=== PATIENT | female | born 1955 | race Caucasian/White ===

== ENCOUNTER 2017-06-05 15:52 | Emergency (ER) | payer SELFPAY ==
[~2017-06-05] VITALS: Ht 165.1 cm; Wt 68.0 kg
[~2017-06-05 15:52] MED LIST: ACHD5005 PO; CEPH500T PO; CIPR500T78 PO; DOXY100C2 PO; GUAI120S36 PO; METR500T PO; NITR100C44 PO; PROM12.59 PO; TOLTA4 PO
--- OUTSIDE RECORDS SUMMARY | 2017-06-05 15:58 | XMS REPORT ---
Author Author ROB LOCKETT eClinicalWorks Address Unknown Phone Unavailable Care Team Providers Care Hospital Carrier Name Role Phone ROB LOCKETT Unavailable Allergies, Adverse Reactions, Alerts Substance Reaction Event Type N.K.D.A. Info Not Available Non Drug Allergy Problems Problem Type Condition Code Onset Dates Condition Status Assessment Urinary tract infection N39.0 Active Problem 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 Active Problem Diverticulitis of colon (without mention of hemorrhage) 562.11 Active Problem Unspecified urinary incontinence 788.30 Active Problem Family history of diabetes mellitus V18.0 Active Assessment Back pain M54.9 Active Problem Solitary pulmonary nodule 793.11 Active Problem Other and unspecified endocrine, nutritional, metabolic, and immunity disorders V77.99 Active Medications Medication Code System Code Instructions Start Date End Date Status Dosage Benefiber [facility] [address]-94 Orally not defined Cipro [facility] [address]-37 500 MG Orally Twice a day May 10, 2015 May 17, 2015 1 tablet Pyridium [facility] [address]-91 100 MG Orally Three times a day May 10, 2015 May 12, 2015 1 tablet after meals Procedures Procedure Coding System Code Date Office Visit, Est Pt., Level 3 CPT-4 21083 May 10, 2015 URINE CULTURE/COLONY COUNT CPT-4 99919 May 10, 2015 Vital Signs Date/Time: May 10, 2015 Temperature 97.2 F Weight 152.6 lbs Height 65 in BMI 25.39 Index Blood Pressure Diastolic 66 mmHg Blood Pressure Systolic 102 mmHg Cardiac Monitoring Heart Rate 72 bpm Results Name Result Date Reference Range Unit Abnormality Flag UA LONG DIP (IN HOUSE) ----BETH 1+ 20150510 ----NIT negative 20150510 ----Exp date 20150510 ----Lot # [id number] ----SG 1.025 20150510 ----KET negative 20150510 ----ROSE negative 20150510 ----GLU negative 20150510 ----Odor none 20150510 ----pH 6.0 20150510 ----BLO 2+ 20150510 ----URO 0.2 20150510 ----Protein negaive 20150510 ----Lot # [id number] ----Exp date 20150510 ----Clarity clear 20150510 ----Color yellow 20150510 Summary Purpose eClinicalWorks Submission
--- OUTSIDE RECORDS SUMMARY | 2017-06-05 15:58 | XMS REPORT ---
Author Author SUMEET ISBELL [facility] eClinicalWorks Address Unknown Phone Unavailable Care Team Providers Care Hospice Music Therapist Name Role Phone SUMEET ISBELL CP Unavailable Allergies, Adverse Reactions, Alerts Substance Reaction Event Type N.K.D.A. Info Not Available Non Drug Allergy Problems Problem Type Condition Code Onset Dates Condition Status Problem 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 Active Problem Diverticulitis of colon (without mention of hemorrhage) 562.11 Active Problem Unspecified urinary incontinence 788.30 Active Problem Family history of diabetes mellitus V18.0 Active Assessment Bony prominence M89.8X9 Active Problem Solitary pulmonary nodule 793.11 Active Problem Other and unspecified endocrine, nutritional, metabolic, and immunity disorders V77.99 Active Medications Medication Code System Code Instructions Start Date End Date Status Dosage Benefiber [facility] [address]-06 Orally not defined Detrol [facility] [address]-99 2 MG Orally Twice a day 1 tablet by Oral route 2 times per day Anti-Diarrheal [facility] [address]-73 not defined Procedures Procedure Coding System Code Date Office Visit, Est Pt., Level 3 CPT-4 42922 Feb 11, 2015 X-RAY EXAM OF FOOT CPT-4 47428 Feb 11, 2015 Vital Signs Date/Time: Feb 11, 2015 Temperature 97.8 F Weight 149.8 lbs Height 65 in BMI 24.93 Index Blood Pressure Diastolic 68 mmHg Blood Pressure Systolic 100 mmHg Cardiac Monitoring Heart Rate 70 bpm Results No Known Results Summary Purpose eClinicalWorks Submission
--- OUTSIDE RECORDS SUMMARY | 2017-06-05 15:58 | XMS REPORT | Clinical Summary ---
Author Author [facility] Organization [facility] Address Unknown Phone Unavailable Care Team Providers Care Beverage Sales Consultant Name Role Phone Beto Whitlock MD Unavailable Unavailable Ted Zaman PCP Rom Kim RN Unavailable Unavailable Source Comments Some departments are not documenting in the electronic medical record. If you do not see the information that you expected, contact Release of Information in the Health Information Management department at [phone] for further assistance in locating additional records.[facility] Allergies No Known Allergies Current Medications No known medications Active Problems Problem Noted Date Solitary pulmonary nodule 09/23/2014 Social History Tobacco Use Types Packs/Day Years Used Date Never Smoker Alcohol Use Drinks/Week oz/Week Comments No Sex Assigned at Date Recorded Not on file Last Filed Vital Signs Vital Sign Reading Time Taken Blood Pressure 109/67 10/24/2014 1:24 PM CDT Pulse 87 10/24/2014 1:27 PM CDT Temperature 36.5 C (97.7 F) 10/24/2014 11:42 AM CDT Respiratory Rate 16 09/23/2014 9:16 AM CDT Oxygen Saturation 100% 10/24/2014 1:27 PM CDT Inhaled Oxygen - - Concentration Weight 65.8 kg (145 lb) 10/24/2014 11:42 AM CDT Height 165.1 cm (5' 5") 10/24/2014 11:42 AM CDT Body Mass Index 24.13 10/24/2014 11:42 AM CDT Plan of Treatment Health Maintenance Due Date Last Done Comments HEPATITIS C SCREENING 1956 PHYSICAL (COMPREHENSIVE) 11/20/1963 EXAM PERTUSSIS VACCINE 11/20/1967 TETANUS VACCINE 1973 CERVICAL CANCER SCREENING 1986 BREAST CANCER SCREENING 1996 SHINGLES VACCINE 2016 INFLUENZA VACCINE 12/07/2016 COLORECTAL CANCER 10/24/2024 10/24/2014 SCREENING Results Not on filefrom Last 3 Months
--- OUTSIDE RECORDS SUMMARY | 2017-06-05 15:58 | XMS REPORT ---
Author Author SUMEET ISBELL [facility] eClinicalWorks Address Unknown Phone Unavailable Care Team Providers Care Hospital Admissions Officer Name Role Phone SUMEET ISBELL CP Unavailable Allergies No Known Allergies Problems Problem Type Condition Code Onset Dates Condition Status Assessment Acute cystitis with hematuria N30.01 Active Problem Other and unspecified endocrine, nutritional, metabolic, and immunity disorders V77.99 Active Problem Family history of diabetes mellitus V18.0 Active Problem Insect bite (nonvenomous) of left upper arm, initial encounter S40.862A Active Problem Family history of diabetes mellitus Z83.3 Active Problem Acute cystitis with hematuria N30.01 Active Problem Diverticulitis of colon (without mention of hemorrhage) 562.11 Active Problem Solitary pulmonary nodule 793.11 Active Problem Unspecified urinary incontinence 788.30 Active Problem 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 Active Medications No Known Medications Procedures Procedure Coding System Code Date URINE CULTURE/COLONY COUNT CPT-4 16440 Dec 30, 2015 Results No Known Results Summary Purpose eClinicalWorks Submission
--- OUTSIDE RECORDS SUMMARY | 2017-06-05 15:58 | XMS REPORT ---
Author Author SUMEET ISBELL [facility] eClinicalWorks Address Unknown Phone Unavailable Care Team Providers Care Software Development Project Manager Name Role Phone SUMEET ISBELL CP Unavailable Allergies No Known Allergies Problems Problem Type Condition Code Onset Dates Condition Status Assessment Abnormal fasting glucose R73.01 Active Problem History of solitary pulmonary nodule Z87.898 Active Problem Abnormal fasting glucose R73.01 Active Problem General medical exam Z00.00 Active Problem Screening breast examination Z12.39 Active Problem Routine gynecological examination Z01.419 Active Problem Recurrent UTI N39.0 Active Problem Hematuria R31.9 Active Problem Vaginal discharge N89.8 Active Problem Vaginal yeast infection B37.3 Active Medications Medication Code System Code Instructions Start Date End Date Status Dosage Cipro [facility] [address]-91 250 MG Orally 2 times a day Feb 25, 2016 Mar 06, 2016 1 tablet Results No Known Results Summary Purpose eClinicalWorks Submission
--- OUTSIDE RECORDS SUMMARY | 2017-06-05 15:58 | XMS REPORT ---
Author Author SUMEET ISBELL [facility] eClinicalWorks Address Unknown Phone Unavailable Care Team Providers Care Foreign Languages Professor Name Role Phone SUMEET ISBELL CP Unavailable Allergies No Known Allergies Problems Problem Type Condition Code Onset Dates Condition Status Problem 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 Active Problem Diverticulitis of colon (without mention of hemorrhage) 562.11 Active Problem Unspecified urinary incontinence 788.30 Active Problem Family history of diabetes mellitus V18.0 Active Problem Solitary pulmonary nodule 793.11 Active Problem Other and unspecified endocrine, nutritional, metabolic, and immunity disorders V77.99 Active Medications No Known Medications Results No Known Results Summary Purpose eClinicalWorks Submission
--- OUTSIDE RECORDS SUMMARY | 2017-06-05 15:58 | XMS REPORT ---
Author Author SUMEET ISBELL Organization [employer]ClinicalWorks Address Unknown Phone Unavailable Care Team Providers Care Net Applications Developer Name Role Phone SUMEET ISBELL CP Unavailable Allergies No Known Allergies Problems Problem Type Condition Code Onset Dates Condition Status Assessment Hematuria R31.9 Active Problem History of solitary pulmonary nodule Z87.898 Active Problem Abnormal fasting glucose R73.01 Active Assessment Pre-diabetes R73.03 Active Problem General medical exam Z00.00 Active Problem Screening breast examination Z12.39 Active Problem Routine gynecological examination Z01.419 Active Problem Recurrent UTI N39.0 Active Problem Hematuria R31.9 Active Problem Vaginal discharge N89.8 Active Problem Vaginal yeast infection B37.3 Active Medications Medication Code System Code Instructions Start Date End Date Status Dosage Glucocard Expression Test [facility] 8317-247382 - In Vitro 2 times a day weekly Mar 03, 2016 test blood sugar Glucocard Expression Monitor [facility] 8317-516571 w/Device Mar 03, 2016 as directed Procedures Procedure Coding System Code Date Office Visit, Est Pt., Level 4 CPT-4 65605 Mar 11, 2016 Vital Signs Date/Time: Mar 11, 2016 Cardiac Monitoring Heart Rate 70 bpm Weight 152.0 lbs Height 65 in BMI 25.29 Index Blood Pressure Diastolic 72 mmHg Blood Pressure Systolic 116 mmHg Results No Known Results Summary Purpose eClinicalWorks Submission
--- OUTSIDE RECORDS SUMMARY | 2017-06-05 15:58 | XMS REPORT ---
Author Author SUMEET ISBELL Organization eClinicalWorks Address Unknown Phone Unavailable Care Team Providers Care Painter Sign Maintenance Name Role Phone SUMEET ISBELL CP Unavailable Allergies No Known Allergies Problems Problem Type Condition Code Onset Dates Condition Status Problem History of solitary pulmonary nodule Z87.898 Active Problem Abnormal fasting glucose R73.01 Active Problem General medical exam Z00.00 Active Problem Screening breast examination Z12.39 Active Problem Routine gynecological examination Z01.419 Active Problem Recurrent UTI N39.0 Active Problem Hematuria R31.9 Active Problem Vaginal discharge N89.8 Active Problem Vaginal yeast infection B37.3 Active Medications No Known Medications Results No Known Results Summary Purpose eClinicalWorks Submission
--- OUTSIDE RECORDS SUMMARY | 2017-06-05 15:58 | XMS REPORT ---
Author Author SUMEET ISBELL [facility] eClinicalWorks Address Unknown Phone Unavailable Care Team Providers Care Finance Admin Name Role Phone SUMEET ISBELL CP Unavailable [...] infection B37.3 Active Medications No Known Medications Procedures Procedure Coding System Code Date GLYCATED HEMOGLOBIN TEST CPT-4 22019 Feb 26, 2016 Results No Known Results Summary Purpose eClinicalWorks Submission
--- OUTSIDE RECORDS SUMMARY | 2017-06-05 15:58 | XMS REPORT ---
Author Author SUMEET ISBELL Organization eClinicalWorks Address Unknown Phone Unavailable Care Team Providers Care Laborer Carpentry Dock Name Role Phone SUMEET ISBELL CP Unavailable [...] Instructions Start Date End Date Status Dosage Diflucan [facility] [address]-86 100 MG Orally Once a day Mar 31, 2016 Apr 05, 2016 1 tablet Results No Known Results Summary Purpose eClinicalWorks Submission
--- OUTSIDE RECORDS SUMMARY | 2017-06-05 15:59 | XMS REPORT ---
Author Author SUMEET ISBELL [facility] Address [address] [place] [address] Care Team Providers Care Quill Reamer Name Role Phone SUMEET ISBELL Unavailable PROBLEMS Type Condition ICD9-CM Code [id number] Code Onset Dates Condition Status SNOMED Code Problem Recurrent UTI N39.0 Active 765186554 Problem Hematuria R31.9 Active 64167425 Problem History of solitary pulmonary nodule Z87.898 Active 622382961 Problem Abnormal fasting glucose R73.01 Active 814993442 ALLERGIES Unknown Allergies SOCIAL HISTORY No smoking Hx information available PLAN OF CARE VITAL SIGNS MEDICATIONS Unknown Medications RESULTS No Results PROCEDURES No Known procedures IMMUNIZATIONS No Known Immunizations
--- OUTSIDE RECORDS SUMMARY | 2017-06-05 15:59 | XMS REPORT ---
Author Author SUMEET ISBELL [facility] eClinicalWorks Address Unknown Phone Unavailable Care Team Providers Care Electrolog Operator Name Role Phone SUMEET ISBELL CP Unavailable Allergies, Adverse Reactions, Alerts Substance Reaction Event Type N.K.D.A. Info Not Available Non Drug Allergy Problems Problem Type Condition Code Onset Dates Condition Status Assessment Acute cystitis with hematuria N30.01 Active Problem Other and unspecified endocrine, nutritional, metabolic, and immunity disorders V77.99 Active Problem Family history of diabetes mellitus V18.0 Active Assessment Insect bite (nonvenomous) of left upper arm, initial encounter S40.862A Active Problem Insect bite (nonvenomous) of left upper arm, initial encounter S40.862A Active Problem Family history of diabetes mellitus Z83.3 Active Problem Acute cystitis with hematuria N30.01 Active Problem Diverticulitis of colon (without mention of hemorrhage) 562.11 Active Problem Solitary pulmonary nodule 793.11 Active Problem Unspecified urinary incontinence 788.30 Active Problem 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 Active Medications Medication Code System Code Instructions Start Date End Date Status Dosage Cipro [facility] [address]-49 250 MG Orally every 12 hrs November 20, 2015 November 30, 2015 1 tablet Procedures Procedure Coding System Code Date URINE CULTURE/COLONY COUNT CPT-4 25373 November 20, 2015 Office Visit, Est Pt., Level 3 CPT-4 35286 November 20, 2015 URINALYSIS, AUTO, W/O SCOPE CPT-4 68006 November 20, 2015 Vital Signs Date/Time: November 20, 2015 Cardiac Monitoring Heart Rate 68 bpm Weight 150.0 lbs Height 65 in Blood Pressure Diastolic 72 mmHg Blood Pressure Systolic 102 mmHg Results No Known Results Summary Purpose eClinicalWorks Submission
--- OUTSIDE RECORDS SUMMARY | 2017-06-05 15:59 | XMS REPORT ---
Author Author SUMEET ISBELL [facility] Address [address] [place] [address] Care Team Providers Care Mobile Heavy Equipment Operator Name Role Phone SUMEET ISBELL Unavailable PROBLEMS Type Condition ICD9-CM Code [id number] Code Onset Dates Condition Status SNOMED Code Problem Hematuria R31.9 Active 45456400 Problem Neuropathy G62.9 Active 045120952 Problem Porokeratosis Q82.8 Active 769262126 Problem Screening breast examination Z12.39 Active 679200979 Problem History of solitary pulmonary nodule Z87.898 Active 431187957 Problem Plantar wart, right foot B07.0 Active 08453561 Problem General medical exam Z00.00 Active 476752709 ALLERGIES No Information SOCIAL HISTORY Never Assessed PLAN OF CARE VITAL SIGNS MEDICATIONS Unknown Medications RESULTS No Results PROCEDURES No Known procedures IMMUNIZATIONS No Known Immunizations MEDICAL (GENERAL) HISTORY Type Description Date Medical History hearing loss Medical History Encopresis seen [facility] with Colonosocopy 2014 and was told normal Medical History solitary pulmonary nodule LLL 4-15 stable rec yearly recheck Medical History diverticulitis Medical History Encopresis Medical History Diverticulitis of colon (without mention of hemorrhage) Colonoscopy [facility] 2013 Medical History Solitary pulmonary nodule Surgical History tubal ligation Surgical History Colonoscopy [facility] 2015-10
--- OUTSIDE RECORDS SUMMARY | 2017-06-05 15:59 | XMS REPORT ---
Author Author CARLOZ LAGOS [facility] Address [address] [place] [address] Care Team Providers Care Meat Cutter Apprentice Name Role Phone CARLOZ LAGOS Unavailable PROBLEMS Type Condition ICD9-CM Code [id number] Code Onset Dates Condition Status SNOMED Code Problem Porokeratosis Q82.8 Active 767928023 Problem Plantar wart, right foot B07.0 Active 67976636 Problem Hematuria R31.9 Active 54110420 Problem History of solitary pulmonary nodule Z87.898 Active 919448058 Problem General medical exam Z00.00 Active 273591831 Problem Screening breast examination Z12.39 Active 833008411 ALLERGIES Unknown Allergies SOCIAL HISTORY No smoking Hx information available PLAN OF CARE VITAL SIGNS MEDICATIONS Unknown Medications RESULTS No Results PROCEDURES No Known procedures IMMUNIZATIONS No Known Immunizations
--- OUTSIDE RECORDS SUMMARY | 2017-06-05 15:59 | XMS REPORT ---
Author Author SUMEET ISBELL [facility] Address [address] [place] [address] Care Team Providers Care College Scouting Coordinator Name Role Phone SUMEET ISBELL Unavailable PROBLEMS Type Condition ICD9-CM Code [id number] Code Onset Dates Condition Status SNOMED Code Problem Abnormal fasting glucose R73.01 Active 305912403 Problem Hematuria R31.9 Active 25066105 Problem History of solitary pulmonary nodule Z87.898 Active 201787801 Problem Routine gynecological examination Z01.419 Active 285444488 Problem General medical exam Z00.00 Active 141181111 Problem Vaginal yeast infection B37.3 Active 60822375 Problem Recurrent UTI N39.0 Active 110593213 Problem Screening breast examination Z12.39 Active 189596191 Problem Vaginal discharge N89.8 Active 331545466 ALLERGIES Unknown Allergies SOCIAL HISTORY No smoking Hx information available PLAN OF CARE VITAL SIGNS MEDICATIONS Unknown Medications RESULTS No Results PROCEDURES No Known procedures IMMUNIZATIONS No Known Immunizations
--- OUTSIDE RECORDS SUMMARY | 2017-06-05 15:59 | XMS REPORT ---
Author Author SUMEET ISBELL Organization eClinicalWorks Address Unknown Phone Unavailable Care Team Providers Care Air Filler Name Role Phone SUMEET ISBELL CP Unavailable Allergies No Known Allergies Problems Problem Type Condition Code Onset Dates Condition Status Problem Other and unspecified endocrine, nutritional, metabolic, [...] Instructions Start Date End Date Status Dosage Bactrim DS [facility] [address]-52 800-160 MG Orally Twice a day Jan 06, 2016 Jan 13, 2016 1 tablet Results No Known Results Summary Purpose eClinicalWorks Submission
--- OUTSIDE RECORDS SUMMARY | 2017-06-05 15:59 | XMS REPORT ---
Author Author CALISTA WOOD Organization [facility] Address [address] [place] [address] Care Team Providers Care Machine I Engraver Name Role Phone ISRAEL CALISTA Unavailable PROBLEMS Type Condition ICD9-CM Code ZPV60-NE Code Onset Dates Condition Status SNOMED Code Problem Hematuria R31.9 Active 34011850 Problem Neuropathy G62.9 Active 328823490 Problem Porokeratosis Q82.8 Active 565165997 Problem Screening breast examination Z12.39 Active 881384896 Problem History of solitary pulmonary nodule Z87.898 Active 039892968 Problem Plantar wart, right foot B07.0 Active 40680894 Problem General medical exam Z00.00 Active 292964189 ALLERGIES No Information SOCIAL HISTORY Never Assessed PLAN OF CARE Activity Details Follow Up 6 Weeks Reason: VITAL SIGNS Height 65 in 2016-06-18 Blood pressure systolic 116 mmHg 2016-06-18 Blood pressure diastolic 82 mmHg 2016-06-18 MEDICATIONS Unknown Medications RESULTS No Results PROCEDURES No Known procedures IMMUNIZATIONS No Known Immunizations MEDICAL (GENERAL) HISTORY Type Description Date Medical History hearing loss Medical History Encopresis seen [facility] with Colonosocopy 2014 and was told normal Medical History solitary pulmonary nodule LLL 4-15-15 stable rec yearly recheck Medical History diverticulitis Medical History Encopresis Medical History Diverticulitis of colon (without mention of hemorrhage) Colonoscopy [facility] 2013 Medical History Solitary pulmonary nodule Surgical History tubal ligation Surgical History Colonoscopy [facility] 2015-10
--- OUTSIDE RECORDS SUMMARY | 2017-06-05 15:59 | XMS REPORT ---
Author Author SUMEET ISBELL Organization eClinicalWorks Address Unknown Phone Unavailable Care Team Providers Care Date Pitter Name Role Phone SUMEET ISBELL CP Unavailable [...] End Date Status Dosage Glucocard Expression Test [facility] 8317-213925 - In Vitro 2 times a day weekly Mar 03, 2016 test blood sugar Glucocard Expression Monitor [facility] 8317-493801 w/Device Mar 03, 2016 as directed Results No Known Results Summary Purpose eClinicalWorks Submission
--- OUTSIDE RECORDS SUMMARY | 2017-06-05 15:59 | XMS REPORT ---
Author Author SUMEET ISBELL [facility] Address [address] [place] [address] Care Team Providers Care Carbon Paper Interleafer Name Role Phone SUMEET ISBELL Unavailable PROBLEMS Type Condition ICD9-CM Code ULM44-ZZ Code Onset Dates Condition Status SNOMED Code Problem Recurrent UTI N39.0 Active 308674988 Problem Hematuria R31.9 Active 05963704 Assessment Recurrent UTI N39.0 Jan, Active 369970984 Problem History of solitary pulmonary nodule Z87.898 Active 063202352 Problem Abnormal fasting glucose R73.01 Active 392146005 ALLERGIES Substance Reaction Event Type Date Status N.K.D.A. Unknown Non Drug Allergy Jan, Unknown SOCIAL HISTORY No smoking Hx information available PLAN OF CARE VITAL SIGNS Height 65 in 2016-01-20 Weight 154.9 lbs 2016-01-20 Heart Rate 72 bpm 2016-01-20 Respiratory Rate 20 2016-01-20 BMI 25.77 kg/m2 2016-01-20 Blood pressure systolic 110 mmHg 2016-01-20 Blood pressure diastolic 68 mmHg 2016-01-20 MEDICATIONS Medication Instructions Dosage Frequency Start Date End Date Duration Status Bactrim DS 800-160 MG Orally Twice a day 1 tablet 12h Jan,Jan 07 days Active RESULTS Name Result Date Reference Range UA LONG DIP (IN HOUSE) 2016-01-20 Lot # [id number] Exp date 09/2016 Clarity slightly cloudy Color YELLOW Odor NO GLU neg ROSE neg KET neg SG 1.020 BLO 2+ pH 7.0 Protein neg URO 0.2 NIT neg BETH 1+ Lot # Exp date CULTURE, URINE 2016-01-20 Urine Culture, Routine Final report Result [address] Scan : Chest w/o Contrast 2016-01-26 PROCEDURES Procedure Date Ordered Related Diagnosis Body Site URINALYSIS, AUTO, W/O SCOPE Jan 20, 2016 URINE CULTURE/COLONY COUNT Jan 20, 2016 Office Visit, Est Pt., Level 4 Jan 20, 2016 IMMUNIZATIONS No Known Immunizations
--- OUTSIDE RECORDS SUMMARY | 2017-06-05 15:59 | XMS REPORT ---
Author Author SUMEET ISBELL [facility] Address [address] [place] [address] Care Team Providers Care Environmental Property Assessor Name Role Phone SUMEET ISBELL Unavailable PROBLEMS Type Condition ICD9-CM Code [id number] Code Onset Dates Condition Status SNOMED Code Problem Porokeratosis Q82.8 Active 004924845 Problem Plantar wart, right foot B07.0 Active 34645717 Problem Hematuria R31.9 Active 94228222 Problem History of solitary pulmonary nodule Z87.898 Active 152834529 Problem General medical exam Z00.00 Active 691771878 Problem Screening breast examination Z12.39 Active 573910701 ALLERGIES Substance Reaction Event Type Date Status N.K.D.A. Unknown Non Drug Allergy Apr, Unknown SOCIAL HISTORY No smoking Hx information available PLAN OF CARE Activity Details Follow Up Afer May 28 Reason:Pre-diabetes VITAL SIGNS Height 65 in 2016-04-27 Weight 153.7 lbs 2016-04-27 Temperature 98.6 degrees Fahrenheit 2016-04-27 Heart Rate 72 bpm 2016-04-27 Respiratory Rate 16 2016-04-27 BMI 25.57 kg/m2 2016-04-27 Blood pressure systolic 112 mmHg 2016-04-27 Blood pressure diastolic 76 mmHg 2016-04-27 MEDICATIONS Medication Instructions Dosage Frequency Start Date End Date Duration Status Glucocard Expression Monitor w/Device as directed Feb, Active Glucocard Expression Test - In Vitro 2 times a day weekly test blood sugar Feb, Active RESULTS No Results PROCEDURES Procedure Date Ordered Related Diagnosis Body Site Office Visit, Est Pt., Level 3 Apr 27, 2016 IMMUNIZATIONS No Known Immunizations
--- OUTSIDE RECORDS SUMMARY | 2017-06-05 15:59 | XMS REPORT ---
Author Author SUMEET ISBELL [facility] Address [address] [place] [address] Care Team Providers Care Biostatistics Professor Name Role Phone SUMEET ISBELL Unavailable PROBLEMS Type Condition ICD9-CM Code [id number] Code Onset Dates Condition Status SNOMED Code Problem Recurrent UTI N39.0 Active 775820302 Problem History of solitary pulmonary nodule Z87.898 Active 910001708 Problem Abnormal fasting glucose R73.01 Active 085009443 Assessment Recurrent UTI N39.0 Jan, Active 265229900 ALLERGIES Substance Reaction Event Type Date Status N.K.D.A. Unknown Non Drug Allergy Jan, Unknown SOCIAL HISTORY No smoking Hx information available PLAN OF CARE VITAL SIGNS Height 65 in 2016-01-27 Weight 153.0 lbs 2016-01-27 Heart Rate 68 bpm 2016-01-27 Respiratory Rate 16 2016-01-27 BMI 25.46 kg/m2 2016-01-27 Blood pressure systolic 92 mmHg 2016-01-27 Blood pressure diastolic 60 mmHg 2016-01-27 MEDICATIONS Medication Instructions Dosage Frequency Start Date End Date Duration Status Bactrim DS 800-160 MG Orally Twice a day 1 tablet 12h 07 days Active RESULTS No Results PROCEDURES Procedure Date Ordered Related Diagnosis Body Site Office Visit, Est Pt., Level 3 Jan 27, 2016 IMMUNIZATIONS No Known Immunizations
--- OUTSIDE RECORDS SUMMARY | 2017-06-05 15:59 | XMS REPORT ---
Author Author SUMEET ISBELL [facility] eClinicalWorks Address Unknown Phone Unavailable Care Team Providers Care Mental Health Program Specialist Name Role Phone SUMEET ISBELL CP Unavailable [...] Medications Procedures Procedure Coding System Code Date URINALYSIS, AUTO, W/O SCOPE CPT-4 81540 Dec 18, 2015 Results No Known Results Summary Purpose eClinicalWorks Submission
--- OUTSIDE RECORDS SUMMARY | 2017-06-05 15:59 | XMS REPORT ---
Author Author SUMEET ISBELL [facility] eClinicalWorks Address Unknown Phone Unavailable Care Team Providers Care Ophthalmology Technician Name Role Phone SUMEET ISBELL Unavailable Allergies, Adverse Reactions, Alerts Substance Reaction Event Type N.K.D.A. Info Not Available Non Drug Allergy Problems Problem Type Condition Code Onset Dates Condition Status Assessment Routine gynecological examination Z01.419 Active Problem History of solitary pulmonary nodule Z87.898 Active Problem Abnormal fasting glucose R73.01 Active Problem General medical exam Z00.00 Active Problem Screening breast examination Z12.39 Active Problem Routine gynecological examination Z01.419 Active Problem Recurrent UTI N39.0 Active Problem Hematuria R31.9 Active Problem Vaginal discharge N89.8 Active Problem Vaginal yeast infection B37.3 Active Assessment Vaginal discharge N89.8 Active Assessment Hematuria R31.9 Active Assessment Recurrent UTI N39.0 Active Assessment Screening breast examination Z12.39 Active Assessment Vaginal yeast infection B37.3 Active Assessment General medical exam Z00.00 Active Medications Medication Code System Code Instructions Start Date End Date Status Dosage Diflucan [facility] [address]-99 100 MG Orally daily Feb 19, 2016 Feb 29, 2016 1 tablet Procedures Procedure Coding System Code Date VENIPUNCT, ROUTINE* CPT-4 84065 Feb 19, 2016 SPECIMEN HANDLING CPT-4 16560 Feb 19, 2016 CULTURE, BACTERIA, OTHER CPT-4 16788 Feb 19, 2016 URINALYSIS, AUTO, W/O SCOPE CPT-4 77552 Feb 19, 2016 LIPID PANEL CPT-4 08264 Feb 19, 2016 COMPREHEN METABOLIC PANEL CPT-4 54684 Feb 19, 2016 Preventive Care Est Pt. Age 40-64 CPT-4 48271 Feb 19, 2016 TRICHOMONAS ASSAY W/OPTIC CPT-4 29331 Feb 19, 2016 OLMOS VAG, DNA, DIR PROBE CPT-4 40166 Feb 19, 2016 Office Visit, Est Pt., Level 4 CPT-4 22604 Feb 19, 2016 URINE CULTURE/COLONY COUNT CPT-4 06768 Feb 19, 2016 Vital Signs Date/Time: Feb 19, 2016 Cardiac Monitoring Heart Rate 76 bpm Weight 153.5 lbs Height 65 in BMI 25.54 Index Blood Pressure Diastolic 74 mmHg Blood Pressure Systolic 100 mmHg Results Name Result Date Reference Range Unit Abnormality Flag BACTERIAL VAGINOSIS (IN HOUSE) ----Lot # [id number] ----Exp date 20160219 ----RESULTS Negative 20160219 ----Control + [id number] ROUTINE VENIPUNCTURE TRICHOMONAS (IN HOUSE) ----TRICHOMONAS Negative 20160219 ----Control + 20160219 ----Lot # [id number] ----Exp date 20160219 UA W/CULTURE IF INDICATED (IN HOUSE) ----ROSE negative 20160219 ----GLU negative 20160219 ----SG 1.025 20160219 ----KET trace 20160219 ----pH 5.0 20160219 ----Protein negative 20160219 ----BLO 2+ 20160219 ----BETH 1+ 20160219 ----Color dark yellow 20160219 ----Odor yes 20160219 ----Exp date 20160219 ----URO 0.2 74183935 ----NIT negative 20160219 ----Clarity slighlty cloudy 20160219 ----Lot # [id number] Mammogram, Bilateral Screening LIPID PANEL ----LDL Cholesterol Calc 100 05579686 0-99 mg/dL H ----VLDL Cholesterol Maynor 15 30785607 5-40 mg/dL ----HDL Cholesterol 72 97782654 >39 mg/dL ----Triglycerides 74 03252442 0-149 mg/dL ----Cholesterol, Total 187 69004110 100-199 mg/dL CMP ----Glucose, Serum 114 83975324 65-99 mg/dL H ----BUN 17 28221418 6-24 mg/dL ----Creatinine, Serum 0.82 28754396 0.57-1.00 mg/dL ----Potassium, Serum 4.2 42989492 3.5-5.2 mmol/L ----Chloride, Serum 104 77871447 97-108 mmol/L ----ALT (SGPT) 19 47397073 0-32 IU/L ----AST (SGOT) 21 47256779 0-40 IU/L ----eGFR If NonAfricn Am 79 92862682 >59 mL/min/1.73 ----Alkaline Phosphatase, S 105 27048245 39-117 IU/L ----eGFR If Africn Am 91 37723279 >59 mL/min/1.73 ----Bilirubin, Total 0.4 93172506 0.0-1.2 mg/dL ----BUN/Creatinine Ratio 21 20160219 9-23 ----A/G Ratio 1.5 12900255 1.1-2.5 ----Sodium, Serum 144 92659304 134-144 mmol/L ----Carbon Dioxide, Total 23 20160219 18-29 mmol/L ----Calcium, Serum 9.0 51057251 8.7-10.2 mg/dL ----Protein, Total, Serum 7.4 02414804 6.0-8.5 g/dL ----Albumin, Serum 4.4 89251777 3.5-5.5 g/dL ----Globulin, Total 3.0 68435834 1.5-4.5 g/dL CULTURE, GENITAL ----Genital Culture, Routine Final report [id number] CT Scan : Abd & Pelvis w/o contrast (STONE PROTOCOL) CULTURE, URINE ----Result 1 Klebsiella pneumoniae 20160219 A ----Urine Culture, Routine Final report [id number] A Summary Purpose eClinicalWorks Submission
--- OUTSIDE RECORDS SUMMARY | 2017-06-05 16:00 | XMS REPORT | Continuity of Care Document ---
Author Author [facility] Ctr of [facility] Ctr of [facility] [place] Address Unknown Phone Unavailable Allergies Active Description Code Type Severity Reaction Onset Reported/Identified Relationship to Patient Clinical Status Yes tramadol [id number] Drug Allergy Unknown N/A 02/28/2014 Medications There is no data. Problems Date Dx Coded Attending Type Code Diagnosis Diagnosed By 07/21/2010 079.99 VIRAL SYNDROME 07/21/2010 079.99 VIRAL SYNDROME 07/21/2010 079.99 VIRAL SYNDROME 07/21/2010 079.99 VIRAL SYNDROME 07/21/2010 CARLOZ LAGOS DO 079.99 VIRAL SYNDROME 07/21/2010 CARLOZ LAGOS DO 079.99 VIRAL SYNDROME 07/21/2010 DONNA BARBER APRN 079.99 VIRAL SYNDROME 07/21/2010 LAGOS CARLOZ ARTEAGA K 079.99 VIRAL SYNDROME 07/21/2010 LAGOS CARLOZ ARTEAGA K 079.99 VIRAL SYNDROME 07/21/2010 LAGOS HERNANDEZ ARTEAGAA K 079.99 VIRAL SYNDROME 07/21/2010 FANNY ZARAGOZA PA-C 079.99 VIRAL SYNDROME 07/21/2010 LAGOS HERNANDEZ ARTEAGAA K 079.99 VIRAL SYNDROME 12/31/2010 682.5 CELLULITIS AND ABSCESS OF BUTTOCK 12/31/2010 786.2 COUGH 12/31/2010 682.5 CELLULITIS AND ABSCESS OF BUTTOCK 12/31/2010 786.2 COUGH 12/31/2010 682.5 CELLULITIS AND ABSCESS OF BUTTOCK 12/31/2010 786.2 COUGH 12/31/2010 682.5 CELLULITIS AND ABSCESS OF BUTTOCK 12/31/2010 786.2 COUGH 12/31/2010 CARLOZ LAGOS DO 682.5 CELLULITIS AND ABSCESS OF BUTTOCK 12/31/2010 CARLOZ LAGOS DO 786.2 COUGH 12/31/2010 CARLOZ LAGOS DO 682.5 CELLULITIS AND ABSCESS OF BUTTOCK 12/31/2010 LAGOS DO, CARLOZ K 786.2 COUGH 12/31/2010 KAYLEE BARBER APRNIA R 682.5 CELLULITIS AND ABSCESS OF BUTTOCK 12/31/2010 KAYLEE BARBER APRNIA R 786.2 COUGH 12/31/2010 LAGOS DO, CARLOZ K 682.5 CELLULITIS AND ABSCESS OF BUTTOCK 12/31/2010 LAGOS DO, CARLOZ K 786.2 COUGH 12/31/2010 LAGOS DO, CARLOZ K 682.5 CELLULITIS AND ABSCESS OF BUTTOCK 12/31/2010 LAGOS DO, CARLOZ K 786.2 COUGH 12/31/2010 LAGOS DO, CARLOZ K 682.5 CELLULITIS AND ABSCESS OF BUTTOCK 12/31/2010 LAGOS DO, CARLOZ K 786.2 COUGH 12/31/2010 FANNY ZARAGOZA PA-C 682.5 CELLULITIS AND ABSCESS OF BUTTOCK 12/31/2010 FANNY ZARAGOZA PA-C 786.2 COUGH 12/31/2010 LAGOS DO, CARLOZ K 682.5 CELLULITIS AND ABSCESS OF BUTTOCK 12/31/2010 LAGOS DO, CARLOZ K 786.2 COUGH 01/02/2011 041.12 MRSA, METHICILLIN RESISTANT 01/02/2011 041.12 MRSA, METHICILLIN RESISTANT 01/02/2011 041.12 MRSA, METHICILLIN RESISTANT 01/02/2011 041.12 MRSA, METHICILLIN RESISTANT 01/02/2011 LAGOS DO, CARLOZ K 041.12 MRSA, METHICILLIN RESISTANT 01/02/2011 LAGOS DO, CARLOZ K 041.12 MRSA, METHICILLIN RESISTANT 01/02/2011 DONNA BARBER APRN R 041.12 MRSA, METHICILLIN RESISTANT 01/02/2011 LAGOS DO, CARLOZ K 041.12 MRSA, METHICILLIN RESISTANT 01/02/2011 LAGOS DO, CARLOZ K 041.12 MRSA, METHICILLIN RESISTANT 01/02/2011 LAGOS DO, CARLOZ K 041.12 MRSA, METHICILLIN RESISTANT 01/02/2011 FANNY ZARAGOZA PA-C 041.12 MRSA, METHICILLIN RESISTANT 01/02/2011 LAGOS DO, CARLOZ K 041.12 MRSA, METHICILLIN RESISTANT 02/23/2011 522.5 PERIAPICAL ABSCESS WITHOUT SINUS 02/23/2011 522.5 PERIAPICAL ABSCESS WITHOUT SINUS 02/23/2011 522.5 PERIAPICAL ABSCESS WITHOUT SINUS 02/23/2011 522.5 PERIAPICAL ABSCESS WITHOUT SINUS 02/23/2011 LAGOS DO, CARLOZ K 522.5 PERIAPICAL ABSCESS WITHOUT SINUS 02/23/2011 LAGOS DO, CARLOZ K 522.5 PERIAPICAL ABSCESS WITHOUT SINUS 02/23/2011 DONNA BARBER APRN 522.5 PERIAPICAL ABSCESS WITHOUT SINUS 02/23/2011 LAGOS DO, CARLOZ K 522.5 PERIAPICAL ABSCESS WITHOUT SINUS 02/23/2011 LAGOS DO, CARLOZ K 522.5 PERIAPICAL ABSCESS WITHOUT SINUS 02/23/2011 LAGOS DO, ACRLOZ K 522.5 PERIAPICAL ABSCESS WITHOUT SINUS 02/23/2011 FANNY ZARAGOZA PA-C 522.5 PERIAPICAL ABSCESS WITHOUT SINUS 02/23/2011 LAGOS DO, CARLOZ K 522.5 PERIAPICAL ABSCESS WITHOUT SINUS 04/05/2011 461.9 SINUSITIS ACUTE 04/05/2011 461.9 SINUSITIS ACUTE 04/05/2011 461.9 SINUSITIS ACUTE 04/05/2011 461.9 SINUSITIS ACUTE 04/05/2011 LAGOS DO, CARLOZ K 461.9 SINUSITIS ACUTE 04/05/2011 LAGOS DO, CARLOZ K 461.9 SINUSITIS ACUTE 04/05/2011 DONNA BARBER APRN 461.9 SINUSITIS ACUTE 04/05/2011 LAGOS DO, CARLOZ K 461.9 SINUSITIS ACUTE 04/05/2011 LAGOS DO, CARLOZ K 461.9 SINUSITIS ACUTE 04/05/2011 LAGOS DO, CARLOZ K 461.9 SINUSITIS ACUTE 04/05/2011 FANNY ZARAGOZA PA-C 461.9 SINUSITIS ACUTE 04/05/2011 LAGOS DO, CARLOZ K 461.9 SINUSITIS ACUTE 05/30/2011 Ot 466.0 ACUTE BRONCHITIS 05/30/2011 Ot 786.2 COUGH 12/02/2011 924.9 BRUISE/ CONTUSION UNSPECIFIED SITE 12/02/2011 924.9 BRUISE/ CONTUSION UNSPECIFIED SITE 12/02/2011 924.9 BRUISE/ CONTUSION UNSPECIFIED SITE 12/02/2011 924.9 BRUISE/ CONTUSION UNSPECIFIED SITE 12/02/2011 LAGOS DO CARLOZ K 924.9 BRUISE/CONTUSION UNSPECIFIED SITE 12/02/2011 LAGOS DO CARLOZ K 924.9 BRUISE/CONTUSION UNSPECIFIED SITE 12/02/2011 BARBER VOCATIONAL TRAINING INSTRUCTOR, DONNA R 924.9 BRUISE/CONTUSION UNSPECIFIED SITE 12/02/2011 LAGOS DO, CARLOZ K 924.9 BRUISE/CONTUSION UNSPECIFIED SITE 12/02/2011 LAGOS DO, CARLOZ K 924.9 BRUISE/CONTUSION UNSPECIFIED SITE 12/02/2011 LAGOS DO, CARLOZ K 924.9 BRUISE/CONTUSION UNSPECIFIED SITE 12/02/2011 FANNY ZARAGOZA PA-C 924.9 BRUISE/CONTUSION UNSPECIFIED SITE 12/02/2011 LAGOS DO, CARLOZ K 924.9 BRUISE/CONTUSION UNSPECIFIED SITE 10/10/2012 465.9 UPPER RESPIRATORY INFECTION 10/10/2012 465.9 UPPER RESPIRATORY INFECTION 10/10/2012 465.9 UPPER RESPIRATORY INFECTION 10/10/2012 465.9 UPPER RESPIRATORY INFECTION 10/10/2012 LAGOS DO, CARLOZ K 465.9 UPPER RESPIRATORY INFECTION 10/10/2012 LAGOS DO, CARLOZ K 465.9 UPPER RESPIRATORY INFECTION 10/10/2012 DONNA BARBER APRN R 465.9 UPPER RESPIRATORY INFECTION 10/10/2012 LAGOS DO, CARLOZ K 465.9 UPPER RESPIRATORY INFECTION 10/10/2012 LAGOS DO, CARLOZ K 465.9 UPPER RESPIRATORY INFECTION 10/10/2012 LAGOS DO, CARLOZ K 465.9 UPPER RESPIRATORY INFECTION 10/10/2012 FANNY ZARAGOZA PA-C 465.9 UPPER RESPIRATORY INFECTION 10/10/2012 LAGOS DO, CARLOZ K 465.9 UPPER RESPIRATORY INFECTION 12/11/2012 307.7 ENCOPRESIS 12/11/2012 788.30 URINARY INCONTINENCE UNSPECIFIED 12/11/2012 307.7 ENCOPRESIS 12/11/2012 788.30 URINARY INCONTINENCE UNSPECIFIED 12/11/2012 307.7 ENCOPRESIS 12/11/2012 788.30 URINARY INCONTINENCE UNSPECIFIED 12/11/2012 LAGOS DO, CARLOZ K 307.7 ENCOPRESIS 12/11/2012 LAGOS DO, CARLOZ K 788.30 URINARY INCONTINENCE UNSPECIFIED 12/11/2012 LAGOS DO, CARLOZ K 307.7 ENCOPRESIS 12/11/2012 LAGOS DO, CARLOZ K 788.30 URINARY INCONTINENCE UNSPECIFIED 12/11/2012 DONNA BARBER APRN R 307.7 ENCOPRESIS 12/11/2012 DONNA BARBER APRN R 788.30 URINARY INCONTINENCE UNSPECIFIED 12/11/2012 LAGOS DO, CARLOZ K 307.7 ENCOPRESIS 12/11/2012 LAGOS DO, CARLOZ K 788.30 URINARY INCONTINENCE UNSPECIFIED 12/11/2012 LAGOS DO, CARLOZ K 307.7 ENCOPRESIS 12/11/2012 LAGOS DO, CARLOZ K 788.30 URINARY INCONTINENCE UNSPECIFIED 12/11/2012 LAGOS DO, CARLOZ K 307.7 ENCOPRESIS 12/11/2012 LAGOS DO, CARLOZ K 788.30 URINARY INCONTINENCE UNSPECIFIED 12/11/2012 FANNY ZARAGOZA PA-C 307.7 ENCOPRESIS 12/11/2012 FANNY ZARAGOZA PA-C 788.30 URINARY INCONTINENCE UNSPECIFIED 12/11/2012 LAGOS DO, CARLOZ K 307.7 ENCOPRESIS 12/11/2012 LAGOS DO, CARLOZ K 788.30 URINARY INCONTINENCE UNSPECIFIED 01/11/2013 787.91 DIARRHEA 01/11/2013 787.91 DIARRHEA 01/11/2013 LAGOS DO, CARLOZ K 787.91 DIARRHEA 01/11/2013 LAGOS DO, CARLOZ K 787.91 DIARRHEA 01/11/2013 RADHA BARBER APRNRICIA R 787.91 DIARRHEA 01/11/2013 LAGOS DO, CARLOZ K 787.91 DIARRHEA 01/11/2013 LAGOS DO, CARLOZ K 787.91 DIARRHEA 01/11/2013 LAGOS DO, CARLOZ K 787.91 DIARRHEA 01/11/2013 FANNY ZARAGOZA PA-C 787.91 DIARRHEA 01/11/2013 LAGOS DO, CARLOZ K 787.91 DIARRHEA 05/14/2013 LAGOS DO, CARLOZ K 388.70 OTALGIA 05/14/2013 LAGOS DO, CARLOZ K 528.9 MOUTH PAIN 05/14/2013 ELISABETH VOCATIONAL TRAINING INSTRUCTOR, DONNA R 388.70 OTALGIA 05/14/2013 ELISABETH VOCATIONAL TRAINING INSTRUCTOR, DONNA R 528.9 MOUTH PAIN 05/14/2013 LAGOS DO, CARLOZ K 388.70 OTALGIA 05/14/2013 LAGOS DO, CARLOZ K 528.9 MOUTH PAIN 05/14/2013 LAGOS DO, CARLOZ K 388.70 OTALGIA 05/14/2013 LAGOS DO, CARLOZ K 528.9 MOUTH PAIN 05/14/2013 LAGOS DO, CARLOZ K 388.70 OTALGIA 05/14/2013 LAGOS DO, CARLOZ K 528.9 MOUTH PAIN 05/14/2013 MILA SIGALA, FANNY Botello 388.70 OTALGIA 05/14/2013 MILA SIGALA, FANNY Botello 528.9 MOUTH PAIN 05/14/2013 LAGOS DO, CARLOZ K 388.70 OTALGIA 05/14/2013 LAGOS DO, CARLOZ K 528.9 MOUTH PAIN 07/11/2013 BARBER VOCATIONAL TRAINING INSTRUCTOR, DONNA R 599.0 URINARY TRACT INFECTION 07/11/2013 LAGOS DO, CARLOZ K 599.0 URINARY TRACT INFECTION 07/11/2013 LAGOS DO, CARLOZ K 599.0 URINARY TRACT INFECTION 07/11/2013 LAGOS DO, CARLOZ K 599.0 URINARY TRACT INFECTION 07/11/2013 FANNY ZARAGOZA PA-C 599.0 URINARY TRACT INFECTION 07/11/2013 LAGOS DO, CARLOZ K 599.0 URINARY TRACT INFECTION 08/13/2013 COLEMAN PALACIO Ot 562.11 DIVERTICULITIS COLON (W/O MENT OF HEMORR 08/13/2013 COLEMAN PALACIO Ot 599.0 URIN TRACT INFECTION NOS 08/13/2013 COLEMAN PALACIO Ot 789.04 ABDOMINAL PAIN, LEFT LOWER QUADRANT 08/13/2013 COLEMAN PALACIO Ot 793.11 SOLITARY PULMONARY NODULE 08/14/2013 LAGOS DO, CARLOZ K 562.11 DIVERTICULITIS OF COLON (WITHOUT HEMORRHAGE) 08/14/2013 LAGOS DO, CARLOZ K 793.11 SOLITARY PULMONARY NODULE 08/14/2013 LAGOS DO, CARLOZ K 562.11 DIVERTICULITIS OF COLON (WITHOUT HEMORRHAGE) 08/14/2013 LAGOS DO, CARLOZ K 793.11 SOLITARY PULMONARY NODULE 08/14/2013 LAGOS DO, CARLOZ K 562.11 DIVERTICULITIS OF COLON (WITHOUT HEMORRHAGE) 08/14/2013 LAGOS DO, CARLOZ K 793.11 SOLITARY PULMONARY NODULE 08/14/2013 FANNY ZARAGOZA PA-C 562.11 DIVERTICULITIS OF COLON (WITHOUT HEMORRHAGE) 08/14/2013 FANNY ZARAGOZA PA-C 793.11 SOLITARY PULMONARY NODULE 08/14/2013 LAGOS DO, CARLOZ K 562.11 DIVERTICULITIS OF COLON (WITHOUT HEMORRHAGE) 08/14/2013 LAGOS DO, CARLOZ K 793.11 SOLITARY PULMONARY NODULE 09/17/2013 LISA ERWIN VOCATIONAL TRAINING INSTRUCTOR Ot 845.00 SPRAIN OF ANKLE NOS 09/17/2013 LISA ERWIN VOCATIONAL TRAINING INSTRUCTOR Ot 959.7 LOWER LEG INJURY NOS 09/17/2013 LISA ERWIN VOCATIONAL TRAINING INSTRUCTOR Ot E000.8 OTHER EXTERNAL CAUSE STATUS 09/17/2013 LISA ERWIN VOCATIONAL TRAINING INSTRUCTOR Ot E849.0 ACCIDENT IN HOME 09/17/2013 LISA ERWIN VOCATIONAL TRAINING INSTRUCTOR Ot E927.0 OVEREXERTION FROM SUDDEN STRENUOUS MOVEM 04/12/2014 HERNANDEZ LAGOS DOA K 466.0 BRONCHITIS, ACUTE 04/12/2014 HERNANDEZ LAGOS DOA K 466.0 BRONCHITIS, ACUTE 04/12/2014 FANNY ZARAGOZA PA-C 466.0 BRONCHITIS, ACUTE 04/12/2014 CARLOZ LAGOS DO K 466.0 BRONCHITIS, ACUTE 05/21/2014 HERNANDEZ LAGOS DOA K 729.82 CRAMP OF LIMB 05/21/2014 HERNANDEZ LAGOS DOA K V18.0 FAMILY HISTORY OF DIABETES MELLITUS 05/21/2014 HERNANDEZ LAGOS DOA K V77.99 SCREENING FOR OTHER AND UNSPECIFIED ENDOCRINE NUTRITIONAL METABOLIC AND IMMUNITY DISORDERS 05/21/2014 FANNY ZARAGOZA PA-C 729.82 CRAMP OF LIMB 05/21/2014 FANNY ZARAGOZA PA-C V18.0 FAMILY HISTORY OF DIABETES MELLITUS 05/21/2014 FANNY ZARAGOZA PA-C V77.99 SCREENING FOR OTHER AND UNSPECIFIED ENDOCRINE NUTRITIONAL METABOLIC AND IMMUNITY DISORDERS 05/21/2014 CARLOZ LAGOS DO K 729.82 CRAMP OF LIMB 05/21/2014 CARLOZ LAGOS DO K V18.0 FAMILY HISTORY OF DIABETES MELLITUS 05/21/2014 HERNANDEZ LAGOS DOA K V77.99 SCREENING FOR OTHER AND UNSPECIFIED ENDOCRINE NUTRITIONAL METABOLIC AND IMMUNITY DISORDERS 08/22/2014 CARLOZ LAGOS DO 389.9 UNSPECIFIED HEARING LOSS 08/23/2014 FANNY SEGURA Ot 492.8 08/23/2014 FANNY SEGURA Ot 562.11 08/23/2014 FANNY SEGURA Ot 599.0 08/23/2014 FANNY SEGURA Ot 793.11 08/23/2014 FANNY SEGURA Ot 793.11 10/16/2014 FANNY SEGURA Ot 496 10/16/2014 MILA ESPARZA, FANNY M Ot 793.11 09/02/2015 SALVADOR WHYTE MD Ot N39.0 URINARY TRACT INFECTION, SITE NOT SPECIF 09/02/2015 SALVADOR WHYTE MD Ot R11.2 NAUSEA WITH VOMITING, UNSPECIFIED 09/02/2015 SALVADOR WHYTE MD Ot R19.7 DIARRHEA, UNSPECIFIED 09/07/2015 SALVADOR WHYTE MD Ot N39.0 URINARY TRACT INFECTION, SITE NOT SPECIF 09/07/2015 SALVADOR WHYTE MD Ot R11.2 NAUSEA WITH VOMITING, UNSPECIFIED 09/07/2015 SALVADOR WHYTE MD Ot R19.7 DIARRHEA, UNSPECIFIED 01/22/2016 PRASHANTH SEGURAUA M Ot 492.8 EMPHYSEMA NEC 01/22/2016 SUDHA SEGURASHUA M Ot 562.11 DIVERTICULITIS COLON (W/O MENT OF HEMORR 01/22/2016 PRASHANTH SEGURAUA M Ot 599.0 URIN TRACT INFECTION NOS 01/22/2016 SUDHA SEGURASHUA M Ot 793.11 SOLITARY PULMONARY NODULE 01/22/2016 PRASHANTH SEGURAUA M Ot 793.11 SOLITARY PULMONARY NODULE 01/22/2016 PRASHANTH SEGURAUA M Ot 496 CHR AIRWAY OBSTRUCT NEC 01/22/2016 SUDHA SEGURASHUA M Ot 793.11 SOLITARY PULMONARY NODULE 01/26/2016 SUDHA SEGURASHUA M Ot 492.8 EMPHYSEMA NEC 01/26/2016 SUDHA SEGURASHUA M Ot 562.11 DIVERTICULITIS COLON (W/O MENT OF HEMORR 01/26/2016 SUDHA SEGURASHUA M Ot 599.0 URIN TRACT INFECTION NOS 01/26/2016 SUDHA SEGURASHUA M Ot 793.11 SOLITARY PULMONARY NODULE 01/26/2016 SUDHA SEGURASHUA M Ot 793.11 SOLITARY PULMONARY NODULE 01/26/2016 SUDHA SEGURASHUA M Ot 496 CHR AIRWAY OBSTRUCT NEC 01/26/2016 SUDHA SEGURASHUA M Ot 793.11 SOLITARY PULMONARY NODULE 01/26/2016 SUDHA SEGURASHUA M Ot 492.8 EMPHYSEMA NEC 01/26/2016 FANNY SEGURA Ot 562.11 DIVERTICULITIS COLON (W/O MENT OF HEMORR 01/26/2016 FANNY SEGURA Ot 599.0 URIN TRACT INFECTION NOS 01/26/2016 FANNY SEGURA Ot 793.11 SOLITARY PULMONARY NODULE 01/26/2016 FANNY SEGURA Ot 793.11 SOLITARY PULMONARY NODULE 01/27/2016 SUMEET ISBELLP Ot R91.1 SOLITARY PULMONARY NODULE 02/04/2016 FANNY SEGURA M Ot 492.8 EMPHYSEMA NEC 02/04/2016 FANNY SEGURA Ot 562.11 DIVERTICULITIS COLON (W/O MENT OF HEMORR 02/04/2016 FANNY SEGURA Ot 599.0 URIN TRACT INFECTION NOS 02/04/2016 FANNY SEGURA Ot 793.11 SOLITARY PULMONARY NODULE 02/04/2016 FANNY SEGURA Ot 793.11 SOLITARY PULMONARY NODULE 02/25/2016 FANNY SEGURA Ot 492.8 EMPHYSEMA NEC 02/25/2016 FANNY SEGURA Ot 562.11 DIVERTICULITIS COLON (W/O MENT OF HEMORR 02/25/2016 FANNY SEGUAR Ot 599.0 URIN TRACT INFECTION NOS 02/25/2016 FANNY SEGURA Ot 793.11 SOLITARY PULMONARY NODULE 02/25/2016 FANNY SEGURA Ot 793.11 SOLITARY PULMONARY NODULE 02/25/2016 FANNY SEGURA Ot 496 CHR AIRWAY OBSTRUCT NEC 02/25/2016 FANNY SEGURA Ot 793.11 SOLITARY PULMONARY NODULE 02/25/2016 SUMEET ISBELL DESKTOP SPECIALIST Ot R91.1 SOLITARY PULMONARY NODULE 02/26/2016 SUMEET ISBELL DESKTOP SPECIALIST Ot Z12.31 ENCNTR SCREEN MAMMOGRAM FOR MALIGNANT NE 02/27/2016 SUMEET ISBELL DESKTOP SPECIALIST Ot R91.1 SOLITARY PULMONARY NODULE Procedures Code [place] [address] HEMOCCULT 12/21/2012 76281 HEMOCCULT 12/21/2012 51496 STOOL FOR POLYS & LEUKOCYTES 01/18/2013 26188 STOOL FOR O & P 01/18/2013 48444 FATS/LIPIDS FECES, QUAL 01/18/2013 General S Cadena, Art 02/14/2013 34034 UA LONG DIP 07/11/2013 42210 CULTURE URINE 07/11/[address] CHEST W/DYE 08/14/2013 80067 ROUTINE VENIPUNCTURE 05/21/2014 02280 CMP 05/21/2014 00220 A1C (IN-HOUSE) 05/21/2014 13173 LIPID PANEL 08/06/2014 73882 ROUTINE VENIPUNCTURE 08/06/[address] CHEST W/O DYE 08/22/2014 02943 PURE TONE HEARING TEST AIR 08/22/2014 OTOLARYNG ARAM SILVA 08/22/2014 Results There is no data. Encounters ACCT No. Visit Date/Time Discharge Status Pt. Type Provider Facility Loc./Unit Complaint [id number] 08/22/2014 09:04:00 08/22/2014 23:59:59 CLS Outpatient CARLOZ LAGOS DO [id number] 08/06/2014 08:32:00 08/06/2014 23:59:59 CLS Outpatient FANNY ZARAGOZA PA-C [id number] 05/21/2014 10:52:00 05/21/2014 23:59:59 CLS Outpatient CARLOZ LAGOS DO [id number] 04/12/2014 13:14:00 04/12/2014 23:59:59 CLS Outpatient CARLOZ LAGOS DO [id number] 08/14/2013 11:20:00 08/14/2013 23:59:59 CLS Outpatient CARLOZ LAGOS DO [id number] 07/11/2013 13:02:00 07/11/2013 23:59:59 CLS Outpatient DONNA BARBER APRN [id number] 05/14/2013 12:52:00 05/14/2013 23:59:59 CLS Outpatient CARLOZ LAGOS DO [id number] 01/24/2013 10:28:00 01/24/2013 23:59:59 CLS Outpatient CARLOZ LAGOS DO [id number] 01/17/2013 08:00:00 Document Registration [id number] 01/11/2013 08:49:00 Document Registration [id number] 12/21/2012 12:48:00 Document Registration [id number] 10/10/2012 17:23:00 Document Registration [id number] 02/25/2016 11:28:00 02/25/2016 23:59:59 CLS Outpatient SUMEET ISBELL DESKTOP SPECIALIST [facility] RAD HEMATURIA [id number] 02/25/2016 11:23:00 02/25/2016 23:59:59 CLS Outpatient SUMEET ISBELL DESKTOP SPECIALIST [facility] RAD SCREENING BREAST [id number] 01/26/2016 13:01:00 01/26/2016 23:59:59 CLS Outpatient SUMEET ISBELL DESKTOP SPECIALIST [facility] RAD HX OF SOLITARY PULMONARY NODULE [id number] 09/02/2015 11:14:00 09/02/2015 14:41:00 DIS Emergency SALVADOR WHYTE MD [facility] ER COUGH/CONGESTION V/D [id number] 11/11/2014 12:41:00 11/11/2014 23:59:59 CLS Outpatient SARINA RODRIGUEZ DESKTOP SPECIALIST [facility] OCC SLIPPED AND FELL WITH ARM UNDER HER [id number] 08/26/2014 12:24:00 08/26/2014 23:59:59 CLS Outpatient FANNY SEGURA [facility] RAD 6 MO FOLLOW UP 8MM NODULE IN LEFT LOBE [id number] 02/28/2014 07:59:00 02/28/2014 23:59:59 CLS Outpatient FANNY SEGURA [facility] RAD SOLITARY PULMONARY NODULE [id number] 2013 11:02:00 2013 23:59:59 CLS Outpatient FANNY SEGURA [facility] RAD 8MM NODULE LL LUNG [id number] 09/17/2013 14:38:00 09/17/2013 15:41:00 DIS Emergency LISA ERWIN APRN [facility] ER LEFT FOOT/ANKLE PAIN [id number] 08/13/2013 12:46:00 08/13/2013 15:42:00 DIS Emergency COLEMAN PALACIO [facility] ER LOWER LEFT GROIN PAIN [id number] 05/30/2011 17:39:00 Document Registration
--- OUTSIDE RECORDS SUMMARY | 2017-06-05 16:00 | XMS REPORT ---
Author Author SUMEET ISBELL [facility] Address [address] [place] [address] Care Team Providers Care Boiling Tub Operator Name Role Phone SUMEET ISBELL Unavailable PROBLEMS Type Condition ICD9-CM Code [id number] Code Onset Dates Condition Status SNOMED Code Problem Abnormal fasting glucose R73.01 Active 050223433 Assessment Recurrent UTI N39.0 Jan, Active 988468015 ALLERGIES Unknown Allergies SOCIAL HISTORY No smoking Hx information available PLAN OF CARE VITAL SIGNS MEDICATIONS Unknown Medications RESULTS No Results PROCEDURES No Known procedures IMMUNIZATIONS No Known Immunizations
--- OUTSIDE RECORDS SUMMARY | 2017-06-05 16:00 | XMS REPORT ---
Author Author SUMEET ISBELL [facility] [employer] Address Unknown Phone Unavailable Care Team Providers Care Engineering Secretary Name Role Phone SUMEET ISBELL CP Unavailable [...] 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 Active Medications No Known Medications Results No Known Results Summary Purpose [employer] Submission
--- OUTSIDE RECORDS SUMMARY | 2017-06-05 16:00 | XMS REPORT ---
Author Author SUMEET ISBELL [facility] Address [address] [place] [address] Care Team Providers Care Financial Coach Name Role Phone SUMEET ISBELL Unavailable PROBLEMS Type Condition ICD9-CM Code [id number] Code Onset Dates Condition Status SNOMED Code Problem Abnormal fasting glucose R73.01 Active 327525926 Problem Hematuria R31.9 Active 78970207 Problem History of solitary pulmonary nodule Z87.898 Active 225394566 Problem Routine gynecological examination Z01.419 Active 516943949 Problem General medical exam Z00.00 Active 444781253 Problem Vaginal yeast infection B37.3 Active 78552100 Problem Recurrent UTI N39.0 Active 748058071 Problem Screening breast examination Z12.39 Active 762645273 Problem Vaginal discharge N89.8 Active 340025561 ALLERGIES Unknown Allergies SOCIAL HISTORY No smoking Hx information available PLAN OF CARE VITAL SIGNS MEDICATIONS Unknown Medications RESULTS No Results PROCEDURES No Known procedures IMMUNIZATIONS No Known Immunizations
--- OUTSIDE RECORDS SUMMARY | 2017-06-05 16:00 | XMS REPORT ---
Author Author SUMEET ISBELL [facility] Address [address] [place] [address] Care Team Providers Care Hand Rug Braider Name Role Phone SUMEET ISBELL Unavailable PROBLEMS Type Condition ICD9-CM Code [id number] Code Onset Dates Condition Status SNOMED Code Problem Hematuria R31.9 Active 41135820 Problem Neuropathy G62.9 Active 002853020 Problem Porokeratosis Q82.8 Active 609734780 Problem Screening breast examination Z12.39 Active 987244270 Problem History of solitary pulmonary nodule Z87.898 Active 084933887 Problem Plantar wart, right foot B07.0 Active 77519438 Problem General medical exam Z00.00 Active 068251401 ALLERGIES No Information SOCIAL HISTORY Never Assessed PLAN OF CARE VITAL SIGNS MEDICATIONS Unknown Medications RESULTS No Results PROCEDURES No Known procedures IMMUNIZATIONS No Known Immunizations MEDICAL (GENERAL) HISTORY Type Description Date Medical History hearing loss Medical History Encopresis seen [facility] with Colonosocopy 2014 and was told normal Medical History solitary pulmonary nodule LLL 4-15 stable rec yearly recheck Medical History diverticulitis Medical History Encopresis Medical History Diverticulitis of colon (without mention of hemorrhage) Colonoscopy [facility] 2013 Medical History Solitary pulmonary nodule Surgical History tubal ligation Surgical History Colonoscopy [facility] 2015-10
--- OUTSIDE RECORDS SUMMARY | 2017-06-05 16:00 | XMS REPORT ---
Author Author SUMEET ISBELL Organization [employer] Address Unknown Phone Unavailable Care Team Providers Care Durable Medical Equipment Repairer Name Role Phone SUMEET ISBELL CP Unavailable [...] Instructions Start Date End Date Status Dosage Macrobid [facility] [address]-94 100 MG Orally every 12 hrs Jan 02, 2016Jan 1 capsule with food Results No Known Results Summary Purpose [employer] Submission
--- OUTSIDE RECORDS SUMMARY | 2017-06-05 16:00 | XMS REPORT ---
Author Author SUMEET ISBELL [facility] Address [address] [place] [address] Care Team Providers Care Pneumatic System Conveyor Operator Name Role Phone SUMEET ISBELL Unavailable PROBLEMS Type Condition ICD9-CM Code [id number] Code Onset Dates Condition Status SNOMED Code Problem Abnormal fasting glucose R73.01 Active 978765531 Problem Hematuria R31.9 Active 99345377 Problem History of solitary pulmonary nodule Z87.898 Active 596390245 Problem Routine gynecological examination Z01.419 Active 399787248 Problem General medical exam Z00.00 Active 760328359 Problem Vaginal yeast infection B37.3 Active 09609849 Problem Recurrent UTI N39.0 Active 900972269 Problem Screening breast examination Z12.39 Active 075289717 Problem Vaginal discharge N89.8 Active 945508503 ALLERGIES Unknown Allergies SOCIAL HISTORY No smoking Hx information available PLAN OF CARE VITAL SIGNS MEDICATIONS Unknown Medications RESULTS No Results PROCEDURES No Known procedures IMMUNIZATIONS No Known Immunizations
--- OUTSIDE RECORDS SUMMARY | 2017-06-05 16:00 | XMS REPORT ---
Author Author SUMEET ISBELL Organization [employer] Address Unknown Phone Unavailable Care Team Providers Care Assistant Hall Director Name Role Phone SUMEET ISBELL CP Unavailable [...]
[2017-06-05] MEDS ORDERED: LACTATED RINGERS 1,000 ML IV ONE (18:02)
--- NOTE | 2017-06-05 18:08 | ED Cough/URI ---
General Chief Complaint: Cough/Cold/Flu Symptoms Stated Complaint: FLU SYMPTOMS Nursing Triage Note: PT C/O COUGH, CONGESTION, WEAKNESS, SOA WORSENING OVER THE PAST 3-4 DAYS. DECREASED APPETITE, NAUSEA. GRANDDAUGHTER WAS RECENTLY DIAGNOSED WITH INFLUENZA. Source: patient (YAMILEX ORTIZ DO) History of Present Illness Date Seen by Provider: Jun 05, 2017 Time Seen by Provider: 18:00 Initial Comments C/O NON-PRODUCTIVE COUGH, CONGESTION X 3-4 DAYS HAS HAD SUBJECTIVE FEVER AT HOME--IS 89 ON ARRIVAL TO ER C/O RIBS, ABDOMEN AND CHEST HURT TO COUGH C/O SHORTNESS OF BREATH C/O SORE THROAT C/O GENERALIZED WEAKNESS AND BODY ACHES C/O DECREASED APPETITE/INTAKE GRAND DAUGHTER DX WITH INFLUENZA PCP: JONG-DEMETRI (YAMILEX ORTIZ DO) Allergies and Home Medications Allergies Coded Allergies: tramadol (Verified Allergy, Unknown, 02/28/14) Home Medications Benzonatate 100 Mg Capsule, 1-2 TAB PO TID, #30 Prescribed by: YAMILEX ORTIZ on 06/05/171943 Cefdinir 300 Mg Capsule, 300 MG PO BID, #20 Prescribed by: YAMILEX ORTIZ on 06/05/171943 Cephalexin 500 Mg Tablet, 500 MG PO TID, #20 Ref 0 Prescribed by: SALVADOR WHYTE on 09/02/15 1403 Fluticasone Propionate 9.9 Ml [place].susp, 2 SPRAYS NS BID, #1 Prescribed by: YAMILEX ORTIZ on 06/05/171943 Guaifenesin/Dextromethorphan 1 Each Tbmp.12hr, 1 EACH PO BID for 10 Days, #20 Prescribed by: YAMILEX ORTIZ on 06/05/171943 Methylprednisolone 4 Mg Tab.ds.pk, 4 MG PO UD, #1 Prescribed by: YAMILEX ORTIZ on 06/05/171943 Tolterodine Tartrate 4 Mg Cap, 4 MG PO DAILY, (Reported) Constitutional: see HPI, fever, malaise, weakness EENTM: nose congestion, throat pain Respiratory: see HPI, cough, No phlegm, short of breath, No wheezing Cardiovascular: see HPI, chest pain Gastrointestinal: loss of appetite, No nausea, No vomiting Genitourinary: no symptoms reported Musculoskeletal: see HPI (BODY ACHES) Skin: no symptoms reported Psychiatric/Neurological: No Symptoms Reported Hematologic/Lymphatic: No Symptoms Reported Immunological/Allergic: no symptoms reported (ANGEL,YAMILEX K DO) Past Xvrygcl-Idndug-Vneecc Hx Patient Social History Alcohol Use: Denies Use Recreational Drug Use: No Smoking Status: Never a Smoker 2nd Hand Smoke Exposure: Yes Recent Foreign Travel: No Contact w/Someone Who Travel: No Recent Infectious Disease Expo: No Recent Hopitalizations: No Physical Abuse: No Sexual Abuse: No Mistreated: No Fear: No (ANGEL,YAMILEX K DO) Seasonal Allergies Seasonal Allergies: No (ANGEL,YAMILEX K DO) Surgeries History of Surgeries: Yes Surgeries: Tubal Ligation (ANGEL,YAMILEX K DO) Respiratory History of Respiratory Disorde: No (ANGEL,YAMILEX K DO) Cardiovascular History of Cardiac Disorders: No (ANGEL,YAMILEX K DO) Neurological History of Neurological Disord: No (ANGEL,YAMILEX K DO) Reproductive System MIXING PICKER TENDER History: Tubal Ligation, Menopausal (ANGEL,YAMILEX K DO) Genitourinary History of Genitourinary Disor: No (ANGEL,YAMILEX K DO) Gastrointestinal History of Gastrointestinal Di: No (ANGEL,YAMILEX K DO) Musculoskeletal History of Musculoskeletal Dis: No (ANGEL,YAMILEX K DO) Endocrine History of Endocrine Disorders: No (ANGEL,YAMILEX K DO) HEENT History of HEENT Disorders: No (ANGEL,YAMILEX K DO) Cancer History of Cancer: No (ANGEL,YAMILEX K DO) Psychosocial History of Psychiatric Problem: No Suicide Risk Score: 0 (ANGEL,YAMILEX K DO) Integumentary History of Skin or Integumenta: No (ANGEL,YAMILEX K DO) Blood Transfusions History of Blood Disorders: No (ANGEL,YAMILEX K DO) Physical Exam Vital Signs Vital Sign - Last 12Hours 06/05/17 06/05/17 06/05/17 16:42 17:08 20:41 Temp 101.4 Pulse 97 Resp 20 B/P (MAP) 103/64 (77) Pulse Ox 97 O2 Delivery Room Air (FANNY COLMENARES MD) Vital Signs Capillary Refill : Less Than 3 Seconds (ANGEL,YAMILEX K DO) General Appearance: WD/WN, no apparent distress, other (FREQUENT LOOSE COUGH) HEENT: PERRL/EOMI, TMs normal, pharynx normal, other (NASAL MUCOSAL EDEMA AND CLEAR POST NASAL DRAINAGE) Neck: non-tender, full range of motion, supple, normal inspection Respiratory: no respiratory distress, no accessory muscle use, rales Cardiovascular: regular rate, rhythm, no edema, no murmur Gastrointestinal: normal bowel sounds, non tender, soft Extremities: normal inspection, no pedal edema, no calf tenderness, normal capillary refill Neurologic/Psychiatric: fundraising coordinator II-XII nml as tested, no motor/sensory deficits, alert, normal mood/affect, oriented x 3 Skin: normal color, warm/dry (YAMILEX ORTIZ DO) Focused Exam Evaluation Lactate Level Laboratory Tests 06/05/17 18:50: Lactic Acid Level 1.12 (FANNY COLMENARES MD) Lactic Acid Level Laboratory Tests Test 06/05/17 18:50 Lactic Acid Level 1.12 MMOL/L (0.50-2.00) (FANNY COLMENARES MD) Progress/Results/Core Measures Suspected Sepsis Recent Fever Within 48 Hours: Yes Infection Criteria Present: Suspected New Infection New/Unexplained Altered Menta: No Sepsis Screen: Possible Sepsis Risk Sepsis Diagnosis: SIRS Temperature:101.4 Pulse: 97 Respiratory Rate: 20 Laboratory Tests 06/05/17 17:15: White Blood Count 7.2 Blood Pressure 103 /64 Mean: 77 Laboratory Tests 06/05/17 18:50: Lactic Acid Level 1.12 Laboratory Tests 06/05/17 17:15: Platelet Count 195 06/05/17 18:50: Creatinine 0.85, Total Bilirubin 0.6 (YAMILEX ORTIZ DO) Results/Orders Lab Results Laboratory Tests Test 06/05/17 17:15 06/05/17 18:50 Range/Units White Blood Count 7.2 4.3-11.0 10^3/uL Red Blood Count 5.19 4.35-5.85 10^6/uL Hemoglobin 15.9 11.5-16.0 G/DL Hematocrit 47 35-52 % Mean Corpuscular Volume 90 80-99 FL Mean Corpuscular Hemoglobin 31 25-34 PG Mean Corpuscular Hemoglobin Concent 34 32-36 G/DL Red Cell Distribution Width 14.1 10.0-14.5 % Platelet Count 195 130-400 10^3/uL Mean Platelet Volume 11.2 H 7.4-10.4 FL Neutrophils (%) (Auto) 75 42-75 % Lymphocytes (%) (Auto) 16 12-44 % Monocytes (%) (Auto) 8 0-12 % Eosinophils (%) (Auto) 1 0-10 % Basophils (%) (Auto) 1 0-10 % Neutrophils # (Auto) 5.4 1.8-7.8 X 10^3 Lymphocytes # (Auto) 1.1 1.0-4.0 X 10^3 Monocytes # (Auto) 0.6 0.0-1.0 X 10^3 Eosinophils # (Auto) 0.1 0.0-0.3 10^3/uL Basophils # (Auto) 0.0 0.0-0.1 10^3/uL Sodium Level 138 135-145 MMOL/L Potassium Level 3.5 L 3.6-5.0 MMOL/L Chloride Level 105 98-107 MMOL/L Carbon Dioxide Level 20 L 21-32 MMOL/L Anion Gap 13 5-14 MMOL/L Blood Urea Nitrogen 14 7-18 MG/DL Creatinine 0.85 0.60-1.30 MG/DL Estimat Glomerular Filtration Rate > 60 BUN/Creatinine Ratio 16 Glucose Level 97 70-105 MG/DL Lactic Acid Level 1.12 0.50-2.00 MMOL/L Calcium Level 8.9 8.5-10.1 MG/DL Total Bilirubin 0.6 0.1-1.0 MG/DL Aspartate Amino Transf (AST/SGOT) 22 5-34 U/L Alanine Aminotransferase (ALT/SGPT) 19 0-55 U/L Alkaline Phosphatase 87 40-136 U/L Total Protein 7.4 6.4-8.2 GM/DL Albumin 3.8 3.2-4.5 GM/DL (FANNY COLMENARES MD) Micro Results Microbiology 06/05/17 Influenza Types A,B Antigen (ANAHI) - Final, Complete (FANNY COLMENARES MD) Vital Signs/I&O Vital Sign - Last 12Hours 06/05/17 06/05/17 06/05/17 16:42 17:08 20:41 Temp 101.4 100.0 Pulse 97 90 Resp 20 16 B/P (MAP) 103/64 (77) Pulse Ox 97 O2 Delivery Room Air Room Air Intake and Output 06/06/17 00:00 Intake Total 1050 ml Balance 1050 ml (FANNY COLMENARES MD) Vital Signs/I&O Capillary Refill : Less Than 3 Seconds (YAMILEX ORTIZ DO) Blood Pressure Mean: 77 Progress Note : Progress Note I received a phone call from the pharmacy regarding cost of medications. They requested a cheaper alternative. Chart was reviewed. Azithromycin (Z-Maurilio) was substituted for the Cefdinir and prednisone 20 mg daily 3 days was substituted for the Medrol Dosepak. (FANNY COLMENARES MD) Diagnostic Imaging Comments CXR--NO ACUTE PROCESS, PER RADIOLOGIST REPORT @ 1900 Reviewed: Reviewed by Me (YAMILEX ORTIZ DO) Departure Impression Impression: Primary Impression: Bronchitis Additional Impression: Upper respiratory infection Disposition: 01 HOME, SELF-CARE Condition: Stable Departure-Patient Inst. Referrals: [facility] (PCP/Family) Primary Care Physician Patient Instructions: Acute Bronchitis, Adult (DC), Bacterial Upper Respiratory Infection, Adult (DC) Add. Discharge Instructions: TYLENOL 1 GRAM /MOTRIN 800 MG 4 TIMES A DAY FOR PAIN OR FEVER LOTS OF CLEAR LIQUIDS FOLLOW UP WITH YOUR DR IN 3-4 DAYS IF NO BETTER All discharge instructions reviewed with patient and/or family. Voiced understanding. Scripts Benzonatate (Tessalon Perle) 100 Mg Capsule 1-2 TAB PO TID for Cough, #30 CAP Prov: YAMILEX ORTIZ DO 06/05/17 Guaifenesin/Dextromethorphan (Mucinex Dm ER 1,200-60 mg Tab) 1 Each Tbmp.12hr 1 EACH PO BID for 10 Days, #20 EA Prov: YAMILEX ORTIZ DO 06/05/17 Methylprednisolone (Medrol) 4 Mg Tab.ds.pk 4 MG PO UD, #1 PKG Prov: YAMILEX ORTIZ DO 06/05/17 Fluticasone Propionate (Flonase Allergy Relief) 9.9 Ml [place].susp 2 SPRAYS NS BID, #1 SPRAY Prov: YAMILEX ORTIZ DO 06/05/17 Cefdinir (Cefdinir) 300 Mg Capsule 300 MG PO BID for FOR INFECTION, #20 CAP Prov: YAMILEX ORTIZ DO 06/05/17 YAMILEX ORTIZ DO Jun 05, 2017 18:08 FANNY COLMENARES MD Jun 06, 2017 12:46
[2017-06-05 18:09] LABS: BASOPHILS % (AUTO) 1 % (0-10); EOSINOPHILS # (AUTO) 0.1 10^3/uL (0.0-0.3); EOSINOPHILS % (AUTO) 1 % (0-10); HEMATOCRIT 47 % (35-52); HEMOGLOBIN 15.9 G/DL (11.5-16.0); LYMPHOCYTES # (AUTO) 1.1 X 10^3 (1.0-4.0); LYMPHOCYTES % (AUTO) 16 % (12-44); MEAN CORPUSCULAR HEMOGLOBIN 31 PG (25-34); MEAN CORPUSCULAR HGB CONC 34 G/DL (32-36); MEAN CORPUSCULAR VOLUME 90 FL (80-99); MEAN PLATELET VOLUME 11.2 FL (7.4-10.4); MONOCYTES # (AUTO) 0.6 X 10^3 (0.0-1.0); MONOCYTES % (AUTO) 8 % (0-12); NEUTROPHILS # (AUTO) 5.4 X 10^3 (1.8-7.8); NEUTROPHILS % (AUTO) 75 % (42-75); PLATELET COUNT 195 10^3/uL (130-400); RED BLOOD COUNT 5.19 10^6/uL (4.35-5.85); RED CELL DISTRIBUTION WIDTH 14.1 % (10.0-14.5); WHITE BLOOD COUNT 7.2 10^3/uL (4.3-11.0)
[2017-06-05] MEDS ORDERED: ACETAMINOPHEN 500 MG TAB (TYLENOL) PO ONE (18:15)
[2017-06-05] MEDS ORDERED: IBUPROFEN 800 MG (MOTRIN) TAB PO ONE (18:15)
--- NOTE | 2017-06-05 18:41 | Diagnostic Imaging Report ---
INDICATION: Lower respiratory infection PA and lateral chest Heart size and pulmonary vascularity are normal. Lungs are clear. There are no effusions or pneumothoraces. IMPRESSION: Negative chest Dictated by: Dictated on workstation # [id number]
[2017-06-05 19:29] LABS: ALANINE AMINOTRANSFERASE 19 U/L (0-55); ALBUMIN 3.8 GM/DL (3.2-4.5); ALKALINE PHOSPHATASE 87 U/L (40-136); BILIRUBIN,TOTAL 0.6 MG/DL (0.1-1.0); BUN/CREATININE RATIO 16; CALCIUM 8.9 MG/DL (8.5-10.1); CARBON DIOXIDE 20 MMOL/L (21-32); CHLORIDE 105 MMOL/L (98-107); CREATININE SERUM 0.85 MG/DL (0.60-1.30); GFR ESTIMATED > 60; GLUCOSE 97 MG/DL (70-105); POTASSIUM 3.5 MMOL/L (3.6-5.0); SODIUM 138 MMOL/L (135-145); TOTAL PROTEIN 7.4 GM/DL (6.4-8.2)
[2017-06-05] MEDS ORDERED: methylPREDNISolone 125 MG (Solu-MEDROL) VIAL IV STA (19:39)
[2017-06-05] MEDS ORDERED: METH4TAB PO (19:44)
[2017-06-05] MEDS ORDERED: FLUT9.9S NS (19:44)
[2017-06-05] MEDS ORDERED: BENZ-13 PO (19:44)
[2017-06-05] MEDS ORDERED: CEFD300C3 PO (19:44)
[2017-06-05] MEDS ORDERED: GUAI1TBM19 PO (19:44)
[2017-06-05] MEDS ORDERED: cefTRIAXone INJECTION 1,000 MG in D5W 50 ML IVPB SOLUTION 50 ML IV ONE (19:45)
[2017-06-05 20:41] VITALS: BP 118/70
== END 2017-06-05 20:41 | disposition home or self-care (01) ==
LOC: EDUNIT# 15:52 → ER 15:54
DX: J40 Bronchitis, not specified as acute or chronic (principal); J06.9 Acute upper respiratory infection, unspecified; Z77.22 Contact with and (suspected) exposure to environmental tobacco smoke (acute) (chronic); Z98.51 Tubal ligation status
CPT/HCPCS: 36415; 71046; 80053; 83605; 85025; 87040; 87804; 99282

== ENCOUNTER → 2017-12-14 | Outpatient (CLI) | payer OTHER ==
[~2017-12-14] MED LIST changes: +BENZ-13 PO; +CEFD300C3 PO; +FLUT9.9S NS; +GUAI1TBM19 PO; +METH4TAB PO
--- NOTE | 2017-12-14 09:57 | Diagnostic Imaging Report ---
INDICATION: Chronic back pain. COMPARISON: None. FINDINGS: Two views of the lumbar column demonstrate normal alignment. There is no subluxation or fracture. Mild degenerative changes seen throughout the disc spaces and facet joints. SI joints are symmetric. IMPRESSION: Mild diffuse degenerative disc disease and facet joint arthropathy. Dictated by: Dictated on workstation # [id number]
--- NOTE | 2017-12-14 10:06 | Diagnostic Imaging Report ---
Indication: Left knee pain. Comparison: None FIndings: Two views of the left knee demonstrate no fracture or dislocation. Minimal degenerative changes seen in all 3 compartments. This is most pronounced involving the patellofemoral joint. There was no joint effusion. Impression: Minimal degenerative joint disease. Dictated by: Dictated on workstation # [id number]
== END ==
LOC: RAD 09:03
PROVIDERS: ATTEND Neuromusculoskeletal Medicine, Sports Medicine
DX: Z02.71 Encounter for disability determination (principal); M51.36 Other intervertebral disc degeneration, lumbar region; M46.86 Other specified inflammatory spondylopathies, lumbar region; M25.562 Pain in left knee
CPT/HCPCS: 72100; 73560

== ENCOUNTER 2018-10-31 05:48 | Outpatient (CLI) | payer MEDICAID ==
[~2018-10-31] VITALS: Ht 165.1 cm; Wt 72.6 kg
[~2018-10-31 05:48] MED LIST changes: -BENZ-13 PO; +BENZ100C18 PO
== END 2018-10-31 15:13 | disposition home or self-care (01) ==
LOC: PREOP 05:48
PROVIDERS: ATTEND Surgery
DX: Z01.818 Encounter for other preprocedural examination (principal)

== ENCOUNTER 2018-11-07 12:05 | Day surgery (SDC) | payer MEDICAID ==
[~2018-11-07] VITALS: Ht 165.1 cm; Wt 72.6 kg
[~2018-11-07 12:05] MED LIST changes: +LACTATED RINGERS 1,000 ML IV ONE
[2018-11-07] MEDS ORDERED: LACTATED RINGERS 1,000 ML IV STA (12:12)
[2018-11-07] MEDS ORDERED: HURRICAINE EXT TUBE (BENZOCAINE) XX PRN (12:15)
[2018-11-07 12:30] VITALS: BP 116/79
--- NOTE | 2018-11-07 12:35 | NUR ---
PATIENT STATES SHE TAKE NO MEDICATIONS
[2018-11-07] MEDS ORDERED: proPOfol 200 MG/20 ML (DIPRIVAN) VIAL IV ONE (12:43)
[2018-11-07] MEDS ORDERED: MIDAZOLAM 2 MG/2 ML (VERSED) VIAL ONE (12:44)
--- NOTE | 2018-11-07 13:07 | Progress Note-Pre Operative ---
Pre-Operative Progress Note H&P Reviewed The H&P was reviewed, patient examined and no changes noted. Date Seen by Provider: Nov 07, 2018 Time Seen by Provider: 13:07 Date H&P Reviewed: Nov 07, 2018 Time H&P Reviewed: 13:07 Pre-Operative Diagnosis: dysphagia, gerd BINH AYALA DO Nov 07, 2018 13:07
--- NOTE | 2018-11-07 13:33 | Progress Note-Post Operative ---
Post-Operative Progess Note Surgeon (s)/Inspection Supervisor (s) Surgeon BINH AYALA DO Inspection Supervisor: na Pre-Operative Diagnosis dysphagia, gerd Post-Operative Diagnosis hiatal hernia, erosive esophagitis Procedure & Operative Findings Date of Procedure 11/07/18 Procedure Performed/Findings egd c biopsies Anesthesia Type per cartography teacher Estimated Blood Loss Estimated blood loss (mL): scant Specimens/Packing Specimens Removed antrum, esophagitis BINH AYALA DO Nov 07, 2018 13:33
[2018-11-07] MEDS ORDERED: SUCR1TAB36 PO (13:34)
[2018-11-07] MEDS ORDERED: PANT40TA2 PO (13:34)
--- NOTE | 2018-11-07 13:35 | Discharge Inst-Simple/Standard ---
Discharge Inst-Standard Discharge Medications New, Converted or Re-Newed RX: RX on Chart Patient Instructions/Follow Up Plan of Care/Instructions/FU: 2 weeks Tammi Activity as Tolerated: Yes Discharge Diet: Regular Diet BINH AYALA DO Nov 07, 2018 13:35
[2018-11-07 13:45] VITALS: BP 111/71
[2018-11-07 14:15] VITALS: BP 105/65
[2018-11-07 14:20] VITALS: BP 105/65
--- NOTE | 2018-11-07 20:05 | OPERATIVE REPORT ---
DATE OF SERVICE: 11/07/2018 PREOPERATIVE DIAGNOSES: Dysphagia, gastroesophageal reflux disease. POSTOPERATIVE DIAGNOSES: Hiatal hernia, erosive esophagitis. PROCEDURE: EGD with biopsy. SURGEON: Binh Cadena DO ANESTHESIA: Per LIABILITY CLAIMS MANAGER. ESTIMATED BLOOD LOSS: Scant. COMPLICATIONS: None. INDICATIONS: The patient is a 62-year-old female with difficulty swallowing and some reflux symptoms. She understands risks and benefits of procedure and wished to proceed with procedure. Consent was signed in the chart. DESCRIPTION OF PROCEDURE: The patient was taken to the endoscopy suite, placed in left lateral recumbent position. Timeout was performed. Scope was inserted in the mouth, down the esophagus, stomach and into the duodenum. There were no polyps, masses or ulcerations of the duodenum. Scope was slowly retracted back into the stomach, which was further insufflated. Has fairly normal appearance. No polyps, masses or ulcerations. Biopsy of the antrum was obtained. Scope was retroflexed. No hiatal hernia, no other pathology. Scope was returned to its normal position, slowly withdrawn to the distal esophagus. The patient had changes consistent with erosive esophagitis. Multiple biopsies were obtained of the GE and distal esophagus. Scope was then slowly retracted back until completely removed. The patient tolerated procedure well without any complications. She was taken to recovery room in stable condition. RECOMMENDATIONS: The patient will be started on Protonix 40 mg daily and Carafate 1 gram four times a day. She will follow up in the office in 2 weeks. They will follow up on biopsies and symptoms. Job ID: [id number] DocumentID: [id number] Dictated Date: 11/07/2018 13:37:24 General Ophthalmologist Date: 11/07/2018 20:04:29 Dictated By: BINH CADENA DO
== END 2018-11-07 14:20 | disposition home or self-care (01) ==
LOC: ENDO 12:05
PROVIDERS: ATTEND Surgery
DX: K20.8 Other esophagitis (principal); K21.9 Gastro-esophageal reflux disease without esophagitis; K44.9 Diaphragmatic hernia without obstruction or gangrene
CPT/HCPCS: 88305

== ENCOUNTER → 2019-02-26 | Outpatient (CLI) | payer MEDICAID ==
[~2019-02-26] MED LIST changes: -LACTATED RINGERS 1,000 ML IV ONE; +PANT40TA2 PO; +SUCR1TAB36 PO
--- NOTE | 2019-02-26 10:42 | Diagnostic Imaging Report ---
INDICATION: Routine screening. COMPARISON: 02/25/2016. TECHNIQUE: 2D and 3D bilateral screening mammography was performed with CAD. FINDINGS: Scattered fibroglandular densities are identified bilaterally. Tiny circumscribed nodules in the outer left breast are stable. No spiculated masses or malignant appearing microcalcifications are seen. The axillae are unremarkable. IMPRESSION: No mammographic features suspicious for malignancy are identified. ACR BI-RADS Category 2: Benign findings. Result letter will be mailed to the patient. Note: At least 10% of breast cancer is not imaged by mammography. Dictated by: Dictated on workstation # [id number]
== END ==
LOC: RAD 07:53
PROVIDERS: ATTEND Nurse Practitioner Family
DX: Z12.31 Encounter for screening mammogram for malignant neoplasm of breast (principal)
CPT/HCPCS: 77067

== ENCOUNTER → 2019-04-16 | Outpatient (CLI) | payer MEDICAID ==
--- NOTE | 2019-04-16 13:31 | Diagnostic Imaging Report ---
PROCEDURE: CT head without contrast. TECHNIQUE: Multiple contiguous axial images were obtained through the brain without the use of intravenous contrast. Auto Exposure Controls were utilized during the CT exam to meet ALARA standards for radiation dose reduction. INDICATION: Tremors in hands. FINDINGS: The ventricles and sulci are within normal limits. There is no hydrocephalus or cerebral edema. There is no midline shift or mass effect. There is no intracranial mass, hemorrhage, or extra-axial fluid collection. The visualized paranasal sinuses and mastoid air cells are clear. There are no regional areas of decreased attenuation appreciated to suggest an acute CVA. IMPRESSION: No acute intracranial abnormality. Dictated by: Dictated on workstation # [id number]
== END ==
LOC: RAD 13:11
PROVIDERS: ATTEND Nurse Practitioner Family
DX: R25.1 Tremor, unspecified (principal)
CPT/HCPCS: 70450

== ENCOUNTER 2019-06-26 09:44 | Emergency (ER) | payer MEDICAID ==
[~2019-06-26] VITALS: Ht 165 cm; Wt 69.0 kg
[2019-06-26] MEDS ORDERED: FAMOTIDINE 20 MG (PEPCID) TABLET PO STA (10:38)
--- NOTE | 2019-06-26 10:43 | ED Cough/URI ---
General Chief Complaint: Cough/Cold/Flu Symptoms Stated Complaint: COUGH, BURNING IN CHEST Nursing Triage Note: PT CO OF COLD COUGH FLU AND FEVER SINCE TUESDAY, HAS GRANDKIDS THAT HAVE RSV AND FLU B Sepsis Screen: No Definite Risk Source: patient Exam Limitations: no limitations History of Present Illness Date Seen by Provider: Jun 26, 2019 Time Seen by Provider: 10:22 Initial Comments Patient resides to the ER by private conveyance with chief complaint of cough, malaise, body aches, subjective fevers and chills since Tuesday, 5 days ago. She 's been using Tylenol and [place]abelle-[place]. She has a history of bad acid reflux. She is not on acid reducers. She says when she coughs a lot her chest abraham more and she feels like she has bronchitis. She has a grandchild who lives with her who has been diagnosed with influenza B last week. She does not have a history of COPD, asthma, smoking. She denies any wheezing or shortness of breath. She's not having any nausea diarrhea or constipation. Allergies and Home Medications Allergies Coded Allergies: tramadol (Verified Allergy, Unknown, 11/07/18) Home Medications Pantoprazole Sodium 40 Mg Tablet.dr, 40 MG PO DAILY Prescribed by: BINH AYALA on 11/07/18 1334 Sucralfate 1 Gm Tablet, 1 GM PO QID Prescribed by: BINH AYALA on 11/07/18 1334 Patient Home Medication List Home Medication List Reviewed: Yes Review of Systems Review of Systems Constitutional: No chills, No diaphoresis EENTM: No ear discharge, No ear pain Respiratory: cough; No phlegm, No short of breath, No wheezing Cardiovascular: No chest pain, No edema Gastrointestinal: No abdominal pain, No nausea, No vomiting Genitourinary: No discharge, No dysuria Musculoskeletal: No back pain, No joint pain Skin: No pruritus, No rash Psychiatric/Neurological: Denies Headache, Denies Numbness, Denies Paresthesia Past Godtjfj-Ramwdu-Jsbvoa Hx Patient Social History Alcohol Use: Denies Use Recreational Drug Use: No Smoking Status: Never a Smoker Type Used: Cigarettes 2nd Hand Smoke Exposure: Yes Recent Foreign Travel: No Contact w/Someone Who Travel: No Recent Infectious Disease Expo: No Recent Hopitalizations: No Seasonal Allergies Seasonal Allergies: No Past Medical History Surgeries: Yes (cataracts) Tubal Ligation Respiratory: Yes (bronchitis) Cardiac: No Neurological: No 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 0.0oz. 72.238207mx; 25.00 BMI Method:Stated General Appearance: WD/WN, mild distress Eyes: Bilateral Eye Normal Inspection, Bilateral Eye PERRL, Bilateral Eye EOMI HEENT: PERRL/EOMI, pharynx normal (oropharynx is mildly dry) Neck: non-tender, full range of motion, normal inspection Respiratory: lungs clear, normal breath sounds, no respiratory distress, no accessory muscle use Cardiovascular: normal peripheral pulses, regular rate, rhythm Neurologic/Psychiatric: alert, normal mood/affect, oriented x 3 Skin: normal color, warm/dry Progress/Results/Core Measures Suspected Sepsis Recent Fever Within 48 Hours: Yes Infection Criteria Present: None New/Unexplained Altered Menta: No Sepsis Screen: No Definite Risk SIRS Temperature: Pulse: 73 Respiratory Rate: 18 Blood Pressure 123 /75 Mean: 91 Results/Orders Micro Results Microbiology 06/26/19 Influenza Types A,B Antigen (ANAHI) - Final, Complete My Orders Orders - FRANTZ OSORIO Influenza A And B Antigens (06/26/19 10:18) Ketorolac Injection (Toradol Injection) (06/26/19 10:45) Lidocaine 2% Viscous 15 Ml (Xylocaine Vi (06/26/19 10:45) Famotidine Tablet (Pepcid Tablet) (06/26/19 10:38) Antacid Suspension (Mylanta Suspension (06/26/19 10:45) Medications Given in ED Current Medications Medications Dose Ordered Sig/Levon Route Start Time Stop Time Status Last Admin Dose Admin Al Hydrox/Mg Hydrox/Simethicone 30 ml ONCE ONCE PO 06/26/19 10:45 06/26/19 10:46 DC 06/26/19 10:57 30 ML Ketorolac Tromethamine 60 mg ONCE ONCE IM 06/26/19 10:45 06/26/19 10:46 DC 06/26/19 10:57 60 MG Lidocaine HCl 15 ml ONCE ONCE PO 06/26/19 10:45 06/26/19 10:46 DC 06/26/19 10:58 15 ML Vital Signs/I&O 06/26/19 10:05 Temp 37.1 Pulse 73 Resp 18 B/P (MAP) 123/75 (91) Pulse Ox 96 Capillary Refill : Less Than 3 Seconds Blood Pressure Mean: 91 Progress Note : Time: 10:42 Progress Note Patient presents with aseptic vital signs and flulike symptoms. We'll get an influenza swab. For burning substernally we'll do a GI cocktail but she does have a strong history of GERD. She denies a history of coronary disease. We'll give her some Toradol for her body aches and malaise. Departure Impression Primary Impression: Influenza A Disposition: 01 HOME, SELF-CARE Condition: Stable Departure-Patient Inst. Decision time for Depature: 11:31 Referrals: [facility] [place] (PCP/Family) Primary Care Physician Patient Instructions: Flu, Adult (DC), Fever, Adult (DC) Add. Discharge Instructions: Drink lots of fluids, sports drinks are encouraged. Soup, comfort foods. Humidifiers, vapor rubs. Tylenol thousand milligrams every 8 hours as needed for fever or bodyaches. Ibuprofen 800 mg every 8 hours as needed for body aches or fever. Ondansetron one tablet every 6 hours as needed for nausea or vomiting. All discharge instructions reviewed with patient and/or family. Voiced understanding. Scripts Ondansetron (Ondansetron Odt) 4 Mg Tab.rapdis 4 MG PO Q6H PRN for NAUSEA/VOMITING, #8 TAB 0 Refills Prov: FRANTZ OSORIO 06/26/19 Work/School Note: Work Release Form Date Seen in the Emergency Department: Jun 26, 2019 Return to Work: Jul 03, 2019 Restrictions: No Restrictions FRANTZ OSORIO Jun 26, 2019 10:43
[2019-06-26] MEDS ORDERED: KETOROLAC 60 MG/2 ML VIAL IM ONE (10:45)
[2019-06-26] MEDS ORDERED: LIDOCAINE 2% VISCOUS 15 ML UDC PO ONE (10:45)
[2019-06-26] MEDS ORDERED: ANTACID SUSP 30 ML UDC (MYLANTA) PO ONE (10:45)
--- NOTE | 2019-06-26 11:10 | NUR ---
LAB CALLED FOR POS FLU B
[2019-06-26] MEDS ORDERED: ONDA4TAB11 PO (11:36)
[2019-06-26 11:45] VITALS: BP 123/75
== END 2019-06-26 11:55 | disposition home or self-care (01) ==
LOC: EDUNIT# 09:44 → ER 09:46
DX: J10.1 Influenza due to other identified influenza virus with other respiratory manifestations (principal); K21.9 Gastro-esophageal reflux disease without esophagitis; Z77.22 Contact with and (suspected) exposure to environmental tobacco smoke (acute) (chronic); Z98.51 Tubal ligation status
CPT/HCPCS: 87804

== ENCOUNTER → 2019-10-23 | Outpatient (CLI) | payer MEDICAID ==
[~2019-10-23] MED LIST changes: +ONDA4TAB11 PO
--- NOTE | 2019-10-23 17:53 | Diagnostic Imaging Report ---
INDICATION: COUGH FATIGUE SOA COMPARISON: 06/05/2017. FINDINGS: Frontal and lateral views of the chest demonstrate normal heart size and pulmonary vascularity. The lungs are clear. There are no signs of infiltrate, pleural effusions or pneumothoraces. The visualized osseous structures show no acute abnormalities. IMPRESSION: 1. No acute process. No signs of infiltrates, effusions or pneumothoraces. Dictated by: Dictated on workstation # [id number]
== END ==
LOC: RAD 16:11
PROVIDERS: ATTEND Family Medicine
DX: R05 Cough (principal); R53.83 Other fatigue; R06.02 Shortness of breath
CPT/HCPCS: 36415; 71046; 86308; 86738

== ENCOUNTER → 2019-11-27 | Outpatient (CLI) | payer MEDICAID | LOC: RT 10:00 | PROVIDERS: ATTEND Family Medicine | DX: R05 Cough (principal) | CPT/HCPCS: 94060; 94726; 94729 ==

== ENCOUNTER 2019-12-13 05:36 | Outpatient (RCR) | payer MEDICAID ==
[~2019-12-13] VITALS: Ht 165.1 cm; Wt 73.2 kg
[~2019-12-13 05:36] MED LIST changes: +PANT40TA3 PO
== END 2019-12-13 11:22 | disposition home or self-care (01) ==
LOC: PREOP 05:36
PROVIDERS: ATTEND Surgery
DX: Z01.812 Encounter for preprocedural laboratory examination (principal); K22.70 Barrett's esophagus without dysplasia; Z20.828 Contact with and (suspected) exposure to other viral communicable diseases
CPT/HCPCS: 87635

== ENCOUNTER 2019-12-18 09:21 | Day surgery (SDC) | payer MEDICAID ==
[2019-12-18] VITALS (7 sets, daily range): BP systolic 117–125; BP diastolic 64–89
[~2019-12-18] VITALS: Ht 165.1 cm; Wt 73.2 kg
[2019-12-18] MEDS ORDERED: LACTATED RINGERS 1,000 ML IV ONE (09:24)
--- OUTSIDE RECORDS SUMMARY | 2019-12-18 09:43 | XMS REPORT ---
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[facility] [employer] [facility] Address [address] [address] Care Team Providers Care Sap Crm Developer Name Role Phone MADL, SUMEET Unavailable Unavailable MADL, SUMEET Unavailable MADL, SUMEET Unavailable Unavailable MADL, SUMEET Unavailable MADL, SUMEET Unavailable MADL, SUMEET Unavailable MADL, SUMEET Unavailable MADL, SUMEET Unavailable ROB LOCKETT Unavailable Unavailable [facility] Unavailable MADL, SUMEET Unavailable [place], [place] Unavailable MADL, SUMEET Unavailable MADL, SUMEET Unavailable [place], [place] Unavailable MADL, SUMEET Unavailable LISA ERWIN APRN Unavailable Unavailable FANNY SEGURA Unavailable Unavailable LYDIA ESPARZA, COLEMAN Mack Unavailable Unavailable PATO WHITE, SALVADOR Woodall Unavailable Unavailable TANA WHITE, SEA Plasencia (DDU) Unavailable Unavailable MADL, SUMEET L CHEMICAL PROCESSING TECHNICIAN Unavailable Unavailable MADL, SUMEET Unavailable MADL, SUMEET Unavailable ARAM FLYNN Unavailable SIMI GOMEZ Unavailable ARAM FLYNN Unavailable ARAM FLYNN Unavailable ARAM FLYNN Unavailable Migration, Doctor Unavailable Unavailable Migration, Doctor Unavailable Unavailable Migration, Doctor Unavailable Unavailable Migration, Doctor Unavailable Unavailable Migration, Doctor Unavailable Unavailable Migration, Doctor Unavailable Unavailable [facility] PCP [phone] BINH AYALA DO Unavailable Unavailable Migration, Doctor Unavailable Unavailable Migration, Doctor Unavailable Unavailable Migration, Doctor Unavailable Unavailable HAYLEY LUU DO Unavailable Unavailable HAYLEY LUU DO Unavailable Unavailable JASON LIZBETH DO Unavailable Unavailable ARAM FLYNN Unavailable Unavailable SANIYA, ARELY D Unavailable Unavailable Migration, Doctor Unavailable Unavailable Migration, Doctor Unavailable Unavailable Migration, Doctor Unavailable Unavailable SANIYA, ARELY D PREFLIGHT MECHANIC Unavailable Unavailable ANGEL DO, YAMILEX K Unavailable Unavailable Migration, Doctor Unavailable Unavailable Migration, Doctor Unavailable Unavailable FRANTZ OSORIO MD Unavailable Unavailable [facility] PCP [phone] Migration, Doctor Unavailable Unavailable DONNA BARBER Unavailable SARINA Gu Unavailable Migration, Doctor Unavailable Unavailable Unavailable Unavailable Migration, Doctor Unavailable Unavailable Migration, Doctor Unavailable Unavailable SHAHBAZ LEI MD Unavailable Unavailable WILSON, ALISE Unavailable Unavailable WILSON, ALISE Unavailable Unavailable WILSON, ALISE Unavailable Unavailable Migration, Doctor Unavailable Unavailable FOREMAN, GUZMAN Unavailable Unavailable FOREMAN, GUZMAN Unavailable Unavailable KELLEN, GUZMAN Unavailable Unavailable STEVE WHITE, ALISE L Unavailable Unavailable Migration, Doctor Unavailable Unavailable Migration, Doctor Unavailable Unavailable Migration, Doctor Unavailable Unavailable Migration, Doctor Unavailable Unavailable Migration, Doctor Unavailable Unavailable Migration, Doctor Unavailable Unavailable BINH AYALA DO Unavailable Unavailable [facility] PCP Unavailable Unavailable Unavailable Unavailable Unavailable Unavailable Unavailable Unavailable Unavailable Unavailable Unavailable Unavailable Allergies Allergy Reported Allergen(s) Allergy Type Date of Reaction(s) Care Facility Classificati Onset Provider on Unclassified No Known Drug Allergies HAYLEY coe (4 sources) [facility] ([id number]) Encounters Encounter Date Encounter Type Encounter Diagnosis Care Provider Facility Start: Discharged Recurring [facility] As cension Via 12-13-2019 Work Phone: [place] [phone] End: 12-13-2019 Start: Patient encounter BINH AYALA DO [facility] Via 12-13-2019 [facility] Start: Patient encounter BINH AYALA [facility] Via [place] 12-12-2019 [facility] Start: Patient encounter BINH AYALA [facility] Via 12-11-2019 [facility] Start: Patient encounter ALISE WILSON MD [facility] Vi a 11-27-2019 [facility] Start: Patient encounter ALISE WILSON MD [facility] Vi a 10-23-2019 [facility] Start: Patient encounter GUZMAN FOREMAN [facility] Di strict #1 10-22-2019 procedure of [facility] End: 10-22-2019 Start: Patient encounter ALISE WILSON [facility] Di strict #1 09-17-2019 procedure of [facility] End: 09-18-2019 Start: Patient encounter SHAHBAZ LEI [facility] #1 08-23-2019 procedure of [facility] End: 08-23-2019 Start: [facility] 07-12-2019 Start: Patient encounter [facility] 07-12-2019 procedure Center [facility] Start: Emergency department [facility] Via 06-26-2019 patient visit Hospital Start: Emergency department FRANTZ OSORIO MD [facility] V ct 06-26-2019 patient visit [facility] End: 06-26-2019 Start: Patient encounter FRANTZ OSORIO MD [facility] Via 06-26-2019 [facility] Start: Patient encounter [facility] is 04-16-2019 [facility] ([id number]) Start: Patient encounter [facility]2019 procedure Center [facility] ([id number]) Start: Patient encounter 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 [facility] Via [facility] is 02-26-2019 [facility] ([id number]) Start: Patient encounter ARELY [facility] 12-06-2018 procedure [facility] ([id number]) Start: Patient encounter ARELY [facility] 12-06-2018 procedure [facility] (05142) Start: Patient encounter ARELY [facility] 12-04-2018 procedure Center [facility] ([id number]) Start: Patient encounter NA [facility] 12-04-2018 procedure [facility] ([id number]) Start: Patient encounter NA [facility] 11-23-2018 procedure Center [facility] ([id number]) Start: Patient encounter ARAM FLYNN [facility] 11-21-2018 procedure Center [facility] ([id number]) Start: Emergency department HAYLEY Mix [facility] 11-16-2018 patient visit Medical Center ([id number]) End: 11-16-2018 Start: Patient encounter HAYLEY Mix [facility] 11-16-2018 procedure [facility] [place] ([id number]) End: 11-16-2018 Start: Admission to [facility] BINHMATHEW [facility]A [facility] [place] 11-07-2018 surgery Work Phone: [facility] ([phone] ) End: 11-07-2018 Start: Patient encounter BINH AYALA DO [facility] Via [facility] 11-07-2018 procedure [facility] ([id number]) End: 11-07-2018 Start: Patient encounter BINH AYALA [facility] Via [facility] is 10-31-2018 procedure Work Phone: [facility] ([phone]) End: 10-31-2018 Start: Patient encounter BINH AYALA DO [facility] Via [facility] 10-31-2018 [facility] ([id number]) End: 10-31-2018 Start: Patient encounter NA NA [facility] 10-12-2018 procedure [facility] ([id number]) Start: Patient encounter JEWEL HOLLOWAY [facility] 09-21-2018 procedure [facility] ([id number]) Start: Patient encounter ARAM FLYNN [facility] 06-27-2018 procedure [facility] ([id number]) Start: Patient encounter ARAM FLYNN [facility]alt 05-25-2018 procedure [facility] ([id number]) Start: Patient encounter ARAM FLYNN [facility] 04-18-2018 procedure [facility] ([id number]) Start: Patient encounter SEA FAJARDO MD [facility] Via [facility] is 12-14-2017 [facility] ([id number]) Start: Patient encounter NA [facility] 12-08-2017 [facility] ([id number]) Start: Patient encounter NA [facility] 12-06-2017 [facility] ([id number]) Start: Patient encounter SUMEET MADL [facility] 10-11-2017 [facility] ([id number]) NEGATED Emergency department NA NA [facility] Start: patient visit [facility] 06-05-2017 ([id number]) End: 06-05-2017 Start: Patient encounter NA NA Not Availab le ([id number]) 06-05-2017 Start: Emergency department YAMILEXErinn ORTIZ DO [facility] 06-05-2017 patient visit [facility] ([id number]) End: 06-05-2017 Start: Patient encounter NA [facility] 05-20-2017 [facility] ([id number]) Start: Patient encounter NA NA [facility] 02-25-2016 [facility] ([id number]) Start: Patient encounter SUMEET MADL [facility] 02-25-2016 [facility] ([id number]) Start: Patient encounter SUMEET MADL [facility] 01-26-2016 [facility] ([id number]) Start: Emergency department SALVADOR WHYTE MD [facility] [place] 09-02-2015 patient visit [facility] ([id number]) End: 09-02-2015 Start: Patient encounter NA NA [facility] 08-26-2014 [facility] ([id number]) Start: Patient encounter FANNY ZARAGOZA PA [facility] 08-26-2014 [facility] ([id number]) Start: Patient encounter NA NA [facility] 02-28-2014 [facility] ([id number]) Start: Patient encounter FANNY ESPARZA [facility] 02-28-2014 [facility] ([id number]) Start: Patient encounter NA NA [facility] 2013 [facility] ([id number]) Start: Patient encounter FANNY ESPARZA [facility] Via C [facility]risti 2013 [facility] ([id number]) Start: Emergency department NA NA [facility] [place] 09-17-2013 patient visit [facility] ([id number]) End: 09-17-2013 Start: Emergency department LISA ERWIN [facility] Via [facility] 09-17-2013 patient visit [facility] ([id number]) End: 09-17-2013 Start: Emergency department JEWEL HOLLOWAY [facility] Via [facility] 08-13-2013 patient visit [facility] ([id number]) End: 08-13-2013 Start: Emergency department COLEMAN ESPARZA [facility] Via [facility] 08-13-2013 patient visit [facility] ([id number]) End: 08-13-2013 Encounter for other [facility] Via [facility] examination ([id number]) [facility] laboratory ([id number]) examination Medical Equipment The data below is from unstructured sourcesNo Medical Equipment Information availableNo Medical Equipment Information availableNo Medical Equipment Information available Goals Date Patient Goal Desired Activity/St ate Immunizations Immunizatio Immunization Notes Care Provider Facility n Date vaccine ; [facility] Translations: Hospital ([id number]) [vaccine] Interventions No Information Medications Current Medications Medication Drug Dates Sig Sig (Original) Class(es) (Normalized) amoxicillin 500 mg oral Penicillin Start: take 1 capsule Amoxicillin 500 mg 1 capsule by Oral capsule -class 05-14-2013 by mouth three route 3 kailee es per day for 10 days 06 (1 source) Antibacter times daily May, 2013 Activ e ial Colestipol Bile Acid Start: take 1 tablet Colestid 1 g parul 1 tablet by Oral route 2 (1 source) Sequestran 01-11-2013 by mouth twice times per d ay Jan, Active t daily nitrofurantoin, Nitrofuran Start: Macrobid 100 M G Orally 2 times a day 1 macrocrystals 25 mg / Antibacter 04-25-2018 capsule with food Apr, 5 nitrofurantoin, ial days Active monohydrate 75 mg oral capsule (1 source) Completed/Discontinued Medications Medication Drug Dates Sig Sig (Original) Class(es) (Normalized) Acetaminophen/Hydrocodon Start: Acetaminophe n/Hydrocodone Bitart (Lortab e Bitart (Lortab 5 Mg 08-13-2013 5 Mg Tablet) 1 Each Tablet, 1 Each Oral Tablet) 1 Each Tablet, 1 Every 4HRS as needed for Pain 08/13/13 Each Oral End: Discontinued (2 sources) 09-17-2013 benzonatate 100 mg oral Non-narcot Start: Benzon atate Discontinued 1-2 ORAL Three capsule ic 06-05-2017 Times A Day for Cough June 05, (4 sources) Antitussiv 2017 7:44pm October 31, 2018 e End: 10-31-2018 cefdinir 300 mg oral Cephalospo Start: Cefdinir Discontinued 300 ORAL Twice A capsule rin 06-05-2017 Day for For Inf ection June 05, (4 sources) Antibacter 2017 7:44pm October 31, 2018 ial End: 10-31-2018 12 hr dextromethorphan Uncompetit Start: Guaifen esin/Dextromethorphan hydrobromide 60 mg / alexis 06-05-2017 Discontin ued 1 ORAL Twice A Day 20 10 guaiFENesin 1200 mg N-methyl-D June 05, 2017 7:44pm October 31, extended release oral -aspartate End: 2019 tablet Receptor 10-31-2018 (4 sources) Antagonist , Sigma-1 Agonist Doxycycline Tetracycli Start: Doxycycline Hyc late Discontinued 1 ORAL (2 sources) ne-class 05-30-2011 Twice A Day 7 J anuary 2011 6:28pm Drug August 13, 2013 End: 08-13-2013 Doxycycline Hyclate 100 Start: Doxycycline H yclate 100 Mg Capsule, 1 Mg Capsule, 1 Each Oral 05-30-2011 Each Oral Twi ce A Day 05/30/11 (2 sources) Discontinued End: 08-13-2013 fluticasone propionate Corticoste Start: Flutica sone Propionate Discontinued 2 0.05 mg/actuat metered roid 06-05-2017 NOT BLAZE LICABLE Twice A Day 09 May dose nasal spray 2017 7:44pm October 31, 2018 (4 sources) End: 10-31-2018 Start: 06-05-2017 Fluticasone End: 10-31-2018 Propionate (Flonase Allergy Relief) 9.9 Ml [place].susp, 2 Sprays Not Applicable Twice A Day 06/05/17 Discontinued Guaifenesin/D-Methorphan Start: Guaifenesin/ D-Methorphan Hb Discontinued Hb 05-30-2011 2 ORAL Every 4HRS a s needed 12 May (2 sources) 2011 6:28pm August 13, 2013 End: 08-13-2013 Guaifenesin/D-Methorphan Start: Guaifenesin/ D-Methorphan Hb (Guaifenesin Hb (Guaifenesin With Dm 05-30-2011 With Dm Syrup ) 120 Ml Syrup, 2 Tsp Oral Syrup) 120 Ml Syrup, 2 Every 4HRS as needed 05/30/11 Tsp Oral End: Discontinued (2 sources) 08-13-2013 Methylprednisolone Corticoste Start: Methylpredn isolone Discontinued 4 ORAL (5 sources) roid 06-05-2017 As Directed 1 J anuary 2017 7:44pm October 31, 2018 End: 10-31-2018 Start: 04-12-2014 Methylpredniso End: 10-31-2018 lone (Medrol) 4 Mg Tab.ds.pk, 4 Mg Oral As Directed 06/05/17 Discontinued Nitrofurantoin/Nitrofura End: Nitrofuranto in/Nitrofuran Mac n Mac 09-17-2013 Discontinued 100 ORAL Twice A Day September (2 sources) 2013 Nitrofurantoin/Nitrofura End: Nitrofuranto in/Nitrofuran Mac (Macrobid n Mac (Macrobid 100 Mg 09-17-2013 100 Mg Capsule ) 100 Mg Capsule, 100 Mg Capsule) 100 Mg Capsule, Oral Twice A Day Discont inued 100 Mg Oral (2 sources) pantoprazole 40 mg Proton Start: Pantoprazol e Sodium Discontinued 40 ORAL delayed release oral Pump 11-07-2018 Daily 30 November 07, 2018 1:34pm December tablet Inhibitor 2019 (4 sources) End: 12-12-2019 sucralfate 1000 mg oral Aluminum Start: Sucral fate Discontinued 1 ORAL Four tablet Complex 11-07-2018 Times Daily November 07, 2018 1:34pm (3 sources) December 12, 2019 End: 12-12-2019 Payers Date Payer Normalized Payer [id number] [employer] Plan of Treatment Date Care Activity Detail Author Patient Education [facility] ([id number]) Patient referral [facility] ([id number]) [facility] ([id number]) Coronavirus Ab [facility] [place] [Units/volume] in [facility] ([id number]) Problems Active Problems Problem Problem Date Last Documented Episodic/Chr Provider Classificati Recorded Date onic on Chronic Chronic airway obstruction, not Chronic FANNY obstructive elsewhere classified ; MILA ESPARZA pulmonary Translations: [Other emphys arvin] disease and bronchiectas is (4 sources) Chronic Bronchitis, not specified as acute Episodic YAMILEX ANGEL DO obstructive or chronic ; Translations: pulmonary [Bronchitis] disease and bronchiectas is (7 sources) Contraceptiv Tubal ligation status Episodic YAMILEX R STEW DO e and procreative management (5 sources) Esophageal Gastro-esophageal reflux disease 12-15-2019 Chroni c FRANTZ DEVON disorders without esophagitis ; Translations: (3 sources) [Mcduffie's esophagus withou t dysplasia] Esophageal Other esophagitis ; Translations: B RETT AYALA disorders [Gastro-esophageal reflux disease D O (4 sources) without esophagitis] Gastrointest Melena ; Translations: [ - Black Episodic DONNA inal stools K92.1] BARBER hemorrhage (12 sources) Immunization Contact with and (suspected) 12-15-2019 Episodic BINH AYALA s and exposure to other viral DO screening communicable diseases for infectious disease (1 source) Influenza Influenza due to other identified Episodic FRANTZ DEVON (4 sources) influenza virus with other MD respiratory manifestations ; Translations: [Influenza due to Influenza A virus] Malaise and Other fatigue 11-14-2019 Episodic ALISE fatigue STEVE WHITE (2 sources) Other Dysphagia ; Translations: Episodic [facility] gastrointest [Dysphagia] [facility] inal disorders (3 sources) Other lower Cough ; Translations: [ - Cough 11-14-2019 Episodi c YAMILEX ANGEL DO respiratory R05] disease (20 sources) Other lower Shortness of breath 11-14-2019 Episodic ALISE respiratory STEVE WHITE disease (2 sources) Residual Contact with and (suspected) Episodic YAMILEX ANGEL DO codes; exposure to environmental t obacco unclassified smoke (acute) (chronic) (3 sources) Spondylosis; Other intervertebral disc Chronic DI ELIZABETH FAJARDO MD intervertebr degeneration, lumbar region ; al disc Translations: [Other specif ied disorders; inflammatory spondylopathie s, other back lumbar region] problems (3 sources) Past or Other Problems Problem Problem Date Last Documented Episodic/Chr Provider Classificati Recorded Date on on Administrati Encounter for disability Episodic DIC Tirso FAJARDO MD ve/social determination admission (2 sources) External Overexertion from sudden strenuous LISA ERIWN cause codes: movement Overexertion (2 sources) External Home accidents Episodic LISA ERWIN cause codes: Place of occurrence (1 source) External Other external cause status Episodic LISA ERWIN cause codes: Unspecified (1 source) External Home accidents NA NA Injury - Place of occurrence (1 source) External Other external cause status NA NA Injury - Unspecified (1 source) Other Knee, leg, ankle, and foot injury Episodic LISA ERWIN injuries and conditions due to external causes (2 sources) Other lower Solitary pulmonary nodule Episodic TA WNYA MADL respiratory disease (2 sources) Other Pain in left knee Episodic SEA FAJARDO MD non-traumati c joint disorders (2 sources) Sprains and Sprain of ankle, unspecified site Episodic LISA ERWIN strains (2 sources) Procedures Date Procedure Procedure Detail Performing Cl inician Start: Administration of BINH AYALA 11-07-2018 anesthesia Work Phone: Start: Esophagogastroduod BINH AYALA 11-07-2018 enoscopy Work Phone: Start: LAB NOT BILLED BY ARAM FLYNN 04-18-2018 [facility] Start: Urnls dip ARAM FLYNN 04-18-2018 stick/tablet rgnt auto w/o microscopy Start: Assay of free ARAM FLYNN 02-07-2018 thyroxine Start: Assay of thyroid ARAM FLYNN 02-07-2018 stimulating hormone tsh Start: Blood count ARAM FLYNN 02-07-2018 complete auto&auto difrntl wbc Start: Comprehensive ARAM FLYNN 02-07-2018 metabolic panel Start: Lipid panel ARAM FLYNN 02-07-2018 Start: Collection venous Doctor Migration 05-21-2014 blood venipuncture Start: Comprehensive Doctor Migration 05-21-2014 metabolic panel Start: Hemoglobin Doctor Migration 05-21-2014 glycosylated a1c Start: Ct thorax Doctor Migration 02-26-2014 w/contrast material Start: Culture bacterial DONNA ELISABETH 07-11-2013 quanttative colony count urine Start: Urnls dip DONNA BARBER 07-11-2013 stick/tablet rgnt auto w/o microscopy Start: Fat/lipids feces Doctor Migration 01-17-2013 qualitative Start: Leukocyte assmt Doctor Migration 01-17-2013 fecal qual/semiquantitat alexis Start: Ova&parasites Doctor Migration 01-17-2013 direct smears concentration & id Start: Blood occult Doctor Migration 12-21-2012 peroxidase actv qual feces 1 deter Start: Comprehensive Doctor Migration 12-11-2012 metabolic panel Start: Radex spine Doctor Migration 12-11-2012 lumbosacral 2/3 views Start: X-ray exam of Doctor Migration 12-11-2012 abdomen Results Test Name Value Interpreta Reference Facilit Date tion Range y Time xray : chest 2 view (in house) on null NEGATED: Highlighted Invalid Communi row Interpreta ty Laboratory studies tion [facility] (set) [facility] ([id number]) ua long dip (in house) on null Glucose Test strip Negative Invalid Communi mass conc (U) Interpreta ty tion [facility] ([id number]) laboratory on 2019-10-23 Heterophile Ab (S) Negative Invalid NEGATIVE PENDING 10-07 6-2 [Titer] Interpreta LOCATIO 020 tion Code [facility] 12:44-0 ([id number]) 400 not yet categorized on 2018-12-04 BLO 2+ Invalid Communi Interpreta ty tion Code [facility] (30508) KET 01/25~slightly Invalid Communi cloudy~yellow~none~negative~negative~negative Interpreta ty tion [facility] (88563) BETH Negative Invalid Communi Interpreta ty tion Code [facility] ([id number]) Lot # [id number] Invalid Communi Interpreta ty tion Code [facility] (78800) SG 1.025 Invalid Communi Interpreta ty tion Code [facility] (27509) URO 0.2 Invalid Communi Interpreta ty tion Code [facility] (70014) laboratory on 2018-12-04 Bacteria identified SEE NOTE Abnormal Communi Cx Nom (U) ty [facility] (49939) pH (Bld) 5.5 [pH] Invalid Communi Interpreta ty tion Code [facility] (30814) Protein (U) Negative Invalid Communi [Mass/Vol] Interpreta ty tion Code [facility] (60278) laboratory on 2018-11-23 Albumin [Mass/Vol] 4.2 g/dL Normal 3.6-5.1 Communi g/dL [facility] (91069) Albumin/Globulin 1.6 {ratio} Normal 1.0-2.5 Communi [Mass ratio] (calc) [facility] (16741) ALP [Catalytic 87 U/L Normal 33-130 U/L Communi activity/Vol] [facility] (12688) ALT [Catalytic 15 U/L Normal 6-29 U/L Communi activity/Vol] [facility] (33176) AST [Catalytic 18 U/L Normal 10-35 U/L Communi activity/Vol] [facility] (11762) Basophils (Bld) 0.028 10*3/uL Normal 0-200 Communi [#/Vol] cells/uL [facility] (93536) Basophils/100 WBC 0.5 % Normal % Communi (Bld) [facility] (73841) Bilirubin [Mass/Vol] 0.5 mg/dL Normal 0.2-1.2 Commu ni mg/dL [facility] (04690) Calcium [Mass/Vol] 9.4 mg/dL Normal 8.6-10.4 Communi mg/dL [facility] (45742) Chloride [Moles/Vol] 107 mmol/L Normal 98-110 Commu ni mmol/L [facility] (54243) CO2 [Moles/Vol] 27 mmol/L Normal 20-32 Communi mmol/L [facility] (13772) Creatinine 0.94 mg/dL Normal 0.50-0.99 Communi [Mass/Vol] mg/dL [facility] (39683) Eosinophils (Bld) 0.073 10*3/uL Normal 15-500 Commun i [#/Vol] cells/uL [facility] (45439) Eosinophils/100 WBC 1.3 % Normal % Commun i (Bld) ty [facility] (90449) Erythrocyte 13.3 % Normal 11.0-15.0 Communi distribution width % ty (RBC) [Ratio] [facility] (72079) Ferritin [Mass/Vol] 136 ng/mL Normal 16-288 Commun i ng/mL ty [facility] (01898) GFR/1.73 sq M 75 mL/min/{1.73_m2} Normal > OR = 60 Comm uni predicted among mL/min/1.7 ty blacks MDRD 3m2 Health (S/P/Bld) [Vol Center rate/Area] [facility] (16372) GFR/1.73 sq 65 mL/min/{1.73_m2} Normal > OR = 60 Commun i M.predicted MDRD mL/min/1.7 ty (S/P/Bld) [Vol 3m2 Health rate/Area] [facility] (17970) Globulin (S) 2.7 g/dL Normal 1.9-3.7 Communi [Mass/Vol] g/dL ty (calc) [facility] (56367) Glucose [Mass/Vol] 98 mg/dL Normal 65-99 Communi mg/dL ty [facility] (12192) Hematocrit (Bld) 42.9 % Normal 35.0-45.0 Communi [Volume fraction] % ty [facility] (94645) Hemoglobin (Bld) 14.3 g/dL Normal 11.7-15.5 Communi [Mass/Vol] g/dL ty [facility] (89524) Iron [Mass/Vol] 74 ug/dL Normal 45-160 Communi mcg/dL ty [facility] (48840) Iron binding 284 Normal 250-450 Communi capacity [Mass/Vol] mcg/dL ty (calc) [facility] (82583) Iron saturation 26 Normal 16-45 % Communi [Mass fraction] (calc) ty [facility] (30032) Lymphocytes (Bld) 2.206 10*3/uL Normal 850-3900 Commun i [#/Vol] cells/uL ty [facility] (93632) Lymphocytes/100 WBC 39.4 % Normal % Commun i (Bld) [facility] (21579) MCH (RBC) [Entitic 30.2 pg Normal 27.0-33.0 Communi mass] pg [facility] (90880) MCHC (RBC) 33.3 g/dL Normal 32.0-36.0 Communi [Mass/Vol] g/dL [facility] (98780) MCV (RBC) [Entitic 90.5 fL Normal 80.0-100.0 Communi vol] fL [facility] (77542) Monocytes (Bld) 0.47 10*3/uL Normal 200-950 Communi [#/Vol] cells/uL [facility] (97994) Monocytes/100 WBC 8.4 % Normal % Communi (Bld) [facility] (37435) Neutrophils (Bld) 2.822 10*3/uL Normal 9384-5436 Commun i [#/Vol] cells/uL [facility] (23621) Neutrophils/100 WBC 50.4 % Normal % Commun i (Bld) [facility] (06274) Platelet mean volume 10.5 fL Normal 7.5-12.5 Commu ni (Bld) [Entitic vol] fL [facility] (69393) Platelets (Bld) 259 10*3/uL Normal 140-400 Communi [#/Vol] Thousand/u ty L [facility] (84519) Potassium 4.2 mmol/L Normal 3.5-5.3 Communi [Moles/Vol] mmol/L [facility] (63568) Protein [Mass/Vol] 6.9 g/dL Normal 6.1-8.1 Communi g/dL [facility] (52939) RBC (Bld) [#/Vol] 4.74 10*6/uL Normal 3.80-5.10 Communi Million/uL [facility] (68811) Sodium [Moles/Vol] 142 mmol/L Normal 135-146 Communi mmol/L ty [facility] (14418) Urea nitrogen 15 mg/dL Normal 7-25 mg/dL Communi [Mass/Vol] ty [facility] (78596) Urea NOT APPLICABLE Invalid 6-22 Communi nitrogen/Creatinine Interpreta (calc) ty [Mass ratio] tion Code [facility] (75943) WBC (Bld) [#/Vol] 5.6 10*3/uL Normal 3.8-10.8 Communi Thousand/u ty L [facility] (41359) not yet categorized on 2018-10-12 BLO 05/08/19~clear~yellow~none~negative~negative~ Invalid Communi negative~>=1.030~3+ Interpreta ty tion Code [facility] (31253) BETH Negative Invalid Communi Interpreta ty tion Code [facility] (66403) Lot # [id number] Invalid Communi Interpreta ty tion Code [facility] (17040) URO 0.2 Invalid Communi Interpreta ty tion [facility] (55767) laboratory on 2018-10-12 pH (Bld) 5.5 [pH] Invalid Communi Interpreta ty tion [facility] (86225) Protein (U) trace Invalid Communi [Mass/Vol] Interpreta ty tion [facility] (04459) urinalysis on 2018-09-21 Bacteria identified SEE NOTE Invalid Communi Cx Nom (U) Interpreta ty tion [facility] (30772) Protein (U) Negative Invalid Communi [Mass/Vol] Interpreta ty tion Code [facility] (00172) other on 2018-09-21 BLO 2+ Invalid Communi Interpreta ty tion [facility] (86303) KET 01/2019~clear~yellow~none~negative~negative~n Invalid Communi egative Interpreta ty tion [facility] (48225) BETH Negative Invalid Communi Interpreta ty tion Code [facility] (81870) Lot # [id number] Invalid Communi Interpreta ty tion Code [facility] (51388) SG 1.015 Invalid Communi Interpreta ty tion Code [facility] (52186) URO 0.2 Invalid Communi Interpreta ty tion Code [facility] (56053) hematology on 2018-09-21 pH (Bld) 5.5 [pH] Invalid Communi Interpreta ty tion Code [facility] (99060) urinalysis on 2018-04-18 Bacteria identified SEE NOTE Abnormal Communi Cx Nom (U) ty [facility] (44347) Protein (U) Negative Invalid Communi [Mass/Vol] Interpreta ty tion [facility] (90219) other on 2018-04-18 BLO 2+ Invalid Communi Interpreta ty tion [facility] (19916) KET Negative Invalid Communi Interpreta ty tion Code [facility] (90239) Lot # [id number] Invalid Communi Interpreta ty tion Code [facility] (40947) SG 1.020 Invalid Communi Interpreta ty tion Code [facility] (47073) URO 0.2 Invalid Communi Interpreta ty tion Code [facility] (14884) hematology on 2018-04-18 pH (Bld) 5.5 [pH] Invalid Communi Interpreta ty tion Code [facility] (74768) urinalysis on 2017-12-06 Urine culture, SEE NOTE Abnormal Communi bacteria ty [facility] (86930) Urine, protein Negative Invalid Communi Interpreta ty tion Code [facility] (81334) other on 2017-12-06 BLO 2+ Invalid Communi Interpreta ty tion Code [facility] (82887) Exp date Negative Invalid Communi Interpreta ty tion Code [facility] (88386) KET 03/2018~cloudy~yellow~yes~negative~negative~N Invalid Communi egative [facility]preta ty [facility] (28867) Lot # [id number] Invalid Communi Interpreta ty tion Code [facility] (84684) SG 1.025 Invalid Communi Interpreta ty tion Code [facility] (54990) URO 0.2 Invalid Communi Interpreta ty tion Code [facility] (43936) hematology on 2017-12-06 pH of blood 5.5 [pH] Invalid Communi Interpreta ty tion Code [facility] (00337) Social History Date Type Detail Facility Start: Tobacco smoking status NHIS Never smoked tobac co [facility] 06-26-2019 ([facility] (95280) End: 12-12-2019 Start: Never a Smoker [facility] 06-26-2019 [facility] (14174) Start: Denies [facility] 06-26-2019 [facility] (43143) Start: Cigarettes [facility] 11-07-2018 [facility] (69377) Start: Denies Use [facility] 09-02-2015 [facility] (73639) Start: No [facility] 09-02-2015 [facility] (74516) Start: Sex Assigned At Female [facility] 1955 [facility] (62335) Vital Signs Date Time Vital Sign Value Performing Clinician [facility] 04-18-2018 BMI (Body Mass 25.49 kg/m2 [facility] 11:40-0500 Index) [facility] (57006) 04-18-2018 Body Temperature 97.5 [degF] [facility] 11:40-0500 [facility] (93830) 04-18-2018 Height 165.1 cm [facility] 11:40-0500 [facility] (81496) 04-18-2018 Pulse Oximetry 0 % [facility] 11:40-0500 [facility] (59769) 04-18-2018 Weight 69.49 kg [facility] 11:40-0500 [facility] (15596) 02-07-2018 BMI (Body Mass 25.74 kg/m2 [facility] 09:00-0400 Index) [facility] (32364) 02-07-2018 Body Temperature 97.6 [degF] ARAM FLYNN [facility] 09:000400 [facility] (15768) 02-07-2018 Height 165[address] [facility] 09:00-0400 [facility] (09566) 02-07-2018 Pulse Oximetry 0 % ARAM [facility] 09:000400 [facility] (58801) 02-07-2018 Weight 70.17 kg [facility] 09:000400 [facility] (57298) 05-21-2014 Body Temperature 96.8 [degF] Doctor [facility] 10:52-0500 [facility] (93570) 05-21-2014 Body weight 67.45 kg [facility] 10:52-0500 [facility] (79093) 05-21-2014 Height 165.1 cm [facility] 10:52-0500 [facility] (31964) 04-12-2014 Body Temperature 97.7 [degF] Doctor [facility] 13:14050 [facility] (75743) 04-12-2014 Body weight 68.21 kg [facility] 13:140500 [facility] (35359) 04-12-2014 Height 165.1 cm [facility] 13:14050 [facility] (20813) 07-11-2013 Body height 165.1 cm DONNA BARBER [facility] 13:050 [facility] (01621) 07-11-2013 Body temperature 97.4 [degF] DONNA BARBER [facility] 13:050 [facility] (89051) 07-11-2013 Body weight 72.39 kg DONNA BARBER [facility] 13:02050 [facility] (48561) 05-14-2013 Body height 165.1 cm [facility] 12:52-0500 [facility] (30123) 05-14-2013 Body temperature 98.9 [degF] SARINA Gu [facility] 12:52-0500 [facility] (44219) 05-14-2013 Body weight 72.83 kg SARINA Gu [facility] 12:52-0500 [facility] (65939) 01-24-2013 Body height 165.1 cm [facility] 11:28-0400 [facility] (97976) 01-24-2013 Body temperature 97.6 [degF] Doctor Migration [facility] 11:28-0400 [facility] (03753) 01-24-2013 Body weight 73.88 kg Doctor Migration [facility] 11:28-0400 [facility] (42999) 01-11-2013 Body height 165.1 cm Doctor Migration [facility] 09:49-0400 [facility] (64281) 01-11-2013 Body temperature 97.6 [degF] Doctor Migration [facility] 09:49-0400 [facility] (02745) 01-11-2013 Body weight 73.28 kg Doctor Migration [facility] 09:49-0400 [facility] (01958) 12-11-2012 Body height 165.1 cm [facility] 11:17-0400 [facility] (03837) 12-11-2012 Body temperature 98 [degF] Doctor Migration [facility] 11:17-0400 [facility] (38865) 12-11-2012 Body weight 73.03 kg Doctor Migration [facility] 11:17-0400 [facility] (76932) 10-10-2012 Body height 165.1 cm Doctor Migration [facility] 18:23-0400 [facility] (34857) 10-10-2012 Body temperature 97.8 [degF] Doctor Migration [facility] 18:23-0400 [facility] (43983) 10-10-2012 Body weight 71.9 kg Doctor Migration [facility] 18:230400 [facility] (86699) Functional Status The data below is from unstructured sources Query Response Date Terry rded Pasero Opioid-induced Sedation Scale (POSS) Awake and alert November 07, 2018 12:30pm No Functional Status information available Mental Status The data below is from unstructured sourcesNo Mental Status Information AvailableNo Mental Status Information AvailableNo Mental Status Information Available Coronavirus Ab Qn (S) 2019-12-13 Note Date & Note Facility Type 12-13-2019 NOT DETECTED (L) TITUS S-CoV-2 RT PCR~~The PENDING LOCATION [facility] Coronavirus Ab SARS-CoV-2 (COVID-19) RT-PCR procedure performed at~[facility] () Qn (S) Laboratory is a real-time R T-PCR test intended for~the qualitative detection of SARS-CoV-2 specific nuclei c~acid from upper respiratory tract specimens (nasopharyn geal~or oropharyngeal swabs). The performance of this test bettencourt s~not been established for monitoring treatment of SARS-CoV-2~infe ction. This test was developed and its performance~character istics determined by [employer]. This test~was developed fo r use as a part of a response to the public~health emergency declared to address the outbreak of~COVID-19. This test has not been reviewed by the Food and~Drug Administration. The FDA has de termined that such~clearance or approval is not neces ashok. This test is used~for clinical purposes. It should not be reg arded as~investigational or for research. This laboratory is~certif ied under the Clinical Laboratory Improvement Act of~1987 (CLI A-88) as qualified to perform high complexity~clinical labora tory testing. A positive (DETECTED) result is~indicative of the presence of SARS-CoV-2 RNA but does not~rule out bacterial infecti on or co-infection with other~viruses. Laboratories within the [place] and its~territories are required to report all positive results to~the appropriate public health authorities. A negative (NOT~DETECTED) result does not definitively rule out S ARS-CoV-2~infection and should be combined with clinical observ ations,~patient history, and epidemiological information when ma saniya~clinical decisions.~~Test Performed at:~[facility]~[address]~[place] [address]~ ~ Evaluation note Note Date & Note Facility Type Evaluation No Assessments Information Available A scension Via note [facility] (07915) Summary Purpose eClinicalWorks SubmissioneClinicalWorks SubmissioneClinicalWorks SubmissioneClinicalWorks SubmissioneClinicalWorks SubmissioneClinicalWorks SubmissioneClinicalWorks SubmissioneClinicalWorks SubmissioneClinicalWorks SubmissioneClinicalWorks SubmissioneClinicalWorks SubmissioneClinicalWorks Submission Advance Directives Directive Response Recor ded Date/Time Advance Directives No 11:29am Resuscitation Status Full Code 09/02/15 11:29am Directive Response Recor ded Date/Time Advance Directives No 3:09pm 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 [employer] No 10/31/18 3:09pm Resuscitation Status Full Code 10/31/18 3:09pm Directive Response Recor ded Date/Time Advance Directives No 12:31pm 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 [employer] No 11/07/18 12:31pm Resuscitation Status Full Code 11/07/18 12:31pm Advance Directive Response Recorded Date/Time Advance Directives No [facility] 2019 10:05am 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 [employer] No June 26, 2019 10:05am Resuscitation Status Full Code June 26, 2019 10:05am Advance Directive Response Recorded Date/Time Advance Directives No 2019 9:38am 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 No December 12, 2019 9:38am Resuscitation Status Full Code December 12, 2019 9:38am Discharge Instructions No hospital discharge instructions.No hospital discharge instruction information available.No hospital discharge instruction information available. Chief Complaint and Reason for Visit Chief Complaint Cough/Cold/Flu Sympt oms Reason for Visit [id number] Additional Source Comments This clinical document has been generated using [employer] software that has been certified by the Office of the National Coordinator for Health Information Technology (ONC 15.99.04.3023.Diam.[id number]) and the National Committee for Economic Research Analyst (NCQA, as an eMeasure certified technology). FOR RECORDS PERTAINING TO PATIENTS WHO ARE OR HAVE BEEN ENROLLED IN A CHEMICAL D EPENDENCY/SUBSTANCE ABUSE PROGRAM, SOME INFORMATION MAY BE OMITTED. This clinica l summary was aggregated from multiple sources. Caution should be exercised in using it in the provision of clinical care. This summary normalizes information from multiple sources, and as a consequence, information in this document may ma terially change the coding, format and clinical context of patient data. In blaire tion, data may be omitted in some cases. CLINICAL DECISIONS SHOULD BE BASED ON T HE PRIMARY CLINICAL RECORDS. [employer] provides no warranty or guara ntee of the accuracy or completeness of information in this document.The [facility] information is based on time limited clinical information UNRECOGNIZED CONTENT PROVIDED BELOW FOR UNRECOGNIZED SECTION MEDICAL (GENERAL) HISTORY Type Description Date Medical History hearing loss Medical History Encopresis seen [facility] with Colonosocopy 2014 and was told normal Medical History solitary pulmonary n odule LLL 15 stable rec yearly recheck Medical History diverticulitis Medical History Encopresis Medical History Diverticulitis of co jem (without mention of hemorrhage) Colonoscopy [facility] 2013 Medical History Solitary pulmonary nodule Surgical History tubal ligation Surgical History Colonoscopy [facility] 2015-10 Type Description Date Medical History hearing loss Medical History Encopresis seen [facility] with Colonosocopy 2014 and was told normal Medical History solitary pulmonary n odule LLL 15 stable rec yearly recheck Medical History diverticulitis Medical History Encopresis Medical History Diverticulitis of co jem (without mention of hemorrhage) Colonoscopy [facility] 2013 Medical History Solitary pulmonary nodule Surgical History tubal ligation Surgical History Colonoscopy [facility] 2015-10 Surgical History cataract surgery 2019 Type Description Date Medical History hearing loss Medical History Encopresis seen [facility] with Colonosocopy 2014 and was told normal Medical History solitary pulmonary n odule LLL 15-15 stable rec yearly recheck Medical History diverticulitis Medical History Encopresis Medical History Diverticulitis of co jem (without mention of hemorrhage) Colonoscopy [facility] 2013 Medical History Solitary pulmonary nodule Medical History Barrets Esophagus Dx EGD at gastoesophagel junction [place] Surgical History tubal ligation Surgical History Colonoscopy [facility] 2015-10 Surgical History cataract surgery 2019 Surgical History EGD gastrointestina l Junction Consistent w Barrets Esophagus [place] UNRECOGNIZED CONTENT PROVIDED BELOW FOR UNRECOGNIZED SECTION REASON FOR VISIT Requests return callTransition, PT wanted to talk to you about getting a medical note to get out of Jury duty-Nadir Benito symptoms-urinary urgency and frequen cy x 1 week.--TSowell, MAannual checkup-BALBIR valles, patient want to know if she is pre diabetic, and she also having some bowel issuesRunny nose/Cough-twooden, RMA, pt states that she was having pain on the left side of her ribs an d in her left arm with a low grade fever and no appetite. also with a burning on her left side of her chest med [id number]
--- OUTSIDE RECORDS SUMMARY | 2019-12-18 09:44 | XMS REPORT ---
Author Author Josie Álvarez Doctor Organization [facility] Address Unknown Phone Unavailable Care Team Providers Care Layout Mechanic Name Role Phone Migration, Doctor Unavailable Unavailable PROBLEMS Type Condition ICD9-CM Code SDC95-CZ Code Onset Dates Condition S tatus SNOMED Code Problem Porokeratosis Q82.8 Active 488595 004 Problem Neuropathy G62.9 Active 856218324 Problem Hammer toe, unspecified laterality M20.40 Active 483549730 Problem Hiatal hernia K44.9 Active 131728 09 Problem History of solitary pulmonary nodule Z87.898 Active 849496293 Problem Rhinosinusitis J32.9 Active 25848 4004 Problem Hematuria R31.9 Active 81379122 Problem Incontinence of feces, unspecified fecal incontinence type R15.9 Active 58963860 Problem Diarrhea, unspecified type R19.7 Act alexis 25285504 Problem Encopresis R15.9 Active 479958289 Problem Bilateral hearing loss, unspecified hearing loss type H91.93 Active 43856916 ALLERGIES No Information ENCOUNTERS Encounter Location Date Diagnosis [place] [address] [place] [address] Jul, Black stools K92.1 and Cough R05 [place] [address] [place] [address] May, [place] [address] [place] [id number] [address] [place] [address] Apr, Acute rhinosinusitis J01.90 [place] [address] [place] [id number] [address] [place] [address] Apr, [place] [address] [place] [address] Apr, Rhinosinusitis J32.9 and Dewayne mor R25.1 [place] [address] [address] Mar, Bilateral hearing loss, unsp ecified hearing loss type H91.93 [place] [address] [address] Feb, Cat scratch W55.03XA ; Punct ure wound T14.8XXA and Hematoma and contusion T14.8XXA [place] [address] [address] Feb, Well woman exam without gyne cological exam Z00.00 and Screening for breast cancer Z12.39 [place] [address] [address] Jan, Dentalgia K08.89 [place] [address] [address] Jan, Costochondritis M94.0 [place] [address] [address] Dec, Urinary tract infection N39. 0 [place] [address] [address] Nov, Rash R21 [place] [address] [address] Nov, Hiatal hernia K44.9 and Urin chase frequency R35.0 [place] [address] [address] Nov, Near syncope R55 [place] [address] [address] Nov, Near syncope R55 [place] [address] [address] Nov, [facility] [address] [address] Oct, Dysuria R30.0 and Urinary tr act infection without hematuria, site unspecified N39.0 [facility] [address] [place] [id number] [address] [place] [address] September, Acute cystitis with hematuri a N30.01 [place] [address] [address] Jun, Gastroenteritis K52.9 [place] [address] [address] May, Bilateral hearing loss, unsp ecified hearing loss type H91.93 and Rib pain R07.81 [place] [address] [address] Apr, [place] [address] [address] Apr, Chest wall pain R07.89 and A bdominal pain, unspecified abdominal location R10.9 [place] [address] [address] Feb, Annual physical exam Z00.00 and Diarrhea, unspecified type R19.7 [place] [address] [address] Dec, Encopresis R15.9 and Inconti nence of feces, unspecified fecal incontinence type R15.9 [facility] [address] [address] Nov, Urinary tract infection, sit e not specified N39.0 and Hematuria, unspecified R31.9 [place] [address] [place] [id number] [address] [place] [address] Oct, [place] [address] [address] Oct, Tick bite, initial encounter W57.XXXA and Incontinence of feces, unspecified fecal incontinence type R15.9 [place] [address] [address] May, Neuropathy G62.9 ; Hammer to e, unspecified laterality M20.40 and Onychomycosis B35.1 [place] [address] [address] Mar, Dysuria R30.0 [place] [address] [address] Mar, [place] [address] [address] Feb, [place] [address] [address] Dec, Family history of diabetes gonzalez sierra Z83.3 ; Porokeratosis Q82.8 and Neuropathy G62.9 [place] [address] [address] Oct, Porokeratosis Q82.8 [place] [address] [address] September, [place] [address] [address] September, Porokeratosis Q82.8 [place] [address] [address] September, [place] [address] [address] Aug, Aphthous ulcer K12.0 ; Denta l caries K02.9 ; Viral gastroenteritis A08.4 and Abscessed tooth K04.[address] [address] Jul, Porokeratosis Q82.8 ; Callus of foot L84 and Metatarsalgia of right foot M77.41 [place] [address] [address] 10 Feb, 2017 Porokeratosis Q82.8 and Foot pain, right M79.671 [facility] [address] [id number] [address] [place] [address] Apr, [facility] [address] [id number] [address] [place] [address] Apr, Pre-diabetes R73.03 and Plan tar wart, right foot B07.0 [facility] [address] [id number] [address] [place] [address] Apr, [facility] [address] [id number] [address] [place] [address] Apr, [facility] [address] [id number] [address] [place] [address] Mar, [facility] [address] [facility] [id number] [address] [place] [address] Mar, [facility] [address] [id number] [address] [place] [address] Mar, Hematuria R31.9 and Pre-diab etes R73.03 [facility] [address] [id number] [address] [place] [address] Feb, [facility] [address] [id number] [address] [place] [address] Feb, [facility] [address] [id number] [address] [place] [address] Feb, Abnormal fasting glucose R73 .01 [facility] [address] [id number] [address] [place] [address] Feb, Abnormal fasting glucose R73 .01 [facility] [address] [facility] [id number] [address] [place] [address] Feb, Routine gynecological examin ation Z01.419 ; General medical exam Z00.00 ; Screening breast examination Z12.39 ; Hematuria R31.9 ; Vaginal discharge N89.8 ; Vaginal yeast infection B37.3 and Recurrent UTI N39.0 [facility] [address] [id number] [address] [place] [address] 20 Jan, 2016 Recurrent UTI N39.0 and Hist ory of solitary pulmonary nodule Z87.898 [facility] [address] [id number] [address] [place] [address] 19 Jan, 2016 [facility] [address] [id number] [address] [place] [address] 13 Jan, 2016 Recurrent UTI N39.0 ; Hematu vasu R31.9 and History of solitary pulmonary nodule Z87.898 [facility] [address] [id number] [address] [place] [address] 07 Jan, 2016 [facility] [address] [id number] [address] [place] [address] 06 Jan, 2016 Recurrent UTI N39.0 [facility] [address] [id number] [address] [place] [address] Dec, [facility] [address] [id number] [address] [place] [address] Dec, [facility] [address] [id number] [address] [place] [address] Dec, Acute cystitis with hematuri a N30.01 [place] [address] [id number] [address] [place] [address] Dec, Acute cystitis with hematuri a N30.01 [facility] [address] [id number] [address] [place] [address] Dec, Acute cystitis with hematuri a N30.01 and Insect bite (nonvenomous) of left upper arm, initial encounter S40.862A [facility] [address] [id number] [address] [place] [address] Nov, Acute cystitis with hematuri a N30.01 and Insect bite (nonvenomous) of left upper arm, initial encounter S40.862A [place] [address] [facility] [id number] [address] [place] [address] September, [facility] [address] [facility] [id number] [address] [place] [address] September, [facility] [address] [facility] [id number] [address] [place] [address] September, Acute cystitis with hematuri a N30.01 and Family history of diabetes mellitus Z83.3 [facility] [address] [facility] [id number] [address] [place] [address] September, Family history of diabetes gonzalez sierra Z83.3 [place] [address] [facility] [id number] [address] [place] [address] September, Acute cystitis with hematuri a N30.01 [place] [address] [place] [id number] [place] [address] September, [place] [address] [place] [id number] [address] [place] [address] September, Acute cystitis with hematuri a N30.01 [facility] [address] [facility] [id number] [address] [place] [address] May, Back pain M54.9 and Urinary tract infection N39.0 [place] [address] [place] [address] Feb, [place] [address] [place] [id number] [place] [address] Feb, Bony prominence M89.8X9 [place] [address] [place] [id number] [place] [address] Nov, Unspecified urinary incontin ence 788.30 ; 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 and Solitary pulmonary nodule 793.11 [place] [address] [place] [id number] [place] [address] Nov, [facility] [address] [place] [id number] [place] [address] Oct, Unspecified urinary incontin ence 788.30 ; 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 and Solitary pulmonary nodule 793.11 [facility] [address] [id number] [address] [place] [address] Oct, [facility] [address] [id number] [address] [place] [address] Oct, [facility] [address] [id number] [address] [place] [address] September, [facility] [address] [id number] [address] [place] [address] Aug, [facility] [address] [id number] [address] [place] [address] Aug, [facility] [address] [id number] [address] [place] [address] May, [facility] [address] [id number] [address] [place] [address] May, [facility] [address] [id number] [address] [place] [address] May, [facility] [address] [id number] [address] [place] [address] May, [facility] [address] [id number] [address] [place] [address] May, [facility] [address] [id number] [address] [place] [address] May, [facility] [address] [id number] [address] [place] [address] Apr, [facility] [address] [id number] [address] [place] [address] Apr, [facility] [address] [id number] [address] [place] [address] Feb, [facility] [address] [id number] [address] [place] [address] Feb, [facility] [address] [id number] [address] [place] [address], [place] [address] Dec, [facility] [address] [id number] [address] [place] [address], [place] [address] Nov, [facility] [address] [id number] [address] [place] [address], [place] [address] Nov, [facility] [address] [id number] [address] [place] [address], [place] [address] Nov, [facility] [address] [id number] [address] [place] [address], [place] [address] Nov, [facility] [address] [id number] [address] [place] [address], [place] [address] Nov, [facility] [address] [id number] [address] [place] [address], [place] [address] Nov, [facility] [address] [id number] [address] [place] [address], [place] [address] September, [facility] [address] [id number] [address] [place] [address], [place] [address] September, [facility] [address] [id number] [address] [place] [address], [place] [address] September, [facility] [address] [id number] [address] [place] [address], [place] [address] Aug, [facility] [address] [id number] [address] [place] [address], [place] [address] Aug, [facility] [address] [id number] [address] [place] [address], [place] [address] Aug, [facility] [address] [id number] [address] [place] [address], [place] [address] Aug, [facility] [address] [id number] [address] [place] [address], [place] [address] Jul, [facility] [address] [id number] [address] [place] [address], [place] [address] Jul, [facility] [address] [id number] [address] [place] [address], [place] [address] Jul, [facility] [address] [id number] [address] [place] [address], [place] [address] May, [facility] [address] [id number] [address] [place] [address], [place] [address] May, [facility] [address] [id number] [address] [place] [address], [place] [address] May, [facility] [address] [id number] [address] [place] [address], [place] [address] May, [facility] [address] [id number] [address] [place] [address], [place] [address] Apr, [facility] [address] [id number] [address] [place] [address], [place] [address] Apr, [facility] [address] [id number] [address] [place] [address], [place] [address] Apr, [facility] [address] [id number] [address] [place] [address], [place] [address] Feb, [facility] [address] [id number] [address] [place] [address], [place] [address] Feb, [facility] [address] [id number] [address] [place] [address], [place] [address] 25 Jan, 2013 [facility] [address] [id number] [address] [place] [address], [place] [address] 24 Sep2012 [facility] [address] [id number] [address] [place] [address], [place] [address] 18 Sep2012 [facility] [address] [id number] [address] [place] [address] [address] 16 Sep2012 [facility] [address] [id number] [address] [place] [address] [address] Jan, [facility] [address] [id number] [address] [place] [address] Jan, [facility] [address] [id number] [address] [place] [address] Jan, [facility] [address] [id number] [address] [place] [address] Dec, [facility] [address] [id number] [address] [place] [address] Dec, [facility] [address] [id number] [address] [place] [address] Dec, [facility] [address] [id number] [address] [place] [address] Dec, [facility] [address] [id number] [address] [place] [address] Oct, [facility] [address] [id number] [address] [place] [address] Nov, [facility] [address] [id number] [address] [place] [address] Mar, [facility] [address] [id number] [address] [place] [address] Feb, [facility] [address] [id number] [address] [place] [address] Feb, [facility] [address] [id number] [address] [place] [address] Jul, IMMUNIZATIONS No Known Immunizations SOCIAL HISTORY Never Assessed REASON FOR VISIT PLAN OF CARE VITAL SIGNS Height 65 in 2013-01-11 Weight 161.55 lbs 2013-01-11 Temperature 97.6 degrees Fahrenheit 2013-01-11 Heart Rate 76 bpm 2013-01-11 Respiratory Rate 16 2013-01-11 Blood pressure systolic 116 mmHg 2013-01-11 Blood pressure diastolic 70 mmHg 2013-01-11 MEDICATIONS No Known Medications RESULTS No Results PROCEDURES No Known procedures INSTRUCTIONS MEDICATIONS ADMINISTERED No Known Medications MEDICAL (GENERAL) HISTORY Type Description Date Medical History hearing loss Medical History Encopresis seen [facility] with Co lonosocopy 2014 and was told normal Medical History solitary pulmonary nodule LLL 08-21-15 [facility] yearly recheck Medical History diverticulitis Medical History Encopresis Medical History Diverticulitis of colon (wit hout mention of hemorrhage) Colonoscopy [facility] 2013 Medical History Solitary pulmonary nodule Medical History Barrets Esophagus Dx EGD at [facility] [place] Surgical History tubal ligation Surgical History Colonoscopy [facility] 2015- Surgical History cataract surgery 2019 Surgical History EGD gastrointestinal Junctio n Consistent w Barrets Esophagus [place]
--- OUTSIDE RECORDS SUMMARY | 2019-12-18 09:44 | XMS REPORT ---
Author Author Josie Álvarez Doctor Organization [facility] Address Unknown Phone Unavailable Care Team Providers Care Ticket Worker Name Role Phone Migration, Doctor Unavailable Unavailable PROBLEMS Type Condition ICD9-CM Code [id number] Code Onset Dates Condition S tatus SNOMED Code Problem Porokeratosis Q82.8 Active 802398 004 Problem Neuropathy G62.9 Active 807635488 Problem Hammer toe, unspecified laterality M20.40 Active 541045691 Problem Hiatal hernia K44.9 Active 065560 09 Problem History of solitary pulmonary nodule Z87.898 Active 715307160 Problem Rhinosinusitis J32.9 Active 10838 4004 Problem Hematuria R31.9 Active 03900875 Problem Incontinence of feces, unspecified fecal incontinence type R15.9 Active 02951907 Problem Diarrhea, unspecified type R19.7 Act alexis 21340248 Problem Encopresis R15.9 Active 555257329 Problem Bilateral hearing loss, unspecified hearing loss type H91.93 Active 01611935 ALLERGIES No Information ENCOUNTERS Encounter Location Date Diagnosis [place] [address] [place] [phone] Jul, Black stools K92.1 and Cough R05 [place] [address] [place] [id number] May, [place] [address] [place] [id number] [place] [address] Apr, Acute rhinosinusitis J01.90 [place] [address] [place] [id number] [place] [address] Apr, [place] [address] [place] [address] Apr, Rhinosinusitis J32.9 and Dewayne mor R25.1 [place] [address] [address] Mar, Bilateral hearing loss, unsp ecified hearing loss type H91.93 [place] [address] [address] Feb, Cat scratch W55.03XA ; Punct ure wound T14.8XXA and Hematoma and contusion T14.8XXA [place] [address] [address] Feb, Well woman exam without gyne cological exam Z00.00 and Screening for breast cancer Z12.39 [place] [address] [address] Jan, Dentalgia K08.89 [place] [address] [address] Jan, Costochondritis M94.0 [place] [address] [address] Dec, Urinary tract infection N39. 0 [place] [address] [address] Nov, Rash R21 [place] [address] [address] Nov, Hiatal hernia K44.9 and Urin chase frequency R35.0 [place] [address] [address] Nov, Near syncope R55 [place] [address] [address] Nov, Near syncope R55 [place] [address] [address] Nov, [facility] [address] [address] Oct, Dysuria R30.0 and Urinary tr act infection without hematuria, site unspecified N39.0 [facility] [address] [place] [id number] [place] [address] September, Acute cystitis with hematuri a N30.01 [place] [address] [address] Jun, Gastroenteritis K52.9 [place] [address] [address] May, Bilateral hearing loss, unsp ecified hearing loss type H91.93 and Rib pain R07.81 [place] [address] [address] Apr, [place] [address] [address] Apr, Chest wall pain R07.89 and A bdominal pain, unspecified abdominal location R10.9 [place] [address] [address] Feb, Annual physical exam Z00.00 and Diarrhea, unspecified type R19.7 [place] [address] [address] Dec, Encopresis R15.9 and Inconti nence of feces, unspecified fecal incontinence type R15.9 [facility] [address] [address] Nov, Urinary tract infection, sit e not specified N39.0 and Hematuria, unspecified R31.9 [place] [address] [place] [id number] [place] [address] Oct, [place] [address] [address] Oct, Tick bite, initial encounter W57.XXXA and Incontinence of feces, unspecified fecal incontinence type R15.9 [place] [address] [address] May, Neuropathy G62.9 ; Hammer to e, unspecified laterality M20.40 and Onychomycosis B35.1 [place] [address] [address] Mar, Dysuria R30.0 [place] [address] [address] Mar, [place] [address] [address] Feb, [place] [address] [address] Dec, Family history of diabetes gonzalez sierra Z83.3 ; Porokeratosis Q82.8 and Neuropathy G62.9 [place] [address] [address] Oct, Porokeratosis Q82.8 [place] [address] [address] September, [place] [address] [address] September, Porokeratosis Q82.8 [place] [address] [address] September, [place] [address] [address] Aug, Aphthous ulcer K12.0 ; Denta l caries K02.9 ; Viral gastroenteritis A08.4 and Abscessed tooth K04.[address] [address] Jul, Porokeratosis Q82.8 ; Callus of foot L84 and Metatarsalgia of right foot M77.41 [place] [address] [address] 10 Feb, 2017 Porokeratosis Q82.8 and Foot pain, right M79.671 [facility] [address] [id number] [address] [place] [address] Apr, [facility] [address] [id number] [address] [place] [address] Apr, Pre-diabetes R73.03 and Plan tar wart, right foot B07.0 [facility] [address] [id number] [address] [place] [address] Apr, [facility] [address] [id number] [address] [place] [address] Apr, [facility] [address] [id number] [address] [place] [address] Mar, [facility] [address] [facility] [id number] [address] [place] [address] Mar, [facility] [address] [id number] [address] [place] [address] Mar, Hematuria R31.9 and Pre-diab etes R73.03 [facility] [address] [id number] [address] [place] [address] Feb, [facility] [address] [id number] [address] [place] [address] Feb, [facility] [address] [id number] [address] [place] [address] Feb, Abnormal fasting glucose R73 .01 [facility] [address] [id number] [address] [place] [address] Feb, Abnormal fasting glucose R73 .01 [facility] [address] [facility] [id number] [address] [place] [address] Feb, Routine gynecological examin ation Z01.419 ; General medical exam Z00.00 ; Screening breast examination Z12.39 ; Hematuria R31.9 ; Vaginal discharge N89.8 ; Vaginal yeast infection B37.3 and Recurrent UTI N39.0 [facility] [address] [id number] [address] [place] [address] 20 Jan, 2016 Recurrent UTI N39.0 and Hist ory of solitary pulmonary nodule Z87.898 [facility] [address] [id number] [address] [place] [address] 19 Jan, 2016 [facility] [address] [id number] [address] [place] [address] 13 Jan, 2016 Recurrent UTI N39.0 ; Hematu vasu R31.9 and History of solitary pulmonary nodule Z87.898 [facility] [address] [id number] [address] [place] [address] 07 Jan, 2016 [facility] [address] [id number] [address] [place] [address] 06 Jan, 2016 Recurrent UTI N39.0 [facility] [address] [id number] [address] [place] [address] Dec, [facility] [address] [id number] [address] [place] [address] Dec, [facility] [address] [id number] [address] [place] [address] Dec, Acute cystitis with hematuri a N30.01 [place] [address] [id number] [address] [place] [address] Dec, Acute cystitis with hematuri a N30.01 [facility] [address] [id number] [address] [place] [address] Dec, Acute cystitis with hematuri a N30.01 and Insect bite (nonvenomous) of left upper arm, initial encounter S40.862A [facility] [address] [id number] [address] [place] [address] Nov, Acute cystitis with hematuri a N30.01 and Insect bite (nonvenomous) of left upper arm, initial encounter S40.862A [place] [address] [facility] [id number] [address] [place] [address] September, [facility] [address] [facility] [id number] [address] [place] [address] September, [facility] [address] [facility] [id number] [address] [place] [address] September, Acute cystitis with hematuri a N30.01 and Family history of diabetes mellitus Z83.3 [facility] [address] [facility] [id number] [address] [place] [address] September, Family history of diabetes gonzalez sierra Z83.3 [place] [address] [facility] [id number] [address] [place] [address] September, Acute cystitis with hematuri a N30.01 [place] [address] [place] [id number] [place] [address] September, [place] [address] [place] [id number] [place] [address] September, Acute cystitis with hematuri a N30.01 [facility] [address] [facility] [id number] [address] [place] [address] May, Back pain M54.9 and Urinary tract infection N39.0 [place] [address] [place] [address] Feb, [place] [address] [place] [id number] [place] [address] Feb, Bony prominence M89.8X9 [place] [address] [place] [id number] [place] [address] Nov, Unspecified urinary incontin ence 788.30 ; 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 and Solitary pulmonary nodule 793.11 [place] [address] [place] [id number] [place] [address] Nov, [facility] [address] [place] [id number] [place] [address] Oct, Unspecified urinary incontin ence 788.30 ; 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 and Solitary pulmonary nodule 793.11 [facility] [address] [id number] [address] [place] [phone] Oct, [facility] [address] [id number] [address] [place] [phone] Oct, [facility] [address] [id number] [address] [place] [id number] September, [facility] [address] [id number] [address] [place] [phone] Aug, [facility] [address] [id number] [address] [place] [id number] Aug, [facility] [address] [id number] [address] [place] [phone] May, [facility] [address] [id number] [address] [place] [address] May, [facility] [address] [id number] [address] [place] [id number] May, [facility] [address] [id number] [address] [place] [phone] May, [facility] [address] [id number] [address] [place] [id number] May, [facility] [address] [id number] [address] [place] [phone] May, [facility] [address] [id number] [address] [place] [phone] Apr, [facility] [address] [id number] [address] [place] [phone] Apr, [facility] [address] [id number] [address] [place] [address] Feb, [facility] [address] [id number] [address] [place] [id number] Feb, [facility] [address] [id number] [address] [place] [address], [place] [address] Dec, [facility] [address] [id number] [address] [place] [address], [place] [address] Nov, [facility] [address] [id number] [address] [place] [address], [place] [address] Nov, [facility] [address] [id number] [address] [place] [address], [place] [address] Nov, [facility] [address] [id number] [address] [place] [address], [place] [address] Nov, [facility] [address] [id number] [address] [place] [address], [place] [address] Nov, [facility] [address] [id number] [address] [place] [address], [place] [address] Nov, [facility] [address] [id number] [address] [place] [address], [place] [address] September, [facility] [address] [id number] [address] [place] [address], [place] [address] September, [facility] [address] [id number] [address] [place] [address], [place] [address] September, [facility] [address] [id number] [address] [place] [address], [place] [address] Aug, [facility] [address] [id number] [address] [place] [address], [place] [address] Aug, [facility] [address] [id number] [address] [place] [address], [place] [address] Aug, [facility] [address] [id number] [address] [place] [address], [place] [address] Aug, [facility] [address] [id number] [address] [place] [address], [place] [address] Jul, [facility] [address] [id number] [address] [place] [address], [place] [address] Jul, [facility] [address] [id number] [address] [place] [address], [place] [address] Jul, [facility] [address] [id number] [address] [place] [address], [place] [address] May, [facility] [address] [id number] [address] [place] [address], [place] [address] May, [facility] [address] [id number] [address] [place] [address], [place] [address] May, [facility] [address] [id number] [address] [place] [address], [place] [address] May, [facility] [address] [id number] [address] [place] [address], [place] [address] Apr, [facility] [address] [id number] [address] [place] [address], [place] [address] Apr, [facility] [address] [id number] [address] [place] [address], [place] [address] Apr, [facility] [address] [id number] [address] [place] [address], [place] [address] Feb, [facility] [address] [id number] [address] [place] [address], [place] [address] Feb, [facility] [address] [id number] [address] [place] [address], [place] [address] 25 Jan, 2013 [facility] [address] [id number] [address] [place] [address], [place] [address] 24 Sep2012 [facility] [address] [id number] [address] [place] [address], [place] [address] 18 Sep2012 [facility] [address] [id number] [address] [place] [address], [place] [address] 16 Sep2012 [facility] [address] [id number] [address] [place] [address] [address] Jan, [facility] [address] [id number] [address] [place] [address] Jan, [facility] [address] [id number] [address] [place] [address] Jan, [facility] [address] [id number] [address] [place] [address] Dec, [facility] [address] [id number] [address] [place] [address] Dec, [facility] [address] [id number] [address] [place] [address] Dec, [facility] [address] [id number] [address] [place] [address] Dec, [facility] [address] [id number] [address] [place] [address] Oct, [facility] [address] [id number] [address] [place] [phone] Nov, [facility] [address] [id number] [address] [place] [phone] Mar, [facility] [address] [id number] [address] [place] [address] Feb, [facility] [address] [id number] [address] [place] [phone] Feb, [facility] [address] [id number] [address] [place] [id number] Jul, IMMUNIZATIONS No Known Immunizations SOCIAL HISTORY Never Assessed REASON FOR VISIT PLAN OF CARE VITAL SIGNS MEDICATIONS No Known Medications RESULTS No Results PROCEDURES No Known procedures INSTRUCTIONS MEDICATIONS ADMINISTERED No Known Medications MEDICAL (GENERAL) HISTORY Type Description Date Medical History hearing loss Medical History Encopresis seen [facility] with Co lonosocopy 2014 and was told normal Medical History solitary pulmonary nodule LLL [address] able rec yearly recheck Medical History diverticulitis Medical History Encopresis Medical History Diverticulitis of colon (wit hout mention of hemorrhage) Colonoscopy [facility] 2013 Medical History Solitary pulmonary nodule Medical History Barrets Esophagus Dx EGD at gastoesophagel junction [place] Surgical History tubal ligation Surgical History Colonoscopy [facility] 2015- Surgical History cataract surgery 2019 Surgical History EGD gastrointestinal Junctio n Consistent w Barrets Esophagus [place]
--- OUTSIDE RECORDS SUMMARY | 2019-12-18 09:44 | XMS REPORT ---
Author Author Josie Álvarez Doctor Organization [facility] Address Unknown Phone Unavailable Care Team Providers Care Hydrogen Cell Tender Name Role Phone Migration, Doctor Unavailable Unavailable PROBLEMS Type Condition ICD9-CM Code SFC50-IS Code Onset Dates Condition S tatus SNOMED Code Problem Porokeratosis Q82.8 Active 979537 004 Problem Neuropathy G62.9 Active 031881222 Problem Hammer toe, unspecified laterality M20.40 Active 173525796 Problem Hiatal hernia K44.9 Active 439572 09 Problem History of solitary pulmonary nodule Z87.898 Active 518241082 Problem Rhinosinusitis J32.9 Active 98008 4004 Problem Hematuria R31.9 Active 47755335 Problem Incontinence of feces, unspecified fecal incontinence type R15.9 Active 90236066 Problem Diarrhea, unspecified type R19.7 Act alexis 11094133 Problem Encopresis R15.9 Active 998898342 Problem Bilateral hearing loss, unspecified hearing loss type H91.93 Active 56179837 ALLERGIES No Information ENCOUNTERS Encounter Location Date Diagnosis [place] [address] [place] [address] Jul, Black stools K92.1 and Cough R05 [place] [address] [place] [address] May, [facility] [address] [place] [id number] [place] [address] Apr, Acute rhinosinusitis J01.90 [place] [address] [place] [id number] [address] [place] [address] Apr, [place] [address] [place] [address] Apr, Rhinosinusitis J32.9 and Dewayne mor R25.1 [place] [address] [address] Mar, Bilateral hearing loss, unsp ecified hearing loss type H91.93 [place] [address] [address] Feb, Cat scratch W55.03XA ; Punct ure wound T14.8XXA and Hematoma and contusion T14.8XXA [place] [address] [address] Feb, Well woman exam without gyne cological exam Z00.00 and Screening for breast cancer Z12.39 [place] [address] [address] Jan, Dentalgia K08.89 [place] [address] [address] Jan, Costochondritis M94.0 [place] [address] [address] Dec, Urinary tract infection N39. 0 [place] [address] [address] Nov, Rash R21 [place] [address] [address] Nov, Hiatal hernia K44.9 and Urin chase frequency R35.0 [place] [address] [address] Nov, Near syncope R55 [place] [address] [address] Nov, Near syncope R55 [place] [address] [address] Nov, [facility] [address] [address] Oct, Dysuria R30.0 and Urinary tr act infection without hematuria, site unspecified N39.0 [facility] [address] [place] [id number] [place] [address] September, Acute cystitis with hematuri a N30.01 [place] [address] [address] Jun, Gastroenteritis K52.9 [place] [address] [address] May, Bilateral hearing loss, unsp ecified hearing loss type H91.93 and Rib pain R07.81 [place] [address] [address] Apr, [place] [address] [address] Apr, Chest wall pain R07.89 and A bdominal pain, unspecified abdominal location R10.9 [place] [address] [address] Feb, Annual physical exam Z00.00 and Diarrhea, unspecified type R19.7 [place] [address] [address] Dec, Encopresis R15.9 and Inconti nence of feces, unspecified fecal incontinence type R15.9 [facility] [address] [address] Nov, Urinary tract infection, sit e not specified N39.0 and Hematuria, unspecified R31.9 [place] [address] [place] [id number] [place] [address] Oct, [place] [address] [address] Oct, Tick bite, initial encounter W57.XXXA and Incontinence of feces, unspecified fecal incontinence type R15.9 [place] [address] [address] May, Neuropathy G62.9 ; Hammer to e, unspecified laterality M20.40 and Onychomycosis B35.1 [place] [address] [address] Mar, Dysuria R30.0 [place] [address] [address] Mar, [place] [address] [address] Feb, [place] [address] [address] Dec, Family history of diabetes gonzalez sierra Z83.3 ; Porokeratosis Q82.8 and Neuropathy G62.9 [place] [address] [address] Oct, Porokeratosis Q82.8 [place] [address] [address] September, [place] [address] [address] September, Porokeratosis Q82.8 [place] [address] [address] September, [place] [address] [address] Aug, Aphthous ulcer K12.0 ; Denta l caries K02.9 ; Viral gastroenteritis A08.4 and Abscessed tooth K04.[address] [address] Jul, Porokeratosis Q82.8 ; Callus of foot L84 and Metatarsalgia of right foot M77.41 [place] [address] [address] 10 Feb, 2017 Porokeratosis Q82.8 and Foot pain, right M79.671 [facility] [address] [id number] [address] [place] [address] Apr, [facility] [address] [id number] [address] [place] [address] Apr, Pre-diabetes R73.03 and Plan tar wart, right foot B07.0 [facility] [address] [id number] [address] [place] [address] Apr, [facility] [address] [id number] [address] [place] [address] Apr, [facility] [address] [id number] [address] [place] [address] Mar, [facility] [address] [facility] [id number] [address] [place] [address] Mar, [facility] [address] [id number] [address] [place] [address] Mar, Hematuria R31.9 and Pre-diab etes R73.03 [facility] [address] [id number] [address] [place] [address] Feb, [facility] [address] [id number] [address] [place] [address] Feb, [facility] [address] [id number] [address] [place] [address] Feb, Abnormal fasting glucose R73 .01 [facility] [address] [id number] [address] [place] [address] Feb, Abnormal fasting glucose R73 .01 [facility] [address] [facility] [id number] [address] [place] [address] Feb, Routine gynecological examin ation Z01.419 ; General medical exam Z00.00 ; Screening breast examination Z12.39 ; Hematuria R31.9 ; Vaginal discharge N89.8 ; Vaginal yeast infection B37.3 and Recurrent UTI N39.0 [facility] [address] [id number] [address] [place] [address] 20 Jan, 2016 Recurrent UTI N39.0 and Hist ory of solitary pulmonary nodule Z87.898 [facility] [address] [id number] [address] [place] [address] 19 Jan, 2016 [facility] [address] [id number] [address] [place] [address] 13 Jan, 2016 Recurrent UTI N39.0 ; Hematu vasu R31.9 and History of solitary pulmonary nodule Z87.898 [facility] [address] [id number] [address] [place] [address] 07 Jan, 2016 [facility] [address] [id number] [address] [place] [address] 06 Jan, 2016 Recurrent UTI N39.0 [facility] [address] [id number] [address] [place] [address] Dec, [facility] [address] [id number] [address] [place] [address] Dec, [facility] [address] [id number] [address] [place] [address] Dec, Acute cystitis with hematuri a N30.01 [place] [address] [id number] [address] [place] [address] Dec, Acute cystitis with hematuri a N30.01 [facility] [address] [id number] [address] [place] [address] Dec, Acute cystitis with hematuri a N30.01 and Insect bite (nonvenomous) of left upper arm, initial encounter S40.862A [facility] [address] [id number] [address] [place] [address] Nov, Acute cystitis with hematuri a N30.01 and Insect bite (nonvenomous) of left upper arm, initial encounter S40.862A [place] [address] [facility] [id number] [address] [place] [address] September, [facility] [address] [facility] [id number] [address] [place] [address] September, [facility] [address] [facility] [id number] [address] [place] [address] September, Acute cystitis with hematuri a N30.01 and Family history of diabetes mellitus Z83.3 [facility] [address] [facility] [id number] [address] [place] [address] September, Family history of diabetes gonzalez sierra Z83.3 [place] [address] [facility] [id number] [address] [place] [address] September, Acute cystitis with hematuri a N30.01 [place] [address] [place] [id number] [place] [address] September, [place] [address] [place] [id number] [place] [address] September, Acute cystitis with hematuri a N30.01 [facility] [address] [facility] [id number] [address] [place] [address] May, Back pain M54.9 and Urinary tract infection N39.0 [place] [address] [place] [address] Feb, [place] [address] [place] [id number] [place] [address] Feb, Bony prominence M89.8X9 [place] [address] [place] [id number] [place] [address] Nov, Unspecified urinary incontin ence 788.30 ; 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 and Solitary pulmonary nodule 793.11 [place] [address] [place] [id number] [place] [address] Nov, [facility] [address] [place] [id number] [place] [address] Oct, Unspecified urinary incontin ence 788.30 ; 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 and Solitary pulmonary nodule 793.11 [facility] [address] [id number] [address] [place] [address] Oct, [facility] [address] [id number] [address] [place] [address] Oct, [facility] [address] [id number] [address] [place] [address] September, [facility] [address] [id number] [address] [place] [address] Aug, [facility] [address] [id number] [address] [place] [address] Aug, [facility] [address] [id number] [address] [place] [address] May, [facility] [address] [id number] [address] [place] [address] May, [facility] [address] [id number] [address] [place] [address] May, [facility] [address] [id number] [address] [place] [address] May, [facility] [address] [id number] [address] [place] [address] May, [facility] [address] [id number] [address] [place] [address] May, [facility] [address] [id number] [address] [place] [address] Apr, [facility] [address] [id number] [address] [place] [address] Apr, [facility] [address] [id number] [address] [place] [address] Feb, [facility] [address] [id number] [address] [place] [address] Feb, [facility] [address] [id number] [address] [place] [address], [place] [address] Dec, [facility] [address] [id number] [address] [place] [address], [place] [address] Nov, [facility] [address] [id number] [address] [place] [address], [place] [address] Nov, [facility] [address] [id number] [address] [place] [address], [place] [address] Nov, [facility] [address] [id number] [address] [place] [address], [place] [address] Nov, [facility] [address] [id number] [address] [place] [address], [place] [address] Nov, [facility] [address] [id number] [address] [place] [address], [place] [address] Nov, [facility] [address] [id number] [address] [place] [address], [place] [address] September, [facility] [address] [id number] [address] [place] [address], [place] [address] September, [facility] [address] [id number] [address] [place] [address], [place] [address] September, [facility] [address] [id number] [address] [place] [address], [place] [address] Aug, [facility] [address] [id number] [address] [place] [address], [place] [address] Aug, [facility] [address] [id number] [address] [place] [address], [place] [address] Aug, [facility] [address] [id number] [address] [place] [address], [place] [address] Aug, [facility] [address] [id number] [address] [place] [address], [place] [address] Jul, [facility] [address] [id number] [address] [place] [address], [place] [address] Jul, [facility] [address] [id number] [address] [place] [address], [place] [address] Jul, [facility] [address] [id number] [address] [place] [address], [place] [address] May, [facility] [address] [id number] [address] [place] [address], [place] [address] May, [facility] [address] [id number] [address] [place] [address], [place] [address] May, [facility] [address] [id number] [address] [place] [address], [place] [address] May, [facility] [address] [id number] [address] [place] [address], [place] [address] Apr, [facility] [address] [id number] [address] [place] [address], [place] [address] Apr, [facility] [address] [id number] [address] [place] [address], [place] [address] Apr, [facility] [address] [id number] [address] [place] [address], [place] [address] Feb, [facility] [address] [id number] [address] [place] [address], [place] [address] Feb, [facility] [address] [id number] [address] [place] [address], [place] [address] 25 Jan, 2013 [facility] [address] [id number] [address] [place] [address], [place] [address] 24 Sep2012 [facility] [address] [id number] [address] [place] [address] [address] 18 Sep2012 [facility] [address] [id number] [address] [place] [address] [address] 16 Sep2012 [facility] [address] [id number] [address] [place] [address] [address] Jan, [facility] [address] [id number] [address] [place] [address] Jan, [facility] [address] [id number] [address] [place] [address] Jan, [facility] [address] [id number] [address] [place] [address] Dec, [facility] [address] [id number] [address] [place] [address] Dec, [facility] [address] [id number] [address] [place] [address] Dec, [facility] [address] [id number] [address] [place] [address] Dec, [facility] [address] [id number] [address] [place] [address] Oct, [facility] [address] [id number] [address] [place] [address] Nov, [facility] [address] [id number] [address] [place] [address] Mar, [facility] [address] [id number] [address] [place] [address] Feb, [facility] [address] [id number] [address] [place] [address] Feb, [facility] [address] [id number] [address] [place] [address] Jul, IMMUNIZATIONS No Known Immunizations SOCIAL HISTORY Never Assessed REASON FOR VISIT PLAN OF CARE VITAL SIGNS MEDICATIONS No Known Medications RESULTS No Results PROCEDURES Procedure Date Ordered Result Body Site OVA AND PARASITES SMEARS Jan 17, 2013 FATS/LIPIDS, FECES, QUAL Jan 17, 2013 LEUKOCYTE COUNT, FECAL Jan 17, 2013 INSTRUCTIONS MEDICATIONS ADMINISTERED No Known Medications MEDICAL (GENERAL) HISTORY Type Description Date Medical History hearing loss Medical History Encopresis seen [facility] with Co lonosocopy 2014 and was told normal Medical History solitary pulmonary nodule LLL 08-21-14 [facility] able rec yearly recheck Medical History diverticulitis Medical History Encopresis Medical History Diverticulitis of colon (wit hout mention of hemorrhage) Colonoscopy [facility] 2013 Medical History Solitary pulmonary nodule Medical History Barrets Esophagus Dx EGD at [facility]ophag[facility] [place] Surgical History tubal ligation Surgical History Colonoscopy [facility] 2016- Surgical History cataract surgery 2019 Surgical History EGD gastrointestinal Junctio n Consistent w Barrets Esophagus [place]
--- OUTSIDE RECORDS SUMMARY | 2019-12-18 09:44 | XMS REPORT ---
Author Author Josie Álvarez Doctor Organization [facility] Address Unknown Phone Unavailable Care Team Providers Care Manufacturing Controller Name Role Phone Migration, Doctor Unavailable Unavailable PROBLEMS Type Condition ICD9-CM Code [id number] Code Onset Dates Condition S tatus SNOMED Code Problem Porokeratosis Q82.8 Active 097950 004 Problem Neuropathy G62.9 Active 369791483 Problem Hammer toe, unspecified laterality M20.40 Active 075159428 Problem Hiatal hernia K44.9 Active 001169 09 Problem History of solitary pulmonary nodule Z87.898 Active 636573291 Problem Rhinosinusitis J32.9 Active 46966 4004 Problem Hematuria R31.9 Active 57959183 Problem Incontinence of feces, unspecified fecal incontinence type R15.9 Active 13468743 Problem Diarrhea, unspecified type R19.7 Act alexis 66239910 Problem Encopresis R15.9 Active 016278496 Problem Bilateral hearing loss, unspecified hearing loss type H91.93 Active 82234682 ALLERGIES No Information ENCOUNTERS Encounter Location Date Diagnosis [place] [address] [place] [address] Jul, Black stools K92.1 and Cough R05 [place] [address] [place] [address] May, [facility] [address] [place] [id number] [place] [address] Apr, Acute rhinosinusitis J01.90 [place] [address] [place] [id number] [address] [place] [address] Apr, [place] [address] [place] [address] Apr, Rhinosinusitis J32.9 and Dewayne mor R25.1 [place] [address] [address] Mar, Bilateral hearing loss, unsp ecified hearing loss type H91.93 [place] [address] [address] Feb, Cat scratch W55.03XA ; Punct ure wound T14.8XXA and Hematoma and contusion T14.8XXA [place] [address] [address] Feb, Well woman exam without gyne cological exam Z00.00 and Screening for breast cancer Z12.39 [place] [address] [address] Jan, Dentalgia K08.89 [place] [address] [address] Jan, Costochondritis M94.0 [place] [address] [address] Dec, Urinary tract infection N39. 0 [place] [address] [address] Nov, Rash R21 [place] [address] [address] Nov, Hiatal hernia K44.9 and Urin chase frequency R35.0 [place] [address] [address] Nov, Near syncope R55 [place] [address] [address] Nov, Near syncope R55 [place] [address] [address] Nov, [facility] [address] [address] Oct, Dysuria R30.0 and Urinary tr act infection without hematuria, site unspecified N39.0 [facility] [address] [place] [id number] [address] [place] [address] September, Acute cystitis with hematuri a N30.01 [place] [address] [address] Jun, Gastroenteritis K52.9 [place] [address] [address] May, Bilateral hearing loss, unsp ecified hearing loss type H91.93 and Rib pain R07.81 [place] [address] [address] Apr, [place] [address] [address] Apr, Chest wall pain R07.89 and A bdominal pain, unspecified abdominal location R10.9 [place] [address] [address] Feb, Annual physical exam Z00.00 and Diarrhea, unspecified type R19.7 [place] [address] [address] Dec, Encopresis R15.9 and Inconti nence of feces, unspecified fecal incontinence type R15.9 [facility] [address] [address] Nov, Urinary tract infection, sit e not specified N39.0 and Hematuria, unspecified R31.9 [place] [address] [place] [id number] [address] [place] [address] Oct, [place] [address] [address] Oct, Tick bite, initial encounter W57.XXXA and Incontinence of feces, unspecified fecal incontinence type R15.9 [place] [address] [address] May, Neuropathy G62.9 ; Hammer to e, unspecified laterality M20.40 and Onychomycosis B35.1 [place] [address] [address] Mar, Dysuria R30.0 [place] [address] [address] Mar, [place] [address] [address] Feb, [place] [address] [address] Dec, Family history of diabetes gonzalez sierra Z83.3 ; Porokeratosis Q82.8 and Neuropathy G62.9 [place] [address] [address] Oct, Porokeratosis Q82.8 [place] [address] [address] September, [place] [address] [address] September, Porokeratosis Q82.8 [place] [address] [address] September, [place] [address] [address] Aug, Aphthous ulcer K12.0 ; Denta l caries K02.9 ; Viral gastroenteritis A08.4 and Abscessed tooth K04.[address] [address] Jul, Porokeratosis Q82.8 ; Callus of foot L84 and Metatarsalgia of right foot M77.41 [place] [address] [address] 10 Feb, 2017 Porokeratosis Q82.8 and Foot pain, right M79.671 [facility] [address] [id number] [address] [place] [address] Apr, [facility] [address] [id number] [address] [place] [address] Apr, Pre-diabetes R73.03 and Plan tar wart, right foot B07.0 [facility] [address] [id number] [address] [place] [address] Apr, [facility] [address] [id number] [address] [place] [address] Apr, [facility] [address] [id number] [address] [place] [address] Mar, [facility] [address] [facility] [id number] [address] [place] [address] Mar, [facility] [address] [id number] [address] [place] [address] Mar, Hematuria R31.9 and Pre-diab etes R73.03 [facility] [address] [id number] [address] [place] [address] Feb, [facility] [address] [id number] [address] [place] [address] Feb, [facility] [address] [id number] [address] [place] [address] Feb, Abnormal fasting glucose R73 .01 [facility] [address] [id number] [address] [place] [address] Feb, Abnormal fasting glucose R73 .01 [facility] [address] [facility] [id number] [address] [place] [address] Feb, Routine gynecological examin ation Z01.419 ; General medical exam Z00.00 ; Screening breast examination Z12.39 ; Hematuria R31.9 ; Vaginal discharge N89.8 ; Vaginal yeast infection B37.3 and Recurrent UTI N39.0 [facility] [address] [id number] [address] [place] [address] 20 Jan, 2016 Recurrent UTI N39.0 and Hist ory of solitary pulmonary nodule Z87.898 [facility] [address] [id number] [address] [place] [address] 19 Jan, 2016 [facility] [address] [id number] [address] [place] [address] 13 Jan, 2016 Recurrent UTI N39.0 ; Hematu vasu R31.9 and History of solitary pulmonary nodule Z87.898 [facility] [address] [id number] [address] [place] [address] 07 Jan, 2016 [facility] [address] [id number] [address] [place] [address] 06 Jan, 2016 Recurrent UTI N39.0 [facility] [address] [id number] [address] [place] [address] Dec, [facility] [address] [id number] [address] [place] [address] Dec, [facility] [address] [id number] [address] [place] [address] Dec, Acute cystitis with hematuri a N30.01 [place] [address] [id number] [address] [place] [address] Dec, Acute cystitis with hematuri a N30.01 [facility] [address] [id number] [address] [place] [address] Dec, Acute cystitis with hematuri a N30.01 and Insect bite (nonvenomous) of left upper arm, initial encounter S40.862A [facility] [address] [id number] [address] [place] [address] Nov, Acute cystitis with hematuri a N30.01 and Insect bite (nonvenomous) of left upper arm, initial encounter S40.862A [place] [address] [facility] [id number] [address] [place] [address] September, [facility] [address] [facility] [id number] [address] [place] [address] September, [facility] [address] [facility] [id number] [address] [place] [address] September, Acute cystitis with hematuri a N30.01 and Family history of diabetes mellitus Z83.3 [facility] [address] [facility] [id number] [address] [place] [address] September, Family history of diabetes gonzalez sierra Z83.3 [place] [address] [facility] [id number] [address] [place] [address] September, Acute cystitis with hematuri a N30.01 [place] [address] [place] [id number] [place] [address] September, [place] [address] [place] [id number] [place] [address] September, Acute cystitis with hematuri a N30.01 [facility] [address] [facility] [id number] [address] [place] [address] May, Back pain M54.9 and Urinary tract infection N39.0 [place] [address] [place] [address] Feb, [place] [address] [place] [id number] [place] [address] Feb, Bony prominence M89.8X9 [place] [address] [place] [id number] [place] [address] Nov, Unspecified urinary incontin ence 788.30 ; 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 and Solitary pulmonary nodule 793.11 [place] [address] [place] [id number] [place] [address] Nov, [facility] [address] [place] [id number] [place] [address] Oct, Unspecified urinary incontin ence 788.30 ; 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 and Solitary pulmonary nodule 793.11 [facility] [address] [id number] [address] [place] [address] Oct, [facility] [address] [id number] [address] [place] [address] Oct, [facility] [address] [id number] [address] [place] [address] September, [facility] [address] [id number] [address] [place] [address] Aug, [facility] [address] [id number] [address] [place] [address] Aug, [facility] [address] [id number] [address] [place] [address] May, [facility] [address] [id number] [address] [place] [address] May, [facility] [address] [id number] [address] [place] [address] May, [facility] [address] [id number] [address] [place] [address] May, [facility] [address] [id number] [address] [place] [address] May, [facility] [address] [id number] [address] [place] [address] May, [facility] [address] [id number] [address] [place] [address] Apr, [facility] [address] [id number] [address] [place] [address] Apr, [facility] [address] [id number] [address] [place] [address] Feb, [facility] [address] [id number] [address] [place] [address] Feb, [facility] [address] [id number] [address] [place] [address], [place] [address] Dec, [facility] [address] [id number] [address] [place] [address], [place] [address] Nov, [facility] [address] [id number] [address] [place] [address], [place] [address] Nov, [facility] [address] [id number] [address] [place] [address], [place] [address] Nov, [facility] [address] [id number] [address] [place] [address], [place] [address] Nov, [facility] [address] [id number] [address] [place] [address], [place] [address] Nov, [facility] [address] [id number] [address] [place] [address], [place] [address] Nov, [facility] [address] [id number] [address] [place] [address], [place] [address] September, [facility] [address] [id number] [address] [place] [address], [place] [address] September, [facility] [address] [id number] [address] [place] [address], [place] [address] September, [facility] [address] [id number] [address] [place] [address], [place] [address] Aug, [facility] [address] [id number] [address] [place] [address], [place] [address] Aug, [facility] [address] [id number] [address] [place] [address], [place] [address] Aug, [facility] [address] [id number] [address] [place] [address], [place] [address] Aug, [facility] [address] [id number] [address] [place] [address], [place] [address] Jul, [facility] [address] [id number] [address] [place] [address], [place] [address] Jul, [facility] [address] [id number] [address] [place] [address], [place] [address] Jul, [facility] [address] [id number] [address] [place] [address], [place] [address] May, [facility] [address] [id number] [address] [place] [address], [place] [address] May, [facility] [address] [id number] [address] [place] [address], [place] [address] May, [facility] [address] [id number] [address] [place] [address], [place] [address] May, [facility] [address] [id number] [address] [place] [address], [place] [address] Apr, [facility] [address] [id number] [address] [place] [address], [place] [address] Apr, [facility] [address] [id number] [address] [place] [address], [place] [address] Apr, [facility] [address] [id number] [address] [place] [address], [place] [address] Feb, [facility] [address] [id number] [address] [place] [address], [place] [address] Feb, [facility] [address] [id number] [address] [place] [address], [place] [address] 25 Jan, 2013 [facility] [address] [id number] [address] [place] [address], [place] [address] 24 Sep2012 [facility] [address] [id number] [address] [place] [address] [address] 18 Sep2012 [facility] [address] [id number] [address] [place] [address], [place] [address] 16 Sep2012 [facility] [address] [id number] [address] [place] [address] [address] Jan, [facility] [address] [id number] [address] [place] [address] Jan, [facility] [address] [id number] [address] [place] [address] Jan, [facility] [address] [id number] [address] [place] [address] Dec, [facility] [address] [id number] [address] [place] [address] Dec, [facility] [address] [id number] [address] [place] [address] Dec, [facility] [address] [id number] [address] [place] [address] Dec, [facility] [address] [id number] [address] [place] [address] Oct, [facility] [address] [id number] [address] [place] [address] Nov, [facility] [address] [id number] [address] [place] [address] Mar, [facility] [address] [id number] [address] [place] [address] Feb, [facility] [address] [id number] [address] [place] [address] Feb, [facility] [address] [id number] [address] [place] [address] Jul, IMMUNIZATIONS No Known Immunizations SOCIAL HISTORY Never Assessed REASON FOR VISIT PLAN OF CARE VITAL SIGNS MEDICATIONS No Known Medications RESULTS No Results PROCEDURES No Known procedures INSTRUCTIONS MEDICATIONS ADMINISTERED No Known Medications MEDICAL (GENERAL) HISTORY Type Description Date Medical History hearing loss Medical History Encopresis seen [facility] with Co lonosocopy 2014 and was told normal Medical History solitary pulmonary nodule LLL [address] able rec yearly recheck Medical History diverticulitis Medical History Encopresis Medical History Diverticulitis of colon (wit hout mention of hemorrhage) Colonoscopy [facility] 2013 Medical History Solitary pulmonary nodule Medical History Barrets Esophagus Dx EGD at [facility] [place] Surgical History tubal ligation Surgical History Colonoscopy [facility] 2015- Surgical History cataract surgery 2019 Surgical History EGD gastrointestinal Junctio n Consistent w Barrets Esophagus [place]
--- OUTSIDE RECORDS SUMMARY | 2019-12-18 09:44 | XMS REPORT | Clinical Summary ---
Author Author [facility] Organization [facility] Address Unknown Phone Unavailable Care Team Providers Care Penology Professor Name Role Phone Beto Whitlock MD Unavailable Ted Zaman PCP Rom Kim RN Unavailable Unavailable Source Comments Some departments are not documenting in the electronic medical record. If you d o not see the information that you expected, contact Release of Information in [facility] Information Management department at [phone] for further assistan ce in locating additional records.[facility] Allergies No Known Allergies Medications No known medications Active Problems Problem Noted Date Solitary pulmonary nodule 09/23/2014 Social History Date Tobacco Use Types Packs/Day Years Used Never Smoker Drinks/Week oz/Week Comments Alcohol Use No Sex Assigned at Date Recorded Not on file Industry Job Start Date Occupation Not on file Not on file Not on file Travel End Travel History Travel Start No recent travel history available. Last Filed Vital Signs Reading Time Taken Comments Vital Sign 109/67 10/24/2014 1:24 PM CDT Blood Pressure 87 10/24/2014 1:27 PM CDT Pulse 36.5 C (97.7 F) 10/24/2014 11:42 AM CDT Temperature 16 09/23/2014 9:16 AM CDT Respiratory Rate 100% 10/24/2014 1:27 PM CDT Oxygen Saturation - - Inhaled Oxygen Concentration 65.8 kg (145 lb) 10/24/2014 11:42 AM CDT Weight 165.1 cm (5' 5") 10/24/2014 11:42 AM CDT Height 24.13 10/24/2014 11:42 AM CDT Body Mass Index Plan of Treatment Health Maintenance Due Date Last Done Comments HIV SCREENING 11/20/1971 DTAP/TDAP VACCINES (1974 Tdap) HEPATITIS C SCREENING 1974 PHYSICAL (COMPREHENSIVE) 1974 EXAM CERVICAL CANCER SCREENING 1977 BREAST CANCER SCREENING 1996 SHINGLES RECOMBINANT 2006 VACCINE (1 of 2) INFLUENZA VACCINE 02/07/2020 COLORECTAL CANCER 10/24/2024 10/24/2014 SCREENING Results Not on filefrom Last 3 Months Insurance Type Payer Benefit Subscriber ID Effective Phone Address Plan / Dates Group Medicaid [place] [employer] xxxxxxxxxxx 2010- STATE Present HEALTH [id number] 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
--- OUTSIDE RECORDS SUMMARY | 2019-12-18 09:45 | XMS REPORT ---
Author Author Josie Álvarez Doctor Organization [facility] Address Unknown Phone Unavailable Care Team Providers Care Perioperative Assistant Name Role Phone Migration, Doctor Unavailable Unavailable PROBLEMS Type Condition ICD9-CM Code MHA88-NL Code Onset Dates Condition S tatus SNOMED Code Problem Porokeratosis Q82.8 Active 288882 004 Problem Neuropathy G62.9 Active 490737332 Problem Hammer toe, unspecified laterality M20.40 Active 114639445 Problem Hiatal hernia K44.9 Active 099864 09 Problem History of solitary pulmonary nodule Z87.898 Active 733137385 Problem Rhinosinusitis J32.9 Active 34011 4004 Problem Hematuria R31.9 Active 54395614 Problem Incontinence of feces, unspecified fecal incontinence type R15.9 Active 84134087 Problem Diarrhea, unspecified type R19.7 Act alexis 83399575 Problem Encopresis R15.9 Active 057717255 Problem Bilateral hearing loss, unspecified hearing loss type H91.93 Active 95851839 ALLERGIES No Information ENCOUNTERS Encounter Location Date Diagnosis [place] [id number] [place] [address] Jul, Black stools K92.1 and Cough R05 [place] [address] [place] [address] May, [place] [address] [place] [id number] [address] [place] [address] Apr, Acute rhinosinusitis J01.90 [place] [address] [place] [id number] [place] [address] Apr, [place] [address] [place] [address] Apr, Rhinosinusitis J32.9 and Dewayne mor R25.1 [place] [address] [address] Mar, Bilateral hearing loss, unsp ecified hearing loss type H91.93 [place] [address] [address] Feb, Cat scratch W55.03XA ; Punct ure wound T14.8XXA and Hematoma and contusion T14.8XXA [place] [address] [address] Feb, Well woman exam without gyne cological exam Z00.00 and Screening for breast cancer Z12.39 [place] [address] [address] Jan, Dentalgia K08.89 [place] [address] [address] Jan, Costochondritis M94.0 [place] [address] [address] Dec, Urinary tract infection N39. 0 [place] [address] [address] Nov, Rash R21 [place] [address] [address] Nov, Hiatal hernia K44.9 and Urin chase frequency R35.0 [place] [address] [address] Nov, Near syncope R55 [place] [address] [address] Nov, Near syncope R55 [place] [address] [address] Nov, [facility] [address] [address] Oct, Dysuria R30.0 and Urinary tr act infection without hematuria, site unspecified N39.0 [facility] [address] [place] [id number] [address] [place] [address] September, Acute cystitis with hematuri a N30.01 [place] [address] [address] Jun, Gastroenteritis K52.9 [place] [address] [address] May, Bilateral hearing loss, unsp ecified hearing loss type H91.93 and Rib pain R07.81 [place] [address] [address] Apr, [place] [address] [address] Apr, Chest wall pain R07.89 and A bdominal pain, unspecified abdominal location R10.9 [place] [address] [address] Feb, Annual physical exam Z00.00 and Diarrhea, unspecified type R19.7 [place] [address] [address] Dec, Encopresis R15.9 and Inconti nence of feces, unspecified fecal incontinence type R15.9 [facility] [address] [address] Nov, Urinary tract infection, sit e not specified N39.0 and Hematuria, unspecified R31.9 [place] [address] [place] [id number] [place] [address] Oct, [place] [address] [address] Oct, Tick bite, initial encounter W57.XXXA and Incontinence of feces, unspecified fecal incontinence type R15.9 [place] [address] [address] May, Neuropathy G62.9 ; Hammer to e, unspecified laterality M20.40 and Onychomycosis B35.1 [place] [address] [address] Mar, Dysuria R30.0 [place] [address] [address] Mar, [place] [address] [address] Feb, [place] [address] [address] Dec, Family history of diabetes gonzalez sierra Z83.3 ; Porokeratosis Q82.8 and Neuropathy G62.9 [place] [address] [address] Oct, Porokeratosis Q82.8 [place] [address] [address] September, [place] [address] [address] September, Porokeratosis Q82.8 [place] [address] [address] September, [place] [address] [address] Aug, Aphthous ulcer K12.0 ; Denta l caries K02.9 ; Viral gastroenteritis A08.4 and Abscessed tooth K04.[address] [address] Jul, Porokeratosis Q82.8 ; Callus of foot L84 and Metatarsalgia of right foot M77.41 [place] [address] [address] 10 Feb, 2017 Porokeratosis Q82.8 and Foot pain, right M79.671 [facility] [address] [id number] [address] [place] [address] Apr, [facility] [address] [id number] [address] [place] [address] Apr, Pre-diabetes R73.03 and Plan tar wart, right foot B07.0 [facility] [address] [id number] [address] [place] [address] Apr, [facility] [address] [id number] [address] [place] [address] Apr, [facility] [address] [id number] [address] [place] [address] Mar, [facility] [address] [facility] [id number] [address] [place] [address] Mar, [facility] [address] [id number] [address] [place] [address] Mar, Hematuria R31.9 and Pre-diab etes R73.03 [facility] [address] [id number] [address] [place] [address] Feb, [facility] [address] [id number] [address] [place] [address] Feb, [facility] [address] [id number] [address] [place] [address] Feb, Abnormal fasting glucose R73 .01 [facility] [address] [id number] [address] [place] [address] Feb, Abnormal fasting glucose R73 .01 [facility] [address] [facility] [id number] [address] [place] [address] Feb, Routine gynecological examin ation Z01.419 ; General medical exam Z00.00 ; Screening breast examination Z12.39 ; Hematuria R31.9 ; Vaginal discharge N89.8 ; Vaginal yeast infection B37.3 and Recurrent UTI N39.0 [facility] [address] [id number] [address] [place] [address] 20 Jan, 2016 Recurrent UTI N39.0 and Hist ory of solitary pulmonary nodule Z87.898 [facility] [address] [id number] [address] [place] [address] 19 Jan, 2016 [facility] [address] [id number] [address] [place] [address] 13 Jan, 2016 Recurrent UTI N39.0 ; Hematu vasu R31.9 and History of solitary pulmonary nodule Z87.898 [facility] [address] [id number] [address] [place] [address] 07 Jan, 2016 [facility] [address] [id number] [address] [place] [address] 06 Jan, [address] [facility] [address] [id number] [address] [place] [address] Dec, [facility] [address] [id number] [address] [place] [address] Dec, [facility] [address] [id number] [address] [place] [address] Dec, Acute cystitis with hematuri a N30.01 [place] [address] [id number] [address] [place] [address] Dec, Acute cystitis with hematuri a N30.01 [facility] [address] [id number] [address] [place] [address] Dec, Acute cystitis with hematuri a N30.01 and Insect bite (nonvenomous) of left upper arm, initial encounter S40.862A [facility] [address] [id number] [address] [place] [address] Nov, Acute cystitis with hematuri a N30.01 and Insect bite (nonvenomous) of left upper arm, initial encounter S40.862A [place] [address] [facility] [id number] [address] [place] [address] September, [facility] [address] [facility] [id number] [address] [place] [address] September, [facility] [address] [facility] [id number] [address] [place] [address] September, Acute cystitis with hematuri a N30.01 and Family history of diabetes mellitus Z83.3 [facility] [address] [facility] [id number] [address] [place] [address] September, Family history of diabetes gonzalez sierra Z83.3 [place] [address] [facility] [id number] [address] [place] [address] September, Acute cystitis with hematuri a N30.01 [place] [address] [place] [id number] [address] [place] [address] September, [place] [address] [place] [id number] [address] [place] [address] September, Acute cystitis with hematuri a N30.01 [facility] [address] [facility] [id number] [address] [place] [address] May, Back pain M54.9 and Urinary tract infection N39.0 [place] [address] [place] [address] Feb, [place] [address] [place] [id number] [place] [address] Feb, Bony prominence M89.8X9 [place] [address] [place] [id number] [address] [place] [address] Nov, Unspecified urinary incontin ence 788.30 ; 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 and Solitary pulmonary nodule 793.11 [place] [address] [place] [id number] [address] [place] [address] Nov, [facility] [address] [place] [id number] [address] [place] [address] Oct, Unspecified urinary incontin ence 788.30 ; 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 and Solitary pulmonary nodule 793.11 [facility] [address] [id number] [address] [place] [address] Oct, [facility] [address] [id number] [address] [place] [address] Oct, [facility] [address] [id number] [address] [place] [address] September, [facility] [address] [id number] [address] [place] [address] Aug, [facility] [address] [id number] [address] [place] [address] Aug, [facility] [address] [id number] [address] [place] [address] May, [facility] [address] [id number] [address] [place] [address] May, [facility] [address] [id number] [address] [place] [address] May, [facility] [address] [id number] [address] [place] [address] May, [facility] [address] [id number] [address] [place] [address] May, [facility] [address] [id number] [address] [place] [address] May, [facility] [address] [id number] [address] [place] [address] Apr, [facility] [address] [id number] [address] [place] [address] Apr, [facility] [address] [id number] [address] [place] [address] Feb, [facility] [address] [id number] [address] [place] [address] Feb, [facility] [address] [id number] [address] [place] [address], [place] [address] Dec, [facility] [address] [id number] [address] [place] [address], [place] [address] Nov, [facility] [address] [id number] [address] [place] [address], [place] [address] Nov, [facility] [address] [id number] [address] [place] [address], [place] [address] Nov, [facility] [address] [id number] [address] [place] [address], [place] [address] Nov, [facility] [address] [id number] [address] [place] [address], [place] [address] Nov, [facility] [address] [id number] [address] [place] [address], [place] [address] Nov, [facility] [address] [id number] [address] [place] [address], [place] [address] September, [facility] [address] [id number] [address] [place] [address], [place] [address] September, [facility] [address] [id number] [address] [place] [address], [place] [address] September, [facility] [address] [id number] [address] [place] [address], [place] [address] Aug, [facility] [address] [id number] [address] [place] [address], [place] [address] Aug, [facility] [address] [id number] [address] [place] [address], [place] [address] Aug, [facility] [address] [id number] [address] [place] [address], [place] [address] Aug, [facility] [address] [id number] [address] [place] [address], [place] [address] Jul, [facility] [address] [id number] [address] [place] [address], [place] [address] Jul, [facility] [address] [id number] [address] [place] [address], [place] [address] Jul, [facility] [address] [id number] [address] [place] [address], [place] [address] May, [facility] [address] [id number] [address] [place] [address], [place] [address] May, [facility] [address] [id number] [address] [place] [address], [place] [address] May, [facility] [address] [id number] [address] [place] [address], [place] [address] May, [facility] [address] [id number] [address] [place] [address], [place] [address] Apr, [facility] [address] [id number] [address] [place] [address], [place] [address] Apr, [facility] [address] [id number] [address] [place] [address], [place] [address] Apr, [facility] [address] [id number] [address] [place] [address], [place] [address] Feb, [facility] [address] [id number] [address] [place] [address], [place] [address] Feb, [facility] [address] [id number] [address] [place] [address], [place] [address] 25 Jan, 2013 [facility] [address] [id number] [address] [place] [address], [place] [address] 24 Sep2012 [facility] [address] [id number] [address] [place] [address] [address] 18 Sep2012 [facility] [address] [id number] [address] [place] [address] [address] 16 Sep2012 [facility] [address] [id number] [address] [place] [address] [address] Jan, [facility] [address] [id number] [address] [place] [address] Jan, [facility] [address] [id number] [address] [place] [address] Jan, [facility] [address] [id number] [address] [place] [address] Dec, [facility] [address] [id number] [address] [place] [address] Dec, [facility] [address] [id number] [address] [place] [address] Dec, [facility] [address] [id number] [address] [place] [address] Dec, [facility] [address] [id number] [address] [place] [address] Oct, [facility] [address] [id number] [address] [place] [address] Nov, [facility] [address] [id number] [address] [place] [address] Mar, [facility] [address] [id number] [address] [place] [address] Feb, [facility] [address] [id number] [address] [place] [address] Feb, [facility] [address] [id number] [address] [place] [address] Jul, IMMUNIZATIONS No Known Immunizations SOCIAL HISTORY Never Assessed REASON FOR VISIT PLAN OF CARE VITAL SIGNS Height 65 in 2012-10-10 Weight 158.51 lbs 2012-10-10 Temperature 97.8 degrees Fahrenheit 2012-10-10 Heart Rate 78 bpm 2012-10-10 Respiratory Rate 18 2012-10-10 Blood pressure systolic 108 mmHg 2012-10-10 Blood pressure diastolic 72 mmHg 2012-10-10 MEDICATIONS No Known Medications RESULTS No Results PROCEDURES No Known procedures INSTRUCTIONS MEDICATIONS ADMINISTERED No Known Medications MEDICAL (GENERAL) HISTORY Type Description Date Medical History hearing loss Medical History Encopresis seen [facility] with Co lonosocopy 2014 and was told normal Medical History solitary pulmonary nodule LLL 08-21-15 [facility] yearly recheck Medical History diverticulitis Medical History Encopresis Medical History Diverticulitis of colon (wit hout mention of hemorrhage) Colonoscopy [facility] 2013 Medical History Solitary pulmonary nodule Medical History Barrets Esophagus Dx EGD [place] [facility] [place] Surgical History tubal ligation Surgical History Colonoscopy [facility] 2015- Surgical History cataract surgery 2019 Surgical History EGD gastrointestinal Junctio n Consistent w Barrets Esophagus [place]
--- OUTSIDE RECORDS SUMMARY | 2019-12-18 09:45 | XMS REPORT ---
Author Author Josie Álvarez Doctor Organization [facility] Address Unknown Phone Unavailable Care Team Providers Care Emergency Services Professional Name Role Phone Migration, Doctor Unavailable Unavailable PROBLEMS Type Condition ICD9-CM Code [id number] Code Onset Dates Condition S tatus SNOMED Code Problem Porokeratosis Q82.8 Active 809544 004 Problem Neuropathy G62.9 Active 532717879 Problem Hammer toe, unspecified laterality M20.40 Active 563361847 Problem Hiatal hernia K44.9 Active 220508 09 Problem History of solitary pulmonary nodule Z87.898 Active 070715544 Problem Rhinosinusitis J32.9 Active 46698 4004 Problem Hematuria R31.9 Active 79442340 Problem Incontinence of feces, unspecified fecal incontinence type R15.9 Active 19853574 Problem Diarrhea, unspecified type R19.7 Act alexis 52646283 Problem Encopresis R15.9 Active 260677763 Problem Bilateral hearing loss, unspecified hearing loss type H91.93 Active 39606255 ALLERGIES No Information ENCOUNTERS Encounter Location Date Diagnosis [place] [address] [place] [address] Jul, Black stools K92.1 and Cough R05 [place] [address] [place] [address] May, [place] [address] [place] [id number] [place] [address] Apr, Acute rhinosinusitis J01.90 [place] [address] [place] [id number] [place] [address] Apr, [place] [address] [place] [address] Apr, Rhinosinusitis J32.9 and Dewayne mor R25.1 [place] [address] [address] Mar, Bilateral hearing loss, unsp ecified hearing loss type H91.93 [place] [address] [address] Feb, Cat scratch W55.03XA ; Punct ure wound T14.8XXA and Hematoma and contusion T14.8XXA [place] [address] [address] Feb, Well woman exam without gyne cological exam Z00.00 and Screening for breast cancer Z12.39 [place] [address] [address] Jan, Dentalgia K08.89 [place] [address] [address] Jan, Costochondritis M94.0 [place] [address] [address] Dec, Urinary tract infection N39. 0 [place] [address] [address] Nov, Rash R21 [place] [address] [address] Nov, Hiatal hernia K44.9 and Urin chase frequency R35.0 [place] [address] [address] Nov, Near syncope R55 [place] [address] [address] Nov, Near syncope R55 [place] [address] [address] Nov, [facility] [address] [address] Oct, Dysuria R30.0 and Urinary tr act infection without hematuria, site unspecified N39.0 [facility] [address] [place] [id number] [place] [address] September, Acute cystitis with hematuri a N30.01 [place] [address] [address] Jun, Gastroenteritis K52.9 [place] [address] [address] May, Bilateral hearing loss, unsp ecified hearing loss type H91.93 and Rib pain R07.81 [place] [address] [address] Apr, [place] [address] [address] Apr, Chest wall pain R07.89 and A bdominal pain, unspecified abdominal location R10.9 [place] [address] [address] Feb, Annual physical exam Z00.00 and Diarrhea, unspecified type R19.7 [place] [address] [address] Dec, Encopresis R15.9 and Inconti nence of feces, unspecified fecal incontinence type R15.9 [facility] [address] [address] Nov, Urinary tract infection, sit e not specified N39.0 and Hematuria, unspecified R31.9 [place] [address] [place] [id number] [place] [address] Oct, [place] [address] [address] Oct, Tick bite, initial encounter W57.XXXA and Incontinence of feces, unspecified fecal incontinence type R15.9 [place] [address] [address] May, Neuropathy G62.9 ; Hammer to e, unspecified laterality M20.40 and Onychomycosis B35.1 [place] [address] [address] Mar, Dysuria R30.0 [place] [address] [address] Mar, [place] [address] [address] Feb, [place] [address] [address] Dec, Family history of diabetes gonzalez sierra Z83.3 ; Porokeratosis Q82.8 and Neuropathy G62.9 [place] [address] [address] Oct, Porokeratosis Q82.8 [place] [address] [address] September, [place] [address] [address] September, Porokeratosis Q82.8 [place] [address] [address] September, [place] [address] [address] Aug, Aphthous ulcer K12.0 ; Denta l caries K02.9 ; Viral gastroenteritis A08.4 and Abscessed tooth K04.[address] [address] Jul, Porokeratosis Q82.8 ; Callus of foot L84 and Metatarsalgia of right foot M77.41 [place] [address] [address] 10 Feb, 2017 Porokeratosis Q82.8 and Foot pain, right M79.671 [facility] [address] [id number] [address] [place] [address] Apr, [facility] [address] [id number] [address] [place] [address] Apr, Pre-diabetes R73.03 and Plan tar wart, right foot B07.0 [facility] [address] [id number] [address] [place] [address] Apr, [facility] [address] [id number] [address] [place] [address] Apr, [facility] [address] [id number] [address] [place] [address] Mar, [facility] [address] [facility] [id number] [address] [place] [address] Mar, [facility] [address] [id number] [address] [place] [address] Mar, Hematuria R31.9 and Pre-diab etes R73.03 [facility] [address] [id number] [address] [place] [address] Feb, [facility] [address] [id number] [address] [place] [address] Feb, [facility] [address] [id number] [address] [place] [address] Feb, Abnormal fasting glucose R73 .01 [facility] [address] [id number] [address] [place] [address] Feb, Abnormal fasting glucose R73 .01 [facility] [address] [facility] [id number] [address] [place] [address] Feb, Routine gynecological examin ation Z01.419 ; General medical exam Z00.00 ; Screening breast examination Z12.39 ; Hematuria R31.9 ; Vaginal discharge N89.8 ; Vaginal yeast infection B37.3 and Recurrent UTI N39.0 [facility] [address] [id number] [address] [place] [address] 20 Jan, 2016 Recurrent UTI N39.0 and Hist ory of solitary pulmonary nodule Z87.898 [facility] [address] [id number] [address] [place] [address] 19 Jan, 2016 [facility] [address] [id number] [address] [place] [address] 13 Jan, 2016 Recurrent UTI N39.0 ; Hematu vasu R31.9 and History of solitary pulmonary nodule Z87.898 [facility] [address] [id number] [address] [place] [address] 07 Jan, 2016 [facility] [address] [id number] [address] [place] [address] 06 Jan, 2016 Recurrent UTI N39.0 [facility] [address] [id number] [address] [place] [address] Dec, [facility] [address] [id number] [address] [place] [address] Dec, [facility] [address] [id number] [address] [place] [address] Dec, Acute cystitis with hematuri a N30.01 [place] [address] [id number] [address] [place] [address] Dec, Acute cystitis with hematuri a N30.01 [facility] [address] [id number] [address] [place] [address] Dec, Acute cystitis with hematuri a N30.01 and Insect bite (nonvenomous) of left upper arm, initial encounter S40.862A [facility] [address] [id number] [address] [place] [address] Nov, Acute cystitis with hematuri a N30.01 and Insect bite (nonvenomous) of left upper arm, initial encounter S40.862A [place] [address] [facility] [id number] [address] [place] [address] September, [facility] [address] [facility] [id number] [address] [place] [address] September, [facility] [address] [facility] [id number] [address] [place] [address] September, Acute cystitis with hematuri a N30.01 and Family history of diabetes mellitus Z83.3 [facility] [address] [facility] [id number] [address] [place] [address] September, Family history of diabetes gonzalez sierra Z83.3 [place] [address] [facility] [id number] [address] [place] [address] September, Acute cystitis with hematuri a N30.01 [place] [address] [place] [id number] [place] [address] September, [place] [address] [place] [id number] [place] [address] September, Acute cystitis with hematuri a N30.01 [facility] [address] [facility] [id number] [address] [place] [address] May, Back pain M54.9 and Urinary tract infection N39.0 [place] [address] [place] [address] Feb, [place] [address] [place] [id number] [place] [address] Feb, Bony prominence M89.8X9 [place] [address] [place] [id number] [place] [address] Nov, Unspecified urinary incontin ence 788.30 ; 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 and Solitary pulmonary nodule 793.11 [place] [address] [place] [id number] [place] [address] Nov, [facility] [address] [place] [id number] [place] [address] Oct, Unspecified urinary incontin ence 788.30 ; 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 and Solitary pulmonary nodule 793.11 [facility] [address] [id number] [address] [place] [address] Oct, [facility] [address] [id number] [address] [place] [address] Oct, [facility] [address] [id number] [address] [place] [address] September, [facility] [address] [id number] [address] [place] [address] Aug, [facility] [address] [id number] [address] [place] [address] Aug, [facility] [address] [id number] [address] [place] [address] May, [facility] [address] [id number] [address] [place] [address] May, [facility] [address] [id number] [address] [place] [address] May, [facility] [address] [id number] [address] [place] [address] May, [facility] [address] [id number] [address] [place] [address] May, [facility] [address] [id number] [address] [place] [address] May, [facility] [address] [id number] [address] [place] [address] Apr, [facility] [address] [id number] [address] [place] [address] Apr, [facility] [address] [id number] [address] [place] [address] Feb, [facility] [address] [id number] [address] [place] [address] Feb, [facility] [address] [id number] [address] [place] [address], [place] [address] Dec, [facility] [address] [id number] [address] [place] [address], [place] [address] Nov, [facility] [address] [id number] [address] [place] [address], [place] [address] Nov, [facility] [address] [id number] [address] [place] [address], [place] [address] Nov, [facility] [address] [id number] [address] [place] [address], [place] [address] Nov, [facility] [address] [id number] [address] [place] [address], [place] [address] Nov, [facility] [address] [id number] [address] [place] [address], [place] [address] Nov, [facility] [address] [id number] [address] [place] [address], [place] [address] September, [facility] [address] [id number] [address] [place] [address], [place] [address] September, [facility] [address] [id number] [address] [place] [address], [place] [address] September, [facility] [address] [id number] [address] [place] [address], [place] [address] Aug, [facility] [address] [id number] [address] [place] [address], [place] [address] Aug, [facility] [address] [id number] [address] [place] [address], [place] [address] Aug, [facility] [address] [id number] [address] [place] [address], [place] [address] Aug, [facility] [address] [id number] [address] [place] [address], [place] [address] Jul, [facility] [address] [id number] [address] [place] [address], [place] [address] Jul, [facility] [address] [id number] [address] [place] [address], [place] [address] Jul, [facility] [address] [id number] [address] [place] [address], [place] [address] May, [facility] [address] [id number] [address] [place] [address], [place] [address] May, [facility] [address] [id number] [address] [place] [address], [place] [address] May, [facility] [address] [id number] [address] [place] [address], [place] [address] May, [facility] [address] [id number] [address] [place] [address], [place] [address] Apr, [facility] [address] [id number] [address] [place] [address], [place] [address] Apr, [facility] [address] [id number] [address] [place] [address], [place] [address] Apr, [facility] [address] [id number] [address] [place] [address], [place] [address] Feb, [facility] [address] [id number] [address] [place] [address], [place] [address] Feb, [facility] [address] [id number] [address] [place] [address], [place] [address] 25 Jan, 2013 [facility] [address] [id number] [address] [place] [address], [place] [address] 24 Sep2012 [facility] [address] [id number] [address] [place] [address] [address] 18 Sep2012 [facility] [address] [id number] [address] [place] [address] [address] 16 Sep2012 [facility] [address] [id number] [address] [place] [address] [address] Jan, [facility] [address] [id number] [address] [place] [address] Jan, [facility] [address] [id number] [address] [place] [address] Jan, [facility] [address] [id number] [address] [place] [address] Dec, [facility] [address] [id number] [address] [place] [address] Dec, [facility] [address] [id number] [address] [place] [address] Dec, [facility] [address] [id number] [address] [place] [address] Dec, [facility] [address] [id number] [address] [place] [address] Oct, [facility] [address] [id number] [address] [place] [address] Nov, [facility] [address] [id number] [address] [place] [address] Mar, [facility] [address] [id number] [address] [place] [address] Feb, [facility] [address] [id number] [address] [place] [address] Feb, [facility] [address] [id number] [address] [place] [address] Jul, IMMUNIZATIONS No Known Immunizations SOCIAL HISTORY Never Assessed REASON FOR VISIT PLAN OF CARE VITAL SIGNS Height 65 in 2012-12-11 Weight 161 lbs 2012-12-11 Temperature 98 degrees Fahrenheit 2012-12-11 Heart Rate 72 bpm 2012-12-11 Respiratory Rate 18 2012-12-11 Blood pressure systolic 110 mmHg 2012-12-11 Blood pressure diastolic 70 mmHg 2012-12-11 MEDICATIONS No Known Medications RESULTS No Results PROCEDURES Procedure Date Ordered Result Body Site COMPREHEN METABOLIC PANEL Dec 11, 2012 X-RAY EXAM OF ABDOMEN Dec 11, 2012 X-RAY EXAM OF LOWER SPINE Dec 11, 2012 INSTRUCTIONS MEDICATIONS ADMINISTERED No Known Medications MEDICAL (GENERAL) HISTORY Type Description Date Medical History hearing loss Medical History Encopresis seen [facility] with Co lonosocopy 2014 and was told normal Medical History solitary pulmonary nodule LLL 08-21-14 [facility] able rec yearly recheck Medical History diverticulitis Medical History Encopresis Medical History Diverticulitis of colon (wit hout mention of hemorrhage) Colonoscopy [facility] 2013 Medical History Solitary pulmonary nodule Medical History Barrets Esophagus Dx EGD at gastoesophagel junction [place] Surgical History tubal ligation Surgical History Colonoscopy [facility] 2016- Surgical History cataract surgery 2019 Surgical History EGD gastrointestinal Junctio n Consistent w Barrets Esophagus [place]
--- OUTSIDE RECORDS SUMMARY | 2019-12-18 09:45 | XMS REPORT ---
Author Author Josie Álvarez Doctor Organization [facility] Address Unknown Phone Unavailable Care Team Providers Care Emergency Department Director Name Role Phone Migration, Doctor Unavailable Unavailable PROBLEMS Type Condition ICD9-CM Code [id number] Code Onset Dates Condition S tatus SNOMED Code Problem Porokeratosis Q82.8 Active 579466 004 Problem Neuropathy G62.9 Active 752997742 Problem Hammer toe, unspecified laterality M20.40 Active 844553022 Problem Hiatal hernia K44.9 Active 787430 09 Problem History of solitary pulmonary nodule Z87.898 Active 370507161 Problem Rhinosinusitis J32.9 Active 90687 4004 Problem Hematuria R31.9 Active 13020644 Problem Incontinence of feces, unspecified fecal incontinence type R15.9 Active 37096019 Problem Diarrhea, unspecified type R19.7 Act alexis 30268317 Problem Encopresis R15.9 Active 795869283 Problem Bilateral hearing loss, unspecified hearing loss type H91.93 Active 08353654 ALLERGIES No Information ENCOUNTERS Encounter Location Date Diagnosis [place] [address] [place] [address] Jul, Black stools K92.1 and Cough R05 [place] [address] [place] [address] May, [facility] [place] [address] [place] [id number] [place] [address] Apr, Acute rhinosinusitis J01.90 [place] [address] [place] [id number] [address] [place] [address] Apr, [place] [address] [place] [address] Apr, Rhinosinusitis J32.9 and Dewayne mor R25.1 [place] [address] [address] Mar, Bilateral hearing loss, unsp ecified hearing loss type H91.93 [place] [address] [address] Feb, Cat scratch W55.03XA ; Punct ure wound T14.8XXA and Hematoma and contusion T14.8XXA [place] [address] [address] Feb, Well woman exam without gyne cological exam Z00.00 and Screening for breast cancer Z12.39 [place] [address] [address] Jan, Dentalgia K08.89 [place] [address] [address] Jan, Costochondritis M94.0 [place] [address] [address] Dec, Urinary tract infection N39. 0 [place] [address] [address] Nov, Rash R21 [place] [address] [address] Nov, Hiatal hernia K44.9 and Urin chase frequency R35.0 [place] [address] [address] Nov, Near syncope R55 [place] [address] [address] Nov, Near syncope R55 [place] [address] [address] Nov, [facility] [address] [address] Oct, Dysuria R30.0 and Urinary tr act infection without hematuria, site unspecified N39.0 [facility] [address] [place] [id number] [address] [place] [address] September, Acute cystitis with hematuri a N30.01 [place] [address] [address] Jun, Gastroenteritis K52.9 [place] [address] [address] May, Bilateral hearing loss, unsp ecified hearing loss type H91.93 and Rib pain R07.81 [place] [address] [address] Apr, [place] [address] [address] Apr, Chest wall pain R07.89 and A bdominal pain, unspecified abdominal location R10.9 [place] [address] [address] Feb, Annual physical exam Z00.00 and Diarrhea, unspecified type R19.7 [place] [address] [address] Dec, Encopresis R15.9 and Inconti nence of feces, unspecified fecal incontinence type R15.9 [facility] [address] [address] Nov, Urinary tract infection, sit e not specified N39.0 and Hematuria, unspecified R31.9 [place] [address] [place] [id number] [address] [place] [address] Oct, [place] [address] [address] Oct, Tick bite, initial encounter W57.XXXA and Incontinence of feces, unspecified fecal incontinence type R15.9 [place] [address] [address] May, Neuropathy G62.9 ; Hammer to e, unspecified laterality M20.40 and Onychomycosis B35.1 [place] [address] [address] Mar, Dysuria R30.0 [place] [address] [address] Mar, [place] [address] [address] Feb, [place] [address] [address] Dec, Family history of diabetes gonzalez sierra Z83.3 ; Porokeratosis Q82.8 and Neuropathy G62.9 [place] [address] [address] Oct, Porokeratosis Q82.8 [place] [address] [address] September, [place] [address] [address] September, Porokeratosis Q82.8 [place] [address] [address] September, [place] [address] [address] Aug, Aphthous ulcer K12.0 ; Denta l caries K02.9 ; Viral gastroenteritis A08.4 and Abscessed tooth K04.[address] [address] Jul, Porokeratosis Q82.8 ; Callus of foot L84 and Metatarsalgia of right foot M77.41 [place] [address] [address] 10 Feb, 2017 Porokeratosis Q82.8 and Foot pain, right M79.671 [facility] [place] [address] [id number] [address] [place] [address] Apr, [facility] [place] [address] [id number] [address] [place] [address] Apr, Pre-diabetes R73.03 and Plan tar wart, right foot B07.0 [facility] [place] [address] [id number] [address] [place] [address] Apr, [facility] [place] [address] [id number] [address] [place] [address] Apr, [facility] [place] [address] [id number] [address] [place] [address] Mar, [facility] [place] [address] [facility] [id number] [address] [place] [address] Mar, [facility] [place] [address] [id number] [address] [place] [address] Mar, Hematuria R31.9 and Pre-diab etes R73.03 [facility] [place] [address] [id number] [address] [place] [address] Feb, [facility] [place] [address] [id number] [address] [place] [address] Feb, [facility] [place] [address] [id number] [address] [place] [address] Feb, Abnormal fasting glucose R73 .01 [facility] [place] [address] [id number] [address] [place] [address] Feb, Abnormal fasting glucose R73 .01 [facility] [place] [address] [facility] [id number] [address] [place] [address] Feb, Routine gynecological examin ation Z01.419 ; General medical exam Z00.00 ; Screening breast examination Z12.39 ; Hematuria R31.9 ; Vaginal discharge N89.8 ; Vaginal yeast infection B37.3 and Recurrent UTI N39.0 [facility] [place] [address] [id number] [address] [place] [address] 20 Jan, 2016 Recurrent UTI N39.0 and Hist ory of solitary pulmonary nodule Z87.898 [facility] [place] [address] [id number] [address] [place] [address] 19 Jan, 2016 [facility] [place] [address] [id number] [address] [place] [address] 13 Jan, 2016 Recurrent UTI N39.0 ; Hematu vasu R31.9 and History of solitary pulmonary nodule Z87.898 [facility] [place] [address] [id number] [address] [place] [address] 07 Jan, 2016 [facility] [place] [address] [id number] [address] [place] [address] 06 Jan, 2016 Recurrent UTI N39.0 [facility] [place] [address] [id number] [address] [place] [address] Dec, [facility] [place] [address] [id number] [address] [place] [address] Dec, [facility] [place] [address] [id number] [address] [place] [address] Dec, Acute cystitis with hematuri a N30.01 [place] [address] [id number] [address] [place] [address] Dec, Acute cystitis with hematuri a N30.01 [facility] [place] [address] [id number] [address] [place] [address] Dec, Acute cystitis with hematuri a N30.01 and Insect bite (nonvenomous) of left upper arm, initial encounter S40.862A [facility] [place] [address] [id number] [address] [place] [address] Nov, Acute cystitis with hematuri a N30.01 and Insect bite (nonvenomous) of left upper arm, initial encounter S40.862A [place] [address] [facility] [id number] [address] [place] [address] September, [facility] [place] [address] [facility] [id number] [address] [place] [address] September, [facility] [place] [address] [facility] [id number] [address] [place] [address] September, Acute cystitis with hematuri a N30.01 and Family history of diabetes mellitus Z83.3 [facility] [place] [address] [facility] [id number] [address] [place] [address] September, Family history of diabetes gonzalez sierra Z83.3 [place] [address] [facility] [id number] [address] [place] [address] September, Acute cystitis with hematuri a N30.01 [place] [address] [place] [id number] [place] [address] September, [place] [address] [place] [id number] [address] [place] [address] September, Acute cystitis with hematuri a N30.01 [facility] [address] [facility] [id number] [address] [place] [address] May, Back pain M54.9 and Urinary tract infection N39.0 [place] [address] [place] [address] Feb, [place] [address] [place] [id number] [place] [address] Feb, Bony prominence M89.8X9 [place] [address] [place] [id number] [place] [address] Nov, Unspecified urinary incontin ence 788.30 ; 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 and Solitary pulmonary nodule 793.11 [place] [address] [place] [id number] [place] [address] Nov, [facility] [place] [address] [place] [id number] [address] [place] [address] Oct, Unspecified urinary incontin ence 788.30 ; 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 and Solitary pulmonary nodule 793.11 [facility] [address] [id number] [address] [place] [address] Oct, [facility] [address] [id number] [address] [place] [address] Oct, [facility] [address] [id number] [address] [place] [address] September, [facility] [address] [id number] [address] [place] [address] Aug, [facility] [address] [id number] [address] [place] [address] Aug, [facility] [address] [id number] [address] [place] [address] May, [facility] [address] [id number] [address] [place] [address] May, [facility] [address] [id number] [address] [place] [address] May, [facility] [address] [id number] [address] [place] [address] May, [facility] [address] [id number] [address] [place] [address] May, [facility] [address] [id number] [address] [place] [address] May, [facility] [address] [id number] [address] [place] [address] Apr, [facility] [address] [id number] [address] [place] [address] Apr, [facility] [address] [id number] [address] [place] [address] Feb, [facility] [address] [id number] [address] [place] [address] Feb, [facility] [address] [id number] [address] [place] [address], [place] [address] Dec, [facility] [address] [id number] [address] [place] [address], [place] [address] Nov, [facility] [address] [id number] [address] [place] [address], [place] [address] Nov, [facility] [address] [id number] [address] [place] [address], [place] [address] Nov, [facility] [address] [id number] [address] [place] [address], [place] [address] Nov, [facility] [address] [id number] [address] [place] [address], [place] [address] Nov, [facility] [address] [id number] [address] [place] [address], [place] [address] Nov, [facility] [address] [id number] [address] [place] [address], [place] [address] September, [facility] [address] [id number] [address] [place] [address], [place] [address] September, [facility] [address] [id number] [address] [place] [address], [place] [address] September, [facility] [address] [id number] [address] [place] [address], [place] [address] Aug, [facility] [address] [id number] [address] [place] [address], [place] [address] Aug, [facility] [address] [id number] [address] [place] [address], [place] [address] Aug, [facility] [address] [id number] [address] [place] [address], [place] [address] Aug, [facility] [address] [id number] [address] [place] [address], [place] [address] Jul, [facility] [address] [id number] [address] [place] [address], [place] [address] Jul, [facility] [address] [id number] [address] [place] [address], [place] [address] Jul, [facility] [address] [id number] [address] [place] [address], [place] [address] May, [facility] [address] [id number] [address] [place] [address], [place] [address] May, [facility] [address] [id number] [address] [place] [address], [place] [address] May, [facility] [address] [id number] [address] [place] [address], [place] [address] May, [facility] [address] [id number] [address] [place] [address], [place] [address] Apr, [facility] [address] [id number] [address] [place] [address], [place] [address] Apr, [facility] [address] [id number] [address] [place] [address], [place] [address] Apr, [facility] [address] [id number] [address] [place] [address], [place] [address] Feb, [facility] [address] [id number] [address] [place] [address], [place] [address] Feb, [facility] [address] [id number] [address] [place] [address], [place] [address] 25 Jan, 2013 [facility] [address] [id number] [address] [place] [address], [place] [address] 24 Sep2012 [facility] [address] [id number] [address] [place] [address] [address] 18 Sep2012 [facility] [address] [id number] [address] [place] [address] [address] 16 Sep2012 [facility] [address] [id number] [address] [place] [address] [address] Jan, [facility] [place] [address] [id number] [address] [place] [address] Jan, [facility] [place] [address] [id number] [address] [place] [address] Jan, [facility] [place] [address] [id number] [address] [place] [address] Dec, [facility] [place] [address] [id number] [address] [place] [address] Dec, [facility] [place] [address] [id number] [address] [place] [address] Dec, [facility] [place] [address] [id number] [address] [place] [address] Dec, [facility] [place] [address] [id number] [address] [place] [address] Oct, [facility] [place] [address] [id number] [address] [place] [address] Nov, [facility] [place] [address] [id number] [address] [place] [address] Mar, [facility] [place] [address] [id number] [address] [place] [address] Feb, [facility] [place] [address] [id number] [address] [place] [address] Feb, [facility] [place] [address] [id number] [address] [place] [address] Jul, IMMUNIZATIONS No Known Immunizations SOCIAL HISTORY Never Assessed REASON FOR VISIT PLAN OF CARE VITAL SIGNS MEDICATIONS No Known Medications RESULTS No Results PROCEDURES No Known procedures INSTRUCTIONS MEDICATIONS ADMINISTERED No Known Medications MEDICAL (GENERAL) HISTORY Type Description Date Medical History hearing loss Medical History Encopresis seen [facility] with Co lonosocopy 2014 and was told normal Medical History solitary pulmonary nodule LLL [address] able rec yearly recheck Medical History diverticulitis Medical History Encopresis Medical History Diverticulitis of colon (wit hout mention of hemorrhage) Colonoscopy [facility] 2013 Medical History Solitary pulmonary nodule Medical History Barrets Esophagus Dx EGD at gastoesophagel junction Strum Surgical History tubal ligation Surgical History Colonoscopy [facility] 2015- Surgical History cataract surgery 2019 Surgical History EGD gastrointestinal Junctio n Consistent w Barrets Esophagus Strum
--- OUTSIDE RECORDS SUMMARY | 2019-12-18 09:45 | XMS REPORT ---
Author Author Josie Álvarez Doctor Organization [facility] Address Unknown Phone Unavailable Care Team Providers Care Clinical Outcomes Manager Name Role Phone Migration, Doctor Unavailable Unavailable PROBLEMS Type Condition ICD9-CM Code [id number] Code Onset Dates Condition S tatus SNOMED Code Problem Porokeratosis Q82.8 Active 503379 004 Problem Neuropathy G62.9 Active 338853571 Problem Hammer toe, unspecified laterality M20.40 Active 441294888 Problem Hiatal hernia K44.9 Active 781443 09 Problem History of solitary pulmonary nodule Z87.898 Active 909041672 Problem Rhinosinusitis J32.9 Active 65723 4004 Problem Hematuria R31.9 Active 14442598 Problem Incontinence of feces, unspecified fecal incontinence type R15.9 Active 00172850 Problem Diarrhea, unspecified type R19.7 Act alexis 81154810 Problem Encopresis R15.9 Active 236648309 Problem Bilateral hearing loss, unspecified hearing loss type H91.93 Active 24780108 ALLERGIES No Information ENCOUNTERS Encounter Location Date Diagnosis [place] [address] [address] Jul, Black stools K92.1 and Cough R05 [place] [address] [address] May, [place] [address] [address] Apr, Acute rhinosinusitis J01.90 [place] [address] [address] Apr, [place] [address] [address] Apr, Rhinosinusitis J32.9 and Tremor R25.1 [place] [address] [address] Mar, Bilateral hearing loss, unspecified hear ing loss type H91.93 [place] [address] [address] Feb, Cat scratch W55.03XA ; Puncture wound T1 4.8XXA and Hematoma and contusion T14.8XXA [place] [address] [address] Feb, Well woman exam without gynecological ex am Z00.00 and Screening for breast cancer Z12.39 [place] [address] [address] 30 Jan, 2019 Dentalgia K08.89 [place] [address] [address] 05 Jan, 2019 Costochondritis M94.0 [place] [address] [address] Dec, Urinary tract infection N39.0 [place] [address] [address] Nov, Rash R21 [place] [address] [address] Nov, Hiatal hernia K44.9 and Urinary frequenc y R35.0 [place] [address] [address] Nov, Near syncope R55 [place] [address] [address] Nov, Near syncope R55 [place] [address] [address] Nov, [facility] [address] [place] [id number] [place] [address] Oct, Dysuria R30.0 and Urinary tr act infection without hematuria, site unspecified N39.0 [facility] [address] [place] [id number] [place] [address] September, Acute cystitis with hematuri a N30.01 [place] [address] [address] Jun, Gastroenteritis K52.9 [place] [address] [address] May, Bilateral hearing loss, unspecified hear ing loss type H91.93 and Rib pain R07.81 [place] [address] [address] Apr, [place] [address] [address] Apr, Chest wall pain R07.89 and Abdominal trice n, unspecified abdominal location R10.9 [place] [address] [address] Feb, Annual physical exam Z00.00 and Diarrhea , unspecified type R19.7 [place] [address] [address] Dec, Encopresis R15.9 and Incontinence of fec es, unspecified fecal incontinence type R15.9 [facility] [address] [facility] [id number] [address] [place] [address] Nov, Urinary tract infection, sit e not specified N39.0 and Hematuria, unspecified R31.9 [place] [address] [address] Oct, [place] [address] [address] Oct, Tick bite, initial encounter W57.XXXA an d Incontinence of feces, unspecified fecal incontinence type R15.9 [place] [address] [address] May, Neuropathy G62.9 ; Hammer toe, unspecifi ed laterality M20.40 and Onychomycosis B35.1 [place] [address] [address] Mar, Dysuria R30.0 [place] [address] [address] Mar, [place] [address] [address] Feb, [place] [address] [address] Dec, Family history of diabetes mellitus Z83. 3 ; Porokeratosis Q82.8 and Neuropathy G62.9 [place] [address] [address] Oct, Porokeratosis Q82.8 [place] [address] [address] September, [place] [address] [address] September, Porokeratosis Q82.8 [place] [address] [address] September, [place] [address] [address] Aug, Aphthous ulcer K12.0 ; Dental caries K02 .9 ; Viral gastroenteritis A08.4 and Abscessed tooth K04.[address] [address] Jul, Porokeratosis Q82.8 ; Callus of foot L84 and Metatarsalgia of right foot M77.41 [place] [address] [address] 10 Jun, 2016 Porokeratosis Q82.8 and Foot pain, right M79.671 [place] [address] [address] Apr, [address] [address] Apr, Pre-diabetes R73.03 and Plantar wart, ri ght foot B07.0 [place] [address] [address] Apr, [place] [address] [address] Apr, [place] [address] [address] Mar, [place] [address] [address] Mar, [place] [address] [address] Mar, Hematuria R31.9 and Pre-diabetes R73.03 [place] [address] [address] Feb, [place] [address] [address] Feb, [place] [address] [address] Feb, Abnormal fasting glucose R73.01 [place] [address] [address] Feb, Abnormal fasting glucose R73.01 [place] [address] [address] Feb, Routine gynecological examination Z01.41 9 ; General medical exam Z00.00 ; Screening breast examination Z12.39 ; Hematuria R31.9 ; Vaginal discharge N89.8 ; Vaginal yeast infection B37.3 and Recurrent UTI N39.0 [place] [address] [address] Jan, Recurrent UTI N39.0 and History of solit chase pulmonary nodule Z87.898 [place] [address] [address] Jan, [place] [address] [address] Jan, Recurrent UTI N39.0 ; Hematuria R31.9 an d History of solitary pulmonary nodule Z87.898 [place] [address] [address] 07 Jan, 2016 [facility] [address] [address] Jan, Recurrent UTI N39.0 [place] [address] [address] Dec, [facility] [address] [address] Dec, [place] [address] [address] Dec, Acute cystitis with hematuria N30.01 [place] [address] [address] Dec, Acute cystitis with hematuria N30.01 [place] [address] [address] Dec, Acute cystitis with hematuria N30.01 and Insect bite (nonvenomous) of left upper arm, initial encounter S40.862A [place] [address] [address] Nov, Acute cystitis with hematuria N30.01 and Insect bite (nonvenomous) of left upper arm, initial encounter S40.862A [place] [address] [address] September, [place] [address] [address] September, [place] [address] [address] September, Acute cystitis with hematuria N30.01 and Family history of diabetes mellitus Z83.3 [place] [address] [address] September, Family history of diabetes mellitus Z83. 3 [place] [address] [address] September, Acute cystitis with hematuria N30.01 [facility] [address] [address] September, [facility] [address] [address] September, Acute cystitis with hematuria N30.01 [facility] [address] [facility] [id number] [address] [place] [address] May, Back pain M54.9 and Urinary tract infection N39.0 [facility] [address] [address] Feb, [facility] [address] [address] Feb, Bony prominence M89.8X9 [facility] [address] [address] Nov, Unspecified urinary incontinence 788.30 ; 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 and Solitary pulmonary nodule 793.11 [facility] [address] [address] Nov, [facility] [address] [address] Oct, Unspecified urinary incontinence 788.30 ; 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 and Solitary pulmonary nodule 793.11 [facility] [address] [address] Oct, [facility] [address] [address] Oct, [facility] [address] [address] September, [facility] [address] [address] Aug, [facility] [address] [address] Aug, [facility] [address] [facility] [id number] [place] [address] May, [facility] [address] [facility] [id number] [place] [address] May, [facility] [address] [id number] [place] [address] May, [facility] [address] [id number] [place] [address] May, [facility] [address] [facility] [id number] [place] [address] May, [facility] [address] [id number] [place] [address] May, [facility] [address] [id number] [place] [address] Apr, [facility] [address] [id number] [place] [address] Apr, [facility] [address] [id number] [place] [address] Feb, [facility] [address] [id number] [place] [address] Feb, [facility] [address] [id number] [place] [address] Dec, [facility] [address] [id number] [place] [address] Nov, [facility] [address] [id number] [place] [address] Nov, [facility] [address] [id number] [place] [address] Nov, [facility] [address] [id number] [place] [address] Nov, [facility] [address] [id number] [place] [address] Nov, [facility] [address] [id number] [place] [address] 08 Nov, 2013 [facility] [address] [id number] [place] [address] September, [facility] [address] [id number] [place] [address] September, [facility] [address] [id number] [place] [address] September, [facility] [address] [id number] [place] [address] Aug, [facility] [address] [id number] [place] [address] Aug, [facility] [address] [id number] [place] [address] Aug, [facility] [address] [id number] [place] [address] Aug, [facility] [address] [id number] [place] [address] Jul, [facility] [address] [id number] [place] [address] Jul, [facility] [address] [id number] [place] [address] Jul, [facility] [address] [id number] [place] [address] May, [facility] [address] [id number] [place] [address] May, [facility] [address] [id number] [place] [address] May, [facility] [address] [id number] [place] [address] May, [facility] [address] [id number] [place] [address] Apr, [facility] [address] [id number] [place] [address] Apr, [facility] [address] [id number] [place] [address] 04 Apr, 2013 [facility] [address] [id number] [place] [address] Feb, [facility] [address] [id number] [place] [address] 15 Feb, 2013 [facility] [address] [id number] [place] [address] 25 Jan, 2013 [facility] [address] [id number] [place] [address] 24 Jan, 2013 [facility] [address] [id number] [place] [address] 18 Jan, 2013 [facility] [address] [id number] [place] [address] 16 Jan, 2013 [facility] [address] [id number] [place] [address] 12 Jan, 2013 [facility] [address] [id number] [place] [address] 11 Jan, 2013 [facility] [address] [id number] [place] [address] 05 Jan, 2013 [facility] [address] [id number] [place] [address] Dec, [facility] [address] [id number] [place] [address] Dec, [facility] [address] [id number] [place] [address] Dec, [facility] [address] [id number] [place] [address] Dec, [facility] [address] [id number] [place] [address] Oct, [facility] [address] [id number] [place] [address] Nov, [facility] [address] [id number] [place] [address] Mar, [facility] [address] [facility] [id number] [place] [address] Feb, [facility] [address] [id number] [place] [address] Feb, [facility] [address] [facility] [id number] [place] [address] Jul, IMMUNIZATIONS No Known Immunizations SOCIAL HISTORY Never Assessed REASON FOR VISIT PLAN OF CARE VITAL SIGNS MEDICATIONS No Known Medications RESULTS No Results PROCEDURES Procedure Date Ordered Result Body Site TEST FOR BLOOD, FECES Dec 21, 2012 INSTRUCTIONS MEDICATIONS ADMINISTERED No Known Medications MEDICAL (GENERAL) HISTORY Type Description Date Medical History hearing loss Medical History Encopresis seen [facility] with Co lonosocopy 2014 and was told normal Medical History solitary pulmonary nodule [facility] 08-21-14 [facility] able rec yearly recheck Medical History diverticulitis Medical History Encopresis Medical History Diverticulitis of colon (wit hout mention of hemorrhage) Colonoscopy [facility] 2013 Medical History Solitary pulmonary nodule Medical History Barrets Esophagus Dx EGD at gast[facility]ophagel junction [place] Surgical History tubal ligation Surgical History Colonoscopy [facility] 2016- Surgical History cataract surgery 2019 Surgical History EGD gastrointestinal Junctio n Consistent w [place] Esophagus [place]
--- OUTSIDE RECORDS SUMMARY | 2019-12-18 09:45 | XMS REPORT ---
Author Author Josie Álvarez Doctor Organization [facility] Address Unknown Phone Unavailable Care Team Providers Care Statistical Geneticist Name Role Phone Migration, Doctor Unavailable Unavailable PROBLEMS Type Condition ICD9-CM Code ECT18-VI Code Onset Dates Condition S tatus SNOMED Code Problem Porokeratosis Q82.8 Active 310556 004 Problem Neuropathy G62.9 Active 913123129 Problem Hammer toe, unspecified laterality M20.40 Active 919512940 Problem Hiatal hernia K44.9 Active 842940 09 Problem History of solitary pulmonary nodule Z87.898 Active 745170533 Problem Rhinosinusitis J32.9 Active 90931 4004 Problem Hematuria R31.9 Active 58621601 Problem Incontinence of feces, unspecified fecal incontinence type R15.9 Active 02480291 Problem Diarrhea, unspecified type R19.7 Act alexis 78077028 Problem Encopresis R15.9 Active 050830862 Problem Bilateral hearing loss, unspecified hearing loss type H91.93 Active [id number] ALLERGIES No Information ENCOUNTERS Encounter Location Date Diagnosis [place] [address] [address] Jul, Black stools K92.1 and Cough R05 [place] [address] [address] May, [place] [address] [address] Apr, Acute rhinosinusitis J01.90 [place] [address] [address] Apr, [place] [address] [address] Apr, Rhinosinusitis J32.9 and Tremor R25.1 [place] [address] [address] Mar, Bilateral hearing loss, unspecified hear ing loss type H91.93 [place] [address] [address] Feb, Cat scratch W55.03XA ; Puncture wound T1 4.8XXA and Hematoma and contusion T14.8XXA [place] [address] [address] Feb, Well woman exam without gynecological ex am Z00.00 and Screening for breast cancer Z12.39 [place] [address] [address] 30 Jan, 2019 Dentalgia K08.89 [place] [address] [address] 05 Jan, 2019 Costochondritis M94.0 [place] [address] [address] Dec, Urinary tract infection N39.0 [place] [address] [address] Nov, Rash R21 [place] [address] [address] Nov, Hiatal hernia K44.9 and Urinary frequenc y R35.0 [place] [address] [address] Nov, Near syncope R55 [place] [address] [address] Nov, Near syncope R55 [place] [address] [address] Nov, [facility] [address] [place] [id number] [place] [address] Oct, Dysuria R30.0 and Urinary tr act infection without hematuria, site unspecified N39.0 [facility] [address] [place] [id number] [address] [place] [address] September, Acute cystitis with hematuri a N30.01 [place] [address] [address] Jun, Gastroenteritis K52.9 [place] [address] [address] May, Bilateral hearing loss, unspecified hear ing loss type H91.93 and Rib pain R07.81 [place] [address] [address] Apr, [place] [address] [address] Apr, Chest wall pain R07.89 and Abdominal trice n, unspecified abdominal location R10.9 [place] [address] [address] Feb, Annual physical exam Z00.00 and Diarrhea , unspecified type R19.7 [place] [address] [address] Dec, Encopresis R15.9 and Incontinence of fec es, unspecified fecal incontinence type R15.9 [facility] [address] [facility] [id number] [address] [place] [address] Nov, Urinary tract infection, sit e not specified N39.0 and Hematuria, unspecified R31.9 [place] [address] [address] Oct, [place] [address] [address] Oct, Tick bite, initial encounter W57.XXXA an d Incontinence of feces, unspecified fecal incontinence type R15.9 [place] [address] [address] May, Neuropathy G62.9 ; Hammer toe, unspecifi ed laterality M20.40 and Onychomycosis B35.1 [place] [address] [address] Mar, Dysuria R30.0 [place] [address] [address] Mar, [place] [address] [address] Feb, [place] [address] [address] Dec, Family history of diabetes mellitus Z83. 3 ; Porokeratosis Q82.8 and Neuropathy G62.9 [place] [address] [address] Oct, Porokeratosis Q82.8 [place] [address] [address] September, [place] [address] [address] September, Porokeratosis Q82.8 [place] [address] [address] September, [place] [address] [address] Aug, Aphthous ulcer K12.0 ; Dental caries K02 .9 ; Viral gastroenteritis A08.4 and Abscessed tooth K04.[address] [address] Jul, Porokeratosis Q82.8 ; Callus of foot L84 and Metatarsalgia of right foot M77.41 [place] [address] [address] 10 Jun, 2016 Porokeratosis Q82.8 and Foot pain, right M79.671 [place] [address] [address] Apr, [address] [address] Apr, Pre-diabetes R73.03 and Plantar wart, ri ght foot B07.0 [place] [address] [address] Apr, [place] [address] [address] Apr, [place] [address] [address] Mar, [place] [address] [address] Mar, [place] [address] [address] Mar, Hematuria R31.9 and Pre-diabetes R73.03 [place] [address] [address] Feb, [place] [address] [address] Feb, [place] [address] [address] Feb, Abnormal fasting glucose R73.01 [place] [address] [address] Feb, Abnormal fasting glucose R73.01 [place] [address] [address] Feb, Routine gynecological examination Z01.41 9 ; General medical exam Z00.00 ; Screening breast examination Z12.39 ; Hematuria R31.9 ; Vaginal discharge N89.8 ; Vaginal yeast infection B37.3 and Recurrent UTI N39.0 [place] [address] [address] Jan, Recurrent UTI N39.0 and History of solit chase pulmonary nodule Z87.898 [place] [address] [address] Jan, [place] [address] [address] Jan, Recurrent UTI N39.0 ; Hematuria R31.9 an d History of solitary pulmonary nodule Z87.898 [place] [address] [address] 07 Jan, 2016 [facility] [address] [address] Jan, Recurrent UTI N39.0 [place] [address] [address] Dec, [facility] [address] [address] Dec, [place] [address] [address] Dec, Acute cystitis with hematuria N30.01 [place] [address] [address] Dec, Acute cystitis with hematuria N30.01 [place] [address] [address] Dec, Acute cystitis with hematuria N30.01 and Insect bite (nonvenomous) of left upper arm, initial encounter S40.862A [place] [address] [address] Nov, Acute cystitis with hematuria N30.01 and Insect bite (nonvenomous) of left upper arm, initial encounter S40.862A [place] [address] [address] September, [place] [address] [address] September, [place] [address] [address] September, Acute cystitis with hematuria N30.01 and Family history of diabetes mellitus Z83.3 [place] [address] [address] September, Family history of diabetes mellitus Z83. 3 [place] [address] [address] September, Acute cystitis with hematuria N30.01 [facility] [address] [address] September, [facility] [address] [address] September, Acute cystitis with hematuria N30.01 [facility] [address] [facility] [id number] [address] [place] [address] May, Back pain M54.9 and Urinary tract infection N39.0 [facility] [address] [address] Feb, [facility] [address] [address] Feb, Bony prominence M89.8X9 [facility] [address] [address] Nov, Unspecified urinary incontinence 788.30 ; 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 and Solitary pulmonary nodule 793.11 [facility] [address] [address] Nov, [facility] [address] [address] Oct, Unspecified urinary incontinence 788.30 ; 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 and Solitary pulmonary nodule 793.11 [facility] [address] [address] Oct, [facility] [address] [address] Oct, [facility] [address] [address] September, [facility] [address] [address] Aug, [facility] [address] [address] Aug, [facility] [address] [facility] [id number] [place] [address] May, [facility] [address] [facility] [id number] [place] [address] May, [facility] [address] [id number] [place] [address] May, [facility] [address] [id number] [place] [address] May, [facility] [address] [facility] [id number] [place] [address] May, [facility] [address] [id number] [place] [address] May, [facility] [address] [id number] [place] [address] Apr, [facility] [address] [id number] [place] [address] Apr, [facility] [address] [id number] [place] [address] Feb, [facility] [address] [id number] [place] [address] Feb, [facility] [address] [id number] [place] [address] Dec, [facility] [address] [id number] [place] [address] Nov, [facility] [address] [id number] [place] [address] Nov, [facility] [address] [id number] [place] [address] Nov, [facility] [address] [id number] [place] [address] Nov, [facility] [address] [id number] [place] [address] Nov, [facility] [address] [id number] [place] [address] 08 Nov, 2013 [facility] [address] [id number] [place] [address] September, [facility] [address] [id number] [place] [address] September, [facility] [address] [id number] [place] [address] September, [facility] [address] [id number] [place] [address] Aug, [facility] [address] [id number] [place] [address] Aug, [facility] [address] [id number] [place] [address] Aug, [facility] [address] [id number] [place] [address] Aug, [facility] [address] [id number] [place] [address] Jul, [facility] [address] [id number] [place] [address] Jul, [facility] [address] [id number] [place] [address] Jul, [facility] [address] [id number] [place] [address] May, [facility] [address] [id number] [place] [address] May, [facility] [address] [id number] [place] [address] May, [facility] [address] [id number] [place] [address] May, [facility] [address] [id number] [place] [address] Apr, [facility] [address] [id number] [place] [address] Apr, [facility] [address] [id number] [place] [address] 04 Apr, 2013 [facility] [address] [id number] [place] [address] Feb, [facility] [address] [id number] [place] [address] 15 Feb, 2013 [facility] [address] [id number] [place] [address] 25 Jan, 2013 [facility] [address] [id number] [place] [address] 24 Jan, 2013 [facility] [address] [id number] [place] [address] 18 Jan, 2013 [facility] [address] [id number] [place] [address] 16 Jan, 2013 [facility] [address] [id number] [place] [address] 12 Jan, 2013 [facility] [address] [id number] [place] [address] 11 Jan, 2013 [facility] [address] [id number] [place] [address] 05 Jan, 2013 [facility] [address] [id number] [place] [address] Dec, [facility] [address] [id number] [place] [address] Dec, [facility] [address] [id number] [place] [address] Dec, [facility] [address] [id number] [place] [address] Dec, [facility] [address] [id number] [place] [address] Oct, [facility] [address] [id number] [place] [address] Nov, [facility] [address] [id number] [place] [address] Mar, [facility] [address] [facility] [id number] [place] [address] Feb, [facility] [address] [id number] [place] [address] Feb, [facility] [address] [facility] [id number] [place] [address] Jul, IMMUNIZATIONS No Known Immunizations SOCIAL HISTORY Never Assessed REASON FOR VISIT PLAN OF CARE VITAL SIGNS Height 65 in 2013-01-24 Weight 162.88 lbs 2013-01-24 Temperature 97.6 degrees Fahrenheit 2013-01-24 Heart Rate 80 bpm 2013-01-24 Respiratory Rate 18 2013-01-24 Blood pressure systolic 118 mmHg 2013-01-24 Blood pressure diastolic 62 mmHg 2013-01-24 MEDICATIONS No Known Medications RESULTS No Results PROCEDURES No Known procedures INSTRUCTIONS MEDICATIONS ADMINISTERED No Known Medications MEDICAL (GENERAL) HISTORY Type Description Date Medical History hearing loss Medical History Encopresis seen [facility] with Co lonosocopy 2014 and was told normal Medical History solitary pulmonary nodule LLL 4-15-[address] [facility] rec yearly recheck Medical History diverticulitis Medical History Encopresis Medical History Diverticulitis of colon (wit hout mention of hemorrhage) Colonoscopy [facility] 2013 Medical History Solitary pulmonary nodule Medical History Barrets Esophagus Dx EGD at [facility] [place] Surgical History tubal ligation Surgical History Colonoscopy [facility] 2015- Surgical History cataract surgery 2019 Surgical History EGD gastrointestinal Junctio n Consistent w Barrets Esophagus [place]
--- OUTSIDE RECORDS SUMMARY | 2019-12-18 09:45 | XMS REPORT ---
Author Author Josie Álvarez Doctor Organization [facility] Address Unknown Phone Unavailable Care Team Providers Care Veneer Glue Jointer Feedback Name Role Phone Migration, Doctor Unavailable Unavailable PROBLEMS Type Condition ICD9-CM Code DOL13-IN Code Onset Dates Condition S tatus SNOMED Code Problem Porokeratosis Q82.8 Active 466052 004 Problem Neuropathy G62.9 Active 854482794 Problem Hammer toe, unspecified laterality M20.40 Active 089028311 Problem Hiatal hernia K44.9 Active 801519 09 Problem History of solitary pulmonary nodule Z87.898 Active 172655576 Problem Rhinosinusitis J32.9 Active 74393 4004 Problem Hematuria R31.9 Active 92577752 Problem Incontinence of feces, unspecified fecal incontinence type R15.9 Active 64737048 Problem Diarrhea, unspecified type R19.7 Act alexis 99982787 Problem Encopresis R15.9 Active 937745152 Problem Bilateral hearing loss, unspecified hearing loss type H91.93 Active 11746395 ALLERGIES No Information ENCOUNTERS Encounter Location Date Diagnosis [place] [address] [address] Jul, Black stools K92.1 and Cough R05 [place] [address] [address] May, [place] [address] [address] Apr, Acute rhinosinusitis J01.90 [place] [address] [address] Apr, [place] [address] [address] Apr, Rhinosinusitis J32.9 and Tremor R25.1 [place] [address] [address] Mar, Bilateral hearing loss, unspecified hear ing loss type H91.93 [place] [address] [address] Feb, Cat scratch W55.03XA ; Puncture wound T1 4.8XXA and Hematoma and contusion T14.8XXA [place] [address] [address] Feb, Well woman exam without gynecological ex am Z00.00 and Screening for breast cancer Z12.39 [place] [address] [address] 30 Jan, 2019 Dentalgia K08.89 [place] [address] [address] 05 Jan, 2019 Costochondritis M94.0 [place] [address] [address] Dec, Urinary tract infection N39.0 [place] [address] [address] Nov, Rash R21 [place] [address] [address] Nov, Hiatal hernia K44.9 and Urinary frequenc y R35.0 [place] [address] [address] Nov, Near syncope R55 [place] [address] [address] Nov, Near syncope R55 [place] [address] [address] Nov, [facility] [address] [place] [id number] [place] [address] Oct, Dysuria R30.0 and Urinary tr act infection without hematuria, site unspecified N39.0 [facility] [address] [place] [id number] [address] [place] [address] September, Acute cystitis with hematuri a N30.01 [place] [address] [address] Jun, Gastroenteritis K52.9 [place] [address] [address] May, Bilateral hearing loss, unspecified hear ing loss type H91.93 and Rib pain R07.81 [place] [address] [address] Apr, [place] [address] [address] Apr, Chest wall pain R07.89 and Abdominal trice n, unspecified abdominal location R10.9 [place] [address] [address] Feb, Annual physical exam Z00.00 and Diarrhea , unspecified type R19.7 [place] [address] [address] Dec, Encopresis R15.9 and Incontinence of fec es, unspecified fecal incontinence type R15.9 [facility] [address] [facility] [id number] [address] [place] [address] Nov, Urinary tract infection, sit e not specified N39.0 and Hematuria, unspecified R31.9 [place] [address] [address] Oct, [place] [address] [address] Oct, Tick bite, initial encounter W57.XXXA an d Incontinence of feces, unspecified fecal incontinence type R15.9 [place] [address] [address] May, Neuropathy G62.9 ; Hammer toe, unspecifi ed laterality M20.40 and Onychomycosis B35.1 [place] [address] [address] Mar, Dysuria R30.0 [place] [address] [address] Mar, [place] [address] [address] Feb, [place] [address] [address] Dec, Family history of diabetes mellitus Z83. 3 ; Porokeratosis Q82.8 and Neuropathy G62.9 [place] [address] [address] Oct, Porokeratosis Q82.8 [place] [address] [address] September, [place] [address] [address] September, Porokeratosis Q82.8 [place] [address] [address] September, [place] [address] [address] Aug, Aphthous ulcer K12.0 ; Dental caries K02 .9 ; Viral gastroenteritis A08.4 and Abscessed tooth K04.[address] [address] Jul, Porokeratosis Q82.8 ; Callus of foot L84 and Metatarsalgia of right foot M77.41 [place] [address] [address] 10 Jun, 2016 Porokeratosis Q82.8 and Foot pain, right M79.671 [place] [address] [address] Apr, [address] [address] Apr, Pre-diabetes R73.03 and Plantar wart, ri ght foot B07.0 [place] [address] [address] Apr, [place] [address] [address] Apr, [place] [address] [address] Mar, [place] [address] [address] Mar, [place] [address] [address] Mar, Hematuria R31.9 and Pre-diabetes R73.03 [place] [address] [address] Feb, [place] [address] [address] Feb, [place] [address] [address] Feb, Abnormal fasting glucose R73.01 [place] [address] [address] Feb, Abnormal fasting glucose R73.01 [place] [address] [address] Feb, Routine gynecological examination Z01.41 9 ; General medical exam Z00.00 ; Screening breast examination Z12.39 ; Hematuria R31.9 ; Vaginal discharge N89.8 ; Vaginal yeast infection B37.3 and Recurrent UTI N39.0 [place] [address] [address] Jan, Recurrent UTI N39.0 and History of solit chase pulmonary nodule Z87.898 [place] [address] [address] Jan, [place] [address] [address] Jan, Recurrent UTI N39.0 ; Hematuria R31.9 an d History of solitary pulmonary nodule Z87.898 [place] [address] [address] 07 Jan, 2016 [facility] [address] [address] Jan, Recurrent UTI N39.0 [place] [address] [address] Dec, [facility] [address] [address] Dec, [place] [address] [address] Dec, Acute cystitis with hematuria N30.01 [place] [address] [address] Dec, Acute cystitis with hematuria N30.01 [place] [address] [address] Dec, Acute cystitis with hematuria N30.01 and Insect bite (nonvenomous) of left upper arm, initial encounter S40.862A [place] [address] [address] Nov, Acute cystitis with hematuria N30.01 and Insect bite (nonvenomous) of left upper arm, initial encounter S40.862A [place] [address] [address] September, [place] [address] [address] September, [place] [address] [address] September, Acute cystitis with hematuria N30.01 and Family history of diabetes mellitus Z83.3 [place] [address] [address] September, Family history of diabetes mellitus Z83. 3 [place] [address] [address] September, Acute cystitis with hematuria N30.01 [facility] [address] [address] September, [facility] [address] [address] September, Acute cystitis with hematuria N30.01 [facility] [address] [facility] [id number] [address] [place] [address] May, Back pain M54.9 and Urinary tract infection N39.0 [facility] [address] [address] Feb, [facility] [address] [address] Feb, Bony prominence M89.8X9 [facility] [address] [address] Nov, Unspecified urinary incontinence 788.30 ; 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 and Solitary pulmonary nodule 793.11 [facility] [address] [address] Nov, [facility] [address] [address] Oct, Unspecified urinary incontinence 788.30 ; 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 and Solitary pulmonary nodule 793.11 [facility] [address] [address] Oct, [facility] [address] [address] Oct, [facility] [address] [address] September, [facility] [address] [address] Aug, [facility] [address] [address] Aug, [facility] [address] [facility] [id number] [place] [address] May, [facility] [address] [facility] [id number] [place] [address] May, [facility] [address] [id number] [place] [address] May, [facility] [address] [id number] [place] [address] May, [facility] [address] [facility] [id number] [place] [address] May, [facility] [address] [id number] [place] [address] May, [facility] [address] [id number] [place] [address] Apr, [facility] [address] [id number] [place] [address] Apr, [facility] [address] [id number] [place] [address] Feb, [facility] [address] [id number] [place] [address] Feb, [facility] [address] [id number] [place] [address] Dec, [facility] [address] [id number] [place] [address] Nov, [facility] [address] [id number] [place] [address] Nov, [facility] [address] [id number] [place] [address] Nov, [facility] [address] [id number] [place] [address] Nov, [facility] [address] [id number] [place] [address] Nov, [facility] [address] [id number] [place] [address] 08 Nov, 2013 [facility] [address] [id number] [place] [address] September, [facility] [address] [id number] [place] [address] September, [facility] [address] [id number] [place] [address] September, [facility] [address] [id number] [place] [address] Aug, [facility] [address] [id number] [place] [address] Aug, [facility] [address] [id number] [place] [address] Aug, [facility] [address] [id number] [place] [address] Aug, [facility] [address] [id number] [place] [address] Jul, [facility] [address] [id number] [place] [address] Jul, [facility] [address] [id number] [place] [address] Jul, [facility] [address] [id number] [place] [address] May, [facility] [address] [id number] [place] [address] May, [facility] [address] [id number] [place] [address] May, [facility] [address] [id number] [place] [address] May, [facility] [address] [id number] [place] [address] Apr, [facility] [address] [id number] [place] [address] Apr, [facility] [address] [id number] [place] [address] 04 Apr, 2013 [facility] [address] [id number] [place] [address] Feb, [facility] [address] [id number] [place] [address] 15 Feb, 2013 [facility] [address] [id number] [place] [address] 25 Jan, 2013 [facility] [address] [id number] [place] [address] 24 Jan, 2013 [facility] [address] [id number] [place] [address] 18 Jan, 2013 [facility] [address] [id number] [place] [address] 16 Jan, 2013 [facility] [address] [id number] [place] [address] 12 Jan, 2013 [facility] [address] [id number] [place] [address] 11 Jan, 2013 [facility] [address] [id number] [place] [address] 05 Jan, 2013 [facility] [address] [id number] [place] [address] Dec, [facility] [address] [id number] [place] [address] Dec, [facility] [address] [id number] [place] [address] Dec, [facility] [address] [id number] [place] [address] Dec, [facility] [address] [id number] [place] [address] Oct, [facility] [address] [id number] [place] [address] Nov, [facility] [address] [id number] [place] [address] Mar, [facility] [address] [facility] [id number] [place] [address] Feb, [facility] [address] [id number] [place] [address] Feb, [facility] [address] [facility] [id number] [place] [address] Jul, IMMUNIZATIONS No Known Immunizations SOCIAL HISTORY Never Assessed REASON FOR VISIT PLAN OF CARE VITAL SIGNS MEDICATIONS No Known Medications RESULTS No Results PROCEDURES No Known procedures INSTRUCTIONS MEDICATIONS ADMINISTERED No Known Medications MEDICAL (GENERAL) HISTORY Type Description Date Medical History hearing loss Medical History Encopresis seen [facility] with Co lonosocopy 2014 and was told normal Medical History solitary pulmonary nodule LLL 08-21-[facility] yearly recheck Medical History diverticulitis Medical History Encopresis Medical History Diverticulitis of colon (wit hout mention of hemorrhage) Colonoscopy [facility] 2013 Medical History Solitary pulmonary nodule Medical History Barrets Esophagus Dx EGD at gastoesophagel junction [place] Surgical History tubal ligation Surgical History Colonoscopy [facility] 2015- Surgical History cataract surgery 2019 Surgical History EGD gastrointestinal Junctio n Consistent w Barrets Esophagus [place] -2018
--- OUTSIDE RECORDS SUMMARY | 2019-12-18 09:46 | XMS REPORT ---
Author Author Josie Álvarez Doctor Organization [facility] Address Unknown Phone Unavailable Care Team Providers Care Student Dean Name Role Phone Migration, Doctor Unavailable Unavailable PROBLEMS Type Condition ICD9-CM Code [id number] Code Onset Dates Condition S tatus SNOMED Code Problem Porokeratosis Q82.8 Active 481656 004 Problem Neuropathy G62.9 Active 274060421 Problem Hammer toe, unspecified laterality M20.40 Active 095810146 Problem Hiatal hernia K44.9 Active 501735 09 Problem History of solitary pulmonary nodule Z87.898 Active 918210795 Problem Rhinosinusitis J32.9 Active 95356 4004 Problem Hematuria R31.9 Active 30468477 Problem Incontinence of feces, unspecified fecal incontinence type R15.9 Active 78141536 Problem Diarrhea, unspecified type R19.7 Act alexis 85903706 Problem Encopresis R15.9 Active 425365457 Problem Bilateral hearing loss, unspecified hearing loss type H91.93 Active 04587682 ALLERGIES No Information ENCOUNTERS Encounter Location Date Diagnosis [place] [address] [address] Jul, [place] [address] [address] May, [place] [address] [address] Apr, Acute rhinosinusitis J01.90 [place] [address] [address] Apr, [place] [address] [address] Apr, Rhinosinusitis J32.9 and Tremor R25.1 [place] [address] [address] Mar, Bilateral hearing loss, unspecified hear ing loss type H91.93 [place] [address] [address] Feb, Cat scratch W55.03XA ; Puncture wound T1 4.8XXA and Hematoma and contusion T14.8XXA [place] [address] [address] Feb, Well woman exam without gynecological ex am Z00.00 and Screening for breast cancer Z12.39 [place] [address] [address] 30 Jan, 2019 Dentalgia K08.89 [place] [address] [address] 05 Jan, 2019 Costochondritis M94.0 [place] [address] [address] Dec, Urinary tract infection N39.0 [place] [address] [address] Nov, Rash R21 [place] [address] [address] Nov, Hiatal hernia K44.9 and Urinary frequenc y R35.0 [place] [address] [address] Nov, Near syncope R55 [place] [address] [address] Nov, Near syncope R55 [place] [address] [address] Nov, [facility] [address] [place] [address] Oct, Dysuria R30.0 and Urinary tr act infection without hematuria, site unspecified N39.0 [facility] [address] [place] [id number] [place] [address] September, Acute cystitis with hematuri a N30.01 [place] [address] [address] Jun, Gastroenteritis K52.9 [place] [address] [address] May, Bilateral hearing loss, unspecified hear ing loss type H91.93 and Rib pain R07.81 [place] [address] [address] Apr, [place] [address] [place] [id number] Apr, Chest wall pain R07.89 and Abdominal trice n, unspecified abdominal location R10.9 [place] [address] [address] Feb, Annual physical exam Z00.00 and Diarrhea , unspecified type R19.7 [place] [address] [address] Dec, Encopresis R15.9 and Incontinence of fec es, unspecified fecal incontinence type R15.9 [facility] [address] [facility] [id number] [address] [place] [address] Nov, Urinary tract infection, sit e not specified N39.0 and Hematuria, unspecified R31.9 [place] [address] [address] Oct, [place] [address] [address] Oct, Tick bite, initial encounter W57.XXXA an d Incontinence of feces, unspecified fecal incontinence type R15.9 [place] [address] [address] May, Neuropathy G62.9 ; Hammer toe, unspecifi ed laterality M20.40 and Onychomycosis B35.1 [place] [address] [address] Mar, Dysuria R30.0 [place] [address] [address] Mar, [place] [address] [address] Feb, [place] [address] [address] Dec, Family history of diabetes mellitus Z83. 3 ; Porokeratosis Q82.8 and Neuropathy G62.9 [place] [address] [address] Oct, Porokeratosis Q82.8 [place] [address] [address] September, [place] [address] [address] September, Porokeratosis Q82.8 [place] [address] [address] September, [place] [address] [address] Aug, Aphthous ulcer K12.0 ; Dental caries K02 .9 ; Viral gastroenteritis A08.4 and Abscessed tooth K04.[address] [address] Jul, Porokeratosis Q82.8 ; Callus of foot L84 and Metatarsalgia of right foot M77.41 [place] [address] [address] 10 Jun, 2016 Porokeratosis Q82.8 and Foot pain, right M79.671 [place] [address] [address] Apr, [address] [address] Apr, Pre-diabetes R73.03 and Plantar wart, ri ght foot B07.0 [place] [address] [place] [id number] [place] [address] Apr, [place] [address] [address] Apr, [place] [address] [address] Mar, [place] [address] [address] Mar, [place] [address] [address] Mar, Hematuria R31.9 and Pre-diabetes R73.03 [place] [address] [address] Feb, [place] [address] [address] Feb, [place] [address] [address] Feb, Abnormal fasting glucose R73.01 [place] [address] [address] Feb, Abnormal fasting glucose R73.01 [place] [address] [address] Feb, Routine gynecological examination Z01.41 9 ; General medical exam Z00.00 ; Screening breast examination Z12.39 ; Hematuria R31.9 ; Vaginal discharge N89.8 ; Vaginal yeast infection B37.3 and Recurrent UTI N39.0 [place] [address] [place] [id number] [place] [address] Jan, Recurrent UTI N39.0 and History of solit chase pulmonary nodule Z87.898 [place] [address] [place] [id number] [place] [address] Jan, [place] [address] [address] Jan, Recurrent UTI N39.0 ; Hematuria R31.9 an d History of solitary pulmonary nodule Z87.898 [place] [address] [address] Jan, [place] [address] [address] Jan, Recurrent UTI N39.0 [place] [address] [address] Dec, [place] [address] [address] Dec, [place] [address] [address] Dec, Acute cystitis with hematuria N30.01 [place] [address] [address] Dec, Acute cystitis with hematuria N30.01 [place] [address] [address] Dec, Acute cystitis with hematuria N30.01 and Insect bite (nonvenomous) of left upper arm, initial encounter S40.862A [place] [address] [address] Nov, Acute cystitis with hematuria N30.01 and Insect bite (nonvenomous) of left upper arm, initial encounter S40.862A [place] [address] [address] September, [place] [address] [address] September, [place] [address] [address] September, Acute cystitis with hematuria N30.01 and Family history of diabetes mellitus Z83.3 [place] [address] [address] September, Family history of diabetes mellitus Z83. 3 [place] [address] [address] September, Acute cystitis with hematuria N30.01 [facility] [address] [address] September, [facility] [address] [address] September, Acute cystitis with hematuria N30.01 [facility] [address] [facility] [id number] [address] [place] [address] May, Back pain M54.9 and Urinary tract infection N39.0 [facility] [address] [address] Feb, [facility] [address] [address] Feb, Bony prominence M89.8X9 [facility] [address] [address] Nov, Unspecified urinary incontinence 788.30 ; 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 and Solitary pulmonary nodule 793.11 [facility] [address] [address] Nov, [facility] [address] [address] Oct, Unspecified urinary incontinence 788.30 ; 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 and Solitary pulmonary nodule 793.11 [facility] [address] [address] Oct, [facility] [address] [address] Oct, [facility] [address] [address] September, [facility] [address] [address] 14 Aug, 2014 [facility] [address] [address] Aug, [facility] [address] [facility] [id number] [place] [address] May, [facility] [address] [facility] [id number] [place] [address] May, [facility] [address] [id number] [place] [address] May, [facility] [address] [id number] [place] [address] May, [facility] [address] [facility] [id number] [place] [address] May, [facility] [address] [id number] [place] [address] May, [facility] [address] [id number] [place] [address] Apr, [facility] [address] [id number] [place] [address] Apr, [facility] [address] [id number] [place] [address] Feb, [facility] [address] [id number] [place] [address] Feb, [facility] [address] [id number] [place] [address] Dec, [facility] [address] [id number] [place] [address] Nov, [facility] [address] [id number] [place] [address] Nov, [facility] [address] [facility] [id number] [place] [address] Nov, [facility] [address] [id number] [place] [address] Nov, [facility] [address] [id number] [place] [address] Nov, [facility] [address] [id number] [place] [address] Nov, [facility] [address] [id number] [place] [address] September, [facility] [address] [id number] [place] [address] September, [facility] [address] [id number] [place] [address] September, [facility] [address] [id number] [place] [address] Aug, [facility] [address] [id number] [place] [address] Aug, [facility] [address] [id number] [place] [address] Aug, [facility] [address] [id number] [place] [address] Aug, [facility] [address] [id number] [place] [address] Jul, [facility] [address] [id number] [place] [address] Jul, [facility] [address] [id number] [place] [address] Jul, [facility] [address] [id number] [place] [address] May, [facility] [address] [id number] [place] [address] May, [facility] [address] [id number] [place] [address] May, [facility] [address] [id number] [place] [address] May, [facility] [address] [id number] [place] [address] Apr, [facility] [address] [id number] [place] [address] Apr, [facility] [address] [id number] [place] [address] 04 Apr, 2013 [facility] [address] [facility] [id number] [place] [address] Feb, [facility] [address] [id number] [place] [address] Feb, [facility] [address] [id number] [place] [address] 25 Jan, 2013 [facility] [address] [id number] [place] [address] 24 Jan, 2013 [facility] [address] [id number] [place] [address] 18 Jan, 2013 [facility] [address] [id number] [place] [address] 16 Jan, 2013 [facility] [address] [id number] [place] [address] 12 Jan, 2013 [facility] [address] [id number] [place] [address] 11 Jan, 2013 [facility] [address] [id number] [place] [address] 05 Jan, 2013 [facility] [address] [id number] [place] [address] Dec, [facility] [address] [id number] [place] [address] Dec, [facility] [address] [id number] [place] [address] Dec, [facility] [address] [id number] [place] [address] Dec, [facility] [address] [id number] [place] [address] Oct, [facility] [address] [id number] [place] [address] Nov, [facility] [address] [id number] [place] [address] Mar, [facility] [address] [facility] [id number] [place] [address] Feb, [facility] [address] [id number] [place] [address] Feb, [facility] [address] [id number] [place] [address] Jul, IMMUNIZATIONS No Known Immunizations SOCIAL HISTORY Never Assessed REASON FOR VISIT PLAN OF CARE VITAL SIGNS MEDICATIONS Unknown Medications RESULTS No Results PROCEDURES No Known procedures INSTRUCTIONS MEDICATIONS ADMINISTERED No Known Medications MEDICAL (GENERAL) HISTORY Type Description Date Medical History hearing loss Medical History Encopresis seen [facility] with Co lonosocopy 2014 and was told normal Medical History solitary pulmonary nodule LLL [address] able rec yearly recheck Medical History diverticulitis Medical History Encopresis Medical History Diverticulitis of colon (wit hout mention of hemorrhage) Colonoscopy [facility] 2013 Medical History Solitary pulmonary nodule Medical History Barrets Esophagus Dx EGD [facility] Surgical History tubal ligation Surgical History Colonoscopy [facility] 2015- Surgical History cataract surgery 2019 Surgical History EGD gastrointestinal Junctio n Consistent w Barrets Esophagus [facility] -2018
--- OUTSIDE RECORDS SUMMARY | 2019-12-18 09:46 | XMS REPORT ---
Author Author Josie Gu [facility] Address [address] [place] [address] Care Team Providers Care Substation Inspector Name Role Phone SARINA Gu Unavailable PROBLEMS Type Condition ICD9-CM Code BCO60-FW Code Onset Dates Condition S tatus SNOMED Code Problem Porokeratosis Q82.8 Active 973234 004 Problem Neuropathy G62.9 Active 680312703 Problem Hammer toe, unspecified laterality M20.40 Active 196478581 Problem Hiatal hernia K44.9 Active 506111 09 Problem History of solitary pulmonary nodule Z87.898 Active 475675651 Problem Rhinosinusitis J32.9 Active 22468 4004 Problem Hematuria R31.9 Active 82411510 Problem Incontinence of feces, unspecified fecal incontinence type R15.9 Active 66262252 Problem Diarrhea, unspecified type R19.7 Act alexis 34937412 Problem Encopresis R15.9 Active 684363869 Problem Bilateral hearing loss, unspecified hearing loss type H91.93 Active 15411067 ALLERGIES No Information ENCOUNTERS Encounter Location Date Diagnosis [place] [address] [address] Jul, Black stools K92.1 and Cough R05 [place] [address] [place] [id number] [place] [address] May, [address] [address] Apr, Acute rhinosinusitis J01.90 [place] [address] [address] Apr, [place] [address] [address] Apr, Rhinosinusitis J32.9 and Tremor R25.1 [place] [address] [address] Mar, Bilateral hearing loss, unspecified hear ing loss type H91.93 [place] [address] [address] Feb, Cat scratch W55.03XA ; Puncture wound T1 4.8XXA and Hematoma and contusion T14.8XXA [place] [address] [address] Feb, Well woman exam without gynecological ex am Z00.00 and Screening for breast cancer Z12.39 [place] [address] [address] 30 Jan, 2019 Dentalgia K08.89 [place] [address] [address] Jan, Costochondritis M94.0 [place] [address] [address] Dec, Urinary tract infection N39.0 [place] [address] [address] Nov, Rash R21 [place] [address] [address] Nov, Hiatal hernia K44.9 and Urinary frequenc y R35.0 [place] [address] [address] Nov, Near syncope R55 [place] [address] [address] Nov, Near syncope R55 [place] [address] [address] Nov, [facility] [address] [facility] [id number] [address] [place] [address] Oct, Dysuria R30.0 and Urinary tr act infection without hematuria, site unspecified N39.0 [facility] [address] [facility] [id number] [address] [address] September, Acute cystitis with hematuri a N30.01 [place] [address] [address] Jun, Gastroenteritis K52.9 [place] [address] [address] May, Bilateral hearing loss, unspecified hear ing loss type H91.93 and Rib pain R07.81 [place] [address] [address] Apr, [place] [address] [address] Apr, Chest wall pain R07.89 and Abdominal trice n, unspecified abdominal location R10.9 [place] [address] [address] Feb, Annual physical exam Z00.00 and Diarrhea , unspecified type R19.7 [place] [address] [address] Dec, Encopresis R15.9 and Incontinence of fec es, unspecified fecal incontinence type R15.9 [facility] [address] [facility] [id number] [address] [address] Nov, Urinary tract infection, sit e not specified N39.0 and Hematuria, unspecified R31.9 [place] [address] [address] Oct, [place] [address] [address] Oct, Tick bite, initial encounter W57.XXXA an d Incontinence of feces, unspecified fecal incontinence type R15.9 [place] [address] [address] May, Neuropathy G62.9 ; Hammer toe, unspecifi ed laterality M20.40 and Onychomycosis B35.1 [place] [address] [address] Mar, Dysuria R30.0 [place] [address] [address] Mar, [place] [address] [address] Feb, [place] [address] [address] Dec, Family history of diabetes mellitus Z83. 3 ; Porokeratosis Q82.8 and Neuropathy G62.[address] [address] Oct, Porokeratosis Q82.8 [place] [address] [address] September, [address] [address] September, Porokeratosis Q82.8 [place] [address] [address] September, [place] [address] [address] Aug, Aphthous ulcer K12.0 ; Dental caries K02 .9 ; Viral gastroenteritis A08.4 and Abscessed tooth K04.[address] [address] Jul, Porokeratosis Q82.8 ; Callus of foot L84 and Metatarsalgia of right foot M77.[address] [address] 10 Jun, 2016 Porokeratosis Q82.8 and Foot pain, right M79.671 [place] [address] [address] Apr, [address] [id number] [place] [address] Apr, Pre-diabetes R73.03 and Plantar wart, ri ght foot B07.0 [place] [address] [address] Apr, [place] [address] [address] Apr, [place] [address] [address] Mar, [place] [address] [address] Mar, [place] [address] [address] Mar, Hematuria R31.9 and Pre-diabetes R73.03 [place] [address] [address] Feb, [place] [address] [address] Feb, [place] [address] [address] Feb, Abnormal fasting glucose R73.01 [place] [address] [address] Feb, Abnormal fasting glucose R73.01 [place] [address] [address] 13 Feb, 2016 Routine gynecological examination Z01.41 9 ; General medical exam Z00.00 ; Screening breast examination Z12.39 ; Hematuria R31.9 ; Vaginal discharge N89.8 ; Vaginal yeast infection B37.3 and Recurrent UTI N39.0 [place] [address] [address] Jan, Recurrent UTI N39.0 and History of solit chase pulmonary nodule Z87.898 [place] [address] [address] Jan, [facility] [address] [place] [id number] [place] [address] 13 Jan, 2016 Recurrent UTI N39.0 ; Hematuria R31.9 an d History of solitary pulmonary nodule Z87.898 [facility] [address] [place] [id number] [place] [address] 07 Jan, 2016 [facility] [address] [address] Jan, Recurrent UTI N39.0 [facility] [address] [place] [address] [id number] [place] [address] Dec, [facility] [address] [address] Dec, [facility] [address] [address] Dec, Acute cystitis with hematuria N30.01 [facility] [address] [address] [id number] [place] [address] Dec, Acute cystitis with hematuria N30.01 [facility] [address] [address] Dec, Acute cystitis with hematuria N30.01 and Insect bite (nonvenomous) of left upper arm, initial encounter S40.862A [place] [address] [address] Nov, Acute cystitis with hematuria N30.01 and Insect bite (nonvenomous) of left upper arm, initial encounter S40.862A [facility] [address] [id number] [place] [address] September, [facility] [address] [address] September, [facility] [address] [address] September, Acute cystitis with hematuria N30.01 and Family history of diabetes mellitus Z83.3 [facility] [address] [place] [id number] [place] [address] September, Family history of diabetes mellitus Z83. 3 [facility] [address] [address] September, Acute cystitis with hematuria N30.01 [facility] [address] [address] September, [facility] [address] [address] September, Acute cystitis with hematuria N30.01 [facility] [address] [facility] [id number] [address] [place] [address] May, Back pain M54.9 and Urinary tract infection N39.0 [place] [address] [address] Feb, [place] [address] [address] Feb, Bony prominence M89.8X9 [place] [address] [address] Nov, Unspecified urinary incontinence 788.30 ; 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 and Solitary pulmonary nodule 793.11 [place] [address] [address] Nov, [place] [address] [address] Oct, Unspecified urinary incontinence 788.30 ; 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 and Solitary pulmonary nodule 793.11 [place] [address] [address] Oct, [place] [address] [address] Oct, [place] [address] [address] September, [facility] [address] [address] 14 Aug, 2014 [facility] [place] [facility] [address] [facility] [id number] [place] [address] Aug, [facility] [place] [facility] [address] [facility] [id number] [place] [address] 16 May, 2014 [facility] [place] [facility] [address] [facility] [id number] [place] [address] 16 May, 2014 [facility] [place] [facility] [address] [facility] [id number] [place] [address] May, [facility] [place] [facility] [address] [facility] [id number] [place] [address] May, [facility] [place] [facility] [address] [facility] [id number] [place] [address] May, [facility] [place] [facility] [address] [id number] [place] [address] May, [facility] [place] [facility] [address] [id number] [place] [address] Apr, [facility] [place] [facility] [address] [facility] [id number] [place] [address] Apr, [facility] [place] [facility] [address] [id number] [place] [address] Feb, [facility] [place] [facility] [address] [id number] [place] [address] Feb, [facility] [place] [facility] [address] [id number] [place] [address] Dec, [facility] [place] [facility] [address] [facility] [id number] [place] [address] Nov, [facility] [place] [facility] [address] [facility] [id number] [place] [address] Nov, [facility] [place] [facility] [address] [facility] [id number] [place] [address] Nov, [facility] [place] [facility] [address] [id number] [place] [address] Nov, [facility] [place] [facility] [address] [id number] [place] [address] Nov, [facility] [place] [facility] [address] [id number] [place] [address] Nov, [facility] [place] [facility] [address] [id number] [place] [address] September, [facility] [place] [facility] [address] [id number] [place] [address] September, [facility] [place] [facility] [address] [id number] [place] [address] September, [facility] [place] [facility] [address] [id number] [place] [address] Aug, [facility] [place] [facility] [address] [id number] [place] [address] Aug, [facility] [place] [facility] [address] [id number] [place] [address] Aug, [facility] [place] [facility] [address] [id number] [place] [address] Aug, [facility] [place] [facility] [address] [id number] [place] [address] Jul, [facility] [place] [facility] [address] [id number] [place] [address] Jul, [facility] [place] [facility] [address] [id number] [place] [address] Jul, [facility] [place] [facility] [address] [id number] [place] [address] May, [facility] [place] [facility] [address] [id number] [place] [address] May, [facility] [place] [facility] [address] [id number] [place] [address] May, [facility] [place] [facility] [address] [id number] [place] [address] May, [facility] [place] [facility] [address] [id number] [place] [address] Apr, [facility] [place] [facility] [address] [id number] [place] [address] Apr, [facility] [place] [facility] [address] [id number] [place] [address] Apr, [facility] [place] [facility] [address] [id number] [place] [address] Feb, [facility] [place] [facility] [address] [id number] [place] [address] Feb, [facility] [place] [facility] [address] [id number] [place] [address] Jan, [facility] [place] [facility] [address] [id number] [place] [address] 24 Jan, 2013 [facility] [place] [facility] [address] [id number] [place] [address] 18 Jan, 2013 [facility] [place] [facility] [address] [id number] [place] [address] 16 Jan, 2013 [facility] [place] [facility] [address] [id number] [place] [address] 12 Jan, 2013 [facility] [place] [facility] [address] [id number] [place] [address] 11 Jan, 2013 [facility] [place] [facility] [address] [id number] [place] [address] 05 Jan, 2013 [facility] [place] [facility] [address] [id number] [place] [address] Dec, [facility] [place] [facility] [address] [id number] [place] [address] 15 Dec, 2012 [facility] [place] [facility] [address] [id number] [place] [address] Dec, [facility] [place] [facility] [address] [id number] [place] [address] Dec, [facility] [place] [facility] [address] [id number] [place] [address] Oct, [facility] [place] [facility] [address] [id number] [place] [address] Nov, [facility] [address] [id number] [place] [address] Mar, [facility] [address] [id number] [place] [address] Feb, [facility] [address] [id number] [place] [address] Feb, [facility] [address] [id number] [place] [address] Jul, IMMUNIZATIONS No Known Immunizations SOCIAL HISTORY Never Assessed REASON FOR VISIT PLAN OF CARE VITAL SIGNS Height 65 in 2013-05-14 Weight 160.56 lbs 2013-05-14 Temperature 98.9 degrees Fahrenheit 2013-05-14 Heart Rate 78 bpm 2013-05-14 Respiratory Rate 16 2013-05-14 Blood pressure systolic 122 mmHg 2013-05-14 Blood pressure diastolic 70 mmHg 2013-05-14 MEDICATIONS No Known Medications RESULTS No Results PROCEDURES No Known procedures INSTRUCTIONS MEDICATIONS ADMINISTERED No Known Medications MEDICAL (GENERAL) HISTORY Type Description Date Medical History hearing loss Medical History Encopresis seen [facility] with Co lonosocopy 2014 and was told normal Medical History solitary pulmonary nodule LLL 4-15-15 [facility] able rec yearly recheck Medical History diverticulitis Medical History Encopresis Medical History Diverticulitis of colon (wit hout mention of hemorrhage) Colonoscopy [facility] 2013 Medical History Solitary pulmonary nodule Medical History Barrets Esophagus Dx EGD at [facility] [place] Surgical History tubal ligation Surgical History Colonoscopy [facility] 2015- Surgical History cataract surgery 2019 Surgical History EGD gastrointestinal Junctio n Consistent w Barrets Esophagus [place] -2018
--- OUTSIDE RECORDS SUMMARY | 2019-12-18 09:46 | XMS REPORT ---
Author Author Josie BARBER [facility] Address [address] [place] [address] Care Team Providers Care Dulser Name Role Phone DONNA BARBER Unavailable PROBLEMS Type Condition ICD9-CM Code [id number] Code Onset Dates Condition S tatus SNOMED Code Problem Porokeratosis Q82.8 Active 722337 004 Problem Neuropathy G62.9 Active 964186644 Problem Hammer toe, unspecified laterality M20.40 Active 735000088 Problem Hiatal hernia K44.9 Active 651166 09 Problem History of solitary pulmonary nodule Z87.898 Active 170915797 Problem Rhinosinusitis J32.9 Active 71308 4004 Problem Hematuria R31.9 Active 75677374 Problem Incontinence of feces, unspecified fecal incontinence type R15.9 Active 85014339 Problem Diarrhea, unspecified type R19.7 Act alexis 93504877 Problem Encopresis R15.9 Active 944559546 Problem Bilateral hearing loss, unspecified hearing loss type H91.93 Active 13614946 ALLERGIES No Information ENCOUNTERS Encounter Location Date Diagnosis [place] [id number] [place] [address] Jul, Black stools K92.1 and Cough R05 [place] [id number] [place] [address] May, [address] [address] Apr, Acute rhinosinusitis J01.[address] [address] Apr, [place] [address] [address] Apr, Rhinosinusitis J32.9 and Tremor R25.1 [place] [address] [address] Mar, Bilateral hearing loss, unspecified hear ing loss type H91.93 [place] [address] [address] Feb, Cat scratch W55.03XA ; Puncture wound T1 4.8XXA and Hematoma and contusion T14.8XXA [place] [address] [address] Feb, Well woman exam without gynecological ex am Z00.00 and Screening for breast cancer Z12.39 [place] [address] [address] 30 Jan, 2019 Dentalgia K08.89 [place] [address] [address] 05 Jan, 2019 Costochondritis M94.0 [place] [address] [address] Dec, Urinary tract infection N39.0 [place] [address] [address] Nov, Rash R21 [place] [address] [address] Nov, Hiatal hernia K44.9 and Urinary frequenc y R35.0 [place] [address] [address] Nov, Near syncope R55 [place] [address] [address] Nov, Near syncope R55 [place] [address] [address] Nov, [facility] [address] [facility] [id number] [address] [place] [address] Oct, Dysuria R30.0 and Urinary tr act infection without hematuria, site unspecified N39.0 [facility] [address] [facility] [id number] [address] [address] September, Acute cystitis with hematuri a N30.01 [place] [address] [address] Jun, Gastroenteritis K52.9 [place] [address] [address] May, Bilateral hearing loss, unspecified hear ing loss type H91.93 and Rib pain R07.81 [place] [address] [address] Apr, [place] [address] [address] Apr, Chest wall pain R07.89 and Abdominal trice n, unspecified abdominal location R10.9 [place] [address] [address] Feb, Annual physical exam Z00.00 and Diarrhea , unspecified type R19.7 [place] [address] [address] Dec, Encopresis R15.9 and Incontinence of fec es, unspecified fecal incontinence type R15.9 [facility] [address] [facility] [id number] [address] [address] Nov, Urinary tract infection, sit e not specified N39.0 and Hematuria, unspecified R31.9 [place] [address] [address] Oct, [place] [address] [address] Oct, Tick bite, initial encounter W57.XXXA an d Incontinence of feces, unspecified fecal incontinence type R15.9 [place] [address] [address] May, Neuropathy G62.9 ; Hammer toe, unspecifi ed laterality M20.40 and Onychomycosis B35.1 [place] [address] [address] Mar, Dysuria R30.0 [place] [address] [address] Mar, [place] [address] [address] Feb, [place] [address] [address] Dec, Family history of diabetes mellitus Z83. 3 ; Porokeratosis Q82.8 and Neuropathy G62.9 [place] [address] [address] Oct, Porokeratosis Q82.8 [place] [address] [address] September, [place] [address] [address] September, Porokeratosis Q82.8 [place] [address] [address] September, [place] [address] [address] Aug, Aphthous ulcer K12.0 ; Dental caries K02 .9 ; Viral gastroenteritis A08.4 and Abscessed tooth K04.7 [place] [address] [address] Jul, Porokeratosis Q82.8 ; Callus of foot L84 and Metatarsalgia of right foot M77.[address] [address] Jun, Porokeratosis Q82.8 and Foot pain, right M79.671 [place] [address] [address] Apr, [address] [place] [address] Apr, Pre-diabetes R73.03 and Plantar wart, ri ght foot B07.0 [place] [address] [address] Apr, [place] [address] [address] Apr, [place] [address] [address] Mar, [place] [address] [address] Mar, [place] [address] [address] Mar, Hematuria R31.9 and Pre-diabetes R73.03 [place] [address] [address] Feb, [place] [address] [address] Feb, [place] [address] [address] Feb, Abnormal fasting glucose R73.01 [place] [address] [address] Feb, Abnormal fasting glucose R73.01 [place] [address] [address] 13 Feb, 2016 Routine gynecological examination Z01.41 9 ; General medical exam Z00.00 ; Screening breast examination Z12.39 ; Hematuria R31.9 ; Vaginal discharge N89.8 ; Vaginal yeast infection B37.3 and Recurrent UTI N39.0 [place] [address] [address] Jan, Recurrent UTI N39.0 and History of solit chase pulmonary nodule Z87.898 [place] [address] [address] Jan, [place] [address] [address] 13 Jan, 2016 Recurrent UTI N39.0 ; Hematuria R31.9 an d History of solitary pulmonary nodule Z87.898 [place] [address] [address] 07 Jan, 2016 [facility] [address] [address] 06 Jan, 2016 Recurrent UTI N39.0 [facility] [address] [address] Dec, [place] [address] [address] Dec, [place] [address] [address] Dec, Acute cystitis with hematuria N30.01 [place] [address] [address] Dec, Acute cystitis with hematuria N30.01 [place] [address] [address] Dec, Acute cystitis with hematuria N30.01 and Insect bite (nonvenomous) of left upper arm, initial encounter S40.862A [place] [address] [address] Nov, Acute cystitis with hematuria N30.01 and Insect bite (nonvenomous) of left upper arm, initial encounter S40.862A [place] [address] [address] September, [place] [address] [address] September, [place] [address] [address] September, Acute cystitis with hematuria N30.01 and Family history of diabetes mellitus Z83.3 [place] [address] [address] September, Family history of diabetes mellitus Z83. 3 [facility] [address] [address] September, Acute cystitis with hematuria N30.01 [facility] [address] [address] September, [facility] [address] [address] September, Acute cystitis with hematuria N30.01 [facility] [address] [facility] [id number] [address] [place] [address] May, Back pain M54.9 and Urinary tract infection N39.0 [facility] [address] [address] Feb, [place] [address] [address] Feb, Bony prominence M89.8X9 [place] [address] [address] Nov, Unspecified urinary incontinence 788.30 ; 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 and Solitary pulmonary nodule 793.11 [place] [address] [address] Nov, [place] [address] [address] Oct, Unspecified urinary incontinence 788.30 ; 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 and Solitary pulmonary nodule 793.11 [place] [address] [address] Oct, [place] [address] [address] Oct, [facility] [address] [address] September, [place] [address] [address] Aug, [facility] [address] [id number] [place] [address] 13 Aug, 2014 [facility] [address] [id number] [place] [address] 16 May, 2014 [facility] [address] [id number] [place] [address] 16 May, 2014 [facility] [address] [id number] [place] [address] May, [facility] [address] [id number] [place] [address] May, [facility] [address] [id number] [place] [address] May, [facility] [address] [id number] [place] [address] May, [facility] [address] [id number] [place] [address] Apr, [facility] [address] [id number] [place] [address] Apr, [facility] [address] [id number] [place] [address] Feb, [facility] [address] [id number] [place] [address] Feb, [facility] [address] [id number] [place] [address] Dec, [facility] [address] [id number] [place] [address] Nov, [facility] [address] [id number] [place] [address] Nov, [facility] [address] [id number] [place] [address] Nov, [facility] [address] [id number] [place] [address] Nov, [facility] [address] [id number] [place] [address] Nov, [facility] [address] [id number] [place] [address] Nov, [facility] [address] [id number] [place] [address] September, [facility] [address] [id number] [place] [address] September, [facility] [address] [id number] [place] [address] September, [facility] [address] [id number] [place] [address] Aug, [facility] [address] [id number] [place] [address] Aug, [facility] [address] [id number] [place] [address] Aug, [facility] [address] [id number] [place] [address] Aug, [facility] [address] [id number] [place] [address] Jul, [facility] [address] [id number] [place] [address] Jul, [facility] [address] [id number] [place] [address] Jul, [facility] [address] [id number] [place] [address] May, [facility] [address] [id number] [place] [address] May, [facility] [address] [id number] [place] [address] May, [facility] [address] [id number] [place] [address] May, [facility] [address] [id number] [place] [address] Apr, [facility] [address] [id number] [place] [address] Apr, [facility] [address] [id number] [place] [address] Apr, [facility] [address] [id number] [place] [address] Feb, [facility] [address] [id number] [place] [address] 15 Feb, 2013 [facility] [address] [id number] [place] [address] 25 Jan, 2013 [facility] [address] [id number] [place] [address] 24 Jan, 2013 [facility] [address] [id number] [place] [address] 18 Jan, 2013 [facility] [address] [id number] [place] [address] 16 Jan, 2013 [facility] [address] [id number] [place] [address] 12 Jan, 2013 [facility] [address] [id number] [place] [address] 11 Jan, 2013 [facility] [address] [id number] [place] [address] 05 Jan, 2013 [facility] [address] [id number] [place] [address] Dec, [facility] [address] [id number] [place] [address] Dec, [facility] [address] [id number] [place] [address] Dec, [facility] [address] [id number] [place] [address] Dec, [facility] [address] [id number] [place] [address] Oct, [facility] [address] [id number] [place] [address] Nov, [facility] [address] [facility] [id number] [place] [address] Mar, [facility] [address] [id number] [place] [address] Feb, [facility] [address] [id number] [place] [address] Feb, [facility] [address] [id number] [place] [address] Jul, IMMUNIZATIONS No Known Immunizations SOCIAL HISTORY Never Assessed REASON FOR VISIT PLAN OF CARE VITAL SIGNS Height 65 in 2013-07-11 Weight 159.6 lbs 2013-07-11 Temperature 97.4 degrees Fahrenheit 2013-07-11 Heart Rate 64 bpm 2013-07-11 Respiratory Rate 14 2013-07-11 Blood pressure systolic 112 mmHg 2013-07-11 Blood pressure diastolic 78 mmHg 2013-07-11 MEDICATIONS No Known Medications RESULTS No Results PROCEDURES Procedure Date Ordered Result Body Site URINE CULTURE/COLONY COUNT July 11, 2013 URINALYSIS, AUTO, W/O SCOPE July 11, 2013 INSTRUCTIONS MEDICATIONS ADMINISTERED No Known Medications MEDICAL (GENERAL) HISTORY Type Description Date Medical History hearing loss Medical History Encopresis seen [facility] with Co lonosocopy 2014 and was told normal Medical History solitary pulmonary nodule LLL 4-15-[address] [facility] rec yearly recheck Medical History diverticulitis Medical History Encopresis Medical History Diverticulitis of colon (wit hout mention of hemorrhage) Colonoscopy [facility] 2013 Medical History Solitary pulmonary nodule Medical History Barrets Esophagus Dx E[place] [facility] [place] Surgical History tubal ligation Surgical History Colonoscopy [facility] 2015- Surgical History cataract surgery 2019 Surgical History EGD gastrointestinal Junctio n Consistent w [place] Esophagus [place]
--- OUTSIDE RECORDS SUMMARY | 2019-12-18 09:46 | XMS REPORT ---
Author Author Josie Álvarez Doctor Organization [facility] Address Unknown Phone Unavailable Care Team Providers Care Silver Brazer Name Role Phone Migration, Doctor Unavailable Unavailable PROBLEMS Type Condition ICD9-CM Code ADS87-OE Code Onset Dates Condition S tatus SNOMED Code Problem Porokeratosis Q82.8 Active 760970 004 Problem Neuropathy G62.9 Active 895885700 Problem Hammer toe, unspecified laterality M20.40 Active 839737806 Problem Hiatal hernia K44.9 Active 871938 09 Problem History of solitary pulmonary nodule Z87.898 Active 195868917 Problem Rhinosinusitis J32.9 Active 02073 4004 Problem Hematuria R31.9 Active 17429914 Problem Incontinence of feces, unspecified fecal incontinence type R15.9 Active 99754990 Problem Diarrhea, unspecified type R19.7 Act alexis 23721037 Problem Encopresis R15.9 Active 882009639 Problem Bilateral hearing loss, unspecified hearing loss type H91.93 Active 65731671 ALLERGIES No Information ENCOUNTERS Encounter Location Date Diagnosis [place] [address] [address] Jun, [place] [address] [address] May, [place] [address] [address] Apr, Acute rhinosinusitis J01.90 [place] [address] [address] Apr, [place] [address] [address] Apr, Rhinosinusitis J32.9 and Tremor R25.1 [place] [address] [address] Mar, Bilateral hearing loss, unspecified hear ing loss type H91.93 [place] [address] [address] Feb, Cat scratch W55.03XA ; Puncture wound T1 4.8XXA and Hematoma and contusion T14.8XXA [place] [address] [address] Feb, Well woman exam without gynecological ex am Z00.00 and Screening for breast cancer Z12.39 [place] [address] [address] 30 Jan, 2019 Dentalgia K08.89 [place] [address] [address] 05 Jan, 2019 Costochondritis M94.0 [place] [address] [address] Dec, Urinary tract infection N39.0 [place] [address] [address] Nov, Rash R21 [place] [address] [address] Nov, Hiatal hernia K44.9 and Urinary frequenc y R35.0 [place] [address] [address] Nov, Near syncope R55 [place] [address] [address] Nov, Near syncope R55 [place] [address] [address] Nov, [facility] [address] [place] [id number] [place] [address] Oct, Dysuria R30.0 and Urinary tr act infection without hematuria, site unspecified N39.0 [facility] [address] [place] [id number] [place] [address] September, Acute cystitis with hematuri a N30.01 [place] [address] [address] Jun, Gastroenteritis K52.9 [place] [address] [address] May, Bilateral hearing loss, unspecified hear ing loss type H91.93 and Rib pain R07.81 [place] [address] [address] Apr, [place] [address] [address] Apr, Chest wall pain R07.89 and Abdominal trice n, unspecified abdominal location R10.9 [place] [address] [address] Feb, Annual physical exam Z00.00 and Diarrhea , unspecified type R19.7 [place] [address] [address] Dec, Encopresis R15.9 and Incontinence of fec es, unspecified fecal incontinence type R15.9 [facility] [address] [facility] [id number] [address] [place] [address] Nov, Urinary tract infection, sit e not specified N39.0 and Hematuria, unspecified R31.9 [place] [address] [address] Oct, [place] [address] [address] Oct, Tick bite, initial encounter W57.XXXA an d Incontinence of feces, unspecified fecal incontinence type R15.9 [place] [address] [address] May, Neuropathy G62.9 ; Hammer toe, unspecifi ed laterality M20.40 and Onychomycosis B35.1 [place] [address] [address] Mar, Dysuria R30.0 [place] [address] [address] Mar, [place] [address] [address] Feb, [place] [address] [address] Dec, Family history of diabetes mellitus Z83. 3 ; Porokeratosis Q82.8 and Neuropathy G62.9 [place] [address] [address] Oct, Porokeratosis Q82.8 [place] [address] [address] September, [place] [address] [address] September, Porokeratosis Q82.8 [place] [address] [address] September, [place] [address] [address] Aug, Aphthous ulcer K12.0 ; Dental caries K02 .9 ; Viral gastroenteritis A08.4 and Abscessed tooth K04.[address] [address] Jul, Porokeratosis Q82.8 ; Callus of foot L84 and Metatarsalgia of right foot M77.41 [place] [address] [address] Jun, Porokeratosis Q82.8 and Foot pain, right M79.671 [place] [address] [address] Apr, [address] [address] Apr, Pre-diabetes R73.03 and Plantar wart, ri ght foot B07.0 [place] [address] [place] [id number] [place] [address] Apr, [place] [address] [address] Apr, [place] [address] [address] Mar, [place] [address] [address] Mar, [place] [address] [address] Mar, Hematuria R31.9 and Pre-diabetes R73.03 [place] [address] [address] Feb, [place] [address] [address] Feb, [place] [address] [address] Feb, Abnormal fasting glucose R73.01 [place] [address] [address] Feb, Abnormal fasting glucose R73.01 [place] [address] [address] Feb, Routine gynecological examination Z01.41 9 ; General medical exam Z00.00 ; Screening breast examination Z12.39 ; Hematuria R31.9 ; Vaginal discharge N89.8 ; Vaginal yeast infection B37.3 and Recurrent UTI N39.0 [place] [address] [address] Jan, Recurrent UTI N39.0 and History of solit chase pulmonary nodule Z87.898 [place] [address] [place] [id number] [place] [address] Jan, [place] [address] [address] Jan, Recurrent UTI N39.0 ; Hematuria R31.9 an d History of solitary pulmonary nodule Z87.898 [place] [address] [address] Jan, [place] [address] [address] Jan, Recurrent UTI N39.0 [place] [address] [address] Dec, [place] [address] [address] Dec, [place] [address] [address] Dec, Acute cystitis with hematuria N30.01 [place] [address] [address] Dec, Acute cystitis with hematuria N30.01 [place] [address] [address] Dec, Acute cystitis with hematuria N30.01 and Insect bite (nonvenomous) of left upper arm, initial encounter S40.862A [place] [address] [address] Nov, Acute cystitis with hematuria N30.01 and Insect bite (nonvenomous) of left upper arm, initial encounter S40.862A [place] [address] [address] September, [place] [address] [address] September, [place] [address] [address] September, Acute cystitis with hematuria N30.01 and Family history of diabetes mellitus Z83.3 [place] [address] [address] September, Family history of diabetes mellitus Z83. 3 [place] [address] [address] September, Acute cystitis with hematuria N30.01 [facility] [address] [address] September, [facility] [address] [address] September, Acute cystitis with hematuria N30.01 [facility] [address] [facility] [id number] [address] [place] [address] May, Back pain M54.9 and Urinary tract infection N39.0 [facility] [address] [address] Feb, [facility] [address] [address] Feb, Bony prominence M89.8X9 [facility] [address] [address] Nov, Unspecified urinary incontinence 788.30 ; 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 and Solitary pulmonary nodule 793.11 [facility] [address] [address] Nov, [facility] [address] [address] Oct, Unspecified urinary incontinence 788.30 ; 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 and Solitary pulmonary nodule 793.11 [facility] [address] [address] Oct, [facility] [address] [address] Oct, [facility] [address] [address] September, [facility] [address] [address] Aug, [facility] [address] [address] Aug, [facility] [address] [facility] [id number] [place] [address] May, [facility] [address] [facility] [id number] [place] [address] May, [facility] [address] [id number] [place] [address] May, [facility] [address] [id number] [place] [address] May, [facility] [address] [facility] [id number] [place] [address] May, [facility] [address] [id number] [place] [address] May, [facility] [address] [id number] [place] [address] Apr, [facility] [address] [id number] [place] [address] Apr, [facility] [address] [id number] [place] [address] Feb, [facility] [address] [id number] [place] [address] Feb, [facility] [address] [id number] [place] [address] Dec, [facility] [address] [id number] [place] [address] Nov, [facility] [address] [id number] [place] [address] Nov, [facility] [address] [facility] [id number] [place] [address] Nov, [facility] [address] [id number] [place] [address] Nov, [facility] [address] [id number] [place] [address] Nov, [facility] [address] [id number] [place] [address] Nov, [facility] [address] [id number] [place] [address] September, [facility] [address] [id number] [place] [address] September, [facility] [address] [id number] [place] [address] September, [facility] [address] [id number] [place] [address] Aug, [facility] [address] [id number] [place] [address] Aug, [facility] [address] [id number] [place] [address] Aug, [facility] [address] [id number] [place] [address] Aug, [facility] [address] [id number] [place] [address] Jul, [facility] [address] [id number] [place] [address] Jul, [facility] [address] [id number] [place] [address] Jul, [facility] [address] [id number] [place] [address] May, [facility] [address] [id number] [place] [address] May, [facility] [address] [id number] [place] [address] May, [facility] [address] [id number] [place] [address] May, [facility] [address] [id number] [place] [address] Apr, [facility] [address] [id number] [place] [address] Apr, [facility] [address] [id number] [place] [address] 04 Apr, 2013 [facility] [address] [id number] [place] [address] Feb, [facility] [address] [id number] [place] [address] Feb, [facility] [address] [id number] [place] [address] 25 Jan, 2013 [facility] [address] [id number] [place] [address] 24 Jan, 2013 [facility] [address] [id number] [place] [address] 18 Jan, 2013 [facility] [address] [id number] [place] [address] 16 Jan, 2013 [facility] [address] [id number] [place] [address] 12 Jan, 2013 [facility] [address] [id number] [place] [address] 11 Jan, 2013 [facility] [address] [id number] [place] [address] 05 Jan, 2013 [facility] [address] [id number] [place] [address] Dec, [facility] [address] [id number] [place] [address] Dec, [facility] [address] [id number] [place] [address] Dec, [facility] [address] [id number] [place] [address] Dec, [facility] [address] [id number] [place] [address] Oct, [facility] [address] [id number] [place] [address] Nov, [facility] [address] [id number] [place] [address] Mar, [facility] [address] [id number] [place] [address] Feb, [facility] [address] [id number] [place] [address] Feb, [facility] [address] [id number] [place] [address] Jul, IMMUNIZATIONS No Known Immunizations SOCIAL HISTORY [...] Barrets Esophagus 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
--- OUTSIDE RECORDS SUMMARY | 2019-12-18 09:46 | XMS REPORT ---
Author Author Josie Álvarez Doctor Organization [facility] Address Unknown Phone Unavailable Care Team Providers Care Juvenile Correctional Officer Name Role Phone Migration, Doctor Unavailable Unavailable PROBLEMS Type Condition ICD9-CM Code NZQ08-DX Code Onset Dates Condition S tatus SNOMED Code Problem Porokeratosis Q82.8 Active 709295 004 Problem Neuropathy G62.9 Active 232864114 Problem Hammer toe, unspecified laterality M20.40 Active 238837054 Problem Hiatal hernia K44.9 Active 599841 09 Problem History of solitary pulmonary nodule Z87.898 Active 802407636 Problem Rhinosinusitis J32.9 Active 56098 4004 Problem Hematuria R31.9 Active 00997639 Problem Incontinence of feces, unspecified fecal incontinence type R15.9 Active 28360973 Problem Diarrhea, unspecified type R19.7 Act alexis 12386604 Problem Encopresis R15.9 Active 823180687 Problem Bilateral hearing loss, unspecified hearing loss type H91.93 Active 18802496 ALLERGIES No Information ENCOUNTERS Encounter Location Date Diagnosis [place] [address] [address] Jun, [place] [address] [address] May, [place] [address] [address] Apr, Acute rhinosinusitis J01.90 [place] [address] [address] Apr, [place] [address] [address] Apr, Rhinosinusitis J32.9 and Tremor R25.1 [place] [address] [address] Mar, Bilateral hearing loss, unspecified hear ing loss type H91.93 [place] [address] [address] Feb, Cat scratch W55.03XA ; Puncture wound T1 4.8XXA and Hematoma and contusion T14.8XXA [place] [address] [address] Feb, Well woman exam without gynecological ex am Z00.00 and Screening for breast cancer Z12.39 [place] [address] [address] 30 Jan, 2019 Dentalgia K08.89 [place] [address] [address] 05 Jan, 2019 Costochondritis M94.0 [place] [address] [address] Dec, Urinary tract infection N39.0 [place] [address] [address] Nov, Rash R21 [place] [address] [address] Nov, Hiatal hernia K44.9 and Urinary frequenc y R35.0 [place] [address] [address] Nov, Near syncope R55 [place] [address] [address] Nov, Near syncope R55 [place] [address] [address] Nov, [facility] [address] [place] [id number] [place] [address] Oct, Dysuria R30.0 and Urinary tr act infection without hematuria, site unspecified N39.0 [facility] [address] [place] [id number] [place] [address] September, Acute cystitis with hematuri a N30.01 [place] [address] [address] Jun, Gastroenteritis K52.9 [place] [address] [address] May, Bilateral hearing loss, unspecified hear ing loss type H91.93 and Rib pain R07.81 [place] [address] [address] Apr, [place] [address] [address] Apr, Chest wall pain R07.89 and Abdominal trice n, unspecified abdominal location R10.9 [place] [address] [address] Feb, Annual physical exam Z00.00 and Diarrhea , unspecified type R19.7 [place] [address] [address] Dec, Encopresis R15.9 and Incontinence of fec es, unspecified fecal incontinence type R15.9 [facility] [address] [facility] [id number] [address] [place] [address] Nov, Urinary tract infection, sit e not specified N39.0 and Hematuria, unspecified R31.9 [place] [address] [address] Oct, [place] [address] [address] Oct, Tick bite, initial encounter W57.XXXA an d Incontinence of feces, unspecified fecal incontinence type R15.9 [place] [address] [address] May, Neuropathy G62.9 ; Hammer toe, unspecifi ed laterality M20.40 and Onychomycosis B35.1 [place] [address] [address] Mar, Dysuria R30.0 [place] [address] [address] Mar, [place] [address] [address] Feb, [place] [address] [address] Dec, Family history of diabetes mellitus Z83. 3 ; Porokeratosis Q82.8 and Neuropathy G62.9 [place] [address] [address] Oct, Porokeratosis Q82.8 [place] [address] [address] September, [place] [address] [address] September, Porokeratosis Q82.8 [place] [address] [address] September, [place] [address] [address] Aug, Aphthous ulcer K12.0 ; Dental caries K02 .9 ; Viral gastroenteritis A08.4 and Abscessed tooth K04.[address] [address] Jul, Porokeratosis Q82.8 ; Callus of foot L84 and Metatarsalgia of right foot M77.41 [place] [address] [address] Jun, Porokeratosis Q82.8 and Foot pain, right M79.671 [place] [address] [address] Apr, [address] [address] Apr, Pre-diabetes R73.03 and Plantar wart, ri ght foot B07.0 [place] [address] [place] [id number] [place] [address] Apr, [place] [address] [address] Apr, [place] [address] [address] Mar, [place] [address] [address] Mar, [place] [address] [address] Mar, Hematuria R31.9 and Pre-diabetes R73.03 [place] [address] [address] Feb, [place] [address] [address] Feb, [place] [address] [address] Feb, Abnormal fasting glucose R73.01 [place] [address] [address] Feb, Abnormal fasting glucose R73.01 [place] [address] [address] Feb, Routine gynecological examination Z01.41 9 ; General medical exam Z00.00 ; Screening breast examination Z12.39 ; Hematuria R31.9 ; Vaginal discharge N89.8 ; Vaginal yeast infection B37.3 and Recurrent UTI N39.0 [place] [address] [address] Jan, Recurrent UTI N39.0 and History of solit chase pulmonary nodule Z87.898 [place] [address] [place] [id number] [place] [address] Jan, [place] [address] [address] Jan, Recurrent UTI N39.0 ; Hematuria R31.9 an d History of solitary pulmonary nodule Z87.898 [place] [address] [address] Jan, [place] [address] [address] Jan, Recurrent UTI N39.0 [place] [address] [address] Dec, [place] [address] [address] Dec, [place] [address] [address] Dec, Acute cystitis with hematuria N30.01 [place] [address] [address] Dec, Acute cystitis with hematuria N30.01 [place] [address] [address] Dec, Acute cystitis with hematuria N30.01 and Insect bite (nonvenomous) of left upper arm, initial encounter S40.862A [place] [address] [address] Nov, Acute cystitis with hematuria N30.01 and Insect bite (nonvenomous) of left upper arm, initial encounter S40.862A [place] [address] [address] September, [place] [address] [address] September, [place] [address] [address] September, Acute cystitis with hematuria N30.01 and Family history of diabetes mellitus Z83.3 [place] [address] [address] September, Family history of diabetes mellitus Z83. 3 [place] [address] [address] September, Acute cystitis with hematuria N30.01 [facility] [address] [address] September, [facility] [address] [address] September, Acute cystitis with hematuria N30.01 [facility] [address] [facility] [id number] [address] [place] [address] May, Back pain M54.9 and Urinary tract infection N39.0 [facility] [address] [address] Feb, [facility] [address] [address] Feb, Bony prominence M89.8X9 [facility] [address] [address] Nov, Unspecified urinary incontinence 788.30 ; 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 and Solitary pulmonary nodule 793.11 [facility] [address] [address] Nov, [facility] [address] [address] Oct, Unspecified urinary incontinence 788.30 ; 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 and Solitary pulmonary nodule 793.11 [facility] [address] [address] Oct, [facility] [address] [address] Oct, [facility] [address] [address] September, [facility] [address] [address] Aug, [facility] [address] [address] Aug, [facility] [address] [facility] [id number] [place] [address] May, [facility] [address] [facility] [id number] [place] [address] May, [facility] [address] [id number] [place] [address] May, [facility] [address] [id number] [place] [address] May, [facility] [address] [facility] [id number] [place] [address] May, [facility] [address] [id number] [place] [address] May, [facility] [address] [id number] [place] [address] Apr, [facility] [address] [id number] [place] [address] Apr, [facility] [address] [id number] [place] [address] Feb, [facility] [address] [id number] [place] [address] Feb, [facility] [address] [id number] [place] [address] Dec, [facility] [address] [id number] [place] [address] Nov, [facility] [address] [id number] [place] [address] Nov, [facility] [address] [facility] [id number] [place] [address] Nov, [facility] [address] [id number] [place] [address] Nov, [facility] [address] [id number] [place] [address] Nov, [facility] [address] [id number] [place] [address] Nov, [facility] [address] [id number] [place] [address] September, [facility] [address] [id number] [place] [address] September, [facility] [address] [id number] [place] [address] September, [facility] [address] [id number] [place] [address] Aug, [facility] [address] [id number] [place] [address] Aug, [facility] [address] [id number] [place] [address] Aug, [facility] [address] [id number] [place] [address] Aug, [facility] [address] [id number] [place] [address] Jul, [facility] [address] [id number] [place] [address] Jul, [facility] [address] [id number] [place] [address] Jul, [facility] [address] [id number] [place] [address] May, [facility] [address] [id number] [place] [address] May, [facility] [address] [id number] [place] [address] May, [facility] [address] [id number] [place] [address] May, [facility] [address] [id number] [place] [address] Apr, [facility] [address] [id number] [place] [address] Apr, [facility] [address] [id number] [place] [address] 04 Apr, 2013 [facility] [address] [id number] [place] [address] Feb, [facility] [address] [id number] [place] [address] Feb, [facility] [address] [id number] [place] [address] 25 Jan, 2013 [facility] [address] [id number] [place] [address] 24 Jan, 2013 [facility] [address] [id number] [place] [address] 18 Jan, 2013 [facility] [address] [id number] [place] [address] 16 Jan, 2013 [facility] [address] [id number] [place] [address] 12 Jan, 2013 [facility] [address] [id number] [place] [address] 11 Jan, 2013 [facility] [address] [id number] [place] [address] 05 Jan, 2013 [facility] [address] [id number] [place] [address] Dec, [facility] [address] [id number] [place] [address] Dec, [facility] [address] [id number] [place] [address] Dec, [facility] [address] [id number] [place] [address] Dec, [facility] [address] [id number] [place] [address] Oct, [facility] [address] [id number] [place] [address] Nov, [facility] [address] [id number] [place] [address] Mar, [facility] [address] [id number] [place] [address] Feb, [facility] [address] [id number] [place] [address] Feb, [facility] [address] [id number] [place] [address] Jul, IMMUNIZATIONS No Known Immunizations SOCIAL HISTORY Never Assessed REASON FOR VISIT PLAN OF CARE VITAL SIGNS MEDICATIONS Unknown Medications RESULTS No Results PROCEDURES No Known procedures INSTRUCTIONS MEDICATIONS ADMINISTERED No Known Medications MEDICAL (GENERAL) HISTORY Type Description Date Medical History hearing loss Medical History Encopresis seen [facility] with Co lonosocopy 2014 and was told normal Medical History solitary pulmonary nodule LLL 08-21-[facility] yearly recheck Medical History diverticulitis Medical History Encopresis Medical History Diverticulitis of colon (wit hout mention of hemorrhage) Colonoscopy [facility] 2013 Medical History Solitary pulmonary nodule Medical History Barrets Esophagus Dx EGD at [place] Surgical History tubal ligation Surgical History Colonoscopy [facility] 2015- Surgical History cataract surgery 2019 Surgical History EGD gastrointestinal Junctio n Consistent w Barrets Esophagus [place] -2018
--- OUTSIDE RECORDS SUMMARY | 2019-12-18 09:47 | XMS REPORT ---
Author Author Josie Álvarez Doctor Organization [facility] Address Unknown Phone Unavailable Care Team Providers Care Senior Animator Name Role Phone Migration, Doctor Unavailable Unavailable PROBLEMS Type Condition ICD9-CM Code [id number] Code Onset Dates Condition S tatus SNOMED Code Problem History of solitary pulmonary nodule Z87.898 Active 594389961 Problem Porokeratosis Q82.8 Active 683370 004 Problem Neuropathy G62.9 Active 504181460 Problem Bilateral hearing loss, unspecified hearing loss type H91.93 Active 06499614 Problem Hematuria R31.9 Active 91930039 Problem Hiatal hernia K44.9 Active 637405 09 Problem Hammer toe, unspecified laterality M20.40 Active 794226633 Problem Incontinence of feces, unspecified fecal incontinence type R15.9 Active 78074001 Problem Diarrhea, unspecified type R19.7 Act alexis 95225441 Problem Encopresis R15.9 Active 109629077 ALLERGIES No Information ENCOUNTERS Encounter Location Date Diagnosis [place] [address] [address] Jan, Costochondritis M94.0 [place] [address] [place] [id number] [place] [address] Dec, Urinary tract infection N39. 0 [facility] [address] [place] [id number] [address] [place] [address] Nov, Rash R21 [facility] [address] [place] [id number] [address] [place] [address] Nov, Hiatal hernia K44.9 and Urin chase frequency R35.0 [facility] [address] [place] [id number] [place] [address] Nov, Near syncope R55 [facility] [address] [place] [id number] [address] [place] [address] Nov, Near syncope R55 [place] [address] [place] [id number] [place] [address] Nov, [facility] [place] [address] [place] [id number] [place] [address] Oct, Dysuria R30.0 and Urinary tr act infection without hematuria, site unspecified N39.0 [facility] [place] [address] [address] September, Acute cystitis with hematuri a N30.01 [place] [address] [address] Jun, Gastroenteritis K52.9 [place] [address] [address] May, Bilateral hearing loss, unsp ecified hearing loss type H91.93 and Rib pain R07.81 [place] [address] [address] Apr, [place] [address] [address] Apr, Chest wall pain R07.89 and A bdominal pain, unspecified abdominal location R10.9 [place] [address] [address] Feb, Annual physical exam Z00.00 and Diarrhea, unspecified type R19.7 [place] [address] [place] [id number] [place] [address] Dec, Encopresis R15.9 and Inconti nence of feces, unspecified fecal incontinence type R15.9 [facility] [place] [address] [place] [id number] [place] [address] Nov, Urinary tract infection, sit e not specified N39.0 and Hematuria, unspecified R31.9 [place] [address] [place] [id number] [place] [address] Oct, [place] [address] [place] [id number] [place] [address] Oct, Tick bite, initial encounter W57.XXXA and Incontinence of feces, unspecified fecal incontinence type R15.9 [place] [address] [place] [id number] [place] [address] May, Neuropathy G62.9 ; Hammer to e, unspecified laterality M20.40 and Onychomycosis B35.1 [place] [address] [address] Mar, Dysuria R30.0 [place] [address] [address] Mar, [place] [address] [address] Feb, [place] [address] [address] Dec, Family history of diabetes m ellitus Z83.3 ; Porokeratosis Q82.8 and Neuropathy G62.9 [place] [address] [address] Oct, Porokeratosis Q82.8 [place] [address] [address] September, [place] [address] [address] September, Porokeratosis Q82.8 [place] [address] [address] September, [place] [address] [address] Aug, Aphthous ulcer K12.0 ; Denta l caries K02.9 ; Viral gastroenteritis A08.4 and Abscessed tooth K04.7 [place] [address] [address] [facility] [id number] [address] [place] [address] Jul, Porokeratosis Q82.8 ; Callus of foot L84 and Metatarsalgia of right foot M77.41 [place] [address] [place] [id number] [place] [address] 10 Jun, 2016 Porokeratosis Q82.8 and Foot pain, right M79.671 [place] [address] [place] [id number] [place] [address] Apr, [place] [address] [place] [id number] [place] [address] Apr, Pre-diabetes R73.03 and Plan tar wart, right foot B07.0 [place] [address] [place] [id number] [place] [address] Apr, [place] [address] [place] [id number] [place] [address] Apr, [place] [address] [place] [id number] [place] [address] Mar, [place] [address] [address] Mar, [place] [address] [place] [id number] [place] [address] Mar, Hematuria R31.9 and Pre-diab etes R73.03 [place] [address] [place] [id number] [place] [address] Feb, [place] [address] [place] [id number] [place] [address] Feb, [place] [address] [place] [id number] [place] [address] Feb, Abnormal fasting glucose R73 .01 [place] [address] [place] [id number] [place] [address] Feb, Abnormal fasting glucose R73 .01 [facility] [address] [id number] [address] [place] [address] Feb, Routine gynecological examin ation Z01.419 ; General medical exam Z00.00 ; Screening breast examination Z12.39 ; Hematuria R31.9 ; Vaginal discharge N89.8 ; Vaginal yeast infection B37.3 and Recurrent UTI N39.0 [facility] [address] [id number] [address] [place] [address] 20 Jan, 2016 Recurrent UTI N39.0 and Hist ory of solitary pulmonary nodule Z87.898 [place] [address] [id number] [address] [place] [address] Jan, [place] [address] [id number] [address] [place] [address] 13 Jan, 2016 Recurrent UTI N39.0 ; Hematu vasu R31.9 and History of solitary pulmonary nodule Z87.898 [place] [address] [id number] [address] [place] [address] 07 Jan, 2016 [facility] [address] [id number] [address] [place] [address] Jan, Recurrent UTI N39.0 [facility] [address] [id number] [address] [place] [address] Dec, [place] [address] [id number] [address] [place] [address] Dec, [facility] [address] [id number] [address] [place] [address] Dec, Acute cystitis with hematuri a N30.01 [facility] [address] [id number] [address] [place] [address] Dec, Acute cystitis with hematuri a N30.01 [place] [address] [id number] [address] [place] [address] Dec, Acute cystitis with hematuri a N30.01 and Insect bite (nonvenomous) of left upper arm, initial encounter S40.862A [facility] [address] [id number] [address] [place] [address] Nov, Acute cystitis with hematuri a N30.01 and Insect bite (nonvenomous) of left upper arm, initial encounter S40.862A [facility] [address] [id number] [address] [place] [address] September, [facility] [address] [id number] [address] [place] [address] September, [facility] [address] [id number] [address] [place] [address] September, Acute cystitis with hematuri a N30.01 and Family history of diabetes mellitus Z83.3 [facility] [address] [facility] [id number] [address] [place] [address] September, Family history of diabetes m eugeneitus Z83.3 [facility] [address] [facility] [id number] [address] [place] [address] September, Acute cystitis with hematuri a N30.01 [facility] [address] [facility] [id number] [address] [place] [address] September, [facility] [address] [facility] [id number] [address] [place] [address] September, Acute cystitis with hematuri a N30.01 [facility] [address] [id number] [address] [place] [address] May, Back pain M54.9 and Urinary tract infection N39.0 [facility] [address] [facility] [id number] [address] [place] [address] Feb, [facility] [address] [facility] [id number] [address] [place] [address] Feb, Bony prominence M89.8X9 [facility] [address] [facility] [id number] [address] [place] [address] Nov, Unspecified urinary incontin ence 788.30 ; 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 and Solitary pulmonary nodule 793.11 [facility] [address] [id number] [address] [place] [address] Nov, [facility] [address] [id number] [address] [place] [address] Oct, Unspecified urinary incontin ence 788.30 ; 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 and Solitary pulmonary nodule 793.11 [facility] [address] [id number] [address] [place] [address] Oct, [facility] [address] [id number] [address] [place] [address] Oct, [facility] [address] [id number] [address] [place] [address] September, [facility] [address] [id number] [address] [place] [address] Aug, [facility] [address] [id number] [address] [place] [address] Aug, [facility] [address] [id number] [address] [place] [address] May, [facility] [address] [id number] [address] [place] [address] May, [facility] [address] [id number] [address] [place] [address] May, [facility] [address] [id number] [address] [place] [address] May, [facility] [address] [id number] [address] [place] [address] May, [facility] [address] [id number] [address] [place] [address] May, [facility] [address] [id number] [address] [place] [address] Apr, [facility] [address] [id number] [address] [place] [address], [place] [address] Apr, [facility] [address] [id number] [address] [place] [address], [place] [address] Feb, [facility] [address] [id number] [address] [place] [address], [place] [address] Feb, [facility] [address] [id number] [address] [place] [address], [place] [address] Dec, [facility] [address] [id number] [address] [place] [address], [place] [address] Nov, [facility] [address] [id number] [address] [place] [address], [place] [address] Nov, [facility] [address] [id number] [address] [place] [address], [place] [address] Nov, [facility] [address] [id number] [address] [place] [address], [place] [address] Nov, [facility] [address] [id number] [address] [place] [address], [place] [address] Nov, [facility] [address] [id number] [address] [place] [address], [place] [address] Nov, [facility] [address] [id number] [address] [place] [address], [place] [address] September, [facility] [address] [id number] [address] [place] [address], [place] [address] September, [facility] [address] [id number] [address] [place] [address], [place] [address] September, [facility] [address] [id number] [address] [place] [address], [place] [address] Aug, [facility] [address] [id number] [address] [place] [address], [place] [address] Aug, [facility] [address] [id number] [address] [place] [address], [place] [address] 08 Aug, 2013 [facility] [address] [id number] [address] [place] [address], [place] [address] Aug, [facility] [address] [id number] [address] [place] [address], [place] [address] Jul, [facility] [address] [id number] [address] [place] [address], [place] [address] Jul, [facility] [address] [id number] [address] [place] [address], [place] [address] Jul, [facility] [address] [id number] [address] [place] [address], [place] [address] May, [facility] [address] [id number] [address] [place] [address], [place] [address] May, [facility] [address] [id number] [address] [place] [address], [place] [address] May, [facility] [address] [id number] [address] [place] [address], [place] [address] May, [facility] [address] [id number] [address] [place] [address], [place] [address] Apr, [facility] [address] [id number] [address] [place] [address], [place] [address] Apr, [facility] [address] [id number] [address] [place] [address], [place] [address] Apr, [facility] [address] [id number] [address] [place] [address], [place] [address] Feb, [facility] [address] [id number] [address] [place] [address], [place] [address] Feb, [facility] [address] [id number] [address] [place] [address], [place] [address] Jan, [facility] [address] [id number] [address] [place] [address], [place] [address] 24 Jan, 2013 [facility] [address] [id number] [address] [place] [address] 18 Jan, 2013 [facility] [address] [id number] [address] [place] [address] 16 Jan, 2013 [facility] [address] [id number] [address] [place] [address] 12 Jan, 2013 [facility] [address] [id number] [address] [place] [address] 11 Jan, 2013 [facility] [address] [id number] [address] [place] [address] 05 Jan, 2013 [facility] [address] [id number] [address] [place] [address] Dec, [facility] [address] [id number] [address] [place] [address] Dec, [facility] [address] [id number] [address] [place] [address] Dec, [facility] [address] [id number] [address] [place] [address] Dec, [facility] [address] [id number] [address] [place] [address] Oct, [facility] [address] [id number] [address] [place] [address] Nov, [facility] [address] [id number] [address] [place] [address] Mar, [facility] [address] [id number] [address] [place] [address] Feb, [facility] [address] [id number] [address] [place] [address] Feb, [facility] [address] [id number] [address] [place] [address] Jul, IMMUNIZATIONS No Known Immunizations SOCIAL HISTORY Never Assessed REASON FOR VISIT PLAN OF CARE VITAL SIGNS MEDICATIONS Unknown Medications RESULTS No Results PROCEDURES Procedure Date Ordered Result Body Site CT THORAX W/DYE Feb 26, 2014 INSTRUCTIONS MEDICATIONS ADMINISTERED No Known Medications MEDICAL (GENERAL) HISTORY Type Description Date Medical History hearing loss Medical History Encopresis seen [facility] with Co lonosocopy 2014 and was told normal Medical History solitary pulmonary nodule LLL 08-21-14 [facility] yearly recheck Medical History diverticulitis Medical History Encopresis Medical History Diverticulitis of colon (wit hout mention of hemorrhage) Colonoscopy [facility] 2013 Medical History Solitary pulmonary nodule Medical History Barrets Esophagus Dx EGD at gastoesophagel junction [place] Surgical History tubal ligation Surgical History Colonoscopy [facility] 2015- Surgical History cataract surgery 2019 Surgical History EGD gastrointestinal Junctio n Consistent w [place] Esophagus [place]
--- OUTSIDE RECORDS SUMMARY | 2019-12-18 09:47 | XMS REPORT ---
Author Author Josie Álvarez Doctor Organization [facility] Address Unknown Phone Unavailable Care Team Providers Care Radio Television Announcer Name Role Phone Migration, Doctor Unavailable Unavailable PROBLEMS Type Condition ICD9-CM Code QPF93-QG Code Onset Dates Condition S tatus SNOMED Code Problem History of solitary pulmonary nodule Z87.898 Active 949684345 Problem Porokeratosis Q82.8 Active 318325 004 Problem Neuropathy G62.9 Active 053524193 Problem Bilateral hearing loss, unspecified hearing loss type H91.93 Active 61397414 Problem Hematuria R31.9 Active 24714646 Problem Hiatal hernia K44.9 Active 147464 09 Problem Hammer toe, unspecified laterality M20.40 Active 132903969 Problem Incontinence of feces, unspecified fecal incontinence type R15.9 Active 55134545 Problem Diarrhea, unspecified type R19.7 Act alexis 71931125 Problem Encopresis R15.9 Active 875982534 ALLERGIES No Information ENCOUNTERS Encounter Location Date Diagnosis [place] [address] [address] Dec, Urinary tract infection N39. 0 [place] [address] [address] [place] [id number] [place] [phone] Nov, Rash R21 [place] [address] [address] [place] [id number] [place] [phone] Nov, Hiatal hernia K44.9 and Urin chase frequency R35.0 [place] [address] [address] [place] [id number] [place] [phone] Nov, Near syncope R55 [place] [address] [address] [place] [id number] [place] [phone] Nov, Near syncope R55 [place] [address] [address] Nov, [facility] [address] [place] [id number] [address] [place] [phone] Oct, Dysuria R30.0 and Urinary tr act infection without hematuria, site unspecified N39.0 [facility] [address] [facility] [id number] [address] [place] [phone] September, Acute cystitis with hematuri a N30.01 [place] [address] [address] [place] [id number] [place] [phone] Jun, Gastroenteritis K52.9 [place] [address] [address] May, Bilateral hearing loss, unsp ecified hearing loss type H91.93 and Rib pain R07.81 [place] [address] [address] Apr, [place] [address] [address] Apr, Chest wall pain R07.89 and A bdominal pain, unspecified abdominal location R10.9 [place] [address] [address] Feb, Annual physical exam Z00.00 and Diarrhea, unspecified type R19.7 [place] [address] [address] [place] [id number] [place] [id number] Dec, Encopresis R15.9 and Inconti nence of feces, unspecified fecal incontinence type R15.9 [facility] [place] [id number] [address] [place] [phone] Nov, Urinary tract infection, sit e not specified N39.0 and Hematuria, unspecified R31.9 [place] [address] [address] [place] [id number] [address] [place] [phone] Oct, [place] [address] [address] Oct, Tick bite, initial encounter W57.XXXA and Incontinence of feces, unspecified fecal incontinence type R15.9 [place] [address] [address] May, Neuropathy G62.9 ; Hammer to e, unspecified laterality M20.40 and Onychomycosis B35.1 [place] [address] [address] Mar, Dysuria R30.0 [place] [address] [address] Mar, [place] [address] [address] Feb, [place] [address] [address] Dec, Family history of diabetes gonzalez sierra Z83.3 ; Porokeratosis Q82.8 and Neuropathy G62.9 [place] [address] [address] Oct, Porokeratosis Q82.8 [place] [address] [address] September, [place] [address] [address] September, Porokeratosis Q82.8 [place] [address] [address] September, [place] [address] [place] [id number] [place] [phone] Aug, Aphthous ulcer K12.0 ; Denta l caries K02.9 ; Viral gastroenteritis A08.4 and Abscessed tooth K04.7 [place] [address] [address] [place] [id number] [address] [place] [phone] Jul, Porokeratosis Q82.8 ; Callus of foot L84 and Metatarsalgia of right foot M77.41 [facility] [address] [facility] [id number] [address] [place] [phone] 10 Jun, 2016 Porokeratosis Q82.8 and Foot pain, right M79.671 [facility] [address] [facility] [id number] [address] [place] [phone] Apr, [facility] [address] [facility] [id number] [address] [place] [phone] Apr, Pre-diabetes R73.03 and Plan tar wart, right foot B07.0 [place] [address] [address] [place] [id number] [address] [place] [phone] Apr, [facility] [address] [facility] [id number] [address] [place] [phone] Apr, [facility] [address] [place] [id number] [address] [place] [phone] Mar, [place] [address] [facility] [id number] [address] [place] [phone] Mar, [place] [address] [place] [id number] [address] [place] [phone] Mar, Hematuria R31.9 and Pre-diab etes R73.03 [place] [address] [facility] [id number] [address] [place] [phone] Feb, [place] [address] [facility] [id number] [address] [place] [phone] Feb, [facility] [address] [facility] [id number] [address] [place] [address] Feb, Abnormal fasting glucose R73 .01 [place] [address] [address] [facility] [id number] [address] [place] [phone] Feb, Abnormal fasting glucose R73 .01 [place] [address] [address] [facility] [id number] [address] [place] [phone] Feb, Routine gynecological examin ation Z01.419 ; General medical exam Z00.00 ; Screening breast examination Z12.39 ; Hematuria R31.9 ; Vaginal discharge N89.8 ; Vaginal yeast infection B37.3 and Recurrent UTI N39.0 [facility] [address] [id number] [address] [place] [phone] 20 Jan, 2016 Recurrent UTI N39.0 and Hist ory of solitary pulmonary nodule Z87.898 [place] [address] [id number] [address] [place] [phone] Jan, [place] [address] [id number] [address] [place] [phone] 13 Jan, 2016 Recurrent UTI N39.0 ; Hematu vasu R31.9 and History of solitary pulmonary nodule Z87.898 [place] [address] [id number] [address] [place] [phone] 07 Jan, 2016 [place] [address] [id number] [address] [place] [phone] Jan, Recurrent UTI N39.0 [place] [address] [id number] [address] [place] [phone] Dec, [place] [address] [id number] [address] [place] [phone] Dec, [place] [address] [id number] [address] [place] [address] Dec, Acute cystitis with hematuri a N30.01 [place] [address] [id number] [address] [place] [phone] Dec, Acute cystitis with hematuri a N30.01 [place] [address] [id number] [address] [place] [phone] Dec, Acute cystitis with hematuri a N30.01 and Insect bite (nonvenomous) of left upper arm, initial encounter S40.862A [place] [address] [id number] [address] [place] [phone] Nov, Acute cystitis with hematuri a N30.01 and Insect bite (nonvenomous) of left upper arm, initial encounter S40.862A [facility] [address] [facility] [id number] [address] [place] [phone] September, [facility] [address] [facility] [id number] [address] [place] [phone] September, [facility] [address] [facility] [id number] [address] [place] [phone] September, Acute cystitis with hematuri a N30.01 and Family history of diabetes mellitus Z83.3 [place] [address] [facility] [id number] [address] [place] [phone] September, Family history of diabetes gonzalez sierra Z83.3 [place] [address] [facility] [id number] [address] [place] [phone] September, Acute cystitis with hematuri a N30.01 [facility] [address] [facility] [id number] [address] [place] [phone] September, [place] [address] [facility] [id number] [address] [place] [phone] September, Acute cystitis with hematuri a N30.01 [facility] [address] [facility] [id number] [address] [place] [phone] May, Back pain M54.9 and Urinary tract infection N39.0 [facility] [address] [facility] [id number] [address] [place] [phone] Feb, [place] [address] [facility] [id number] [address] [place] [address] Feb, Bony prominence M89.8X9 [place] [address] [facility] [id number] [address] [place] [phone] Nov, Unspecified urinary incontin ence 788.30 ; 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 and Solitary pulmonary nodule 793.11 [facility] [address] [id number] [address] [place] [phone] Nov, [facility] [address] [id number] [address] [place] [phone] Oct, Unspecified urinary incontin ence 788.30 ; 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 and Solitary pulmonary nodule 793.11 [facility] [address] [id number] [address] [place] [phone] Oct, [facility] [address] [id number] [address] [place] [phone] Oct, [facility] [address] [id number] [address] [place] [phone] September, [facility] [address] [id number] [address] [place] [phone] Aug, [facility] [address] [id number] [address] [place] [phone] Aug, [facility] [address] [id number] [address] [place] [phone] May, [facility] [address] [id number] [address] [place] [phone] May, [facility] [address] [id number] [address] [place] [phone] May, [facility] [address] [id number] [address] [place] [phone] May, [facility] [address] [id number] [address] [place] [phone] May, [facility] [address] [id number] [address] [place] [phone] May, [facility] [address] [id number] [address] [place] [phone] Apr, [facility] [address] [id number] [address] [place] [phone] Apr, [facility] [address] [id number] [address] [place] [address], [place] [address] Feb, [facility] [address] [id number] [address] [place] [address], [place] [address] Feb, [facility] [address] [id number] [address] [place] [address], [place] [address] Dec, [facility] [address] [id number] [address] [place] [address], [place] [address] Nov, [facility] [address] [id number] [address] [place] [address], [place] [address] Nov, [facility] [address] [id number] [address] [place] [address], [place] [address] Nov, [facility] [address] [id number] [address] [place] [address], [place] [address] Nov, [facility] [address] [id number] [address] [place] [address], [place] [address] Nov, [facility] [address] [id number] [address] [place] [address], [place] [address] Nov, [facility] [address] [id number] [address] [place] [address], [place] [address] September, [facility] [address] [id number] [address] [place] [address], [place] [address] September, [facility] [address] [id number] [address] [place] [address], [place] [address] September, [facility] [address] [id number] [address] [place] [address], [place] [address] Aug, [facility] [address] [id number] [address] [place] [address], [place] [address] Aug, [facility] [address] [id number] [address] [place] [address], [place] [address] Aug, [facility] [address] [id number] [address] [place] [phone] 08 Aug, 2013 [facility] [address] [id number] [address] [place] [address], [place] [address] Jul, [facility] [address] [id number] [address] [place] [phone] Jul, [facility] [address] [id number] [address] [place] [address], [place] [address] Jul, [facility] [address] [id number] [address] [place] [address], [place] [address] May, [facility] [address] [id number] [address] [place] [address], [place] [address] May, [facility] [address] [id number] [address] [place] [address], [place] [address] May, [facility] [address] [id number] [address] [place] [phone] May, [facility] [address] [id number] [address] [place] [address], [place] [address] Apr, [facility] [address] [id number] [address] [place] [phone] Apr, [facility] [address] [id number] [address] [place] [phone] Apr, [facility] [address] [id number] [address] [place] [phone] Feb, [facility] [address] [id number] [address] [place] [phone] Feb, [facility] [address] [id number] [address] [place] [phone] 25 Jan, 2013 [facility] [address] [id number] [address] [place] [address], [place] [address] 24 Jan, 2013 [facility] [address] [id number] [address] [place] [phone] 18 Jan, 2013 [facility] [address] [id number] [address] [place] [phone] 16 Jan, 2013 [facility] [address] [id number] [address] [place] [phone] 12 Jan, 2013 [facility] [address] [id number] [address] [place] [phone] 11 Jan, 2013 [facility] [address] [id number] [address] [place] [phone] 05 Jan, 2013 [facility] [address] [id number] [address] [place] [phone] Dec, [facility] [address] [id number] [address] [place] [id number] Dec, [facility] [address] [id number] [address] [place] [phone] Dec, [facility] [address] [id number] [address] [place] [phone] Dec, [facility] [address] [id number] [address] [place] [id number] Oct, [facility] [address] [id number] [address] [place] [phone] Nov, [facility] [address] [id number] [address] [place] [phone] Mar, [facility] [address] [id number] [address] [place] [phone] Feb, [facility] [address] [id number] [address] [place] [phone] Feb, [facility] [address] [id number] [address] [place] [phone] Jul, IMMUNIZATIONS No Known Immunizations SOCIAL HISTORY Never Assessed REASON FOR VISIT PLAN OF CARE VITAL SIGNS Height 65 in 2014-04-12 Weight 150.38 lbs 2014-04-12 Temperature 97.7 degrees Fahrenheit 2014-04-12 Heart Rate 78 bpm 2014-04-12 Respiratory Rate 18 2014-04-12 Blood pressure systolic 112 mmHg 2014-04-12 Blood pressure diastolic 68 mmHg 2014-04-12 MEDICATIONS Unknown Medications RESULTS No Results PROCEDURES No Known procedures INSTRUCTIONS MEDICATIONS ADMINISTERED No Known Medications MEDICAL (GENERAL) HISTORY Type Description Date Medical History hearing loss Medical History Encopresis seen [facility] with Co lonosocopy 2014 and was told normal Medical History solitary pulmonary nodule LLL 08-21-14 [facility] yearly recheck Medical History diverticulitis Medical History Encopresis Medical History Diverticulitis of colon (wit hout mention of hemorrhage) Colonoscopy [facility] 2013 Medical History Solitary pulmonary nodule Medical History Barrets Esophagus Dx EGD [place] [facility] [place] Surgical History tubal ligation Surgical History Colonoscopy [facility] 2015- Surgical History cataract surgery 2018 Surgical History EGD gastrointestinal Junctio n Consistent w Barrets Esophagus [place]
--- OUTSIDE RECORDS SUMMARY | 2019-12-18 09:47 | XMS REPORT ---
Author Author Josie Álvarez Doctor Organization [facility] Address Unknown Phone Unavailable Care Team Providers Care Vacuum Cleaner Operator Name Role Phone Migration, Doctor Unavailable Unavailable PROBLEMS Type Condition ICD9-CM Code TQY02-TM Code Onset Dates Condition S tatus SNOMED Code Problem Hematuria R31.9 Active 82157260 Problem History of solitary pulmonary nodule Z87.898 Active 731111591 Problem Porokeratosis Q82.8 Active 521056 004 Problem Encopresis R15.9 Active 703383792 Problem Bilateral hearing loss, unspecified hearing loss type H91.93 Active 52791820 Problem Neuropathy G62.9 Active 635205809 Problem Hammer toe, unspecified laterality M20.40 Active 070659415 Problem Incontinence of feces, unspecified fecal incontinence type R15.9 Active 87013673 Problem Diarrhea, unspecified type R19.7 Act alexis [id number] ALLERGIES No Information ENCOUNTERS Encounter Location Date Diagnosis [facility] [id number] [place] [address] Nov, [facility] [address] [place] [id number] [address] [place] [phone] Nov, Near syncope R55 [facility] [address] [place] [id number] [address] [place] [address] Nov, Near syncope R55 [facility] [address] [id number] [address] [place] [phone] Nov, [facility] [address] [id number] [address] [place] [address] Oct, Dysuria R30.0 and Urinary tr act infection without hematuria, site unspecified N39.0 [facility] [address] [id number] [address] [place] [address] September, Acute cystitis with hematuri a N30.01 [place] [address] [place] [address] Jun, Gastroenteritis K52.9 [place] [address] [place] [id number] [place] [address] May, Bilateral hearing loss, unsp ecified hearing loss type H91.93 and Rib pain R07.81 [place] [address] [address] Apr, [place] [address] [address] Apr, Chest wall pain R07.89 and A bdominal pain, unspecified abdominal location R10.9 [place] [address] [address] Feb, Annual physical exam Z00.00 and Diarrhea, unspecified type R19.7 [place] [address] [place] [id number] [place] [address] Dec, Encopresis R15.9 and Inconti nence of feces, unspecified fecal incontinence type R15.9 [facility] [id number] [place] [address] Nov, Urinary tract infection, sit e not specified N39.0 and Hematuria, unspecified R31.9 [place] [address] [place] [id number] [place] [address] Oct, [place] [address] [place] [place] [id number] [place] [address] Oct, Tick bite, initial encounter W57.XXXA and Incontinence of feces, unspecified fecal incontinence type R15.9 [place] [address] [place] [id number] [place] [address] May, Neuropathy G62.9 ; Hammer to e, unspecified laterality M20.40 and Onychomycosis B35.1 [place] [address] [address] Mar, Dysuria R30.0 [place] [address] [address] Mar, [place] [address] [address] Feb, [place] [address] [address] Dec, Family history of diabetes gonzalez sierra Z83.3 ; Porokeratosis Q82.8 and Neuropathy G62.9 [place] [address] [address] Oct, Porokeratosis Q82.8 [place] [address] [address] September, [place] [address] [address] September, Porokeratosis Q82.8 [place] [address] [address] September, [place] [address] [address] Aug, Aphthous ulcer K12.0 ; Denta l caries K02.9 ; Viral gastroenteritis A08.4 and Abscessed tooth K04.7 [place] [address] [address] Jul, Porokeratosis Q82.8 ; Callus of foot L84 and Metatarsalgia of right foot M77.41 [place] [address] [address] 10 Jun, 2016 Porokeratosis Q82.8 and Foot pain, right M79.671 [place] [address] [address] Apr, [place] [address] [id number] [address] [place] [address] Apr, Pre-diabetes R73.03 and Plan tar wart, right foot B07.0 [facility] [address] [id number] [address] [place] [address] Apr, [facility] [address] [id number] [address] [place] [address] Apr, [facility] [address] [id number] [address] [place] [address] Mar, [facility] [address] [id number] [address] [place] [address] Mar, [facility] [address] [facility] [id number] [address] [place] [address] Mar, Hematuria R31.9 and Pre-diab etes R73.03 [place] [address] [facility] [id number] [address] [place] [address] Feb, [facility] [address] [facility] [id number] [address] [place] [address] Feb, [place] [address] [facility] [id number] [address] [place] [address] Feb, Abnormal fasting glucose R73 .01 [place] [address] [facility] [id number] [address] [place] [address] Feb, Abnormal fasting glucose R73 .01 [place] [address] [facility] [id number] [address] [place] [address] 13 Feb, 2016 Routine gynecological examin ation Z01.419 ; General medical exam Z00.00 ; Screening breast examination Z12.39 ; Hematuria R31.9 ; Vaginal discharge N89.8 ; Vaginal yeast infection B37.3 and Recurrent UTI N39.0 [facility] [address] [id number] [address] [place] [address] Jan, Recurrent UTI N39.0 and Hist ory of solitary pulmonary nodule Z87.898 [facility] [address] [id number] [address] [place] [address] 19 Jan, 2016 [facility] [address] [id number] [address] [place] [address] 13 Jan, 2016 Recurrent UTI N39.0 ; Hematu vasu R31.9 and History of solitary pulmonary nodule Z87.898 [facility] [address] [id number] [address] [place] [address] 07 Jan, 2016 [facility] [address] [id number] [address] [place] [address] 06 Jan, 2016 Recurrent UTI N39.0 [facility] [address] [id number] [address] [place] [address] Dec, [facility] [address] [id number] [address] [place] [address] Dec, [facility] [address] [id number] [address] [place] [address] Dec, Acute cystitis with hematuri a N30.01 [place] [address] [id number] [address] [place] [address] Dec, Acute cystitis with hematuri a N30.01 [facility] [address] [facility] [id number] [address] [place] [address] Dec, Acute cystitis with hematuri a N30.01 and Insect bite (nonvenomous) of left upper arm, initial encounter S40.862A [facility] [address] [id number] [address] [place] [address] Nov, Acute cystitis with hematuri a N30.01 and Insect bite (nonvenomous) of left upper arm, initial encounter S40.862A [facility] [address] [id number] [address] [place] [address] September, [facility] [address] [facility] [id number] [address] [place] [address] September, [facility] [address] [facility] [id number] [address] [place] [address] September, Acute cystitis with hematuri a N30.01 and Family history of diabetes mellitus Z83.3 [place] [address] [place] [id number] [address] [place] [address] September, Family history of diabetes m ellitus Z83.3 [place] [address] [place] [id number] [address] [place] [address] September, Acute cystitis with hematuri a N30.01 [place] [address] [place] [id number] [address] [place] [address] September, [place] [address] [address] September, Acute cystitis with hematuri a N30.01 [facility] [address] [place] [id number] [address] [place] [address] May, Back pain M54.9 and Urinary tract infection N39.0 [place] [address] [place] [id number] [place] [address] Feb, [place] [address] [address] Feb, Bony prominence M89.8X9 [place] [address] [place] [id number] [place] [address] Nov, Unspecified urinary incontin ence 788.30 ; 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 and Solitary pulmonary nodule 793.11 [place] [address] [place] [id number] [address] [place] [address] Nov, [place] [address] [place] [id number] [address] [place] [address] Oct, Unspecified urinary incontin ence 788.30 ; 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 and Solitary pulmonary nodule 793.11 [place] [address] [place] [id number] [address] [place] [address] Oct, [facility] [address] [id number] [address] [place] [address], [place] [address] Oct, [facility] [address] [id number] [address] [place] [address], [place] [address] September, [facility] [address] [id number] [address] [place] [address], [place] [address] Aug, [facility] [address] [id number] [address] [place] [address], [place] [address] Aug, [facility] [address] [id number] [address] [place] [address], [place] [address] May, [facility] [address] [id number] [address] [place] [address], [place] [address] May, [facility] [address] [id number] [address] [place] [address], [place] [address] May, [facility] [address] [id number] [address] [place] [address], [place] [address] May, [facility] [address] [id number] [address] [place] [address], [place] [address] May, [facility] [address] [id number] [address] [place] [address], [place] [address] May, [facility] [address] [id number] [address] [place] [address], [place] [address] Apr, [facility] [address] [id number] [address] [place] [address] Apr, [facility] [address] [id number] [address] [place] [address], [place] [address] Feb, [facility] [address] [id number] [address] [place] [address], [place] [address] Feb, [facility] [address] [id number] [address] [place] [address], [place] [address] Dec, [facility] [address] [id number] [facility] [place] [address] Nov, [facility] [address] [id number] [facility] [place] [address] Nov, [facility] [address] [id number] [facility] [place] [address] Nov, [facility] [address] [id number] [address] [place] [address], [place] [address] Nov, [facility] [address] [id number] [address] [place] [address], [place] [address] Nov, [facility] [address] [id number] [address] [place] [address], [place] [address] Nov, [facility] [address] [id number] [address] [place] [address], [place] [address] September, [facility] [address] [id number] [address] [place] [address], [place] [address] September, [facility] [address] [id number] [address] [place] [address], [place] [address] September, [facility] [address] [id number] [address] [place] [address], [place] [address] Aug, [facility] [address] [id number] [address] [place] [address], [place] [address] Aug, [facility] [address] [id number] [address] [place] [address], [place] [address] Aug, [facility] [address] [id number] [address] [place] [address], [place] [address] Aug, [facility] [address] [id number] [address] [place] [address], [place] [address] Jul, [facility] [address] [id number] [address] [place] [address], [place] [address] Jul, [facility] [address] [id number] [address] [place] [address] [address] Jul, [facility] [address] [id number] [address] [place] [address], [place] [address] May, [facility] [address] [id number] [address] [place] [address], [place] [address] May, [facility] [address] [id number] [address] [place] [address], [place] [address] May, [facility] [address] [id number] [address] [place] [address], [place] [address] May, [facility] [address] [id number] [address] [place] [address], [place] [address] Apr, [facility] [address] [id number] [address] [place] [address], [place] [address] Apr, [facility] [address] [id number] [address] [place] [address], [place] [address] Apr, [facility] [address] [id number] [address] [place] [address], [place] [address] Feb, [facility] [address] [id number] [address] [place] [address], [place] [address] Feb, [facility] [address] [id number] [address] [place] [address], [place] [address] 25 Jan, 2013 [facility] [address] [id number] [address] [place] [address], [place] [address] 24 Sep2012 [facility] [address] [id number] [address] [place] [address] 18 Sep2012 [facility] [address] [id number] [address] [place] [address], [place] [address] 16 Sep2012 [facility] [address] [id number] [address] [place] [address], [place] [address] 12 Sep2012 [facility] [address] [id number] [address] [place] [address], [place] [address] 11 Jan, 2013 [facility] [address] [id number] [address] [place] [address] 05 Jan, 2013 [facility] [address] [id number] [address] [place] [address] Dec, [facility] [address] [id number] [address] [place] [address] Dec, [facility] [address] [id number] [address] [place] [address] Dec, [facility] [address] [id number] [address] [place] [address] Dec, [facility] [address] [id number] [address] [place] [address] Oct, [facility] [address] [id number] [address] [place] [address] Nov, [facility] [address] [id number] [address] [place] [address] Mar, [facility] [address] [id number] [address] [place] [address] Feb, [facility] [address] [id number] [address] [place] [address] Feb, [facility] [address] [id number] [address] [place] [address] Jul, IMMUNIZATIONS No Known Immunizations SOCIAL HISTORY [...]
--- OUTSIDE RECORDS SUMMARY | 2019-12-18 09:47 | XMS REPORT ---
Author Author Josie Álvarez Doctor Organization [facility] Address Unknown Phone Unavailable Care Team Providers Care Supervisor Type Disk Quality Control Name Role Phone Migration, Doctor Unavailable Unavailable PROBLEMS Type Condition ICD9-CM Code [id number] Code Onset Dates Condition S tatus SNOMED Code Problem History of solitary pulmonary nodule Z87.898 Active 929630591 Problem Porokeratosis Q82.8 Active 639879 004 Problem Neuropathy G62.9 Active 986840863 Problem Bilateral hearing loss, unspecified hearing loss type H91.93 Active 63157057 Problem Hematuria R31.9 Active 44035438 Problem Hiatal hernia K44.9 Active 368481 09 Problem Hammer toe, unspecified laterality M20.40 Active 113897257 Problem Incontinence of feces, unspecified fecal incontinence type R15.9 Active 26541152 Problem Diarrhea, unspecified type R19.7 Act alexis 44223096 Problem Encopresis R15.9 Active 893781184 ALLERGIES No Information ENCOUNTERS Encounter Location Date Diagnosis [place] [address] [place] [id number] [place] [address] Feb, [facility] [address] [place] [id number] [place] [address] Jan, Dentalgia K08.89 [place] [id number] [place] [address] Jan, Costochondritis M94.0 [facility] [address] [place] [id number] [address] [place] [address] Dec, Urinary tract infection N39. 0 [facility] [address] [place] [id number] [address] [place] [address] Nov, Rash R21 [facility] [address] [place] [id number] [address] [place] [address] Nov, Hiatal hernia K44.9 and Urin chase frequency R35.0 [place] [address] [address] Nov, Near syncope R55 [place] [address] [address] Nov, Near syncope R55 [place] [address] [address] Nov, [facility] [place] [address] [address] Oct, Dysuria R30.0 and Urinary tr act infection without hematuria, site unspecified N39.0 [facility] [place] [address] [address] September, Acute cystitis with hematuri a N30.01 [place] [address] [address] Jun, Gastroenteritis K52.9 [place] [address] [address] May, Bilateral hearing loss, unsp ecified hearing loss type H91.93 and Rib pain R07.81 [place] [address] [address] Apr, [place] [address] [address] Apr, Chest wall pain R07.89 and A bdominal pain, unspecified abdominal location R10.9 [place] [address] [address] Feb, Annual physical exam Z00.00 and Diarrhea, unspecified type R19.7 [place] [address] [address] Dec, Encopresis R15.9 and Inconti nence of feces, unspecified fecal incontinence type R15.9 [facility] [address] [facility] [id number] [address] [place] [address] Nov, Urinary tract infection, sit e not specified N39.0 and Hematuria, unspecified R31.9 [facility] [address] [facility] [id number] [address] [place] [address] Oct, [facility] [address] [facility] [id number] [address] [place] [address] Oct, Tick bite, initial encounter W57.XXXA and Incontinence of feces, unspecified fecal incontinence type R15.9 [place] [address] [facility] [id number] [address] [place] [address] May, Neuropathy G62.9 ; Hammer to e, unspecified laterality M20.40 and Onychomycosis B35.1 [place] [address] [place] [id number] [address] [place] [address] Mar, Dysuria R30.0 [place] [address] [place] [id number] [address] [place] [address] Mar, [place] [address] [place] [id number] [address] [place] [address] Feb, [place] [address] [place] [id number] [address] [place] [address] Dec, Family history of diabetes m ellitus Z83.3 ; Porokeratosis Q82.8 and Neuropathy G62.9 [place] [address] [facility] [id number] [address] [place] [address] Oct, Porokeratosis Q82.8 [place] [address] [place] [id number] [address] [place] [address] September, [place] [address] [place] [id number] [address] [place] [address] September, Porokeratosis Q82.8 [place] [address] [place] [id number] [address] [place] [address] September, [facility] [address] [place] [id number] [address] [place] [address] Aug, Aphthous ulcer K12.0 ; Denta l caries K02.9 ; Viral gastroenteritis A08.4 and Abscessed tooth K04.7 [place] [address] [place] [id number] [address] [place] [address] Jul, Porokeratosis Q82.8 ; Callus of foot L84 and Metatarsalgia of right foot M77.41 [place] [address] [facility] [id number] [address] [place] [address] Jun, Porokeratosis Q82.8 and Foot pain, right M79.671 [place] [address] [place] [id number] [address] [place] [address] Apr, [place] [address] [address] Apr, Pre-diabetes R73.03 and Plan tar wart, right foot B07.0 [place] [address] [place] [id number] [place] [address] Apr, [place] [address] [place] [id number] [address] [place] [address] Apr, [place] [address] [place] [id number] [address] [place] [address] Mar, [place] [address] [place] [id number] [address] [place] [address] Mar, [place] [address] [place] [id number] [address] [place] [address] Mar, Hematuria R31.9 and Pre-diab etes R73.03 [facility] [address] [facility] [id number] [address] [place] [address] Feb, [place] [address] [place] [id number] [address] [place] [address] Feb, [place] [address] [id number] [address] [place] [address] Feb, Abnormal fasting glucose R73 .01 [place] [address] [id number] [address] [place] [address] Feb, Abnormal fasting glucose R73 .01 [place] [address] [id number] [address] [place] [address] Feb, Routine gynecological examin ation Z01.419 ; General medical exam Z00.00 ; Screening breast examination Z12.39 ; Hematuria R31.9 ; Vaginal discharge N89.8 ; Vaginal yeast infection B37.3 and Recurrent UTI N39.0 [place] [address] [id number] [address] [place] [address] 20 Jan, 2016 Recurrent UTI N39.0 and Hist ory of solitary pulmonary nodule Z87.898 [place] [address] [id number] [address] [place] [address] Jan, [place] [address] [id number] [address] [place] [address] 13 Jan, 2016 Recurrent UTI N39.0 ; Hematu vasu R31.9 and History of solitary pulmonary nodule Z87.898 [place] [address] [id number] [address] [place] [address] 07 Jan, 2016 [place] [address] [id number] [address] [place] [address] Jan, Recurrent UTI N39.0 [place] [address] [id number] [address] [place] [address] Dec, [place] [address] [id number] [address] [place] [address] Dec, [place] [address] [facility] [id number] [address] [place] [address] Dec, Acute cystitis with hematuri a N30.01 [place] [address] [id number] [address] [place] [address] Dec, Acute cystitis with hematuri a N30.01 [facility] [address] [id number] [address] [place] [address] Dec, Acute cystitis with hematuri a N30.01 and Insect bite (nonvenomous) of left upper arm, initial encounter S40.862A [facility] [address] [id number] [address] [place] [address] Nov, Acute cystitis with hematuri a N30.01 and Insect bite (nonvenomous) of left upper arm, initial encounter S40.862A [facility] [address] [id number] [address] [place] [address] September, [facility] [address] [id number] [address] [place] [address] September, [facility] [address] [facility] [id number] [address] [place] [address] September, Acute cystitis with hematuri a N30.01 and Family history of diabetes mellitus Z83.3 [facility] [address] [id number] [address] [place] [address] September, Family history of diabetes gonzalez sierra Z83.3 [facility] [address] [id number] [address] [place] [address] September, Acute cystitis with hematuri a N30.01 [facility] [address] [id number] [address] [place] [address] September, [facility] [address] [id number] [address] [place] [address] September, Acute cystitis with hematuri a N30.01 [facility] [address] [id number] [address] [place] [address] May, Back pain M54.9 and Urinary tract infection N39.0 [facility] [address] [id number] [address] [place] [address] Feb, [facility] [address] [id number] [address] [place] [address] Feb, Bony prominence M89.8X9 [facility] [address] [id number] [address] [place] [address] Nov, Unspecified urinary incontin ence 788.30 ; 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 and Solitary pulmonary nodule 793.11 [facility] [address] [id number] [address] [place] [address] Nov, [facility] [address] [id number] [address] [place] [address] Oct, Unspecified urinary incontin ence 788.30 ; 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 and Solitary pulmonary nodule 793.11 [facility] [address] [id number] [address] [place] [address] Oct, [facility] [address] [id number] [address] [place] [address] Oct, [facility] [address] [id number] [address] [place] [address] September, [facility] [address] [id number] [address] [place] [address] Aug, [facility] [address] [id number] [address] [place] [address] Aug, [facility] [address] [id number] [address] [place] [address] May, [facility] [address] [id number] [address] [place] [address] May, [facility] [address] [id number] [address] [place] [address] May, [facility] [address] [id number] [address] [place] [address] May, [facility] [address] [id number] [address] [place] [address] [place] [address] May, [facility] [address] [id number] [address] [place] [address], [place] [address] May, [facility] [address] [id number] [address] [place] [address], [place] [address] Apr, [facility] [address] [id number] [address] [place] [address], [place] [address] Apr, [facility] [address] [id number] [address] [place] [address], [place] [address] Feb, [facility] [address] [id number] [address] [place] [address], [place] [address] Feb, [facility] [address] [id number] [address] [place] [address], [place] [address] Dec, [facility] [address] [id number] [address] [place] [address], [place] [address] Nov, [facility] [address] [id number] [address] [place] [address], [place] [address] Nov, [facility] [address] [id number] [address] [place] [address], [place] [address] Nov, [facility] [address] [id number] [address] [place] [address], [place] [address] Nov, [facility] [address] [id number] [address] [place] [address], [place] [address] Nov, [facility] [address] [id number] [address] [place] [address], [place] [address] Nov, [facility] [address] [id number] [address] [place] [address], [place] [address] September, [facility] [address] [id number] [address] [place] [address], [place] [address] September, [facility] [address] [id number] [address] [place] [address], [place] [address] September, [facility] [address] [id number] [address] [place] [address], [place] [address] Aug, [facility] [address] [id number] [address] [place] [address], [place] [address] Aug, [facility] [address] [id number] [address] [place] [address], [place] [address] Aug, [facility] [address] [id number] [address] [place] [address], [place] [address] Aug, [facility] [address] [id number] [address] [place] [address], [place] [address] Jul, [facility] [address] [id number] [address] [place] [address], [place] [address] Jul, [facility] [address] [id number] [address] [place] [address], [place] [address] Jul, [facility] [address] [id number] [address] [place] [address], [place] [address] May, [facility] [address] [id number] [address] [place] [address], [place] [address] May, [facility] [address] [id number] [address] [place] [address], [place] [address] May, [facility] [address] [id number] [address] [place] [address], [place] [address] May, [facility] [address] [id number] [address] [place] [address], [place] [address] Apr, [facility] [address] [id number] [address] [place] [address], [place] [address] Apr, [facility] [address] [id number] [address] [place] [address], [place] [address] Apr, [facility] [address] [id number] [address] [place] [address], [place] [address] 15 Feb, 2013 [facility] [address] [id number] [address] [place] [address], [place] [address] 15 Feb, 2013 [facility] [address] [id number] [address] [place] [address], [place] [address] 25 Jan, 2013 [facility] [address] [id number] [address] [place] [address], [place] [address] 24 Jan, 2013 [facility] [address] [id number] [address] [place] [address], [place] [address] 18 Jan, 2013 [facility] [address] [id number] [address] [place] [address], [place] [address] 16 Jan, 2013 [facility] [address] [id number] [address] [place] [address], [place] [address] 12 Jan, 2013 [facility] [address] [id number] [address] [place] [address], [place] [address] 11 Jan, 2013 [facility] [address] [id number] [address] [place] [address], [place] [address] 05 Jan, 2013 [facility] [address] [id number] [address] [place] [address], [place] [address] Dec, [facility] [address] [id number] [address] [place] [address], [place] [address] Dec, [facility] [address] [id number] [address] [place] [address], [place] [address] Dec, [facility] [address] [id number] [address] [place] [address], [place] [address] Dec, [facility] [address] [id number] [address] [place] [address], [place] [address] Oct, [facility] [address] [id number] [address] [place] [address], [place] [address] Nov, [facility] [address] [id number] [address] [place] [address], [place] [address] Mar, [facility] [address] [id number] [address] [place] [address], [place] [address] Feb, [facility] [address] [id number] [address] [place] [address] 18 Feb, 2011 [facility] [address] [facility] [id number] [address] [place] [address] Jul, IMMUNIZATIONS No Known Immunizations SOCIAL HISTORY Never Assessed REASON FOR VISIT PLAN OF CARE VITAL SIGNS MEDICATIONS Unknown Medications RESULTS No Results PROCEDURES Procedure Date Ordered Result Body Site CT THORAX W/DYE November 13, 2013 INSTRUCTIONS MEDICATIONS ADMINISTERED No Known Medications MEDICAL (GENERAL) HISTORY Type Description Date Medical History hearing loss Medical History Encopresis seen [facility] with Co lonosocopy 2014 and was told normal Medical History solitary pulmonary nodule LLL 15-15 [facility] able rec yearly recheck Medical History diverticulitis Medical History Encopresis Medical History Diverticulitis of colon (wit hout mention of hemorrhage) Colonoscopy [facility] 2013 Medical History Solitary pulmonary nodule Medical History Barrets Esophagus Dx EGD at gastoesophagel junction [place] Surgical History tubal ligation Surgical History Colonoscopy [facility] 2015- Surgical History cataract surgery 2019 Surgical History EGD gastrointestinal Junctio n Consistent w Barrets Esophagus [place]
--- OUTSIDE RECORDS SUMMARY | 2019-12-18 09:47 | XMS REPORT ---
Author Author Josie Álvarez Doctor Organization [facility] Address Unknown Phone Unavailable Care Team Providers Care Research Executive Name Role Phone Migration, Doctor Unavailable Unavailable PROBLEMS Type Condition ICD9-CM Code SEM26-ZT Code Onset Dates Condition S tatus SNOMED Code Problem Hematuria R31.9 Active 66161744 Problem History of solitary pulmonary nodule Z87.898 Active 540273267 Problem Porokeratosis Q82.8 Active 959462 004 Problem Encopresis R15.9 Active 929027484 Problem Bilateral hearing loss, unspecified hearing loss type H91.93 Active 33959278 Problem Neuropathy G62.9 Active 563405096 Problem Hammer toe, unspecified laterality M20.40 Active 028411276 Problem Incontinence of feces, unspecified fecal incontinence type R15.9 Active 28210603 Problem Diarrhea, unspecified type R19.7 Act alexis [id number] ALLERGIES No Information ENCOUNTERS Encounter Location Date Diagnosis [facility] [id number] [place] [address] Nov, [facility] [address] [place] [address] [id number] [address] [place] [address] Nov, Near syncope R55 [facility] [address] [id number] [address] [place] [address] Nov, Near syncope R55 [facility] [address] [id number] [address] [place] [address] Nov, [facility] [address] [id number] [address] [place] [address] Oct, Dysuria R30.0 and Urinary tr act infection without hematuria, site unspecified N39.0 [facility] [address] [id number] [address] [place] [address] September, Acute cystitis with hematuri a N30.01 [place] [address] [place] [address] Jun, Gastroenteritis K52.9 [place] [address] [place] [id number] [place] [address] May, Bilateral hearing loss, unsp ecified hearing loss type H91.93 and Rib pain R07.81 [place] [address] [address] Apr, [place] [address] [address] Apr, Chest wall pain R07.89 and A bdominal pain, unspecified abdominal location R10.9 [place] [address] [address] Feb, Annual physical exam Z00.00 and Diarrhea, unspecified type R19.7 [place] [address] [place] [id number] [place] [address] Dec, Encopresis R15.9 and Inconti nence of feces, unspecified fecal incontinence type R15.9 [facility] [id number] [place] [address] Nov, Urinary tract infection, sit e not specified N39.0 and Hematuria, unspecified R31.9 [place] [address] [place] [id number] [place] [address] Oct, [place] [address] [place] [id number] [place] [address] Oct, Tick bite, initial encounter W57.XXXA and Incontinence of feces, unspecified fecal incontinence type R15.9 [place] [address] [place] [id number] [place] [address] May, Neuropathy G62.9 ; Hammer to e, unspecified laterality M20.40 and Onychomycosis B35.1 [place] [address] [address] Mar, Dysuria R30.0 [place] [address] [address] Mar, [place] [address] [address] Feb, [place] [address] [address] Dec, Family history of diabetes gonzalez sierra Z83.3 ; Porokeratosis Q82.8 and Neuropathy G62.9 [place] [address] [address] Oct, Porokeratosis Q82.8 [place] [address] [address] September, [place] [address] [address] September, Porokeratosis Q82.8 [place] [address] [address] September, [place] [address] [address] Aug, Aphthous ulcer K12.0 ; Denta l caries K02.9 ; Viral gastroenteritis A08.4 and Abscessed tooth K04.7 [place] [address] [address] Jul, Porokeratosis Q82.8 ; Callus of foot L84 and Metatarsalgia of right foot M77.41 [place] [address] [address] 10 Jun, 2016 Porokeratosis Q82.8 and Foot pain, right M79.671 [place] [address] [address] Apr, [place] [address] [id number] [address] [place] [address] Apr, Pre-diabetes R73.03 and Plan tar wart, right foot B07.0 [facility] [address] [id number] [address] [place] [address] Apr, [facility] [address] [id number] [address] [place] [address] Apr, [facility] [address] [id number] [address] [place] [address] Mar, [facility] [address] [id number] [address] [place] [address] Mar, [facility] [address] [facility] [id number] [address] [place] [address] Mar, Hematuria R31.9 and Pre-diab etes R73.03 [place] [address] [facility] [id number] [address] [place] [address] Feb, [facility] [address] [facility] [id number] [address] [place] [address] Feb, [place] [address] [facility] [id number] [address] [place] [address] Feb, Abnormal fasting glucose R73 .01 [place] [address] [facility] [id number] [address] [place] [address] Feb, Abnormal fasting glucose R73 .01 [place] [address] [facility] [id number] [address] [place] [address] 13 Feb, 2016 Routine gynecological examin ation Z01.419 ; General medical exam Z00.00 ; Screening breast examination Z12.39 ; Hematuria R31.9 ; Vaginal discharge N89.8 ; Vaginal yeast infection B37.3 and Recurrent UTI N39.0 [facility] [address] [id number] [address] [place] [address] Jan, Recurrent UTI N39.0 and Hist ory of solitary pulmonary nodule Z87.898 [facility] [address] [id number] [address] [place] [address] 19 Jan, 2016 [facility] [address] [id number] [address] [place] [address] 13 Jan, 2016 Recurrent UTI N39.0 ; Hematu vasu R31.9 and History of solitary pulmonary nodule Z87.898 [facility] [address] [id number] [address] [place] [address] 07 Jan, 2016 [facility] [address] [id number] [address] [place] [address] 06 Jan, 2016 Recurrent UTI N39.0 [facility] [address] [id number] [address] [place] [address] Dec, [facility] [address] [id number] [address] [place] [address] Dec, [facility] [address] [id number] [address] [place] [address] Dec, Acute cystitis with hematuri a N30.01 [place] [address] [id number] [address] [place] [address] Dec, Acute cystitis with hematuri a N30.01 [facility] [address] [facility] [id number] [address] [place] [address] Dec, Acute cystitis with hematuri a N30.01 and Insect bite (nonvenomous) of left upper arm, initial encounter S40.862A [facility] [address] [id number] [address] [place] [address] Nov, Acute cystitis with hematuri a N30.01 and Insect bite (nonvenomous) of left upper arm, initial encounter S40.862A [facility] [address] [id number] [address] [place] [address] September, [facility] [address] [facility] [id number] [address] [place] [address] September, [facility] [address] [facility] [id number] [address] [place] [address] September, Acute cystitis with hematuri a N30.01 and Family history of diabetes mellitus Z83.3 [place] [address] [place] [id number] [place] [address] September, Family history of diabetes m ellitus Z83.3 [place] [address] [place] [id number] [place] [address] September, Acute cystitis with hematuri a N30.01 [place] [address] [place] [id number] [address] [place] [address] September, [place] [address] [address] September, Acute cystitis with hematuri a N30.01 [facility] [id number] [address] [place] [address] May, Back pain M54.9 and Urinary tract infection N39.0 [place] [address] [place] [id number] [place] [address] Feb, [place] [address] [address] Feb, Bony prominence M89.8X9 [place] [address] [place] [id number] [place] [address] Nov, Unspecified urinary incontin ence 788.30 ; 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 and Solitary pulmonary nodule 793.11 [place] [address] [place] [id number] [place] [address] Nov, [place] [address] [place] [id number] [address] [place] [address] Oct, Unspecified urinary incontin ence 788.30 ; 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 and Solitary pulmonary nodule 793.11 [place] [address] [place] [id number] [address] [place] [address] Oct, [facility] [address] [id number] [address] [place] [address], [place] [address] Oct, [facility] [address] [id number] [address] [place] [address], [place] [address] September, [facility] [address] [id number] [address] [place] [address], [place] [address] Aug, [facility] [address] [id number] [address] [place] [address], [place] [address] Aug, [facility] [address] [id number] [address] [place] [address], [place] [address] May, [facility] [address] [id number] [address] [place] [address], [place] [address] May, [facility] [address] [id number] [address] [place] [address], [place] [address] May, [facility] [address] [id number] [address] [place] [address], [place] [address] May, [facility] [address] [id number] [address] [place] [address], [place] [address] May, [facility] [address] [id number] [address] [place] [address], [place] [address] May, [facility] [address] [id number] [address] [place] [address], [place] [address] Apr, [facility] [address] [id number] [address] [place] [address] Apr, [facility] [address] [id number] [address] [place] [address], [place] [address] Feb, [facility] [address] [id number] [address] [place] [address], [place] [address] Feb, [facility] [address] [id number] [address] [place] [address], [place] [address] Dec, [facility] [address] [id number] [facility] [place] [address] Nov, [facility] [address] [id number] [facility] [place] [address] Nov, [facility] [address] [id number] [facility] [place] [address] Nov, [facility] [address] [id number] [address] [place] [address], [place] [address] Nov, [facility] [address] [id number] [address] [place] [address], [place] [address] Nov, [facility] [address] [id number] [address] [place] [address], [place] [address] Nov, [facility] [address] [id number] [address] [place] [address], [place] [address] September, [facility] [address] [id number] [address] [place] [address], [place] [address] September, [facility] [address] [id number] [address] [place] [address], [place] [address] September, [facility] [address] [id number] [address] [place] [address], [place] [address] Aug, [facility] [address] [id number] [address] [place] [address], [place] [address] Aug, [facility] [address] [id number] [address] [place] [address], [place] [address] Aug, [facility] [address] [id number] [address] [place] [address], [place] [address] Aug, [facility] [address] [id number] [address] [place] [address], [place] [address] Jul, [facility] [address] [id number] [address] [place] [address], [place] [address] Jul, [facility] [address] [id number] [address] [place] [address] [address] Jul, [facility] [address] [id number] [address] [place] [address], [place] [address] May, [facility] [address] [id number] [address] [place] [address], [place] [address] May, [facility] [address] [id number] [address] [place] [address], [place] [address] May, [facility] [address] [id number] [address] [place] [address], [place] [address] May, [facility] [address] [id number] [address] [place] [address], [place] [address] Apr, [facility] [address] [id number] [address] [place] [address], [place] [address] Apr, [facility] [address] [id number] [address] [place] [address], [place] [address] Apr, [facility] [address] [id number] [address] [place] [address], [place] [address] Feb, [facility] [address] [id number] [address] [place] [address], [place] [address] Feb, [facility] [address] [id number] [address] [place] [address], [place] [address] 25 Jan, 2013 [facility] [address] [id number] [address] [place] [address] [address] 24 Sep2012 [facility] [address] [id number] [address] [place] [address] 18 Sep2012 [facility] [address] [id number] [address] [place] [address], [place] [address] 16 Sep2012 [facility] [address] [id number] [address] [place] [address] [address] 12 Sep2012 [facility] [address] [id number] [address] [place] [address], [place] [address] 11 Jan, 2013 [facility] [address] [id number] [address] [place] [address] 05 Jan, 2013 [facility] [address] [id number] [address] [place] [address] Dec, [facility] [address] [id number] [address] [place] [address] Dec, [facility] [address] [id number] [address] [place] [address] Dec, [facility] [address] [id number] [address] [place] [address] Dec, [facility] [address] [id number] [address] [place] [address] Oct, [facility] [address] [id number] [address] [place] [address] Nov, [facility] [address] [id number] [address] [place] [address] Mar, [facility] [address] [id number] [address] [place] [address] Feb, [facility] [address] [id number] [address] [place] [address] Feb, [facility] [address] [id number] [address] [place] [id number] Jul, IMMUNIZATIONS No Known Immunizations SOCIAL HISTORY Never Assessed REASON FOR VISIT PLAN OF CARE VITAL SIGNS MEDICATIONS Unknown Medications RESULTS No Results PROCEDURES No Known procedures INSTRUCTIONS MEDICATIONS ADMINISTERED No Known Medications MEDICAL (GENERAL) HISTORY Type Description Date Medical History hearing loss Medical History Encopresis seen [facility] with Co lonosocopy 2014 and was told normal Medical History solitary pulmonary nodule LLL 4-15-[facility] yearly recheck Medical History diverticulitis Medical History Encopresis Medical History Diverticulitis of colon (wit hout mention of hemorrhage) Colonoscopy [facility] 2013 Medical History Solitary pulmonary nodule Surgical History tubal ligation Surgical History Colonoscopy [facility] 2015- Surgical History cataract surgery 2019
--- OUTSIDE RECORDS SUMMARY | 2019-12-18 09:47 | XMS REPORT ---
Author Author Josie Álvarez Doctor Organization [facility] Address Unknown Phone Unavailable Care Team Providers Care Pattern Fitter Name Role Phone Migration, Doctor Unavailable Unavailable PROBLEMS Type Condition ICD9-CM Code PDV02-PF Code Onset Dates Condition S tatus SNOMED Code Problem History of solitary pulmonary nodule Z87.898 Active 558611978 Problem Porokeratosis Q82.8 Active 350997 004 Problem Neuropathy G62.9 Active 128322841 Problem Bilateral hearing loss, unspecified hearing loss type H91.93 Active 53500897 Problem Hematuria R31.9 Active 07794871 Problem Hiatal hernia K44.9 Active 566301 09 Problem Hammer toe, unspecified laterality M20.40 Active 387069026 Problem Incontinence of feces, unspecified fecal incontinence type R15.9 Active 45549015 Problem Diarrhea, unspecified type R19.7 Act alexis 09194252 Problem Encopresis R15.9 Active 914057741 ALLERGIES No Information ENCOUNTERS Encounter Location Date Diagnosis [facility] [address] [address] Nov, Hiatal hernia K44.9 and Urin chase frequency R35.0 [place] [address] [place] [id number] [place] [address] Nov, Near syncope R55 [facility] [id number] [place] [address] Nov, Near syncope R55 [facility] [address] [address] Nov, [facility] [id number] [place] [address] Oct, Dysuria R30.0 and Urinary tr act infection without hematuria, site unspecified N39.0 [facility] [address] [id number] [place] [address] September, Acute cystitis with hematuri a N30.01 [place] [address] [address] Jun, Gastroenteritis K52.9 [place] [address] [address] May, Bilateral hearing loss, unsp ecified hearing loss type H91.93 and Rib pain R07.81 [place] [address] [address] Apr, [place] [address] [address] Apr, Chest wall pain R07.89 and A bdominal pain, unspecified abdominal location R10.9 [place] [address] [address] Feb, Annual physical exam Z00.00 and Diarrhea, unspecified type R19.7 [place] [address] [address] Dec, Encopresis R15.9 and Inconti nence of feces, unspecified fecal incontinence type R15.9 [facility] [id number] [place] [address] Nov, Urinary tract infection, sit e not specified N39.0 and Hematuria, unspecified R31.9 [place] [address] [place] [id number] [place] [address] Oct, [place] [address] [address] Oct, Tick bite, initial encounter W57.XXXA and Incontinence of feces, unspecified fecal incontinence type R15.9 [place] [address] [place] [id number] [place] [address] May, Neuropathy G62.9 ; Hammer to e, unspecified laterality M20.40 and Onychomycosis B35.1 [place] [address] [address] Mar, Dysuria R30.0 [place] [address] [address] 16 Mar, 2017 [place] [address] [address] Feb, [place] [address] [address] Dec, Family history of diabetes m ellitus Z83.3 ; Porokeratosis Q82.8 and Neuropathy G62.9 [place] [address] [address] Oct, Porokeratosis Q82.8 [place] [address] [address] September, [place] [address] [address] September, Porokeratosis Q82.8 [place] [address] [address] September, [place] [address] [address] Aug, Aphthous ulcer K12.0 ; Denta l caries K02.9 ; Viral gastroenteritis A08.4 and Abscessed tooth K04.7 [place] [address] [address] Jul, Porokeratosis Q82.8 ; Callus of foot L84 and Metatarsalgia of right foot M77.41 [place] [address] [place] [id number] [place] [address] 10 Jun, 2016 Porokeratosis Q82.8 and Foot pain, right M79.671 [place] [address] [id number] [address] [place] [address] Apr, [facility] [address] [id number] [address] [place] [address] Apr, Pre-diabetes R73.03 and Plan tar wart, right foot B07.0 [facility] [address] [id number] [address] [place] [address] Apr, [facility] [address] [id number] [address] [place] [address] Apr, [facility] [address] [id number] [address] [place] [address] Mar, [facility] [address] [id number] [address] [place] [address] Mar, [facility] [address] [id number] [address] [place] [address] Mar, Hematuria R31.9 and Pre-diab etes R73.03 [facility] [address] [id number] [address] [place] [address] Feb, [facility] [address] [id number] [address] [place] [address] Feb, [facility] [address] [id number] [address] [place] [address] Feb, Abnormal fasting glucose R73 .01 [facility] [address] [id number] [address] [place] [address] Feb, Abnormal fasting glucose R73 .01 [facility] [address] [id number] [address] [place] [address] 13 Feb, 2016 Routine gynecological examin ation Z01.419 ; General medical exam Z00.00 ; Screening breast examination Z12.39 ; Hematuria R31.9 ; Vaginal discharge N89.8 ; Vaginal yeast infection B37.3 and Recurrent UTI N39.0 [facility] [address] [id number] [address] [place] [address] 20 Jan, 2016 Recurrent UTI N39.0 and Hist ory of solitary pulmonary nodule Z87.898 [facility] [address] [id number] [address] [place] [address] 19 Jan, 2016 [facility] [address] [id number] [address] [place] [address] 13 Jan, 2016 Recurrent UTI N39.0 ; Hematu vasu R31.9 and History of solitary pulmonary nodule Z87.898 [facility] [address] [id number] [address] [place] [address] 07 Jan, 2016 [place] [address] [id number] [address] [place] [address] 06 Jan, 2016 Recurrent UTI N39.0 [place] [address] [facility] [id number] [address] [place] [address] Dec, [facility] [address] [id number] [address] [place] [address] Dec, [facility] [address] [facility] [id number] [address] [place] [address] Dec, Acute cystitis with hematuri a N30.01 [place] [address] [facility] [id number] [address] [place] [address] Dec, Acute cystitis with hematuri a N30.01 [place] [address] [facility] [id number] [address] [place] [address] Dec, Acute cystitis with hematuri a N30.01 and Insect bite (nonvenomous) of left upper arm, initial encounter S40.862A [place] [address] [facility] [id number] [address] [place] [address] Nov, Acute cystitis with hematuri a N30.01 and Insect bite (nonvenomous) of left upper arm, initial encounter S40.862A [place] [address] [facility] [id number] [address] [place] [address] September, [facility] [address] [facility] [id number] [address] [place] [address] September, [facility] [address] [place] [id number] [place] [address] September, Acute cystitis with hematuri a N30.01 and Family history of diabetes mellitus Z83.3 [place] [address] [place] [id number] [address] [place] [address] September, Family history of diabetes gonzalez sierra Z83.3 [place] [address] [place] [id number] [address] [place] [address] September, Acute cystitis with hematuri a N30.01 [place] [address] [place] [id number] [address] [place] [address] September, [place] [address] [address] September, Acute cystitis with hematuri a N30.01 [facility] [address] [id number] [address] [place] [address] May, Back pain M54.9 and Urinary tract infection N39.0 [place] [address] [place] [id number] [place] [address] Feb, [place] [address] [place] [id number] [place] [address] Feb, Bony prominence M89.8X9 [place] [address] [place] [id number] [address] [place] [address] Nov, Unspecified urinary incontin ence 788.30 ; 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 and Solitary pulmonary nodule 793.11 [place] [address] [place] [id number] [address] [place] [address] Nov, [place] [address] [place] [id number] [address] [place] [address] Oct, Unspecified urinary incontin ence 788.30 ; 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 and Solitary pulmonary nodule 793.11 [facility] [address] [id number] [address] [place] [address] Oct, [facility] [address] [id number] [address] [place] [address] Oct, [facility] [address] [id number] [address] [place] [address] September, [facility] [address] [id number] [address] [place] [address] Aug, [facility] [address] [id number] [address] [place] [address] Aug, [facility] [address] [id number] [address] [place] [address] May, [facility] [address] [id number] [address] [place] [address] May, [facility] [address] [id number] [address] [place] [address] May, [facility] [address] [id number] [address] [place] [address] May, [facility] [address] [id number] [address] [place] [address] May, [facility] [address] [id number] [address] [place] [address] May, [facility] [address] [id number] [address] [place] [address] Apr, [facility] [address] [id number] [address] [place] [address] Apr, [facility] [address] [id number] [address] [place] [address] Feb, [facility] [address] [id number] [address] [place] [address] Feb, [facility] [address] [id number] [address] [place] [address], [place] [address] Dec, [facility] [address] [id number] [facility] [place] [address] Nov, [facility] [address] [id number] [address] [place] [address], [place] [address] Nov, [facility] [address] [id number] [address] [place] [address], [place] [address] Nov, [facility] [address] [id number] [address] [place] [address], [place] [address] Nov, [facility] [address] [id number] [address] [place] [address], [place] [address] Nov, [facility] [address] [id number] [address] [place] [address], [place] [address] Nov, [facility] [address] [id number] [address] [place] [address], [place] [address] September, [facility] [address] [id number] [address] [place] [address], [place] [address] September, [facility] [address] [id number] [address] [place] [address], [place] [address] September, [facility] [address] [id number] [address] [place] [address], [place] [address] Aug, [facility] [address] [id number] [address] [place] [address], [place] [address] Aug, [facility] [address] [id number] [address] [place] [address], [place] [address] Aug, [facility] [address] [id number] [address] [place] [address], [place] [address] Aug, [facility] [address] [id number] [address] [place] [address], [place] [address] Jul, [facility] [address] [id number] [address] [place] [address], [place] [address] Jul, [facility] [address] [id number] [address] [place] [address], [place] [address] Jul, [facility] [address] [id number] [address] [place] [address], [place] [address] May, [facility] [address] [id number] [address] [place] [address], [place] [address] May, [facility] [address] [id number] [address] [place] [address], [place] [address] May, [facility] [address] [id number] [address] [place] [address], [place] [address] May, [facility] [address] [id number] [address] [place] [address], [place] [address] Apr, [facility] [address] [id number] [address] [place] [address], [place] [address] Apr, [facility] [address] [id number] [address] [place] [address], [place] [address] Apr, [facility] [address] [id number] [address] [place] [address], [place] [address] Feb, [facility] [address] [id number] [address] [place] [address], [place] [address] Feb, [facility] [address] [id number] [address] [place] [address], [place] [address] 25 Jan, 2013 [facility] [address] [id number] [address] [place] [address], [place] [address] 24 Sep2012 [facility] [address] [id number] [address] [place] [address], [place] [address] 18 Sep2012 [facility] [address] [id number] [address] [place] [address] [address] 16 Sep2012 [facility] [address] [id number] [address] [place] [address], [place] [address] 12 Jan, 2013 [facility] [address] [id number] [address] [place] [address] Jan, [facility] [address] [id number] [address] [place] [address] Jan, [facility] [address] [id number] [address] [place] [address] Dec, [facility] [address] [id number] [address] [place] [address] Dec, [facility] [address] [id number] [address] [place] [address] Dec, [facility] [address] [id number] [address] [place] [address] Dec, [facility] [address] [id number] [address] [place] [address] Oct, [facility] [address] [id number] [address] [place] [address] Nov, [facility] [address] [id number] [address] [place] [address] Mar, [facility] [address] [id number] [address] [place] [address] Feb, [facility] [address] [id number] [address] [place] [address] Feb, [facility] [address] [id number] [address] [place] [address] Jul, IMMUNIZATIONS No Known Immunizations SOCIAL HISTORY Never Assessed REASON FOR VISIT PLAN OF CARE VITAL SIGNS Height 65 in 2014-05-21 Weight 148.7 lbs 2014-05-21 Temperature 96.8 degrees Fahrenheit 2014-05-21 Heart Rate 70 bpm 2014-05-21 Respiratory Rate 20 2014-05-21 Blood pressure systolic 108 mmHg 2014-05-21 Blood pressure diastolic 70 mmHg 2014-05-21 MEDICATIONS No Known Medications RESULTS No Results PROCEDURES Procedure Date Ordered Result Body Site GLYCATED HEMOGLOBIN TEST May 21, 2014 COMPREHEN METABOLIC PANEL May 21, 2014 VENIPUNCT, ROUTINE* May 21, 2014 INSTRUCTIONS MEDICATIONS ADMINISTERED No Known Medications MEDICAL (GENERAL) HISTORY Type Description Date Medical History hearing loss Medical History Encopresis seen [facility] with Co lonosocopy 2014 and was told normal Medical History solitary pulmonary nodule LLL [facility] [address] able rec yearly recheck Medical History diverticulitis Medical History Encopresis Medical History Diverticulitis of colon (wit hout mention of hemorrhage) Colonoscopy [facility] 2013 Medical History Solitary pulmonary nodule Medical History Barrets Esophagus Dx EGD at gastoesophagel junction [place] Surgical History tubal ligation Surgical History Colonoscopy [facility] 2015- Surgical History cataract surgery 2019 Surgical History EGD gastrointestinal Junctio n Consistent w Barrets Esophagus [place]
--- OUTSIDE RECORDS SUMMARY | 2019-12-18 09:48 | XMS REPORT ---
Author Author Josie Álvarez Doctor Organization [facility] Address Unknown Phone Unavailable Care Team Providers Care [employer] C[employer] Hand Name Role Phone Migration, Doctor Unavailable Unavailable PROBLEMS Type Condition ICD9-CM Code FVK30-XF Code Onset Dates Condition S tatus SNOMED Code Problem Hematuria R31.9 Active 34404061 Problem History of solitary pulmonary nodule Z87.898 Active 318425913 Problem Porokeratosis Q82.8 Active 695508 004 Problem Encopresis R15.9 Active 428963486 Problem Bilateral hearing loss, unspecified hearing loss type H91.93 Active 59510680 Problem Neuropathy G62.9 Active 411377480 Problem Hammer toe, unspecified laterality M20.40 Active 941100808 Problem Incontinence of feces, unspecified fecal incontinence type R15.9 Active 11206854 Problem Diarrhea, unspecified type R19.7 Act alexis 90732132 ALLERGIES No Information ENCOUNTERS Encounter Location Date Diagnosis [place] [address] [place] [address] Jun, Gastroenteritis K52.9 [place] [address] [address] [place] [id number] [place] [address] May, Bilateral hearing loss, unsp ecified hearing loss type H91.93 and Rib pain R07.81 [place] [address] [address] [place] [id number] [place] [address] Apr, [place] [address] [address] [place] [id number] [address] [place] [address] Apr, Chest wall pain R07.89 and A bdominal pain, unspecified abdominal location R10.9 [place] [address] [address] [place] [id number] [place] [phone] 02 Feb, 2018 Annual physical exam Z00.00 and Diarrhea, unspecified type R19.7 [place] [address] [address] [place] [id number] [place] [address] Dec, Encopresis R15.9 and Inconti nence of feces, unspecified fecal incontinence type R15.9 [facility] [address] [facility] [id number] [address] [place] [phone] Nov, Urinary tract infection, sit e not specified N39.0 and Hematuria, unspecified R31.9 [place] [address] [place] [address] Oct, [place] [address] [address] Oct, Tick bite, initial encounter W57.XXXA and Incontinence of feces, unspecified fecal incontinence type R15.9 [place] [address] [place] [address] May, Neuropathy G62.9 ; Hammer to e, unspecified laterality M20.40 and Onychomycosis B35.1 [facility] [address] [place] [address] Mar, Dysuria R30.0 [place] [address] [address] [place] [id number] [address] [place] [phone] Mar, [place] [address] [address] [place] [id number] [address] [place] [phone] Feb, [place] [address] [address] [place] [id number] [address] [place] [address] Dec, Family history of diabetes m ellitus Z83.3 ; Porokeratosis Q82.8 and Neuropathy G62.9 [place] [address] [address] [place] [id number] [place] [address] Oct, Porokeratosis Q82.8 [place] [address] [address] [place] [id number] [place] [address] September, [place] [address] [address] September, Porokeratosis Q82.8 [place] [address] [address] September, [place] [address] [address] Aug, Aphthous ulcer K12.0 ; Denta l caries K02.9 ; Viral gastroenteritis A08.4 and Abscessed tooth K04.7 [place] [address] [address] Jul, Porokeratosis Q82.8 ; Callus of foot L84 and Metatarsalgia of right foot M77.41 [place] [address] [address] 10 Jun, 2016 Porokeratosis Q82.8 and Foot pain, right M79.671 [place] [address] [address] Apr, [place] [address] [address] Apr, Pre-diabetes R73.03 and Plan tar wart, right foot B07.0 [place] [address] [address] Apr, [place] [address] [address] Apr, [place] [address] [address] Mar, [place] [address] [address] Mar, [place] [address] [address] Mar, Hematuria R31.9 and Pre-diab etes R73.03 [place] [address] [address] [place] [address] [place] [address] Feb, [facility] [address] [id number] [address] [place] [address] Feb, [facility] [address] [id number] [address] [place] [address] Feb, Abnormal fasting glucose R73 .01 [facility] [address] [id number] [address] [place] [address] Feb, Abnormal fasting glucose R73 .01 [facility] [address] [id number] [address] [place] [address] Feb, Routine gynecological examin ation Z01.419 ; General medical exam Z00.00 ; Screening breast examination Z12.39 ; Hematuria R31.9 ; Vaginal discharge N89.8 ; Vaginal yeast infection B37.3 and Recurrent UTI N39.0 [facility] [address] [id number] [address] [place] [address] Jan, Recurrent UTI N39.0 and Hist ory of solitary pulmonary nodule Z87.898 [place] [address] [id number] [address] [place] [address] Jan, [facility] [address] [id number] [address] [place] [address] Jan, Recurrent UTI N39.0 ; Hematu vasu R31.9 and History of solitary pulmonary nodule Z87.898 [facility] [address] [id number] [address] [place] [address] Jan, [facility] [address] [id number] [address] [place] [address] Jan, Recurrent UTI N39.0 [facility] [address] [id number] [address] [place] [address] Dec, [facility] [address] [id number] [address] [place] [address] Dec, [facility] [address] [id number] [address] [place] [address] Dec, Acute cystitis with hematuri a N30.01 [facility] [address] [facility] [id number] [address] [place] [address] Dec, Acute cystitis with hematuri a N30.01 [facility] [address] [facility] [id number] [address] [place] [address] Dec, Acute cystitis with hematuri a N30.01 and Insect bite (nonvenomous) of left upper arm, initial encounter S40.862A [place] [address] [id number] [address] [place] [address] Nov, Acute cystitis with hematuri a N30.01 and Insect bite (nonvenomous) of left upper arm, initial encounter S40.862A [place] [address] [facility] [id number] [address] [place] [address] September, [facility] [address] [id number] [address] [place] [address] September, [facility] [address] [facility] [id number] [address] [place] [address] September, Acute cystitis with hematuri a N30.01 and Family history of diabetes mellitus Z83.3 [facility] [address] [facility] [id number] [address] [place] [address] September, Family history of diabetes m ellitus Z83.3 [facility] [address] [id number] [address] [place] [address] September, Acute cystitis with hematuri a N30.01 [facility] [address] [facility] [id number] [address] [place] [address] September, [facility] [address] [facility] [id number] [address] [place] [address] September, Acute cystitis with hematuri a N30.01 [facility] [address] [facility] [id number] [address] [place] [address] May, Back pain M54.9 and Urinary tract infection N39.0 [facility] [address] [facility] [id number] [address] [place] [address] Feb, [facility] [address] [facility] [id number] [address] [place] [address] Feb, Bony prominence M89.8X9 [facility] [address] [facility] [id number] [address] [place] [address] Nov, Unspecified urinary incontin ence 788.30 ; 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 and Solitary pulmonary nodule 793.11 [facility] [address] [facility] [id number] [address] [place] [address] Nov, [facility] [address] [facility] [id number] [address] [place] [address] Oct, Unspecified urinary incontin ence 788.30 ; 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 and Solitary pulmonary nodule 793.11 [facility] [address] [facility] [id number] [address] [place] [address] Oct, [facility] [address] [facility] [id number] [address] [place] [address] Oct, [facility] [address] [facility] [id number] [address] [place] [phone] September, [facility] [address] [facility] [id number] [address] [place] [address] Aug, [facility] [address] [id number] [address] [place] [phone] Aug, [facility] [address] [facility] [id number] [address] [place] [phone] May, [facility] [address] [facility] [id number] [address] [place] [phone] May, [facility] [address] [facility] [id number] [address] [place] [phone] May, [facility] [address] [id number] [address] [place] [address], [place] [address] May, [facility] [address] [id number] [address] [place] [address], [place] [address] May, [facility] [address] [id number] [address] [place] [address], [place] [address] May, [facility] [address] [id number] [address] [place] [address], [place] [address] Apr, [facility] [address] [id number] [address] [place] [address], [place] [address] Apr, [facility] [address] [id number] [address] [place] [address], [place] [address] Feb, [facility] [address] [id number] [address] [place] [address], [place] [address] Feb, [facility] [address] [id number] [address] [place] [address], [place] [address] Dec, [facility] [address] [id number] [address] [place] [address], [place] [address] Nov, [facility] [address] [id number] [address] [place] [address], [place] [address] Nov, [facility] [address] [id number] [address] [place] [address], [place] [address] Nov, [facility] [address] [id number] [address] [place] [address], [place] [address] Nov, [facility] [address] [id number] [address] [place] [address], [place] [address] Nov, [facility] [address] [id number] [address] [place] [address], [place] [address] Nov, [facility] [address] [id number] [address] [place] [address], [place] [address] September, [facility] [address] [id number] [address] [place] [address], [place] [address] September, [facility] [address] [id number] [address] [place] [address], [place] [address] September, [facility] [address] [id number] [address] [place] [address], [place] [address] Aug, [facility] [address] [id number] [address] [place] [address], [place] [address] Aug, [facility] [address] [id number] [address] [place] [address], [place] [address] Aug, [facility] [address] [id number] [address] [place] [address], [place] [address] Aug, [facility] [address] [id number] [address] [place] [address], [place] [address] Jul, [facility] [address] [id number] [address] [place] [address], [place] [address] Jul, [facility] [address] [id number] [address] [place] [address], [place] [address] Jul, [facility] [address] [id number] [address] [place] [address], [place] [address] May, [facility] [address] [id number] [address] [place] [address], [place] [address] May, [facility] [address] [id number] [address] [place] [address], [place] [address] May, [facility] [address] [id number] [address] [place] [address], [place] [address] May, [facility] [address] [id number] [address] [place] [address], [place] [address] Apr, [facility] [address] [id number] [address] [place] [address], [place] [address] Apr, [facility] [address] [id number] [address] [place] [address], [place] [address] Apr, [facility] [address] [id number] [address] [place] [address], [place] [address] 15 Feb, 2013 [facility] [address] [id number] [address] [place] [address], [place] [address] 15 Feb, 2013 [facility] [address] [id number] [address] [place] [address], [place] [address] 25 Jan, 2013 [facility] [address] [id number] [address] [place] [address], [place] [address] 24 Jan, 2013 [facility] [address] [id number] [address] [place] [address], [place] [address] 18 Jan, 2013 [facility] [address] [id number] [address] [place] [address], [place] [address] 16 Jan, 2013 [facility] [address] [id number] [address] [place] [address], [place] [address] 12 Jan, 2013 [facility] [address] [id number] [address] [place] [address], [place] [address] 11 Jan, 2013 [facility] [address] [id number] [address] [place] [address], [place] [address] 05 Jan, 2013 [facility] [address] [id number] [address] [place] [address], [place] [address] Dec, [facility] [address] [id number] [address] [place] [address], [place] [address] Dec, [facility] [address] [id number] [address] [place] [address], [place] [address] Dec, [facility] [address] [id number] [address] [place] [address], [place] [address] Dec, [facility] [address] [id number] [address] [place] [address], [place] [address] Oct, [facility] [address] [id number] [address] [place] [address], [place] [address] Nov, [facility] [address] [id number] [address] [place] [address], [place] [address] Mar, [facility] [address] [facility] [id number] [address] [address] Feb, [facility] [address] [facility] [id number] [address] [address] Feb, [facility] [address] [facility] [id number] [address] [address] Jul, IMMUNIZATIONS No Known Immunizations SOCIAL HISTORY Never Assessed REASON FOR [place]IT [place] [place] VITAL SIGNS MEDICATIONS Unknown Medications RESULTS No Results PROCEDURES No Known procedures INSTRUCTIONS MEDICATIONS ADMINISTERED No Known Medications MEDICAL (GENERAL) HISTORY Type Description Date Medical History hearing loss Medical History Encopresis seen [facility] with Co lonosocopy 2014 and was told normal Medical History solitary pulmonary nodule LL 08-21-14 [facility] able rec yearly recheck Medical History diverticulitis Medical History Encopresis Medical History Diverticulitis of colon (wit hout mention of hemorrhage) Colonoscopy [facility] 2013 Medical History Solitary pulmonary nodule Surgical History tubal ligation Surgical History Colonoscopy [facility] 2015-10
--- OUTSIDE RECORDS SUMMARY | 2019-12-18 09:48 | XMS REPORT ---
Author Author Josie Álvarez Doctor Organization [facility] Address Unknown Phone Unavailable Care Team Providers Care Patient Observer Name Role Phone Migration, Doctor Unavailable Unavailable PROBLEMS Type Condition ICD9-CM Code JNS24-PL Code Onset Dates Condition S tatus SNOMED Code Problem Hematuria R31.9 Active 43074153 Problem History of solitary pulmonary nodule Z87.898 Active 127332198 Problem Porokeratosis Q82.8 Active 807746 004 Problem Encopresis R15.9 Active 193870728 Problem Bilateral hearing loss, unspecified hearing loss type H91.93 Active 48103294 Problem Neuropathy G62.9 Active 349756690 Problem Hammer toe, unspecified laterality M20.40 Active 571422298 Problem Incontinence of feces, unspecified fecal incontinence type R15.9 Active 29381628 Problem Diarrhea, unspecified type R19.7 Act alexis [id number] ALLERGIES No Information ENCOUNTERS Encounter Location Date Diagnosis [place] [address] [place] [address] Jun, Gastroenteritis K52.9 [place] [address] [place] [id number] [place] [address] May, Bilateral hearing loss, unsp ecified hearing loss type H91.93 and Rib pain R07.81 [place] [address] [place] [id number] [place] [address] Apr, [place] [address] [place] [id number] [place] [address] Apr, Chest wall pain R07.89 and A bdominal pain, unspecified abdominal location R10.9 [place] [address] [place] [id number] [place] [address] 02 Feb, 2018 Annual physical exam Z00.00 and Diarrhea, unspecified type R19.7 [place] [address] [place] [id number] [place] [address] Dec, Encopresis R15.9 and Inconti nence of feces, unspecified fecal incontinence type R15.9 [facility] [address] [facility] [id number] [address] [place] [address] Nov, Urinary tract infection, sit e not specified N39.0 and Hematuria, unspecified R31.9 [place] [address] [place] [address] Oct, [place] [address] [address] Oct, Tick bite, initial encounter W57.XXXA and Incontinence of feces, unspecified fecal incontinence type R15.9 [place] [address] [place] [address] May, Neuropathy G62.9 ; Hammer to e, unspecified laterality M20.40 and Onychomycosis B35.1 [facility] [address] [place] [address] Mar, Dysuria R30.0 [place] [address] [place] [id number] [place] [address] Mar, [place] [address] [place] [id number] [place] [address] Feb, [place] [address] [place] [id number] [place] [address] Dec, Family history of diabetes m ellitus Z83.3 ; Porokeratosis Q82.8 and Neuropathy G62.9 [place] [address] [place] [id number] [place] [address] Oct, Porokeratosis Q82.8 [place] [address] [place] [id number] [place] [address] September, [place] [address] [address] September, Porokeratosis Q82.8 [place] [address] [address] September, [place] [address] [address] Aug, Aphthous ulcer K12.0 ; Denta l caries K02.9 ; Viral gastroenteritis A08.4 and Abscessed tooth K04.7 [place] [address] [address] Jul, Porokeratosis Q82.8 ; Callus of foot L84 and Metatarsalgia of right foot M77.41 [place] [address] [address] 10 Jun, 2016 Porokeratosis Q82.8 and Foot pain, right M79.671 [place] [address] [address] Apr, [place] [address] [address] Apr, Pre-diabetes R73.03 and Plan tar wart, right foot B07.0 [place] [address] [address] Apr, [place] [address] [address] Apr, [place] [address] [address] Mar, [place] [address] [address] Mar, [place] [address] [address] Mar, Hematuria R31.9 and Pre-diab etes R73.03 [place] [address] [place] [address] [place] [address] Feb, [facility] [address] [id number] [address] [place] [address] Feb, [facility] [address] [id number] [address] [place] [address] Feb, Abnormal fasting glucose R73 .01 [facility] [address] [id number] [address] [place] [address] Feb, Abnormal fasting glucose R73 .01 [facility] [address] [id number] [address] [place] [address] Feb, Routine gynecological examin ation Z01.419 ; General medical exam Z00.00 ; Screening breast examination Z12.39 ; Hematuria R31.9 ; Vaginal discharge N89.8 ; Vaginal yeast infection B37.3 and Recurrent UTI N39.0 [facility] [address] [id number] [address] [place] [address] Jan, Recurrent UTI N39.0 and Hist ory of solitary pulmonary nodule Z87.898 [place] [address] [id number] [address] [place] [address] Jan, [facility] [address] [id number] [address] [place] [address] Jan, Recurrent UTI N39.0 ; Hematu vasu R31.9 and History of solitary pulmonary nodule Z87.898 [facility] [address] [id number] [address] [place] [address] Jan, [facility] [address] [id number] [address] [place] [address] Jan, Recurrent UTI N39.0 [facility] [address] [id number] [address] [place] [address] Dec, [facility] [address] [id number] [address] [place] [address] Dec, [facility] [address] [id number] [address] [place] [address] Dec, Acute cystitis with hematuri a N30.01 [facility] [address] [facility] [id number] [address] [place] [address] Dec, Acute cystitis with hematuri a N30.01 [facility] [address] [facility] [id number] [address] [place] [address] Dec, Acute cystitis with hematuri a N30.01 and Insect bite (nonvenomous) of left upper arm, initial encounter S40.862A [place] [address] [id number] [address] [place] [address] Nov, Acute cystitis with hematuri a N30.01 and Insect bite (nonvenomous) of left upper arm, initial encounter S40.862A [place] [address] [facility] [id number] [address] [place] [address] September, [facility] [address] [id number] [address] [place] [address] September, [facility] [address] [facility] [id number] [address] [place] [address] September, Acute cystitis with hematuri a N30.01 and Family history of diabetes mellitus Z83.3 [facility] [address] [facility] [id number] [address] [place] [address] September, Family history of diabetes m ellitus Z83.3 [facility] [address] [id number] [address] [place] [address] September, Acute cystitis with hematuri a N30.01 [facility] [address] [facility] [id number] [address] [place] [address] September, [facility] [address] [facility] [id number] [address] [place] [address] September, Acute cystitis with hematuri a N30.01 [facility] [address] [facility] [id number] [address] [place] [address] May, Back pain M54.9 and Urinary tract infection N39.0 [facility] [address] [facility] [id number] [address] [place] [address] Feb, [facility] [address] [facility] [id number] [address] [place] [address] Feb, Bony prominence M89.8X9 [facility] [address] [facility] [id number] [address] [place] [address] Nov, Unspecified urinary incontin ence 788.30 ; 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 and Solitary pulmonary nodule 793.11 [facility] [address] [facility] [id number] [address] [place] [address] Nov, [facility] [address] [facility] [id number] [address] [place] [address] Oct, Unspecified urinary incontin ence 788.30 ; 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 and Solitary pulmonary nodule 793.11 [facility] [address] [facility] [id number] [address] [place] [address] Oct, [facility] [address] [facility] [id number] [address] [place] [address] Oct, [facility] [address] [facility] [id number] [address] [place] [address] September, [facility] [address] [facility] [id number] [address] [place] [address] Aug, [facility] [address] [id number] [address] [place] [address] Aug, [facility] [address] [facility] [id number] [address] [place] [address] May, [facility] [address] [facility] [id number] [address] [place] [address] May, [facility] [address] [facility] [id number] [address] [place] [address] May, [facility] [address] [id number] [address] [place] [address], [place] [address] May, [facility] [address] [id number] [address] [place] [address], [place] [address] May, [facility] [address] [id number] [address] [place] [address], [place] [address] May, [facility] [address] [id number] [address] [place] [address], [place] [address] Apr, [facility] [address] [id number] [address] [place] [address], [place] [address] Apr, [facility] [address] [id number] [address] [place] [address], [place] [address] Feb, [facility] [address] [id number] [address] [place] [address], [place] [address] Feb, [facility] [address] [id number] [address] [place] [address], [place] [address] Dec, [facility] [address] [id number] [address] [place] [address], [place] [address] Nov, [facility] [address] [id number] [address] [place] [address], [place] [address] Nov, [facility] [address] [id number] [address] [place] [address], [place] [address] Nov, [facility] [address] [id number] [address] [place] [address], [place] [address] Nov, [facility] [address] [id number] [address] [place] [address], [place] [address] Nov, [facility] [address] [id number] [address] [place] [address], [place] [address] Nov, [facility] [address] [id number] [address] [place] [address], [place] [address] September, [facility] [address] [id number] [address] [place] [address], [place] [address] September, [facility] [address] [id number] [address] [place] [address], [place] [address] September, [facility] [address] [id number] [address] [place] [address], [place] [address] Aug, [facility] [address] [id number] [address] [place] [address], [place] [address] Aug, [facility] [address] [id number] [address] [place] [address], [place] [address] Aug, [facility] [address] [id number] [address] [place] [address], [place] [address] Aug, [facility] [address] [id number] [address] [place] [address], [place] [address] Jul, [facility] [address] [id number] [address] [place] [address], [place] [address] Jul, [facility] [address] [id number] [address] [place] [address], [place] [address] Jul, [facility] [address] [id number] [address] [place] [address], [place] [address] May, [facility] [address] [id number] [address] [place] [address], [place] [address] May, [facility] [address] [id number] [address] [place] [address], [place] [address] May, [facility] [address] [id number] [address] [place] [address], [place] [address] May, [facility] [address] [id number] [address] [place] [address], [place] [address] Apr, [facility] [address] [id number] [address] [place] [address], [place] [address] Apr, [facility] [address] [id number] [address] [place] [address], [place] [address] Apr, [facility] [address] [id number] [address] [place] [address], [place] [address] 15 Feb, 2013 [facility] [address] [id number] [address] [place] [address], [place] [address] 15 Feb, 2013 [facility] [address] [id number] [address] [place] [address], [place] [address] 25 Jan, 2013 [facility] [address] [id number] [address] [place] [address], [place] [address] 24 Jan, 2013 [facility] [address] [id number] [address] [place] [address], [place] [address] 18 Jan, 2013 [facility] [address] [id number] [address] [place] [address], [place] [address] 16 Jan, 2013 [facility] [address] [id number] [address] [place] [address], [place] [address] 12 Jan, 2013 [facility] [address] [id number] [address] [place] [address], [place] [address] 11 Jan, 2013 [facility] [address] [id number] [address] [place] [address], [place] [address] 05 Jan, 2013 [facility] [address] [id number] [address] [place] [address], [place] [address] Dec, [facility] [address] [id number] [address] [place] [address], [place] [address] Dec, [facility] [address] [id number] [address] [place] [address], [place] [address] Dec, [facility] [address] [id number] [address] [place] [address], [place] [address] Dec, [facility] [address] [id number] [address] [place] [address], [place] [address] Oct, [facility] [address] [id number] [address] [place] [address], [place] [address] Nov, [facility] [address] [id number] [address] [place] [address], [place] [address] Mar, [facility] [address] [facility] [id number] [address] [place] [address] Feb, [facility] [address] [facility] [id number] [address] [place] [address] Feb, [facility] [address] [facility] [id number] [address] [place] [address] Jul, IMMUNIZATIONS No Known Immunizations SOCIAL HISTORY Never Assessed REASON FOR VISIT EMR-[facility] PLAN OF CARE VITAL SIGNS MEDICATIONS Unknown Medications RESULTS No Results PROCEDURES No Known procedures INSTRUCTIONS MEDICATIONS ADMINISTERED No Known Medications MEDICAL (GENERAL) HISTORY Type Description Date Medical History hearing loss Medical History Encopresis seen [facility] with Co lonosocopy 2014 and was told normal Medical History solitary pulmonary nodule LL 08-21-[facility] yearly recheck Medical History diverticulitis Medical History Encopresis Medical History Diverticulitis of colon (wit hout mention of hemorrhage) Colonoscopy [facility] 2013 Medical History Solitary pulmonary nodule Surgical History tubal ligation Surgical History Colonoscopy [facility] 2015-10
--- OUTSIDE RECORDS SUMMARY | 2019-12-18 09:48 | XMS REPORT ---
Author Author Josie Álvarez Doctor Organization [facility] Address Unknown Phone Unavailable Care Team Providers Care Community Engagement Coordinator Name Role Phone Migration, Doctor Unavailable Unavailable PROBLEMS Type Condition ICD9-CM Code [id number] Code Onset Dates Condition S tatus SNOMED Code Problem Hematuria R31.9 Active 72289214 Problem History of solitary pulmonary nodule Z87.898 Active 143642396 Problem Porokeratosis Q82.8 Active 961320 004 Problem Encopresis R15.9 Active 210084047 Problem Bilateral hearing loss, unspecified hearing loss type H91.93 Active 97760886 Problem Neuropathy G62.9 Active 492690864 Problem Hammer toe, unspecified laterality M20.40 Active 970245409 Problem Incontinence of feces, unspecified fecal incontinence type R15.9 Active 47756370 Problem Diarrhea, unspecified type R19.7 Act alexis 91241232 ALLERGIES No Information ENCOUNTERS Encounter Location Date Diagnosis [facility] [id number] [place] [address] September, Acute cystitis with hematuri a N30.01 [place] [id number] [place] [address] Jun, Gastroenteritis K52.9 [facility] [address] [id number] [address] [place] [address] May, Bilateral hearing loss, unsp ecified hearing loss type H91.93 and Rib pain R07.81 [place] [id number] [place] [address] Apr, [facility] [id number] [place] [phone] Apr, Chest wall pain R07.89 and A bdominal pain, unspecified abdominal location R10.9 [facility] [address] [place] [address] Feb, Annual physical exam Z00.00 and Diarrhea, unspecified type R19.7 [place] [address] [address] Dec, Encopresis R15.9 and Inconti nence of feces, unspecified fecal incontinence type R15.9 [facility] [address] [address] Nov, Urinary tract infection, sit e not specified N39.0 and Hematuria, unspecified R31.9 [place] [address] [address] Oct, [place] [address] [address] Oct, Tick bite, initial encounter W57.XXXA and Incontinence of feces, unspecified fecal incontinence type R15.9 [place] [id number] [place] [address] May, Neuropathy G62.9 ; Hammer to e, unspecified laterality M20.40 and Onychomycosis B35.1 [place] [id number] [place] [address] Mar, Dysuria R30.0 [place] [address] [address] Mar, [place] [address] [address] Feb, [place] [address] [address] Dec, Family history of diabetes m ellitus Z83.3 ; Porokeratosis Q82.8 and Neuropathy G62.9 [place] [id number] [place] [address] Oct, Porokeratosis Q82.8 [place] [id number] [place] [address] September, [facility] [address] [address] September, Porokeratosis Q82.8 [facility] [id number] [place] [address] September, [facility] [address] [address] Aug, Aphthous ulcer K12.0 ; Denta l caries K02.9 ; Viral gastroenteritis A08.4 and Abscessed tooth K04.7 [place] [id number] [place] [address] Jul, Porokeratosis Q82.8 ; Callus of foot L84 and Metatarsalgia of right foot M77.41 [place] [address] [address] Jun, Porokeratosis Q82.8 and Foot pain, right M79.671 [place] [address] [address] Apr, [place] [address] [address] Apr, Pre-diabetes R73.03 and Plan tar wart, right foot B07.0 [place] [id number] [place] [address] Apr, [place] [id number] [place] [address] Apr, [place] [address] [address] Mar, [place] [id number] [place] [address] Mar, [place] [address] [place] [address] Mar, Hematuria R31.9 and Pre-diab etes R73.03 [facility] [address] [id number] [address] [place] [address] Feb, [facility] [address] [id number] [address] [place] [address] Feb, [facility] [address] [id number] [address] [place] [address] Feb, Abnormal fasting glucose R73 .01 [place] [address] [id number] [address] [place] [address] Feb, Abnormal fasting glucose R73 .01 [place] [address] [facility] [id number] [address] [place] [address] Feb, Routine gynecological examin ation Z01.419 ; General medical exam Z00.00 ; Screening breast examination Z12.39 ; Hematuria R31.9 ; Vaginal discharge N89.8 ; Vaginal yeast infection B37.3 and Recurrent UTI N39.0 [facility] [address] [id number] [address] [place] [address] Jan, Recurrent UTI N39.0 and Hist ory of solitary pulmonary nodule Z87.898 [place] [address] [facility] [id number] [address] [place] [address] Jan, [facility] [address] [facility] [id number] [address] [place] [address] Jan, Recurrent UTI N39.0 ; Hematu vasu R31.9 and History of solitary pulmonary nodule Z87.898 [facility] [address] [id number] [address] [place] [address] Jan, [place] [address] [facility] [id number] [address] [place] [address] Jan, Recurrent UTI N39.0 [place] [address] [facility] [id number] [address] [place] [address] Dec, [facility] [address] [id number] [address] [place] [address] Dec, [facility] [address] [id number] [address] [place] [address] Dec, Acute cystitis with hematuri a N30.01 [facility] [address] [facility] [id number] [address] [place] [address] Dec, Acute cystitis with hematuri a N30.01 [facility] [address] [id number] [address] [place] [address] Dec, Acute cystitis with hematuri a N30.01 and Insect bite (nonvenomous) of left upper arm, initial encounter S40.862A [facility] [address] [facility] [id number] [address] [place] [address] Nov, Acute cystitis with hematuri a N30.01 and Insect bite (nonvenomous) of left upper arm, initial encounter S40.862A [facility] [address] [facility] [id number] [address] [place] [address] September, [facility] [address] [facility] [id number] [address] [place] [address] September, [facility] [address] [facility] [id number] [address] [place] [address] September, Acute cystitis with hematuri a N30.01 and Family history of diabetes mellitus Z83.3 [facility] [address] [facility] [id number] [address] [place] [address] September, Family history of diabetes m ellitus Z83.3 [facility] [address] [facility] [id number] [address] [place] [address] September, Acute cystitis with hematuri a N30.01 [facility] [address] [facility] [id number] [address] [place] [address] September, [facility] [address] [facility] [id number] [address] [place] [address] September, Acute cystitis with hematuri a N30.01 [facility] [address] [facility] [id number] [address] [place] [address] May, Back pain M54.9 and Urinary tract infection N39.0 [facility] [id number] [place] [address] Feb, [facility] [address] [id number] [place] [address] Feb, Bony prominence M89.8X9 [facility] [id number] [place] [address] Nov, Unspecified urinary incontin ence 788.30 ; 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 and Solitary pulmonary nodule 793.11 [facility] [id number] [place] [address] Nov, [facility] [id number] [address] [place] [address] Oct, Unspecified urinary incontin ence 788.30 ; 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 and Solitary pulmonary nodule 793.11 [facility] [id number] [place] [address] Oct, [facility] [address] [id number] [address] [place] [address] Oct, [facility] [address] [id number] [address] [place] [address] September, [facility] [address] [id number] [address] [place] [address] Aug, [facility] [address] [id number] [address] [place] [address] Aug, [facility] [address] [id number] [place] [phone] May, [facility] [address] [id number] [address] [place] [address], [place] [address] 16 May, 2014 [facility] [address] [id number] [address] [place] [address], [place] [address] May, [facility] [address] [id number] [address] [place] [address], [place] [address] May, [facility] [address] [id number] [address] [place] [address], [place] [address] May, [facility] [address] [id number] [address] [place] [address], [place] [address] May, [facility] [address] [id number] [address] [place] [address], [place] [address] Apr, [facility] [address] [id number] [address] [place] [address], [place] [address] Apr, [facility] [address] [id number] [address] [place] [address], [place] [address] Feb, [facility] [address] [id number] [address] [place] [address], [place] [address] Feb, [facility] [address] [id number] [address] [place] [address], [place] [address] Dec, [facility] [address] [id number] [address] [place] [address], [place] [address] Nov, [facility] [place] [facility] [address] [id number] [address] [place] [address], [place] [address] Nov, [facility] [place] [facility] [address] [id number] [address] [place] [address], [place] [address] Nov, [facility] [place] [facility] [address] [id number] [address] [place] [address], [place] [address] Nov, [facility] [place] [facility] [address] [id number] [address] [place] [address], [place] [address] Nov, [facility] [place] [facility] [address] [id number] [address] [place] [address], [place] [address] Nov, [facility] [place] [facility] [address] [id number] [address] [place] [address], [place] [address] September, [facility] [address] [id number] [address] [place] [address], [place] [address] September, [facility] [address] [id number] [address] [place] [address], [place] [address] September, [facility] [address] [id number] [address] [place] [address], [place] [address] Aug, [facility] [address] [id number] [address] [place] [address], [place] [address] Aug, [facility] [address] [id number] [address] [place] [address], [place] [address] Aug, [facility] [address] [id number] [address] [place] [address], [place] [address] Aug, [facility] [address] [id number] [address] [place] [address], [place] [address] Jul, [facility] [address] [id number] [address] [place] [address], [place] [address] Jul, [facility] [address] [id number] [address] [place] [address], [place] [address] Jul, [facility] [address] [id number] [address] [place] [address], [place] [address] May, [facility] [address] [id number] [address] [place] [address], [place] [address] May, [facility] [address] [id number] [address] [place] [address], [place] [address] May, [facility] [address] [id number] [address] [place] [address], [place] [address] May, [facility] [address] [id number] [address] [place] [address], [place] [address] Apr, [facility] [address] [id number] [address] [place] [address], [place] [address] Apr, [facility] [address] [id number] [address] [place] [address], [place] [address] 04 Apr, 2013 [facility] [address] [id number] [address] [place] [address], [place] [address] 15 Feb, 2013 [facility] [address] [id number] [address] [place] [address], [place] [address] 15 Feb, 2013 [facility] [address] [id number] [address] [place] [address], [place] [address] 25 Jan, 2013 [facility] [address] [id number] [address] [place] [address], [place] [address] 24 Jan, 2013 [facility] [address] [id number] [address] [place] [address], [place] [address] 18 Jan, 2013 [facility] [address] [id number] [address] [place] [address], [place] [address] 16 Jan, 2013 [facility] [address] [id number] [address] [place] [address], [place] [address] 12 Jan, 2013 [facility] [address] [id number] [address] [place] [address], [place] [address] 11 Jan, 2013 [facility] [address] [id number] [address] [place] [address], [place] [address] 05 Jan, 2013 [facility] [address] [id number] [address] [place] [address], [place] [address] Dec, [facility] [place] [facility] [address] [id number] [address] [place] [address] 15 Dec, 2012 [facility] [address] [id number] [address] [place] [address], [place] [address] Dec, [facility] [place] [facility] [address] [id number] [address] [place] [address], [place] [address] Dec, [facility] [address] [id number] [address] [place] [address], [place] [address] Oct, [facility] [address] [id number] [address] [place] [address] Nov, [facility] [address] [facility] [id number] [address] [place] [address] Mar, [facility] [address] [facility] [id number] [address] [place] [address] Feb, [facility] [address] [facility] [id number] [address] [place] [phone] Feb, [facility] [address] [facility] [id number] [address] [place] [address] Jul, IMMUNIZATIONS No Known Immunizations SOCIAL HISTORY Never Assessed REASON FOR VISIT [place] [place] VITAL SIGNS MEDICATIONS No Known Medications RESULTS No Results PROCEDURES No Known procedures INSTRUCTIONS MEDICATIONS ADMINISTERED No Known Medications MEDICAL (GENERAL) HISTORY Type Description Date Medical History hearing loss Medical History Encopresis seen [facility] with Co lonosocopy 2014 and was told normal Medical History solitary pulmonary nodule LLL 08-21-[facility] yearly recheck Medical History diverticulitis Medical History Encopresis Medical History Diverticulitis of colon (wit hout mention of hemorrhage) Colonoscopy [facility] 2013 Medical History Solitary pulmonary nodule Surgical History tubal ligation Surgical History Colonoscopy [facility] 2015- Surgical History cataract surgery 2019
--- OUTSIDE RECORDS SUMMARY | 2019-12-18 09:48 | XMS REPORT ---
Author Author Josie Álvarez Doctor Organization [facility] Address Unknown Phone Unavailable Care Team Providers Care Rural Mail [employer]or Name Role Phone Migration, Doctor Unavailable Unavailable PROBLEMS Type Condition ICD9-CM Code [id number] Code Onset Dates Condition S tatus SNOMED Code Problem Hematuria R31.9 Active 33452189 Problem History of solitary pulmonary nodule Z87.898 Active 236651535 Problem Porokeratosis Q82.8 Active 990085 004 Problem Encopresis R15.9 Active 635989695 Problem Bilateral hearing loss, unspecified hearing loss type H91.93 Active 75887096 Problem Neuropathy G62.9 Active 715471733 Problem Hammer toe, unspecified laterality M20.40 Active 848286690 Problem Incontinence of feces, unspecified fecal incontinence type R15.9 Active 70672218 Problem Diarrhea, unspecified type R19.7 Act alexis [id number] ALLERGIES No Information ENCOUNTERS Encounter Location Date Diagnosis [place] [address] [place] [address] Jun, Gastroenteritis K52.9 [place] [address] [address] [place] [id number] [address] [place] [address] May, Bilateral hearing loss, unsp ecified hearing loss type H91.93 and Rib pain R07.81 [place] [address] [address] [place] [id number] [address] [place] [address] Apr, [place] [address] [address] [place] [id number] [address] [place] [address] Apr, Chest wall pain R07.89 and A bdominal pain, unspecified abdominal location R10.9 [place] [address] [address] [place] [id number] [address] [place] [address] 02 Feb, 2018 Annual physical exam Z00.00 and Diarrhea, unspecified type R19.7 [place] [address] [address] [place] [id number] [address] [place] [address] Dec, Encopresis R15.9 and Inconti nence of feces, unspecified fecal incontinence type R15.9 [facility] [address] [facility] [id number] [address] [place] [address] Nov, Urinary tract infection, sit e not specified N39.0 and Hematuria, unspecified R31.9 [place] [address] [place] [address] Oct, [place] [address] [address] Oct, Tick bite, initial encounter W57.XXXA and Incontinence of feces, unspecified fecal incontinence type R15.9 [place] [address] [place] [address] May, Neuropathy G62.9 ; Hammer to e, unspecified laterality M20.40 and Onychomycosis B35.1 [facility] [address] [place] [address] Mar, Dysuria R30.0 [place] [address] [address] [place] [id number] [address] [place] [address] Mar, [place] [address] [address] [place] [id number] [address] [place] [address] Feb, [place] [address] [address] [place] [id number] [address] [place] [address] Dec, Family history of diabetes m ellitus Z83.3 ; Porokeratosis Q82.8 and Neuropathy G62.9 [place] [address] [address] [place] [id number] [place] [address] Oct, Porokeratosis Q82.8 [place] [address] [address] [place] [id number] [address] [place] [address] September, [place] [address] [address] September, Porokeratosis Q82.8 [place] [address] [address] September, [place] [address] [address] Aug, Aphthous ulcer K12.0 ; Denta l caries K02.9 ; Viral gastroenteritis A08.4 and Abscessed tooth K04.7 [place] [address] [address] Jul, Porokeratosis Q82.8 ; Callus of foot L84 and Metatarsalgia of right foot M77.41 [place] [address] [address] 10 Jun, 2016 Porokeratosis Q82.8 and Foot pain, right M79.671 [place] [address] [address] Apr, [place] [address] [address] Apr, Pre-diabetes R73.03 and Plan tar wart, right foot B07.0 [place] [address] [address] Apr, [place] [address] [address] Apr, [place] [address] [address] Mar, [place] [address] [address] Mar, [place] [address] [address] Mar, Hematuria R31.9 and Pre-diab etes R73.03 [place] [address] [address] [place] [address] [place] [address] Feb, [facility] [address] [id number] [address] [place] [address] Feb, [facility] [address] [id number] [address] [place] [address] Feb, Abnormal fasting glucose R73 .01 [facility] [address] [id number] [address] [place] [address] Feb, Abnormal fasting glucose R73 .01 [facility] [address] [id number] [address] [place] [address] Feb, Routine gynecological examin ation Z01.419 ; General medical exam Z00.00 ; Screening breast examination Z12.39 ; Hematuria R31.9 ; Vaginal discharge N89.8 ; Vaginal yeast infection B37.3 and Recurrent UTI N39.0 [facility] [address] [id number] [address] [place] [address] Jan, Recurrent UTI N39.0 and Hist ory of solitary pulmonary nodule Z87.898 [place] [address] [id number] [address] [place] [address] Jan, [facility] [address] [id number] [address] [place] [address] Jan, Recurrent UTI N39.0 ; Hematu vasu R31.9 and History of solitary pulmonary nodule Z87.898 [facility] [address] [id number] [address] [place] [address] Jan, [facility] [address] [id number] [address] [place] [address] Jan, Recurrent UTI N39.0 [facility] [address] [id number] [address] [place] [address] Dec, [facility] [address] [id number] [address] [place] [address] Dec, [facility] [address] [id number] [address] [place] [address] Dec, Acute cystitis with hematuri a N30.01 [facility] [address] [facility] [id number] [address] [place] [address] Dec, Acute cystitis with hematuri a N30.01 [facility] [address] [facility] [id number] [address] [place] [address] Dec, Acute cystitis with hematuri a N30.01 and Insect bite (nonvenomous) of left upper arm, initial encounter S40.862A [place] [address] [id number] [address] [place] [address] Nov, Acute cystitis with hematuri a N30.01 and Insect bite (nonvenomous) of left upper arm, initial encounter S40.862A [place] [address] [facility] [id number] [address] [place] [address] September, [facility] [address] [id number] [address] [place] [address] September, [facility] [address] [facility] [id number] [address] [place] [address] September, Acute cystitis with hematuri a N30.01 and Family history of diabetes mellitus Z83.3 [facility] [address] [facility] [id number] [address] [place] [address] September, Family history of diabetes m ellitus Z83.3 [facility] [address] [id number] [address] [place] [address] September, Acute cystitis with hematuri a N30.01 [facility] [address] [facility] [id number] [address] [place] [address] September, [facility] [address] [facility] [id number] [address] [place] [address] September, Acute cystitis with hematuri a N30.01 [facility] [address] [facility] [id number] [address] [place] [address] May, Back pain M54.9 and Urinary tract infection N39.0 [facility] [address] [facility] [id number] [address] [place] [address] Feb, [facility] [address] [facility] [id number] [address] [place] [address] Feb, Bony prominence M89.8X9 [facility] [address] [facility] [id number] [address] [place] [address] Nov, Unspecified urinary incontin ence 788.30 ; 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 and Solitary pulmonary nodule 793.11 [facility] [address] [facility] [id number] [address] [place] [address] Nov, [facility] [address] [facility] [id number] [address] [place] [address] Oct, Unspecified urinary incontin ence 788.30 ; 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 and Solitary pulmonary nodule 793.11 [facility] [address] [facility] [id number] [address] [place] [address] Oct, [facility] [address] [facility] [id number] [address] [place] [address] Oct, [facility] [address] [facility] [id number] [address] [place] [address] September, [facility] [address] [facility] [id number] [address] [place] [address] Aug, [facility] [address] [id number] [address] [place] [address] Aug, [facility] [address] [facility] [id number] [address] [place] [address] May, [facility] [address] [facility] [id number] [address] [place] [address] May, [facility] [address] [facility] [id number] [address] [place] [address] May, [facility] [address] [id number] [address] [place] [address], [place] [address] May, [facility] [address] [id number] [address] [place] [address], [place] [address] May, [facility] [address] [id number] [address] [place] [address], [place] [address] May, [facility] [address] [id number] [address] [place] [address], [place] [address] Apr, [facility] [address] [id number] [address] [place] [address], [place] [address] Apr, [facility] [address] [id number] [address] [place] [address], [place] [address] Feb, [facility] [address] [id number] [address] [place] [address], [place] [address] Feb, [facility] [address] [id number] [address] [place] [address], [place] [address] Dec, [facility] [address] [id number] [address] [place] [address], [place] [address] Nov, [facility] [address] [id number] [address] [place] [address], [place] [address] Nov, [facility] [address] [id number] [address] [place] [address], [place] [address] Nov, [facility] [address] [id number] [address] [place] [address], [place] [address] Nov, [facility] [address] [id number] [address] [place] [address], [place] [address] Nov, [facility] [address] [id number] [address] [place] [address], [place] [address] Nov, [facility] [address] [id number] [address] [place] [address], [place] [address] September, [facility] [address] [id number] [address] [address], [place] [address] September, [facility] [address] [id number] [address] [place] [address], [place] [address] September, [facility] [address] [id number] [address] [place] [address], [place] [address] Aug, [facility] [address] [id number] [address] [address], [place] [address] Aug, [facility] [address] [id number] [address] [address], [place] [address] Aug, [facility] [address] [id number] [address] [address], [place] [address] Aug, [facility] [address] [id number] [address] [address], [place] [address] Jul, [facility] [address] [id number] [address] [place] [address], [place] [address] Jul, [facility] [address] [id number] [address] [place] [address], [place] [address] Jul, [facility] [address] [id number] [address] [address], [place] [address] May, [facility] [address] [id number] [address] [place] [address], [place] [address] May, [facility] [address] [id number] [address] [address], [place] [address] May, [facility] [address] [id number] [address] [place] [address], [place] [address] May, [facility] [address] [id number] [address] [address], [place] [address] Apr, [facility] [address] [id number] [address] [address], [place] [address] Apr, [facility] [address] [id number] [address] [address], [place] [address] Apr, [facility] [address] [id number] [address] [address], [place] [address] 15 Feb, 2013 [facility] [address] [id number] [address] [address], [place] [address] 15 Feb, 2013 [facility] [address] [id number] [address] [address], [place] [address] 25 Jan, 2013 [facility] [address] [id number] [address] [address], [place] [address] 24 Jan, 2013 [facility] [address] [id number] [address] [address], [place] [address] 18 Jan, 2013 [facility] [address] [id number] [address] [address], [place] [address] 16 Jan, 2013 [facility] [address] [id number] [address] [address], [place] [address] 12 Jan, 2013 [facility] [address] [id number] [address] [place] [address], [place] [address] 11 Jan, 2013 [facility] [address] [id number] [address] [address], [place] [address] 05 Jan, 2013 [facility] [address] [id number] [address] [place] [address], [place] [address] Dec, [facility] [address] [id number] [address] [address], [place] [address] Dec, [facility] [address] [id number] [address] [address], [place] [address] Dec, [facility] [address] [id number] [address] [place] [address], [place] [address] Dec, [facility] [address] [id number] [address] [place] [address], [place] [address] Oct, [facility] [address] [id number] [address] [place] [address], [place] [address] Nov, [facility] [address] [id number] [address] [place] [address], [place] [address] Mar, [facility] [address] [facility] [id number] [address] [address] Feb, [facility] [address] [facility] [id number] [address] [place] [address] Feb, [facility] [address] [facility] [id number] [address] [address] Jul, IMMUNIZATIONS No Known Immunizations SOCIAL HISTORY Never Assessed REASON FOR VISIT EMR-[facility] PLAN OF CARE VITAL SIGNS MEDICATIONS Unknown Medications RESULTS No Results PROCEDURES No Known procedures INSTRUCTIONS MEDICATIONS ADMINISTERED No Known Medications MEDICAL (GENERAL) HISTORY Type Description Date Medical History hearing loss Medical History Encopresis seen [facility] with Co lonosocopy 2014 and was told normal Medical History solitary pulmonary nodule LL 08-21-14 [facility] yearly recheck Medical History diverticulitis Medical History Encopresis Medical History Diverticulitis of colon (wit hout mention of hemorrhage) Colonoscopy [facility] 2013 Medical History Solitary pulmonary nodule Surgical History tubal ligation Surgical History Colonoscopy [facility] 2015-10
--- OUTSIDE RECORDS SUMMARY | 2019-12-18 09:48 | XMS REPORT ---
Author Author Josie Álvarez Doctor Organization [facility] Address Unknown Phone Unavailable Care Team Providers Care Farmworker Name Role Phone Migration, Doctor Unavailable Unavailable PROBLEMS Type Condition ICD9-CM Code GXR87-VE Code Onset Dates Condition S tatus SNOMED Code Problem Hematuria R31.9 Active 84321627 Problem History of solitary pulmonary nodule Z87.898 Active 470337854 Problem Porokeratosis Q82.8 Active 878951 004 Problem Encopresis R15.9 Active 305799935 Problem Bilateral hearing loss, unspecified hearing loss type H91.93 Active 88773779 Problem Neuropathy G62.9 Active 589139643 Problem Hammer toe, unspecified laterality M20.40 Active 971878989 Problem Incontinence of feces, unspecified fecal incontinence type R15.9 Active 57033711 Problem Diarrhea, unspecified type R19.7 Act alexis 19994922 ALLERGIES No Information ENCOUNTERS Encounter Location Date Diagnosis [place] [address] [address] Jun, Gastroenteritis K52.9 [place] [address] [place] [id number] [address] [address] May, Bilateral hearing loss, unsp ecified hearing loss type H91.93 and Rib pain R07.81 [place] [address] [place] [id number] [address] [address] Apr, [place] [address] [address] [place] [id number] [address] [address] Apr, Chest wall pain R07.89 and A bdominal pain, unspecified abdominal location R10.9 [place] [address] [place] [id number] [address] 02 Feb, 2018 Annual physical exam Z00.00 and Diarrhea, unspecified type R19.7 [place] [address] [place] [id number] [address] [address] Dec, Encopresis R15.9 and Inconti nence of feces, unspecified fecal incontinence type R15.9 [facility] [address] [facility] [id number] [address] [address] Nov, Urinary tract infection, sit e not specified N39.0 and Hematuria, unspecified R31.9 [place] [address] [address] Oct, [place] [address] [address] Oct, Tick bite, initial encounter W57.XXXA and Incontinence of feces, unspecified fecal incontinence type R15.9 [place] [address] [address] May, Neuropathy G62.9 ; Hammer to e, unspecified laterality M20.40 and Onychomycosis B35.1 [facility] [address] [address] Mar, Dysuria R30.0 [place] [address] [place] [id number] [address] [address] Mar, [place] [address] [place] [id number] [address] [address] Feb, [place] [address] [place] [id number] [address] [address] Dec, Family history of diabetes m ellitus Z83.3 ; Porokeratosis Q82.8 and Neuropathy G62.9 [place] [address] [place] [id number] [address] Oct, Porokeratosis Q82.8 [place] [address] [place] [id number] [address] September, [place] [address] [address] September, Porokeratosis Q82.8 [place] [address] [address] September, [place] [address] [address] Aug, Aphthous ulcer K12.0 ; Denta l caries K02.9 ; Viral gastroenteritis A08.4 and Abscessed tooth K04.7 [place] [address] [address] Jul, Porokeratosis Q82.8 ; Callus of foot L84 and Metatarsalgia of right foot M77.41 [place] [address] [address] 10 Jun, 2016 Porokeratosis Q82.8 and Foot pain, right M79.671 [place] [address] [address] Apr, [place] [address] [address] Apr, Pre-diabetes R73.03 and Plan tar wart, right foot B07.0 [place] [address] [address] Apr, [place] [address] [address] Apr, [place] [address] [address] Mar, [place] [address] [address] Mar, [place] [address] [address] Mar, Hematuria R31.9 and Pre-diab etes R73.03 [place] [address] [place] [id number] [address] Feb, [facility] [address] [id number] [address] [address] Feb, [facility] [address] [id number] [address] [address] Feb, Abnormal fasting glucose R73 .01 [facility] [address] [id number] [address] [address] Feb, Abnormal fasting glucose R73 .01 [facility] [address] [id number] [address] [address] Feb, Routine gynecological examin ation Z01.419 ; General medical exam Z00.00 ; Screening breast examination Z12.39 ; Hematuria R31.9 ; Vaginal discharge N89.8 ; Vaginal yeast infection B37.3 and Recurrent UTI N39.0 [facility] [address] [id number] [address] [address] Jan, Recurrent UTI N39.0 and Hist ory of solitary pulmonary nodule Z87.898 [place] [address] [id number] [address] [address] Jan, [facility] [address] [id number] [address] [address] Jan, Recurrent UTI N39.0 ; Hematu vasu R31.9 and History of solitary pulmonary nodule Z87.898 [facility] [address] [id number] [address] [address] Jan, [facility] [address] [id number] [address] [address] Jan, Recurrent UTI N39.0 [facility] [address] [id number] [address] [address] Dec, [facility] [address] [id number] [address] [address] Dec, [facility] [address] [id number] [address] [address] Dec, Acute cystitis with hematuri a N30.01 [facility] [address] [facility] [id number] [address] [address] Dec, Acute cystitis with hematuri a N30.01 [facility] [address] [facility] [id number] [address] [address] Dec, Acute cystitis with hematuri a N30.01 and Insect bite (nonvenomous) of left upper arm, initial encounter S40.862A [place] [address] [id number] [address] [place] [address] Nov, Acute cystitis with hematuri a N30.01 and Insect bite (nonvenomous) of left upper arm, initial encounter S40.862A [place] [address] [facility] [id number] [address] [address] September, [facility] [address] [id number] [address] [address] September, [facility] [address] [facility] [id number] [address] [address] September, Acute cystitis with hematuri a N30.01 and Family history of diabetes mellitus Z83.3 [facility] [address] [facility] [id number] [address] [address] September, Family history of diabetes m ellitus Z83.3 [facility] [address] [id number] [address] [address] September, Acute cystitis with hematuri a N30.01 [facility] [address] [facility] [id number] [address] [address] September, [facility] [address] [facility] [id number] [address] [address] September, Acute cystitis with hematuri a N30.01 [facility] [address] [facility] [id number] [address] [address] May, Back pain M54.9 and Urinary tract infection N39.0 [facility] [address] [facility] [id number] [address] [address] Feb, [facility] [address] [facility] [id number] [address] [address] Feb, Bony prominence M89.8X9 [facility] [address] [facility] [id number] [address] [address] Nov, Unspecified urinary incontin ence 788.30 ; 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 and Solitary pulmonary nodule 793.11 [facility] [address] [facility] [id number] [address] [address] Nov, [facility] [address] [facility] [id number] [address] [address] Oct, Unspecified urinary incontin ence 788.30 ; 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 and Solitary pulmonary nodule 793.11 [facility] [address] [facility] [id number] [address] [address] Oct, [facility] [address] [facility] [id number] [address] [address] Oct, [facility] [address] [facility] [id number] [address] [address] September, [facility] [address] [facility] [id number] [address] [address] Aug, [facility] [address] [id number] [address] [address] Aug, [facility] [address] [facility] [id number] [address] [address] May, [facility] [address] [facility] [id number] [address] [address] May, [facility] [address] [facility] [id number] [address] [address] May, [facility] [address] [id number] [address] [place] [address], [place] [address] May, [facility] [address] [id number] [address] [place] [address], [place] [address] May, [facility] [address] [id number] [address] [place] [address], [place] [address] May, [facility] [address] [id number] [address] [place] [address], [place] [address] Apr, [facility] [address] [id number] [address] [place] [address], [place] [address] Apr, [facility] [address] [id number] [address] [place] [address], [place] [address] Feb, [facility] [address] [id number] [address] [place] [address], [place] [address] Feb, [facility] [address] [id number] [address] [place] [address], [place] [address] Dec, [facility] [address] [id number] [address] [place] [address], [place] [address] Nov, [facility] [address] [id number] [address] [place] [address], [place] [address] Nov, [facility] [address] [id number] [address] [place] [address], [place] [address] Nov, [facility] [address] [id number] [address] [place] [address], [place] [address] Nov, [facility] [address] [id number] [address] [place] [address], [place] [address] Nov, [facility] [address] [id number] [address] [place] [address], [place] [address] Nov, [facility] [address] [id number] [address] [place] [address], [place] [address] September, [facility] [address] [id number] [address] [place] [address], [place] [address] September, [facility] [address] [id number] [address] [place] [address], [place] [address] September, [facility] [address] [id number] [address] [place] [address], [place] [address] Aug, [facility] [address] [id number] [address] [place] [address], [place] [address] Aug, [facility] [address] [id number] [address] [place] [address], [place] [address] Aug, [facility] [address] [id number] [address] [place] [address], [place] [address] Aug, [facility] [address] [id number] [address] [place] [address], [place] [address] Jul, [facility] [address] [id number] [address] [place] [address], [place] [address] Jul, [facility] [address] [id number] [address] [place] [address], [place] [address] Jul, [facility] [address] [id number] [address] [place] [address], [place] [address] May, [facility] [address] [id number] [address] [place] [address], [place] [address] May, [facility] [address] [id number] [address] [place] [address], [place] [address] May, [facility] [address] [id number] [address] [place] [address], [place] [address] May, [facility] [address] [id number] [address] [place] [address], [place] [address] Apr, [facility] [address] [id number] [address] [place] [address], [place] [address] Apr, [facility] [address] [id number] [address] [place] [address], [place] [address] Apr, [facility] [address] [id number] [address] [place] [address], [place] [address] 15 Feb, 2013 [facility] [address] [id number] [address] [place] [address], [place] [address] 15 Feb, 2013 [facility] [address] [id number] [address] [place] [address], [place] [address] 25 Jan, 2013 [facility] [address] [id number] [address] [place] [address], [place] [address] 24 Jan, 2013 [facility] [address] [id number] [address] [place] [address], [place] [address] 18 Jan, 2013 [facility] [address] [id number] [address] [place] [address], [place] [address] 16 Jan, 2013 [facility] [address] [id number] [address] [place] [address], [place] [address] 12 Jan, 2013 [facility] [address] [id number] [address] [place] [address], [place] [address] 11 Jan, 2013 [facility] [address] [id number] [address] [place] [address], [place] [address] 05 Jan, 2013 [facility] [address] [id number] [address] [place] [address], [place] [address] Dec, [facility] [address] [id number] [address] [place] [address], [place] [address] Dec, [facility] [address] [id number] [address] [place] [address], [place] [address] Dec, [facility] [address] [id number] [address] [place] [address], [place] [address] Dec, [facility] [address] [id number] [address] [place] [address], [place] [address] Oct, [facility] [address] [id number] [address] [place] [address], [place] [address] Nov, [facility] [address] [id number] [address] [place] [address], [place] [address] Mar, [facility] [address] [facility] [id number] [address] [address] Feb, [facility] [address] [facility] [id number] [address] [address] Feb, [facility] [address] [facility] [id number] [address] [address] Jul, IMMUNIZATIONS No Known Immunizations SOCIAL HISTORY Never Assessed REASON FOR VISIT EMR-[facility] [place] PLAN OF CARE VITAL SIGNS MEDICATIONS Medication Instructions Dosage Frequency Start Date End Date Duration S tatus MethylPREDNISolone 4 mg by Oral route ev marcelino day for 6 days as directed per dose pack Apr, Active Bactrim DS 800-160 mg take 1 tablet by Oral route 2 da ilene for 10 days Jul, Active Detrol 2 mg 1 tablet by Oral route 2 times per day 05 , 2012 Active Colestid 1 gram 1 tablet by Oral route 2 times per day 0 5 Jan, 2013 Active Amoxicillin 500 mg 1 capsule by Oral route 3 times per day for 10 days May, Active RESULTS No Results PROCEDURES No Known procedures [...]
--- OUTSIDE RECORDS SUMMARY | 2019-12-18 09:48 | XMS REPORT ---
Author Author Josie Álvarez Doctor Organization [facility] Address Unknown Phone Unavailable Care Team Providers Care Animal Cruelty Investigator Name Role Phone Migration, Doctor Unavailable Unavailable PROBLEMS Type Condition ICD9-CM Code TNL09-RD Code Onset Dates Condition S tatus SNOMED Code Problem Hematuria R31.9 Active 83554260 Problem History of solitary pulmonary nodule Z87.898 Active 488831557 Problem Porokeratosis Q82.8 Active 999573 004 Problem Encopresis R15.9 Active 344669257 Problem Bilateral hearing loss, unspecified hearing loss type H91.93 Active 90559767 Problem Neuropathy G62.9 Active 830080733 Problem Hammer toe, unspecified laterality M20.40 Active 970581087 Problem Incontinence of feces, unspecified fecal incontinence type R15.9 Active 44248139 Problem Diarrhea, unspecified type R19.7 Act alexis [id number] ALLERGIES No Information ENCOUNTERS Encounter Location Date Diagnosis [place] [id number] [place] [address] Jun, Gastroenteritis K52.9 [place] [address] [place] [id number] [address] [place] [address] May, Bilateral hearing loss, unsp ecified hearing loss type H91.93 and Rib pain R07.81 [place] [address] [place] [id number] [place] [address] Apr, [place] [address] [place] [id number] [place] [address] Apr, Chest wall pain R07.89 and A bdominal pain, unspecified abdominal location R10.9 [place] [address] [place] [id number] [place] [address] 02 Feb, 2018 Annual physical exam Z00.00 and Diarrhea, unspecified type R19.7 [place] [address] [place] [id number] [place] [address] Dec, Encopresis R15.9 and Inconti nence of feces, unspecified fecal incontinence type R15.9 [facility] [address] [facility] [id number] [address] [place] [address] Nov, Urinary tract infection, sit e not specified N39.0 and Hematuria, unspecified R31.9 [place] [address] [place] [address] Oct, [place] [address] [address] Oct, Tick bite, initial encounter W57.XXXA and Incontinence of feces, unspecified fecal incontinence type R15.9 [place] [address] [place] [address] May, Neuropathy G62.9 ; Hammer to e, unspecified laterality M20.40 and Onychomycosis B35.1 [facility] [address] [place] [address] Mar, Dysuria R30.0 [place] [address] [place] [id number] [place] [address] Mar, [place] [address] [place] [id number] [place] [address] Feb, [place] [address] [place] [id number] [place] [address] Dec, Family history of diabetes m ellitus Z83.3 ; Porokeratosis Q82.8 and Neuropathy G62.9 [place] [address] [place] [id number] [place] [address] Oct, Porokeratosis Q82.8 [place] [address] [place] [id number] [place] [address] September, [place] [address] [address] September, Porokeratosis Q82.8 [place] [address] [address] September, [place] [address] [address] Aug, Aphthous ulcer K12.0 ; Denta l caries K02.9 ; Viral gastroenteritis A08.4 and Abscessed tooth K04.7 [place] [address] [address] Jul, Porokeratosis Q82.8 ; Callus of foot L84 and Metatarsalgia of right foot M77.41 [place] [address] [address] 10 Jun, 2016 Porokeratosis Q82.8 and Foot pain, right M79.671 [place] [address] [address] Apr, [place] [address] [address] Apr, Pre-diabetes R73.03 and Plan tar wart, right foot B07.0 [place] [address] [address] Apr, [place] [address] [address] Apr, [place] [address] [address] Mar, [place] [address] [address] Mar, [place] [address] [address] Mar, Hematuria R31.9 and Pre-diab etes R73.03 [place] [address] [place] [address] [place] [address] Feb, [facility] [address] [id number] [address] [place] [address] Feb, [facility] [address] [id number] [address] [place] [address] Feb, Abnormal fasting glucose R73 .01 [facility] [address] [id number] [address] [place] [address] Feb, Abnormal fasting glucose R73 .01 [facility] [address] [id number] [address] [place] [address] Feb, Routine gynecological examin ation Z01.419 ; General medical exam Z00.00 ; Screening breast examination Z12.39 ; Hematuria R31.9 ; Vaginal discharge N89.8 ; Vaginal yeast infection B37.3 and Recurrent UTI N39.0 [facility] [address] [id number] [address] [place] [address] Jan, Recurrent UTI N39.0 and Hist ory of solitary pulmonary nodule Z87.898 [place] [address] [id number] [address] [place] [address] Jan, [facility] [address] [id number] [address] [place] [address] Jan, Recurrent UTI N39.0 ; Hematu avsu R31.9 and History of solitary pulmonary nodule Z87.898 [facility] [address] [id number] [address] [place] [address] Jan, [facility] [address] [id number] [address] [place] [address] Jan, Recurrent UTI N39.0 [facility] [address] [id number] [address] [place] [address] Dec, [facility] [address] [id number] [address] [place] [address] Dec, [facility] [address] [id number] [address] [place] [address] Dec, Acute cystitis with hematuri a N30.01 [facility] [address] [facility] [id number] [address] [place] [address] Dec, Acute cystitis with hematuri a N30.01 [facility] [address] [facility] [id number] [address] [place] [address] Dec, Acute cystitis with hematuri a N30.01 and Insect bite (nonvenomous) of left upper arm, initial encounter S40.862A [place] [address] [id number] [address] [place] [address] Nov, Acute cystitis with hematuri a N30.01 and Insect bite (nonvenomous) of left upper arm, initial encounter S40.862A [place] [address] [facility] [id number] [address] [place] [address] September, [facility] [address] [id number] [address] [place] [address] September, [facility] [address] [facility] [id number] [address] [place] [address] September, Acute cystitis with hematuri a N30.01 and Family history of diabetes mellitus Z83.3 [facility] [address] [facility] [id number] [address] [place] [address] September, Family history of diabetes m ellitus Z83.3 [facility] [address] [id number] [address] [place] [address] September, Acute cystitis with hematuri a N30.01 [facility] [address] [facility] [id number] [address] [place] [address] September, [facility] [address] [facility] [id number] [address] [place] [address] September, Acute cystitis with hematuri a N30.01 [facility] [address] [facility] [id number] [address] [place] [address] May, Back pain M54.9 and Urinary tract infection N39.0 [facility] [address] [facility] [id number] [address] [place] [address] Feb, [facility] [address] [facility] [id number] [address] [place] [address] Feb, Bony prominence M89.8X9 [facility] [address] [facility] [id number] [address] [place] [address] Nov, Unspecified urinary incontin ence 788.30 ; 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 and Solitary pulmonary nodule 793.11 [facility] [address] [facility] [id number] [address] [place] [address] Nov, [facility] [address] [facility] [id number] [address] [place] [address] Oct, Unspecified urinary incontin ence 788.30 ; 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 and Solitary pulmonary nodule 793.11 [facility] [address] [facility] [id number] [address] [place] [address] Oct, [facility] [address] [facility] [id number] [address] [place] [address] Oct, [facility] [address] [facility] [id number] [address] [place] [address] September, [facility] [address] [facility] [id number] [address] [place] [address] Aug, [facility] [address] [id number] [address] [place] [address] Aug, [facility] [address] [facility] [id number] [address] [place] [address] May, [facility] [address] [facility] [id number] [address] [place] [address] May, [facility] [address] [facility] [id number] [address] [place] [address] May, [facility] [address] [id number] [address] [place] [address], [place] [address] May, [facility] [address] [id number] [address] [place] [address], [place] [address] May, [facility] [address] [id number] [address] [place] [address], [place] [address] May, [facility] [address] [id number] [address] [place] [address], [place] [address] Apr, [facility] [address] [id number] [address] [place] [address], [place] [address] Apr, [facility] [address] [id number] [address] [place] [address], [place] [address] Feb, [facility] [address] [id number] [address] [place] [address], [place] [address] Feb, [facility] [address] [id number] [address] [place] [address], [place] [address] Dec, [facility] [address] [id number] [address] [place] [address], [place] [address] Nov, [facility] [address] [id number] [address] [place] [address], [place] [address] Nov, [facility] [address] [id number] [address] [place] [address], [place] [address] Nov, [facility] [address] [id number] [address] [place] [address], [place] [address] Nov, [facility] [address] [id number] [address] [place] [address], [place] [address] Nov, [facility] [address] [id number] [address] [place] [address], [place] [address] Nov, [facility] [address] [id number] [address] [place] [address], [place] [address] September, [facility] [address] [id number] [address] [place] [address], [place] [address] September, [facility] [address] [id number] [address] [place] [address], [place] [address] September, [facility] [address] [id number] [address] [place] [address], [place] [address] Aug, [facility] [address] [id number] [address] [place] [address], [place] [address] Aug, [facility] [address] [id number] [address] [place] [address], [place] [address] Aug, [facility] [address] [id number] [address] [place] [address], [place] [address] Aug, [facility] [address] [id number] [address] [place] [address], [place] [address] Jul, [facility] [address] [id number] [address] [place] [address], [place] [address] Jul, [facility] [address] [id number] [address] [place] [address], [place] [address] Jul, [facility] [address] [id number] [address] [place] [address], [place] [address] May, [facility] [address] [id number] [address] [place] [address], [place] [address] May, [facility] [address] [id number] [address] [place] [address], [place] [address] May, [facility] [address] [id number] [address] [place] [address], [place] [address] May, [facility] [address] [id number] [address] [place] [address], [place] [address] Apr, [facility] [address] [id number] [address] [place] [address], [place] [address] Apr, [facility] [address] [id number] [address] [place] [address], [place] [address] Apr, [facility] [address] [id number] [address] [place] [address], [place] [address] 15 Feb, 2013 [facility] [address] [id number] [address] [place] [address], [place] [address] 15 Feb, 2013 [facility] [address] [id number] [address] [place] [address], [place] [address] 25 Jan, 2013 [facility] [address] [id number] [address] [place] [address], [place] [address] 24 Jan, 2013 [facility] [address] [id number] [address] [place] [address], [place] [address] 18 Jan, 2013 [facility] [address] [id number] [address] [place] [address], [place] [address] 16 Jan, 2013 [facility] [address] [id number] [address] [place] [address], [place] [address] 12 Jan, 2013 [facility] [address] [id number] [address] [place] [address], [place] [address] 11 Jan, 2013 [facility] [address] [id number] [address] [place] [address], [place] [address] 05 Jan, 2013 [facility] [address] [id number] [address] [place] [address], [place] [address] Dec, [facility] [address] [id number] [address] [place] [address], [place] [address] Dec, [facility] [address] [id number] [address] [place] [address], [place] [address] Dec, [facility] [address] [id number] [address] [place] [address], [place] [address] Dec, [facility] [address] [id number] [address] [place] [address], [place] [address] Oct, [facility] [address] [id number] [address] [place] [address], [place] [address] Nov, [facility] [address] [id number] [address] [place] [address], [place] [address] Mar, [facility] [address] [facility] [id number] [address] [place] [address] Feb, [facility] [address] [facility] [id number] [address] [place] [address] Feb, [facility] [address] [facility] [id number] [address] [address] Jul, IMMUNIZATIONS No Known Immunizations SOCIAL HISTORY Never Assessed REASON FOR VISIT EMR-[facility] PLAN OF CARE VITAL SIGNS MEDICATIONS Unknown Medications RESULTS No Results PROCEDURES No Known procedures INSTRUCTIONS MEDICATIONS ADMINISTERED No Known Medications MEDICAL (GENERAL) HISTORY Type Description Date Medical History hearing loss Medical History Encopresis seen [facility] with Co lonosocopy 2014 and was told normal Medical History solitary pulmonary nodule LL 08-21-14 [facility] yearly recheck Medical History diverticulitis Medical History Encopresis Medical History Diverticulitis of colon (wit hout mention of hemorrhage) Colonoscopy [facility] 2013 Medical History Solitary pulmonary nodule Surgical History tubal ligation Surgical History Colonoscopy [facility] 2015-10
--- OUTSIDE RECORDS SUMMARY | 2019-12-18 09:49 | XMS REPORT ---
Author Author Josie ISBELL Organization 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 Name Role Phone SUMEET ISBELL Unavailable PROBLEMS Type Condition ICD9-CM Code FAO14-JZ Code Onset Dates Condition S tatus SNOMED Code Problem History of solitary pulmonary nodule Z87.898 Active 945398552 Problem Hematuria R31.9 Active 10258626 Problem Encopresis R15.9 Active 998562129 Problem Diarrhea, unspecified type R19.7 Act alexis 34896507 Problem Neuropathy G62.9 Active 501663838 Problem Porokeratosis Q82.8 Active 197589 004 Problem Incontinence of feces, unspecified fecal incontinence type R15.9 Active 53399145 Problem Hammer toe, unspecified laterality M20.40 Active 657958775 ALLERGIES No Known Allergies ENCOUNTERS Encounter Location Date Diagnosis [facility] [address] [id number] [address] [place] [address] Dec, Encopresis R15.9 and Inconti nence of feces, unspecified fecal incontinence type R15.9 [facility] [address] [id number] [address] [place] [address] Nov, Urinary tract infection, sit e not specified N39.0 and Hematuria, unspecified R31.9 [facility] [address] [id number] [address] [place] [address] Oct, [place] [id number] [place] [address] Oct, Tick bite, initial encounter W57.XXXA and Incontinence of feces, unspecified fecal incontinence type R15.9 [facility] [address] [id number] [address] [place] [address] May, Neuropathy G62.9 ; Hammer to e, unspecified laterality M20.40 and Onychomycosis B35.1 [place] [address] [address] Mar, Dysuria R30.0 [place] [address] [address] Mar, [place] [address] [address] Feb, [place] [address] [address] Dec, Family history of diabetes gonzalez sierra Z83.3 ; Porokeratosis Q82.8 and Neuropathy G62.9 [place] [address] [address] Oct, Porokeratosis Q82.8 [place] [address] [address] September, [place] [address] [address] September, Porokeratosis Q82.8 [place] [address] [address] September, [place] [address] [address] Aug, Aphthous ulcer K12.0 ; Denta l caries K02.9 ; Viral gastroenteritis A08.4 and Abscessed tooth K04.[address] [address] Jul, Porokeratosis Q82.8 ; Callus of foot L84 and Metatarsalgia of right foot M77.41 [place] [address] [address] 10 Feb, 2017 Porokeratosis Q82.8 and Foot pain, right M79.671 [facility] [address] [id number] [address] [place] [address] Apr, [facility] [address] [id number] [address] [place] [address] Apr, Pre-diabetes R73.03 and Plan tar wart, right foot B07.0 [facility] [address] [id number] [address] [place] [address] Apr, [facility] [address] [id number] [address] [place] [address] Apr, [facility] [address] [id number] [address] [place] [address] Mar, [facility] [address] [facility] [id number] [address] [place] [address] Mar, [facility] [address] [id number] [address] [place] [address] Mar, Hematuria R31.9 and Pre-diab etes R73.03 [facility] [address] [id number] [address] [place] [address] Feb, [facility] [address] [id number] [address] [place] [address] Feb, [facility] [address] [id number] [address] [place] [address] Feb, Abnormal fasting glucose R73 .01 [facility] [address] [id number] [address] [place] [address] Feb, Abnormal fasting glucose R73 .01 [facility] [address] [facility] [id number] [address] [place] [address] Feb, Routine gynecological examin ation Z01.419 ; General medical exam Z00.00 ; Screening breast examination Z12.39 ; Hematuria R31.9 ; Vaginal discharge N89.8 ; Vaginal yeast infection B37.3 and [address] UTI N39.0 [facility] [address] [id number] [address] [place] [address] 20 Jan, 2016 Recurrent UTI N39.0 and Hist ory of solitary pulmonary nodule Z87.898 [facility] [address] [id number] [address] [place] [address] [address] Jan, [address] [facility] [address] [id number] [address] [place] [address] 13 Jan, 2016 Recurrent UTI N39.0 ; Hematu vasu R31.9 and History of solitary pulmonary nodule Z87.898 [facility] [address] [id number] [address] [place] [address] 07 Jan, 2016 [facility] [address] [id number] [address] [place] [address] 06 Jan, [address] [facility] [address] [id number] [address] [place] [address] Dec, [facility] [address] [id number] [address] [place] [address] Dec, [facility] [address] [id number] [address] [place] [address] Dec, Acute cystitis with hematuri a N30.01 [place] [address] [id number] [address] [place] [address] Dec, Acute cystitis with hematuri a N30.01 [facility] [address] [id number] [address] [place] [address] Dec, Acute cystitis with hematuri a N30.01 and Insect bite (nonvenomous) of left upper arm, initial encounter S40.862A [facility] [address] [id number] [address] [place] [address] Nov, Acute cystitis with hematuri a N30.01 and Insect bite (nonvenomous) of left upper arm, initial encounter S40.862A [place] [address] [facility] [id number] [address] [place] [address] September, [facility] [address] [facility] [id number] [address] [place] [address] September, [facility] [address] [facility] [id number] [address] [place] [address] September, Acute cystitis with hematuri a N30.01 and Family history of diabetes mellitus Z83.3 [facility] [address] [facility] [id number] [address] [place] [address] September, Family history of diabetes gonzalez sierra Z83.3 [place] [address] [facility] [id number] [address] [place] [address] September, Acute cystitis with hematuri a N30.01 [place] [address] [place] [id number] [address] [place] [address] September, [place] [address] [id number] [address] [place] [address] September, Acute cystitis with hematuri a N30.01 [facility] [address] [facility] [id number] [address] [place] [address] May, Back pain M54.9 and Urinary tract infection N39.0 [place] [id number] [place] [address] Feb, [place] [address] [place] [id number] [address] [place] [address] Feb, Bony prominence M89.8X9 [place] [address] [id number] [address] [place] [address] Nov, Unspecified urinary incontin ence 788.30 ; 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 and Solitary pulmonary nodule 793.11 [place] [address] [id number] [address] [place] [address] Nov, [facility] [address] [id number] [address] [place] [address] Oct, Unspecified urinary incontin ence 788.30 ; 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 and Solitary pulmonary nodule 793.11 [facility] [address] [id number] [address] [place] [address] Oct, [facility] [address] [id number] [address] [place] [address] Oct, [facility] [address] [id number] [address] [place] [address] September, [facility] [address] [id number] [address] [place] [address] Aug, [facility] [address] [id number] [address] [place] [address] Aug, [facility] [address] [id number] [address] [place] [address] May, [facility] [address] [id number] [address] [place] [address] May, [facility] [address] [id number] [address] [place] [address] May, [facility] [address] [id number] [address] [place] [address] May, [facility] [address] [id number] [address] [place] [address] May, [facility] [address] [id number] [address] [place] [address] May, [facility] [address] [id number] [address] [place] [address] Apr, [facility] [address] [id number] [address] [place] [address] Apr, [facility] [address] [id number] [address] [place] [address] Feb, [facility] [address] [id number] [address] [place] [address] Feb, [facility] [address] [id number] [address] [place] [address], [place] [address] Dec, [facility] [address] [id number] [address] [place] [address], [place] [address] Nov, [facility] [address] [id number] [address] [place] [address], [place] [address] Nov, [facility] [address] [id number] [address] [place] [address], [place] [address] Nov, [facility] [address] [id number] [address] [place] [address], [place] [address] Nov, [facility] [address] [id number] [address] [place] [address], [place] [address] Nov, [facility] [address] [id number] [address] [place] [address], [place] [address] Nov, [facility] [address] [id number] [address] [place] [address], [place] [address] September, [facility] [address] [id number] [address] [place] [address], [place] [address] September, [facility] [address] [id number] [address] [place] [address], [place] [address] September, [facility] [address] [id number] [address] [place] [address], [place] [address] Aug, [facility] [address] [id number] [address] [place] [address], [place] [address] Aug, [facility] [address] [id number] [address] [place] [address], [place] [address] Aug, [facility] [address] [id number] [address] [place] [address], [place] [address] Aug, [facility] [address] [id number] [address] [place] [address], [place] [address] Jul, [facility] [address] [id number] [address] [place] [address], [place] [address] Jul, [facility] [address] [id number] [address] [place] [address], [place] [address] Jul, [facility] [address] [id number] [address] [place] [address], [place] [address] May, [facility] [address] [id number] [address] [place] [address], [place] [address] May, [facility] [address] [id number] [address] [place] [address], [place] [address] May, [facility] [address] [id number] [address] [place] [address], [place] [address] May, [facility] [address] [id number] [address] [place] [address], [place] [address] Apr, [facility] [address] [id number] [address] [place] [address], [place] [address] Apr, [facility] [address] [id number] [address] [place] [address], [place] [address] Apr, [facility] [address] [id number] [address] [place] [address], [place] [address] Feb, [facility] [address] [id number] [address] [place] [address], [place] [address] Feb, [facility] [address] [id number] [address] [place] [address], [place] [address] 25 Jan, 2013 [facility] [address] [id number] [address] [place] [address], [place] [address] 24 Sep2012 [facility] [address] [id number] [address] [place] [address], [place] [address] 18 Sep2012 [facility] [address] [id number] [address] [place] [address], [place] [address] 16 Sep2012 [facility] [address] [id number] [address] [place] [address] [address] Jan, [facility] [address] [id number] [address] [place] [address] Jan, [facility] [address] [id number] [address] [place] [address] Jan, [facility] [address] [id number] [address] [place] [address] Dec, [facility] [address] [id number] [address] [place] [address] Dec, [facility] [address] [id number] [address] [place] [address] Dec, [facility] [address] [id number] [address] [place] [address] Dec, [facility] [address] [id number] [address] [place] [address] Oct, [facility] [address] [id number] [address] [place] [address] Nov, [facility] [address] [id number] [address] [place] [address] Mar, [facility] [address] [id number] [address] [place] [address] Feb, [facility] [address] [id number] [address] [place] [address] Feb, [facility] [address] [id number] [address] [place] [address] Jul, IMMUNIZATIONS No Known Immunizations SOCIAL HISTORY Never Assessed REASON FOR VISIT disability paperwork-KAY Figueroa, Had a tick on the back of her right leg behi nd the knee....looks like it is gone but don't know if it is all out or not [facility] PLAN OF CARE Activity Details Follow Up prn Reason: VITAL SIGNS Height 65 in 2017-10-11 Weight 154.2 lbs 2017-10-11 Temperature 97.9 degrees Fahrenheit 2017-10-11 Heart Rate 72 bpm 2017-10-11 Respiratory Rate 18 2017-10-11 BMI 25.66 kg/m2 2017-10-11 Blood pressure systolic 120 mmHg 2017-10-11 Blood pressure diastolic 82 mmHg 2017-10-11 MEDICATIONS Medication Instructions Dosage Frequency Start Date End Date Duration S tatus Glucocard Expression Test - In Vitro 2 times a day weekly test bloo d sugar Feb, Active Glucocard Expression Monitor w/Device as directed Feb Active RESULTS No Results PROCEDURES No Known procedures INSTRUCTIONS MEDICATIONS ADMINISTERED No Known Medications MEDICAL (GENERAL) HISTORY Type Description Date Medical History hearing loss Medical History Encopresis seen [facility] with Co lonosocopy 2014 and was told normal Medical History solitary pulmonary nodule LLL 08-21-[facility] yearly recheck Medical History diverticulitis Medical History Encopresis Medical History Diverticulitis of colon (wit hout mention of hemorrhage) Colonoscopy [facility] 2013 Medical History Solitary pulmonary nodule Surgical History tubal ligation Surgical History Colonoscopy [facility] 2015-10
--- OUTSIDE RECORDS SUMMARY | 2019-12-18 09:49 | XMS REPORT ---
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 Name Role Phone ARAM FLYNN Unavailable PROBLEMS Type Condition ICD9-CM Code EOK70-VN Code Onset Dates Condition S tatus SNOMED Code Problem History of solitary pulmonary nodule Z87.898 Active 931320435 Problem Hematuria R31.9 Active 41913338 Problem Encopresis R15.9 Active 802908450 Problem Diarrhea, unspecified type R19.7 Act alexis 52647827 Problem Neuropathy G62.9 Active 215994855 Problem Porokeratosis Q82.8 Active 557350 004 Problem Incontinence of feces, unspecified fecal incontinence type R15.9 Active 22894310 Problem Hammer toe, unspecified laterality M20.40 Active 867748457 ALLERGIES No Known Allergies ENCOUNTERS Encounter Location Date Diagnosis [facility] [address] [id number] [address] [place] [address] Feb, Annual physical exam Z00.00 and Diarrhea, unspecified type R19.7 [facility] [address] [id number] [address] [place] [address] Dec, Encopresis R15.9 and Inconti nence of feces, unspecified fecal incontinence type R15.9 [facility] [address] [id number] [address] [place] [address] Nov, Urinary tract infection, sit e not specified N39.0 and Hematuria, unspecified R31.9 [facility] [address] [id number] [address] [place] [address] Oct, [facility] [address] [id number] [address] [place] [address] Oct, Tick bite, initial encounter W57.XXXA and Incontinence of feces, unspecified fecal incontinence type R15.9 [place] [address] [place] [address] May, Neuropathy G62.9 ; Hammer to e, unspecified laterality M20.40 and Onychomycosis B35.1 [place] [address] [address] Mar, Dysuria R30.0 [place] [address] [address] Mar, [place] [address] [address] Feb, [place] [address] [address] Dec, Family history of diabetes gonzalez sierra Z83.3 ; Porokeratosis Q82.8 and Neuropathy G62.9 [place] [address] [place] [address] Oct, Porokeratosis Q82.8 [place] [address] [address] September, [place] [address] [address] September, Porokeratosis Q82.8 [place] [address] [id number] [address] [place] [address] September, [place] [address] [id number] [address] [place] [address] Aug, Aphthous ulcer K12.0 ; Denta l caries K02.9 ; Viral gastroenteritis A08.4 and Abscessed tooth K04.7 [place] [address] [id number] [address] [place] [address] Jul, Porokeratosis Q82.8 ; Callus of foot L84 and Metatarsalgia of right foot M77.41 [facility] [address] [facility] [id number] [address] [place] [address] 10 Jun, 2016 Porokeratosis Q82.8 and Foot pain, right M79.671 [facility] [address] [id number] [address] [place] [address] Apr, [facility] [address] [facility] [id number] [address] [place] [address] Apr, Pre-diabetes R73.03 and Plan tar wart, right foot B07.0 [facility] [address] [id number] [address] [place] [address] Apr, [facility] [address] [id number] [address] [place] [address] Apr, [facility] [address] [facility] [id number] [address] [place] [address] Mar, [facility] [address] [id number] [address] [place] [address] Mar, [facility] [address] [facility] [id number] [address] [place] [address] Mar, Hematuria R31.9 and Pre-diab etes R73.03 [facility] [address] [facility] [id number] [address] [place] [address] Feb, [facility] [address] [id number] [address] [place] [address] Feb, [facility] [address] [facility] [id number] [address] [place] [address] Feb, Abnormal fasting glucose R73 .01 [facility] [address] [facility] [id number] [address] [place] [address] Feb, Abnormal fasting glucose R73 .01 [facility] [address] [facility] [id number] [address] [place] [address] Feb, Routine gynecological examin ation Z01.419 ; General medical exam Z00.00 ; Screening breast examination Z12.39 ; Hematuria R31.9 ; Vaginal discharge N89.8 ; Vaginal yeast infection B37.3 and Recurrent UTI N39.0 [place] [address] [id number] [address] [place] [address] 20 Jan, 2016 Recurrent UTI N39.0 and Hist ory of solitary pulmonary nodule Z87.898 [place] [address] [id number] [address] [place] [address] Jan, [place] [address] [id number] [address] [place] [address] 13 Jan, 2016 Recurrent UTI N39.0 ; Hematu vasu R31.9 and History of solitary pulmonary nodule Z87.898 [place] [address] [id number] [address] [place] [address] 07 Jan, 2016 [place] [address] [id number] [address] [place] [address] Jan, Recurrent UTI N39.0 [place] [address] [id number] [address] [place] [address] Dec, [place] [address] [id number] [address] [place] [address] Dec, [place] [address] [id number] [address] [place] [address] Dec, Acute cystitis with hematuri a N30.01 [place] [address] [id number] [address] [place] [address] Dec, Acute cystitis with hematuri a N30.01 [place] [address] [id number] [address] [place] [address] Dec, Acute cystitis with hematuri a N30.01 and Insect bite (nonvenomous) of left upper arm, initial encounter S40.862A [place] [address] [id number] [address] [place] [address] Nov, Acute cystitis with hematuri a N30.01 and Insect bite (nonvenomous) of left upper arm, initial encounter S40.862A [facility] [address] [id number] [address] [place] [address] September, [facility] [address] [id number] [address] [place] [address] September, [facility] [address] [id number] [address] [place] [address] September, Acute cystitis with hematuri a N30.01 and Family history of diabetes mellitus Z83.3 [place] [address] [address] September, Family history of diabetes gonzalez sierra Z83.3 [place] [address] [id number] [address] [place] [address] September, Acute cystitis with hematuri a N30.01 [facility] [address] [id number] [address] [place] [address] September, [place] [id number] [place] [address] September, Acute cystitis with hematuri a N30.01 [facility] [address] [id number] [address] [place] [address] May, Back pain M54.9 and Urinary tract infection N39.0 [place] [address] [id number] [address] [place] [address] Feb, [place] [address] [id number] [address] [place] [address] Feb, Bony prominence M89.8X9 [place] [address] [id number] [address] [place] [address] Nov, Unspecified urinary incontin ence 788.30 ; 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 and Solitary pulmonary nodule 793.11 [place] [address] [id number] [place] [address] 16 Nov, 2014 [facility] [place] [address] [id number] [address] [place] [address] Oct, Unspecified urinary incontin ence 788.30 ; 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 and Solitary pulmonary nodule 793.11 [facility] [place] [address] [id number] [address] [place] [address] Oct, [facility] [place] [address] [id number] [address] [place] [address] Oct, [facility] [place] [address] [id number] [address] [place] [address] September, [facility] [place] [address] [id number] [address] [place] [address] Aug, [facility] [address] [id number] [address] [place] [address] Aug, [facility] [place] [address] [id number] [address] [place] [address] May, [facility] [place] [address] [id number] [address] [place] [address] May, [facility] [place] [address] [id number] [address] [place] [address] May, [facility] [address] [id number] [address] [place] [address] May, [facility] [place] [address] [id number] [address] [place] [address] May, [facility] [place] [address] [id number] [address] [place] [address] May, [facility] [place] [address] [id number] [address] [place] [address] Apr, [facility] [place] [address] [id number] [address] [place] [address] Apr, [facility] [address] [id number] [facility] [place] [place] [address] Feb, [facility] [address] [id number] [address] [place] [address], [place] [address] Feb, [facility] [address] [id number] [address] [place] [address], [place] [address] Dec, [facility] [address] [id number] [address] [place] [address], [place] [address] Nov, [facility] [address] [id number] [address] [place] [address], [place] [address] Nov, [facility] [address] [id number] [address] [place] [address], [place] [address] Nov, [facility] [address] [id number] [address] [place] [address], [place] [address] Nov, [facility] [address] [id number] [address] [place] [address], [place] [address] Nov, [facility] [address] [id number] [address] [place] [address], [place] [address] Nov, [facility] [address] [id number] [address] [place] [address], [place] [address] September, [facility] [address] [id number] [address] [place] [address], [place] [address] September, [facility] [address] [id number] [address] [place] [address], [place] [address] September, [facility] [address] [id number] [address] [place] [address], [place] [address] Aug, [facility] [address] [id number] [address] [place] [address], [place] [address] Aug, [facility] [address] [id number] [address] [place] [address], [place] [address] Aug, [facility] [address] [id number] [address] [place] [address] [address] Aug, [facility] [address] [id number] [address] [place] [address], [place] [address] Jul, [facility] [address] [id number] [address] [place] [address], [place] [address] Jul, [facility] [address] [id number] [address] [place] [address], [place] [address] Jul, [facility] [address] [id number] [address] [place] [address], [place] [address] May, [facility] [address] [id number] [address] [place] [address], [place] [address] May, [facility] [address] [id number] [address] [place] [address], [place] [address] May, [facility] [address] [id number] [address] [place] [address], [place] [address] May, [facility] [address] [id number] [address] [place] [address], [place] [address] Apr, [facility] [address] [id number] [address] [place] [address], [place] [address] Apr, [facility] [address] [id number] [address] [place] [address] Apr, [facility] [address] [id number] [address] [place] [address] Feb, [facility] [address] [id number] [address] [place] [address] Feb, [facility] [address] [id number] [address] [place] [address], [place] [address] Jan, [facility] [address] [id number] [address] [place] [address] 24 Jan, 2013 [facility] [address] [id number] [address] [place] [address], [place] [address] 18 Jan, 2013 [facility] [address] [id number] [address] [place] [address] 16 Jan, 2013 [facility] [address] [id number] [address] [place] [address] 12 Jan, 2013 [facility] [address] [id number] [address] [place] [address] Jan, [facility] [address] [id number] [address] [place] [address] 05 Jan, 2013 [facility] [address] [id number] [address] [place] [address] Dec, [facility] [address] [id number] [address] [place] [address] Dec, [facility] [address] [id number] [address] [place] [address] Dec, [facility] [address] [id number] [address] [place] [address] Dec, [facility] [address] [id number] [address] [place] [address] Oct, [facility] [address] [id number] [address] [place] [address] Nov, [facility] [address] [id number] [address] [place] [address] Mar, [facility] [address] [id number] [address] [place] [address] Feb, [facility] [address] [id number] [address] [place] [address] Feb, [facility] [address] [id number] [address] [place] [address] Jul, IMMUNIZATIONS No Known Immunizations SOCIAL HISTORY Never Assessed REASON FOR VISIT annual checkup-BALBIR valles, patient want to know if she is pre diabetic, and she also having some bowel issues PLAN OF CARE Activity Details Follow Up 1 Year Reason: VITAL SIGNS Height 65 in 2018-02-07 Weight 154.7 lbs 2018-02-07 Temperature 97.6 degrees Fahrenheit 2018-02-07 Heart Rate 61 bpm 2018-02-07 Respiratory Rate 18 2018-02-07 Oximetry on room air:98 % 2018-02-07 BMI 25.74 kg/m2 2018-02-07 Blood pressure systolic 110 mmHg 2018-02-07 Blood pressure diastolic 82 mmHg 2018-02-07 MEDICATIONS No Known Medications RESULTS No Results PROCEDURES Procedure Date Ordered Result Body Site COMPLETE CBC W/AUTO DIFF WBC Feb 07, 2018 ASSAY THYROID STIM HORMONE Feb 07, 2018 COMPREHEN METABOLIC PANEL Feb 07, 2018 LIPID PANEL Feb 07, 2018 ASSAY OF FREE THYROXINE Feb 07, 2018 INSTRUCTIONS MEDICATIONS ADMINISTERED No Known Medications MEDICAL (GENERAL) HISTORY Type Description Date Medical History hearing loss Medical History Encopresis seen [facility] with Co lonosocopy 2014 and was told normal Medical History solitary pulmonary nodule [facility] 4-15-15 [facility] able rec yearly recheck Medical History diverticulitis Medical History Encopresis Medical History Diverticulitis of colon (wit hout mention of hemorrhage) Colonoscopy [facility] 2013 Medical History Solitary pulmonary nodule Surgical History tubal ligation Surgical History Colonoscopy [facility] 2015-
--- OUTSIDE RECORDS SUMMARY | 2019-12-18 09:49 | XMS REPORT ---
Author Author Josie FLYNN Organization [facility] Address [address] [place] [address] Care Team Providers Care Test Lead Application Testing Name Role Phone ARAM FLYNN Unavailable PROBLEMS Type Condition ICD9-CM Code XGZ02-CG Code Onset Dates Condition S tatus SNOMED Code Problem History of solitary pulmonary nodule Z87.898 Active 900185802 Problem Hematuria R31.9 Active 10589323 Problem Encopresis R15.9 Active 099899780 Problem Diarrhea, unspecified type R19.7 Act alexis 42633286 Problem Neuropathy G62.9 Active 983545548 Problem Porokeratosis Q82.8 Active 856940 004 Problem Incontinence of feces, unspecified fecal incontinence type R15.9 Active 68406792 Problem Hammer toe, unspecified laterality M20.40 Active 987411435 ALLERGIES No Known Allergies ENCOUNTERS Encounter Location Date Diagnosis [facility] [address] [id number] [address] [place] [address] Apr, Chest wall pain R07.89 and A bdominal pain, unspecified abdominal location R10.9 [place] [address] [id number] [address] [place] [address] Feb, Annual physical exam Z00.00 and Diarrhea, unspecified type R19.7 [facility] [address] [facility] [id number] [address] [place] [address] Dec, Encopresis R15.9 and Inconti nence of feces, unspecified fecal incontinence type R15.9 [facility] [address] [id number] [address] [place] [address] Nov, Urinary tract infection, sit e not specified N39.0 and Hematuria, unspecified R31.9 [facility] [address] [address] Oct, [place] [address] [address] Oct, Tick bite, initial encounter W57.XXXA and Incontinence of feces, unspecified fecal incontinence type R15.9 [place] [address] [address] May, Neuropathy G62.9 ; Hammer to e, unspecified laterality M20.40 and Onychomycosis B35.1 [place] [address] [address] Mar, Dysuria R30.0 [place] [address] [address] Mar, [place] [address] [address] Feb, [place] [address] [address] Dec, Family history of diabetes m ellitus Z83.3 ; Porokeratosis Q82.8 and Neuropathy G62.9 [place] [address] [address] Oct, Porokeratosis Q82.8 [place] [address] [address] September, [place] [address] [address] September, Porokeratosis Q82.8 [place] [address] [address] September, [place] [address] [address] Aug, Aphthous ulcer K12.0 ; Denta l caries K02.9 ; Viral gastroenteritis A08.4 and Abscessed tooth K04.7 [facility] [address] [id number] [address] [place] [address] Jul, Porokeratosis Q82.8 ; Callus of foot L84 and Metatarsalgia of right foot M77.41 [facility] [address] [facility] [id number] [address] [place] [address] 10 Jun, 2016 Porokeratosis Q82.8 and Foot pain, right M79.671 [facility] [address] [facility] [id number] [address] [place] [address] Apr, [place] [id number] [place] [address] Apr, Pre-diabetes R73.03 and Plan tar wart, right foot B07.0 [place] [address] [id number] [address] [place] [address] Apr, [place] [address] [id number] [address] [place] [address] Apr, [facility] [address] [id number] [address] [place] [address] Mar, [place] [address] [id number] [address] [place] [address] Mar, [place] [address] [id number] [address] [place] [address] Mar, Hematuria R31.9 and Pre-diab etes R73.03 [place] [address] [facility] [id number] [address] [place] [address] Feb, [place] [address] [id number] [address] [place] [address] Feb, [facility] [address] [id number] [address] [place] [address] Feb, Abnormal fasting glucose R73 .01 [place] [address] [id number] [address] [place] [address] Feb, Abnormal fasting glucose R73 .01 [facility] [address] [id number] [address] [place] [address] Feb, Routine gynecological examin ation Z01.419 ; General medical exam Z00.00 ; Screening breast examination Z12.39 ; Hematuria R31.9 ; Vaginal discharge N89.8 ; Vaginal yeast infection B37.3 and Recurrent UTI N39.0 [place] [address] [id number] [address] [place] [address] 20 Jan, 2016 Recurrent UTI N39.0 and Hist ory of solitary pulmonary nodule Z87.898 [place] [address] [id number] [address] [place] [address] Jan, [place] [address] [id number] [address] [place] [address] 13 Jan, 2016 Recurrent UTI N39.0 ; Hematu vasu R31.9 and History of solitary pulmonary nodule Z87.898 [place] [address] [id number] [address] [place] [address] 07 Jan, 2016 [place] [address] [id number] [address] [place] [address] 06 Jan, 2016 Recurrent UTI N39.0 [place] [address] [id number] [address] [place] [address] Dec, [place] [address] [id number] [address] [place] [address] Dec, [place] [address] [id number] [address] [place] [address] Dec, Acute cystitis with hematuri a N30.01 [place] [address] [id number] [address] [place] [address] Dec, Acute cystitis with hematuri a N30.01 [place] [address] [id number] [address] [place] [address] Dec, Acute cystitis with hematuri a N30.01 and Insect bite (nonvenomous) of left upper arm, initial encounter S40.862A [facility] [address] [facility] [id number] [address] [place] [address] Nov, Acute cystitis with hematuri a N30.01 and Insect bite (nonvenomous) of left upper arm, initial encounter S40.862A [facility] [address] [facility] [id number] [address] [place] [address] September, [facility] [address] [id number] [address] [place] [address] September, [facility] [address] [facility] [id number] [address] [place] [address] September, Acute cystitis with hematuri a N30.01 and Family history of diabetes mellitus Z83.3 [place] [address] [id number] [address] [place] [address] September, Family history of diabetes gonzalez sierra Z83.3 [facility] [address] [facility] [id number] [address] [place] [address] September, Acute cystitis with hematuri a N30.01 [facility] [address] [facility] [id number] [address] [place] [address] September, [facility] [address] [facility] [id number] [address] [place] [address] September, Acute cystitis with hematuri a N30.01 [facility] [address] [facility] [id number] [address] [place] [address] May, Back pain M54.9 and Urinary tract infection N39.0 [facility] [address] [facility] [id number] [address] [place] [address] Feb, [facility] [address] [facility] [id number] [address] [place] [address] Feb, Bony prominence M89.8X9 [place] [address] [id number] [address] [place] [address] Nov, Unspecified urinary incontin ence 788.30 ; 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 and Solitary pulmonary nodule 793.11 [facility] [address] [id number] [address] [place] [address] Nov, [facility] [address] [id number] [address] [place] [address] Oct, Unspecified urinary incontin ence 788.30 ; 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 and Solitary pulmonary nodule 793.11 [facility] [address] [id number] [address] [place] [address] Oct, [facility] [address] [id number] [address] [place] [address] Oct, [facility] [address] [id number] [address] [place] [address] September, [facility] [address] [id number] [address] [place] [address] Aug, [facility] [address] [id number] [address] [place] [address] Aug, [facility] [address] [id number] [address] [place] [address] May, [facility] [address] [id number] [address] [place] [address] May, [facility] [address] [id number] [address] [place] [address] May, [facility] [address] [id number] [address] [place] [address] May, [facility] [address] [id number] [address] [place] [address] May, [facility] [address] [id number] [address] [place] [address] May, [facility] [address] [id number] [address] [place] [address], [place] [address] 05 Apr, 2014 [facility] [address] [id number] [address] [place] [address], [place] [address] Apr, [facility] [address] [id number] [address] [place] [address], [place] [address] Feb, [facility] [address] [id number] [address] [place] [address], [place] [address] Feb, [facility] [address] [id number] [address] [place] [address], [place] [address] Dec, [facility] [address] [id number] [address] [place] [address], [place] [address] Nov, [facility] [address] [id number] [address] [place] [address], [place] [address] Nov, [facility] [address] [id number] [address] [place] [address], [place] [address] Nov, [facility] [address] [id number] [address] [place] [address], [place] [address] Nov, [facility] [address] [id number] [address] [place] [address], [place] [address] Nov, [facility] [address] [id number] [address] [place] [address], [place] [address] Nov, [facility] [address] [id number] [address] [place] [address], [place] [address] September, [facility] [address] [id number] [address] [place] [address], [place] [address] September, [facility] [address] [id number] [address] [place] [address], [place] [address] September, [facility] [address] [id number] [address] [place] [address], [place] [address] Aug, [facility] [address] [id number] [address] [place] [address], [place] [address] Aug, [facility] [address] [id number] [address] [place] [address], [place] [address] Aug, [facility] [address] [id number] [address] [place] [address], [place] [address] Aug, [facility] [address] [id number] [address] [place] [address], [place] [address] Jul, [facility] [address] [id number] [address] [place] [address], [place] [address] Jul, [facility] [address] [id number] [address] [place] [address], [place] [address] Jul, [facility] [address] [id number] [address] [place] [address], [place] [address] May, [facility] [address] [id number] [address] [place] [address], [place] [address] May, [facility] [address] [id number] [address] [place] [address], [place] [address] May, [facility] [address] [id number] [address] [place] [address], [place] [address] May, [facility] [address] [id number] [address] [place] [address], [place] [address] Apr, [facility] [address] [id number] [address] [place] [address], [place] [address] Apr, [facility] [address] [id number] [address] [place] [address], [place] [address] Apr, [facility] [address] [id number] [address] [place] [address], [place] [address] Feb, [facility] [address] [id number] [address] [place] [address], [place] [address] Feb, [facility] [address] [id number] [address] [place] [address], [place] [address] Jan, [facility] [address] [id number] [address] [place] [address], [place] [address] 24 Jan, 2013 [facility] [address] [id number] [address] [place] [address] 18 Jan, 2013 [facility] [address] [id number] [address] [place] [address] 16 Jan, 2013 [facility] [address] [id number] [address] [place] [address] 12 Jan, 2013 [facility] [address] [id number] [address] [place] [address] 11 Jan, 2013 [facility] [address] [id number] [address] [place] [address] 05 Jan, 2013 [facility] [address] [id number] [address] [place] [address] Dec, [facility] [address] [id number] [address] [place] [address] Dec, [facility] [address] [id number] [address] [place] [address] Dec, [facility] [address] [id number] [address] [place] [address] Dec, [facility] [address] [id number] [address] [place] [address] Oct, [facility] [address] [id number] [address] [place] [address] Nov, [facility] [address] [id number] [address] [place] [address] Mar, [facility] [address] [id number] [address] [place] [address] Feb, [facility] [address] [id number] [address] [place] [address] Feb, [facility] [address] [id number] [address] [place] [address] Jul, IMMUNIZATIONS No Known Immunizations SOCIAL HISTORY Never Assessed REASON FOR VISIT Runny nose/Cough-hai,RMA, pt states that she was having pain on the left side of her ribs and in her left arm with a low grade fever and no appeti te. also with a burning on her left side of her chest PLAN OF CARE Activity Details Follow Up prn Reason: Pending Test CULTURE, URINE VITAL SIGNS Height 65 in 2018-04-18 Weight 153.2 lbs 2018-04-18 Temperature 97.5 degrees Fahrenheit 2018-04-18 Heart Rate 78 bpm 2018-04-18 Respiratory Rate 18 2018-04-18 Oximetry on room air:99 % 2018-04-18 BMI 25.49 kg/m2 2018-04-18 Blood pressure systolic 108 mmHg 2018-04-18 Blood pressure diastolic 78 mmHg 2018-04-18 MEDICATIONS No Known Medications RESULTS Name Result Date Reference Range UA LONG DIP (IN HOUSE) 2018-04-18 Lot # [id number] Exp date 08/2018 Clarity clear Color yellow Odor none GLU negative ROSE negative KET trace SG 1.020 BLO 2+ pH 5.5 Protein negative URO 0.2 NIT negative BETH trace Lot # Exp date Xray : Chest 2 View (IN HOUSE) 2018-04-18 PROCEDURES Procedure Date Ordered Result Body Site URINALYSIS, AUTO, W/O SCOPE Apr 18, 2018 LAB NOT BILLED BY [facility] Apr 18, 2018 INSTRUCTIONS MEDICATIONS ADMINISTERED No Known Medications MEDICAL (GENERAL) HISTORY Type Description Date Medical History hearing loss Medical History Encopresis seen [facility] with Co lonosocopy 2014 and was told normal Medical History solitary pulmonary nodule LLL 15-15 st able rec yearly recheck Medical History diverticulitis Medical History Encopresis Medical History Diverticulitis of colon (wit hout mention of hemorrhage) Colonoscopy [facility] 2013 Medical History Solitary pulmonary nodule Surgical History tubal ligation Surgical History Colonoscopy [facility] 2015-
--- OUTSIDE RECORDS SUMMARY | 2019-12-18 09:49 | XMS REPORT ---
Author Author Josie FLYNN Organization [facility] Address [address] [place] [address] Care Team Providers Care Ticket Sales Agent Name Role Phone ARAM FLYNN Unavailable PROBLEMS Type Condition ICD9-CM Code WDG37-ES Code Onset Dates Condition S tatus SNOMED Code Problem History of solitary pulmonary nodule Z87.898 Active 476777326 Problem Hematuria R31.9 Active 49380227 Problem Encopresis R15.9 Active 265682324 Problem Diarrhea, unspecified type R19.7 Act alexis 32208401 Problem Neuropathy G62.9 Active 646188600 Problem Porokeratosis Q82.8 Active 364269 004 Problem Incontinence of feces, unspecified fecal incontinence type R15.9 Active 69691132 Problem Hammer toe, unspecified laterality M20.40 Active 824651247 ALLERGIES No Information ENCOUNTERS Encounter Location Date Diagnosis [facility] [address] [address] Apr, [facility] [address] [place] [address] [id number] [place] [address] Apr, Chest wall pain R07.89 and A bdominal pain, unspecified abdominal location R10.9 [facility] [address] [place] [id number] [place] [address] Feb, Annual physical exam Z00.00 and Diarrhea, unspecified type R19.7 [facility] [address] [id number] [place] [address] Dec, Encopresis R15.9 and Inconti nence of feces, unspecified fecal incontinence type R15.9 [facility] [id number] [place] [address] Nov, Urinary tract infection, sit e not specified N39.0 and Hematuria, unspecified R31.9 [place] [address] [place] [address] [id number] [place] [address] Oct, [place] [address] [place] [id number] [place] [address] Oct, Tick bite, initial encounter W57.XXXA and Incontinence of feces, unspecified fecal incontinence type R15.9 [place] [address] [place] [id number] [place] [address] May, Neuropathy G62.9 ; Hammer to e, unspecified laterality M20.40 and Onychomycosis B35.1 [place] [address] [place] [id number] [place] [address] Mar, Dysuria R30.0 [place] [address] [address] Mar, [place] [address] [place] [id number] [place] [address] Feb, [place] [address] [address] Dec, Family history of diabetes gonzalez sierra Z83.3 ; Porokeratosis Q82.8 and Neuropathy G62.9 [place] [address] [place] [id number] [place] [address] Oct, Porokeratosis Q82.8 [place] [address] [place] [id number] [place] [address] September, [place] [address] [place] [id number] [place] [address] September, Porokeratosis Q82.8 [place] [address] [place] [id number] [place] [address] September, [place] [address] [address] Aug, Aphthous ulcer K12.0 ; Denta l caries K02.9 ; Viral gastroenteritis A08.4 and Abscessed tooth K04.7 [place] [address] [address] Jul, Porokeratosis Q82.8 ; Callus of foot L84 and Metatarsalgia of right foot M77.41 [place] [address] [address] Jun, Porokeratosis Q82.8 and Foot pain, right M79.671 [place] [address] [address] Apr, [place] [address] [address] Apr, Pre-diabetes R73.03 and Plan tar wart, right foot B07.0 [place] [address] [address] Apr, [place] [address] [address] Apr, [place] [address] [address] Mar, [place] [address] [address] Mar, [place] [address] [address] Mar, Hematuria R31.9 and Pre-diab etes R73.03 [place] [address] [place] [id number] [place] [address] Feb, [place] [address] [place] [id number] [place] [address] Feb, [place] [address] [address] Feb, Abnormal fasting glucose R73 .01 [facility] [address] [id number] [address] [place] [address] Feb, Abnormal fasting glucose R73 .01 [facility] [address] [id number] [address] [place] [address] Feb, Routine gynecological examin ation Z01.419 ; General medical exam Z00.00 ; Screening breast examination Z12.39 ; Hematuria R31.9 ; Vaginal discharge N89.8 ; Vaginal yeast infection B37.3 and Recurrent UTI N39.0 [facility] [address] [id number] [address] [place] [address] 20 Jan, 2016 Recurrent UTI N39.0 and Hist ory of solitary pulmonary nodule Z87.898 [place] [address] [id number] [address] [place] [address] Jan, [place] [address] [id number] [address] [place] [address] Jan, Recurrent UTI N39.0 ; Hematu vasu R31.9 and History of solitary pulmonary nodule Z87.898 [place] [address] [id number] [address] [place] [address] 07 Jan, 2016 [place] [address] [id number] [address] [place] [address] Jan, Recurrent UTI N39.0 [place] [address] [id number] [address] [place] [address] Dec, [facility] [address] [id number] [address] [place] [address] Dec, [place] [address] [id number] [address] [place] [address] Dec, Acute cystitis with hematuri a N30.01 [facility] [address] [id number] [address] [place] [address] Dec, Acute cystitis with hematuri a N30.01 [place] [address] [facility] [id number] [address] [place] [address] Dec, Acute cystitis with hematuri a N30.01 and Insect bite (nonvenomous) of left upper arm, initial encounter S40.862A [facility] [address] [id number] [address] [place] [address] Nov, Acute cystitis with hematuri a N30.01 and Insect bite (nonvenomous) of left upper arm, initial encounter S40.862A [facility] [address] [id number] [address] [place] [address] September, [facility] [address] [facility] [id number] [address] [place] [address] September, [facility] [address] [facility] [id number] [address] [place] [address] September, Acute cystitis with hematuri a N30.01 and Family history of diabetes mellitus Z83.3 [facility] [address] [facility] [id number] [address] [place] [address] September, Family history of diabetes m ellitus Z83.3 [place] [address] [facility] [id number] [address] [place] [address] September, Acute cystitis with hematuri a N30.01 [facility] [address] [facility] [id number] [address] [place] [address] September, [facility] [address] [facility] [id number] [address] [place] [address] September, Acute cystitis with hematuri a N30.01 [facility] [address] [id number] [address] [place] [address] May, Back pain M54.9 and Urinary tract infection N39.0 [facility] [address] [id number] [address] [place] [address] Feb, [facility] [address] [facility] [id number] [address] [place] [address] Feb, Bony prominence M89.8X9 [facility] [address] [id number] [address] [place] [address] Nov, Unspecified urinary incontin ence 788.30 ; 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 and Solitary pulmonary nodule 793.11 [facility] [address] [id number] [address] [place] [address] Nov, [facility] [address] [id number] [address] [place] [address] Oct, Unspecified urinary incontin ence 788.30 ; 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 and Solitary pulmonary nodule 793.11 [facility] [address] [id number] [address] [place] [address] Oct, [facility] [address] [id number] [address] [place] [address] Oct, [facility] [address] [id number] [address] [place] [address] September, [facility] [address] [id number] [address] [place] [address] Aug, [facility] [address] [id number] [address] [place] [address] Aug, [facility] [address] [id number] [address] [place] [address] May, [facility] [address] [id number] [address] [place] [address] May, [facility] [address] [id number] [address] [place] [address] May, [facility] [address] [id number] [address] [place] [address] May, [facility] [address] [id number] [address] [place] [address] May, [facility] [address] [id number] [address] [place] [address] [place] [address] May, [facility] [address] [id number] [address] [place] [address], [place] [address] Apr, [facility] [address] [id number] [address] [place] [address], [place] [address] Apr, [facility] [address] [id number] [address] [place] [address], [place] [address] Feb, [facility] [address] [id number] [address] [place] [address], [place] [address] Feb, [facility] [address] [id number] [address] [place] [address], [place] [address] Dec, [facility] [address] [id number] [address] [place] [address], [place] [address] Nov, [facility] [address] [id number] [address] [place] [address], [place] [address] Nov, [facility] [address] [id number] [address] [place] [address], [place] [address] Nov, [facility] [address] [id number] [address] [place] [address], [place] [address] Nov, [facility] [address] [id number] [address] [place] [address], [place] [address] Nov, [facility] [address] [id number] [address] [place] [address], [place] [address] Nov, [facility] [address] [id number] [address] [place] [address], [place] [address] September, [facility] [address] [id number] [address] [place] [address], [place] [address] September, [facility] [address] [id number] [address] [place] [address], [place] [address] September, [facility] [address] [id number] [address] [place] [address], [place] [address] Aug, [facility] [address] [id number] [address] [place] [address], [place] [address] Aug, [facility] [address] [id number] [address] [place] [address], [place] [address] Aug, [facility] [address] [id number] [address] [place] [address], [place] [address] Aug, [facility] [address] [id number] [address] [place] [address], [place] [address] Jul, [facility] [address] [id number] [address] [place] [address], [place] [address] Jul, [facility] [address] [id number] [address] [place] [address], [place] [address] Jul, [facility] [address] [id number] [address] [place] [address], [place] [address] May, [facility] [address] [id number] [address] [place] [address], [place] [address] May, [facility] [address] [id number] [address] [place] [address], [place] [address] May, [facility] [address] [id number] [address] [place] [address], [place] [address] May, [facility] [address] [id number] [address] [place] [address], [place] [address] Apr, [facility] [address] [id number] [address] [place] [address], [place] [address] Apr, [facility] [address] [id number] [address] [place] [address], [place] [address] Apr, [facility] [address] [id number] [address] [place] [address], [place] [address] Feb, [facility] [address] [id number] [address] [place] [address], [place] [address] Feb, [facility] [address] [id number] [address] [place] [address], [place] [address] 25 Jan, 2012 [facility] [address] [id number] [address] [place] [address], [place] [address] 24 Jan, 2012 [facility] [address] [id number] [address] [place] [address], [place] [address] 18 Jan, 2013 [facility] [address] [id number] [address] [place] [address], [place] [address] 16 Jan, 2012 [facility] [address] [id number] [address] [place] [address], [place] [address] 12 Jan, 2012 [facility] [address] [id number] [address] [place] [address], [place] [address] 11 Jan, 2013 [facility] [address] [id number] [address] [place] [address], [place] [address] 05 Jan, 2013 [facility] [address] [id number] [address] [place] [address], [place] [address] Dec, [facility] [address] [id number] [address] [place] [address], [place] [address] 15 Dec, 2012 [facility] [address] [id number] [address] [place] [address], [place] [address] Dec, [facility] [address] [id number] [address] [place] [address], [place] [address] Dec, [facility] [address] [id number] [address] [place] [address] Oct, [facility] [address] [id number] [address] [place] [address] Nov, [facility] [address] [id number] [address] [place] [address], [place] [address] Mar, [facility] [address] [id number] [address] [place] [address], [place] [address] Feb, [facility] [address] [id number] [address] [place] [address], [place] [address] Feb, [facility] [address] [id number] [facility] [place] [address] 15 Jul, 2010 IMMUNIZATIONS No Known Immunizations SOCIAL HISTORY Never Assessed REASON FOR VISIT med order PLAN OF CARE VITAL SIGNS MEDICATIONS Medication Instructions Dosage Frequency Start Date End Date Duration S maddy Macrobid 100 MG Orally 2 times a day 1 capsule with food 12h 18 Apr, 2018 5 days Active RESULTS No Results PROCEDURES No Known procedures INSTRUCTIONS MEDICATIONS ADMINISTERED No Known Medications MEDICAL (GENERAL) HISTORY Type Description Date Medical History hearing loss Medical History Encopresis seen [facility] with Co lonosocopy 2014 and was told normal Medical History solitary pulmonary nodule LLL 08-21-14 [facility] able rec yearly recheck Medical History diverticulitis Medical History Encopresis Medical History Diverticulitis of colon (wit hout mention of hemorrhage) Colonoscopy [facility] 2013 Medical History Solitary pulmonary nodule Surgical History tubal ligation Surgical History Colonoscopy [facility] 2015-10
--- OUTSIDE RECORDS SUMMARY | 2019-12-18 09:49 | XMS REPORT ---
Author Author Josie ISBELL Organization [facility] Address [address] [place] [address] Care Team Providers Care Campaign Manager Name Role Phone SUMEET ISBELL Unavailable PROBLEMS Type Condition ICD9-CM Code [id number] Code Onset Dates Condition S tatus SNOMED Code Problem History of solitary pulmonary nodule Z87.898 Active 676295968 Problem Hematuria R31.9 Active 40750709 Problem Encopresis R15.9 Active 694061234 Problem Diarrhea, unspecified type R19.7 Act alexis 53415137 Problem Neuropathy G62.9 Active 768607213 Problem Porokeratosis Q82.8 Active 204310 004 Problem Incontinence of feces, unspecified fecal incontinence type R15.9 Active 13968363 Problem Hammer toe, unspecified laterality M20.40 Active 560850848 ALLERGIES No Information ENCOUNTERS Encounter Location Date Diagnosis [facility] [id number] [place] [id number] Dec, Encopresis R15.9 and Inconti nence of feces, unspecified fecal incontinence type R15.9 [facility] [address] [id number] [address] [place] [id number] Nov, Urinary tract infection, sit e not specified N39.0 and Hematuria, unspecified R31.9 [facility] [address] [id number] [address] [place] [id number] Oct, [place] [id number] [place] [address] Oct, Tick bite, initial encounter W57.XXXA and Incontinence of feces, unspecified fecal incontinence type R15.9 [facility] [id number] [address] [place] [address] May, Neuropathy G62.9 ; Hammer to e, unspecified laterality M20.40 and Onychomycosis B35.1 [place] [address] [address] Mar, Dysuria R30.0 [place] [address] [address] Mar, [place] [address] [address] Feb, [place] [address] [address] Dec, Family history of diabetes m eugeneitus Z83.3 ; Porokeratosis Q82.8 and Neuropathy G62.9 [place] [address] [address] Oct, Porokeratosis Q82.8 [place] [address] [address] September, [place] [address] [address] September, Porokeratosis Q82.8 [place] [address] [address] September, [place] [address] [address] Aug, Aphthous ulcer K12.0 ; Denta l caries K02.9 ; Viral gastroenteritis A08.4 and Abscessed tooth K04.[address] [address] Jul, Porokeratosis Q82.8 ; Callus of foot L84 and Metatarsalgia of right foot M77.41 [place] [address] [address] 10 Feb, 2017 Porokeratosis Q82.8 and Foot pain, right M79.671 [facility] [address] [id number] [address] [place] [address] Apr, [facility] [address] [id number] [address] [place] [address] Apr, Pre-diabetes R73.03 and Plan tar wart, right foot B07.0 [facility] [address] [id number] [address] [place] [address] Apr, [facility] [address] [id number] [address] [place] [address] Apr, [facility] [address] [id number] [address] [place] [address] Mar, [facility] [address] [id number] [address] [place] [address] Mar, [facility] [address] [id number] [address] [place] [address] Mar, Hematuria R31.9 and Pre-diab etes R73.03 [facility] [address] [id number] [address] [place] [address] Feb, [facility] [address] [id number] [address] [place] [address] Feb, [facility] [address] [id number] [address] [place] [address] Feb, Abnormal fasting glucose R73 .01 [facility] [address] [id number] [address] [place] [address] Feb, Abnormal fasting glucose R73 .01 [facility] [address] [facility] [id number] [address] [place] [address] Feb, Routine gynecological examin ation Z01.419 ; General medical exam Z00.00 ; Screening breast examination Z12.39 ; Hematuria R31.9 ; Vaginal discharge N89.8 ; Vaginal yeast infection B37.3 and Recurrent UTI N39.0 [facility] [address] [id number] [address] [place] [address] 20 Jan, 2016 Recurrent UTI N39.0 and Hist ory of solitary pulmonary nodule Z87.898 [facility] [address] [id number] [address] [place] [address] 19 Jan, 2016 [facility] [address] [id number] [address] [place] [address] 13 Jan, 2016 Recurrent UTI N39.0 ; Hematu vasu R31.9 and History of solitary pulmonary nodule Z87.898 [facility] [address] [id number] [address] [place] [address] 07 Jan, 2016 [facility] [address] [id number] [address] [place] [address] 06 Jan, 2016 Recurrent UTI N39.0 [facility] [address] [id number] [address] [place] [address] Dec, [facility] [address] [id number] [address] [place] [address] Dec, [facility] [address] [id number] [address] [place] [address] Dec, Acute cystitis with hematuri a N30.01 [place] [address] [facility] [id number] [address] [place] [address] Dec, Acute cystitis with hematuri a N30.01 [facility] [address] [id number] [address] [place] [address] Dec, Acute cystitis with hematuri a N30.01 and Insect bite (nonvenomous) of left upper arm, initial encounter S40.862A [facility] [address] [id number] [address] [place] [address] Nov, Acute cystitis with hematuri a N30.01 and Insect bite (nonvenomous) of left upper arm, initial encounter S40.862A [place] [address] [facility] [id number] [address] [place] [address] September, [facility] [address] [facility] [id number] [address] [place] [address] September, [facility] [address] [facility] [id number] [address] [place] [address] September, Acute cystitis with hematuri a N30.01 and Family history of diabetes mellitus Z83.3 [facility] [address] [facility] [id number] [address] [place] [address] September, Family history of diabetes gonzalez sierra Z83.3 [place] [address] [facility] [id number] [address] [place] [address] September, Acute cystitis with hematuri a N30.01 [place] [address] [place] [id number] [place] [address] September, [place] [address] [facility] [id number] [address] [place] [address] September, Acute cystitis with hematuri a N30.01 [facility] [address] [facility] [id number] [address] [place] [address] May, Back pain M54.9 and Urinary tract infection N39.0 [place] [address] [place] [id number] [place] [address] Feb, [place] [address] [id number] [place] [address] Feb, Bony prominence M89.8X9 [place] [address] [facility] [id number] [address] [place] [address] Nov, Unspecified urinary incontin ence 788.30 ; 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 and Solitary pulmonary nodule 793.11 [place] [address] [facility] [id number] [address] [place] [address] Nov, [place] [address] [id number] [address] [place] [address] Oct, Unspecified urinary incontin ence 788.30 ; 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 and Solitary pulmonary nodule 793.11 [facility] [address] [id number] [address] [place] [address] Oct, [facility] [address] [id number] [address] [place] [address] Oct, [facility] [address] [id number] [address] [place] [address] September, [facility] [address] [id number] [address] [place] [address] Aug, [facility] [address] [id number] [address] [place] [address] Aug, [facility] [address] [id number] [address] [place] [address] May, [facility] [address] [id number] [address] [place] [address] May, [facility] [address] [id number] [address] [place] [address] May, [facility] [address] [id number] [address] [place] [address] May, [facility] [address] [id number] [address] [place] [address] May, [facility] [address] [id number] [address] [place] [address] May, [facility] [address] [id number] [address] [place] [address] Apr, [facility] [address] [id number] [address] [place] [address] Apr, [facility] [address] [id number] [address] [place] [address] Feb, [facility] [address] [id number] [address] [place] [phone] Feb, [facility] [address] [id number] [address] [place] [address], [place] [address] Dec, [facility] [address] [id number] [address] [place] [address], [place] [address] Nov, [facility] [address] [id number] [address] [place] [address], [place] [address] Nov, [facility] [address] [id number] [address] [place] [address], [place] [address] Nov, [facility] [address] [id number] [address] [place] [address], [place] [address] Nov, [facility] [address] [id number] [address] [place] [address], [place] [address] Nov, [facility] [address] [id number] [address] [place] [address], [place] [address] Nov, [facility] [address] [id number] [address] [place] [address], [place] [address] September, [facility] [address] [id number] [address] [place] [address], [place] [address] September, [facility] [address] [id number] [address] [place] [address], [place] [address] September, [facility] [address] [id number] [address] [place] [address], [place] [address] Aug, [facility] [address] [id number] [address] [place] [address], [place] [address] Aug, [facility] [address] [id number] [address] [place] [address], [place] [address] Aug, [facility] [address] [id number] [address] [place] [address], [place] [address] Aug, [facility] [address] [id number] [address] [place] [address], [place] [address] Jul, [facility] [address] [id number] [address] [place] [address], [place] [address] Jul, [facility] [address] [id number] [address] [place] [address], [place] [address] Jul, [facility] [address] [id number] [address] [place] [address], [place] [address] May, [facility] [address] [id number] [address] [place] [address], [place] [address] May, [facility] [address] [id number] [address] [place] [address], [place] [address] May, [facility] [address] [id number] [address] [place] [address], [place] [address] May, [facility] [address] [id number] [address] [place] [address], [place] [address] Apr, [facility] [address] [id number] [address] [place] [address], [place] [address] Apr, [facility] [address] [id number] [address] [place] [address], [place] [address] Apr, [facility] [address] [id number] [address] [place] [address], [place] [address] Feb, [facility] [address] [id number] [address] [place] [address], [place] [address] Feb, [facility] [address] [id number] [address] [place] [address], [place] [address] 25 Jan, 2013 [facility] [address] [id number] [address] [place] [address], [place] [address] 24 Sep2012 [facility] [address] [id number] [address] [place] [address] [address] 18 Sep2012 [facility] [address] [id number] [address] [place] [address], [place] [address] 16 Sep2012 [facility] [address] [id number] [address] [place] [address], [place] [address] Jan, [facility] [address] [id number] [address] [place] [phone] Jan, [facility] [address] [id number] [address] [place] [address] Jan, [facility] [address] [id number] [address] [place] [address] Dec, [facility] [address] [id number] [address] [place] [address] Dec, [facility] [address] [id number] [address] [place] [address] Dec, [facility] [address] [id number] [address] [place] [address] Dec, [facility] [address] [id number] [address] [place] [address] Oct, [facility] [address] [id number] [address] [place] [address] Nov, [facility] [address] [id number] [address] [place] [address] Mar, [facility] [address] [id number] [address] [place] [address] Feb, [facility] [address] [id number] [address] [place] [address] Feb, [facility] [address] [id number] [address] [place] [address] Jul, IMMUNIZATIONS No Known Immunizations SOCIAL HISTORY Never Assessed REASON FOR VISIT Requests return call PLAN OF CARE VITAL SIGNS MEDICATIONS No Known Medications RESULTS No Results PROCEDURES No Known procedures INSTRUCTIONS MEDICATIONS ADMINISTERED No Known Medications MEDICAL (GENERAL) HISTORY Type Description Date Medical History hearing loss Medical History Encopresis seen [facility] with Co lonosocopy 2014 and was told normal Medical History solitary pulmonary nodule LLL 08-21-[facility] yearly recheck Medical History diverticulitis Medical History Encopresis Medical History Diverticulitis of colon (wit hout mention of hemorrhage) Colonoscopy [facility] 2014 Medical History Solitary pulmonary nodule Surgical History tubal ligation Surgical History Colonoscopy [facility] 2016-
--- OUTSIDE RECORDS SUMMARY | 2019-12-18 09:49 | XMS REPORT ---
Author Author Josie GOMEZ Organization [facility] Address [address] [place] [address] Care Team Providers Care Industrial Relations Specialist Name Role Phone SIMI GOMEZ Unavailable PROBLEMS Type Condition ICD9-CM Code [id number] Code Onset Dates Condition S tatus SNOMED Code Problem History of solitary pulmonary nodule Z87.898 Active 531968877 Problem Hematuria R31.9 Active 45122260 Problem Encopresis R15.9 Active 511761040 Problem Diarrhea, unspecified type R19.7 Act alexis 18591433 Problem Neuropathy G62.9 Active 823033346 Problem Porokeratosis Q82.8 Active 756537 004 Problem Incontinence of feces, unspecified fecal incontinence type R15.9 Active 62752305 Problem Hammer toe, unspecified laterality M20.40 Active 779731183 ALLERGIES No Known Allergies ENCOUNTERS Encounter Location Date Diagnosis [place] [id number] [address] Feb, [facility] [address] [address] Dec, Encopresis R15.9 and Inconti nence of feces, unspecified fecal incontinence type R15.9 [facility] [address] [place] [id number] [place] [address] Nov, Urinary tract infection, sit e not specified N39.0 and Hematuria, unspecified R31.9 [facility] [address] [place] [id number] [address] [place] [address] Oct, [facility] [address] [address] Oct, Tick bite, initial encounter W57.XXXA and Incontinence of feces, unspecified fecal incontinence type R15.9 [place] [address] [address] May, Neuropathy G62.9 ; Hammer to e, unspecified laterality M20.40 and Onychomycosis B35.1 [place] [address] [address] Mar, Dysuria R30.0 [place] [address] [address] Mar, [place] [address] [address] Feb, [place] [address] [address] Dec, Family history of diabetes m ellitus Z83.3 ; Porokeratosis Q82.8 and Neuropathy G62.9 [place] [address] [address] Oct, Porokeratosis Q82.8 [place] [address] [address] September, [place] [address] [address] September, Porokeratosis Q82.8 [place] [address] [address] September, [place] [address] [address] Aug, Aphthous ulcer K12.0 ; Denta l caries K02.9 ; Viral gastroenteritis A08.4 and Abscessed tooth K04.7 [place] [address] [place] [id number] [place] [address] Jul, Porokeratosis Q82.8 ; Callus of foot L84 and Metatarsalgia of right foot M77.41 [place] [address] [id number] [address] [place] [address] 10 Jun, 2016 Porokeratosis Q82.8 and Foot pain, right M79.671 [facility] [address] [id number] [address] [place] [address] Apr, [facility] [address] [id number] [address] [place] [address] Apr, Pre-diabetes R73.03 and Plan tar wart, right foot B07.0 [facility] [address] [id number] [address] [place] [address] Apr, [facility] [address] [id number] [address] [place] [address] Apr, [facility] [address] [facility] [id number] [address] [place] [address] Mar, [facility] [address] [facility] [id number] [address] [place] [address] Mar, [facility] [address] [facility] [id number] [address] [place] [address] Mar, Hematuria R31.9 and Pre-diab etes R73.03 [facility] [address] [id number] [address] [place] [address] Feb, [facility] [address] [facility] [id number] [address] [place] [address] Feb, [facility] [address] [id number] [address] [place] [address] Feb, Abnormal fasting glucose R73 .01 [facility] [address] [facility] [id number] [address] [place] [address] Feb, Abnormal fasting glucose R73 .01 [facility] [address] [facility] [id number] [address] [place] [address] 13 Feb, 2016 Routine gynecological examin ation Z01.419 ; General medical exam Z00.00 ; Screening breast examination Z12.39 ; Hematuria R31.9 ; Vaginal discharge N89.8 ; Vaginal yeast infection B37.3 and Recurrent UTI N39.0 [facility] [address] [id number] [address] [place] [address] 20 Jan, 2016 Recurrent UTI N39.0 and Hist ory of solitary pulmonary nodule Z87.898 [facility] [address] [id number] [address] [place] [address] 19 Jan, 2016 [facility] [address] [id number] [address] [place] [address] 13 Jan, 2016 Recurrent UTI N39.0 ; Hematu vasu R31.9 and History of solitary pulmonary nodule Z87.898 [facility] [address] [id number] [address] [place] [address] 07 Jan, 2016 [place] [address] [id number] [address] [place] [address] 06 Jan, 2016 Recurrent UTI N39.0 [facility] [address] [id number] [address] [place] [address] Dec, [facility] [address] [id number] [address] [place] [address] Dec, [facility] [address] [id number] [address] [place] [address] Dec, Acute cystitis with hematuri a N30.01 [place] [address] [id number] [address] [place] [address] Dec, Acute cystitis with hematuri a N30.01 [facility] [address] [id number] [address] [place] [address] Dec, Acute cystitis with hematuri a N30.01 and Insect bite (nonvenomous) of left upper arm, initial encounter S40.862A [facility] [address] [id number] [address] [place] [address] Nov, Acute cystitis with hematuri a N30.01 and Insect bite (nonvenomous) of left upper arm, initial encounter S40.862A [facility] [address] [facility] [id number] [address] [place] [address] September, [facility] [address] [facility] [id number] [address] [place] [address] September, [facility] [address] [facility] [id number] [address] [place] [address] September, Acute cystitis with hematuri a N30.01 and Family history of diabetes mellitus Z83.3 [facility] [address] [facility] [id number] [address] [place] [address] September, Family history of diabetes gonzalez sierra Z83.3 [facility] [address] [facility] [id number] [address] [place] [address] September, Acute cystitis with hematuri a N30.01 [facility] [address] [facility] [id number] [address] [place] [address] September, [facility] [address] [facility] [id number] [address] [place] [address] September, Acute cystitis with hematuri a N30.01 [facility] [address] [facility] [id number] [address] [place] [address] May, Back pain M54.9 and Urinary tract infection N39.0 [facility] [address] [place] [id number] [place] [address] Feb, [facility] [address] [place] [id number] [place] [address] Feb, Bony prominence M89.8X9 [place] [address] [place] [id number] [place] [address] Nov, Unspecified urinary incontin ence 788.30 ; 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 and Solitary pulmonary nodule 793.11 [facility] [address] [place] [id number] [place] [address] Nov, [facility] [address] [id number] [address] [place] [address] Oct, Unspecified urinary incontin ence 788.30 ; 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 and Solitary pulmonary nodule 793.11 [facility] [address] [id number] [address] [place] [address] Oct, [facility] [address] [id number] [address] [place] [address] Oct, [facility] [address] [id number] [address] [place] [address] September, [facility] [address] [id number] [address] [place] [address] Aug, [facility] [address] [id number] [address] [place] [address] Aug, [facility] [address] [id number] [address] [place] [address] May, [facility] [address] [id number] [address] [place] [address] May, [facility] [address] [id number] [address] [place] [address] May, [facility] [address] [id number] [address] [place] [address] May, [facility] [address] [id number] [address] [place] [address] May, [facility] [address] [id number] [address] [place] [phone] May, [facility] [address] [id number] [address] [place] [address] Apr, [facility] [address] [id number] [address] [place] [address] Apr, [facility] [address] [id number] [address] [place] [address] Feb, [facility] [address] [id number] [address] [place] [address], [place] [address] Feb, [facility] [address] [id number] [address] [place] [address], [place] [address] Dec, [facility] [address] [id number] [address] [place] [address], [place] [address] Nov, [facility] [address] [id number] [address] [place] [address], [place] [address] Nov, [facility] [address] [id number] [address] [place] [address], [place] [address] Nov, [facility] [address] [id number] [address] [place] [address], [place] [address] Nov, [facility] [address] [id number] [address] [place] [address], [place] [address] Nov, [facility] [address] [id number] [address] [place] [address], [place] [address] Nov, [facility] [address] [id number] [address] [place] [address], [place] [address] September, [facility] [address] [id number] [address] [place] [address], [place] [address] September, [facility] [address] [id number] [address] [place] [address], [place] [address] September, [facility] [address] [id number] [address] [place] [address], [place] [address] Aug, [facility] [address] [id number] [address] [place] [address], [place] [address] Aug, [facility] [address] [id number] [address] [place] [address], [place] [address] Aug, [facility] [address] [id number] [address] [place] [address], [place] [address] Aug, [facility] [address] [id number] [address] [place] [address], [place] [address] 07 Jul, 2013 [facility] [address] [id number] [address] [place] [address], [place] [address] 05 Jul, 2013 [facility] [address] [id number] [address] [place] [address], [place] [address] Jul, [facility] [address] [id number] [address] [place] [address], [place] [address] May, [facility] [address] [id number] [address] [place] [address], [place] [address] May, [facility] [address] [id number] [address] [place] [address], [place] [address] May, [facility] [address] [id number] [address] [place] [address], [place] [address] May, [facility] [address] [id number] [address] [place] [address], [place] [address] Apr, [facility] [address] [id number] [address] [place] [address], [place] [address] Apr, [facility] [address] [id number] [address] [place] [address], [place] [address] Apr, [facility] [address] [id number] [address] [place] [address], [place] [address] Feb, [facility] [address] [id number] [address] [place] [address], [place] [address] 15 Feb, 2013 [facility] [address] [id number] [address] [place] [address], [place] [address] 25 Jan, 2013 [facility] [address] [id number] [address] [place] [address], [place] [address] 24 Jan, 2013 [facility] [address] [id number] [address] [place] [address], [place] [address] 18 Sep2012 [facility] [address] [id number] [address] [place] [address] [address] 16 Jan, 2013 [facility] [address] [id number] [address] [place] [address] 12 Jan, 2013 [facility] [address] [id number] [address] [place] [address] Jan, [facility] [address] [id number] [address] [place] [address] Jan, [facility] [address] [id number] [address] [place] [address] Dec, [facility] [address] [id number] [address] [place] [address] Dec, [facility] [address] [id number] [address] [place] [address] Dec, [facility] [address] [id number] [address] [place] [address] Dec, [facility] [address] [id number] [address] [place] [address] Oct, [facility] [address] [id number] [address] [place] [address] Nov, [facility] [address] [id number] [address] [place] [address] Mar, [facility] [address] [id number] [address] [place] [address] Feb, [facility] [address] [id number] [address] [place] [address] Feb, [facility] [address] [id number] [address] [place] [address] Jul, IMMUNIZATIONS No Known Immunizations SOCIAL HISTORY Never Assessed REASON FOR VISIT uti symptoms-urinary urgency and frequency x 1 week.--KAY Campbell PLAN OF CARE Activity Details Follow Up prn Reason: VITAL SIGNS Height 65 in 2017-12-06 Weight 153.6 lbs 2017-12-06 Temperature 98.2 degrees Fahrenheit 2017-12-06 Heart Rate 72 bpm 2017-12-06 Respiratory Rate 18 2017-12-06 BMI 25.56 kg/m2 2017-12-06 Blood pressure systolic 116 mmHg 2017-12-06 Blood pressure diastolic 88 mmHg 2017-12-06 MEDICATIONS Medication Instructions Dosage Frequency Start Date End Date Duration S tat Macrobid 100 mg Orally every 12 hrs VOUCHER PLEASE. 1 capsule with food Nov, Dec, 7 day(s) Active Glucocard Expression Monitor w/Device as directed Feb Not-Taking Glucocard Expression Test - In Vitro 2 times a day weekly test bloo d sugar Feb, Not-Taking RESULTS No Results PROCEDURES Procedure Date Ordered Result Body Site URINALYSIS, AUTO, W/O SCOPE December 06, 2017 URINE CULTURE/COLONY COUNT December 06, 2017 INSTRUCTIONS MEDICATIONS ADMINISTERED No Known Medications MEDICAL (GENERAL) HISTORY Type Description Date Medical History hearing loss Medical History Encopresis seen [facility] with Co lonosocopy 2014 and was told normal Medical History solitary pulmonary nodule [facility] 4-15-15 [address] able rec yearly recheck Medical History diverticulitis Medical History Encopresis Medical History Diverticulitis of colon (wit hout mention of hemorrhage) Colonoscopy [facility] 2013 Medical History Solitary pulmonary nodule Surgical History tubal ligation Surgical History Colonoscopy [facility] 2015-
--- OUTSIDE RECORDS SUMMARY | 2019-12-18 09:49 | XMS REPORT ---
Author Author Josie FLYNN Organization [facility] Address [address] [place] [address] Care Team Providers Care Rubber Goods Tester Name Role Phone ARAM FLYNN Unavailable PROBLEMS Type Condition ICD9-CM Code BRF70-BT Code Onset Dates Condition S tatus SNOMED Code Problem History of solitary pulmonary nodule Z87.898 Active 408193138 Problem Hematuria R31.9 Active 40419141 Problem Encopresis R15.9 Active 768842023 Problem Diarrhea, unspecified type R19.7 Act alexis 19836141 Problem Neuropathy G62.9 Active 379779642 Problem Porokeratosis Q82.8 Active 117552 004 Problem Incontinence of feces, unspecified fecal incontinence type R15.9 Active 73568920 Problem Hammer toe, unspecified laterality M20.40 Active 399199711 ALLERGIES No Known Allergies ENCOUNTERS Encounter Location Date Diagnosis [facility] [address] [address] Feb, [facility] [address] [id number] [address] [place] [address] Dec, Encopresis R15.9 and Inconti nence of feces, unspecified fecal incontinence type R15.9 [facility] [address] [id number] [address] [place] [address] Nov, Urinary tract infection, sit e not specified N39.0 and Hematuria, unspecified R31.9 [facility] [address] [id number] [address] [place] [address] Oct, [facility] [address] [id number] [address] [place] [address] Oct, Tick bite, initial encounter W57.XXXA and Incontinence of feces, unspecified fecal incontinence type R15.9 [place] [address] [address] May, Neuropathy G62.9 ; Hammer to e, unspecified laterality M20.40 and Onychomycosis B35.1 [place] [address] [address] Mar, Dysuria R30.0 [place] [address] [address] Mar, [place] [address] [address] Feb, [place] [address] [address] Dec, Family history of diabetes m mariela Z83.3 ; Porokeratosis Q82.8 and Neuropathy G62.9 [place] [address] [address] Oct, Porokeratosis Q82.8 [place] [address] [address] September, [place] [address] [address] September, Porokeratosis Q82.8 [place] [address] [address] September, [place] [address] [address] Aug, Aphthous ulcer K12.0 ; Denta l caries K02.9 ; Viral gastroenteritis A08.4 and Abscessed tooth K04.7 [place] [address] [address] Jul, Porokeratosis Q82.8 ; Callus of foot L84 and Metatarsalgia of right foot M77.41 [place] [address] [place] [id number] [address] [place] [address] 10 Jun, 2016 Porokeratosis Q82.8 and Foot pain, right M79.671 [facility] [address] [id number] [address] [place] [address] Apr, [facility] [address] [facility] [id number] [address] [place] [address] Apr, Pre-diabetes R73.03 and Plan tar wart, right foot B07.0 [facility] [address] [id number] [address] [place] [address] Apr, [facility] [address] [facility] [id number] [address] [place] [address] Apr, [facility] [address] [facility] [id number] [address] [place] [address] Mar, [facility] [address] [facility] [id number] [address] [place] [address] Mar, [facility] [address] [facility] [id number] [address] [place] [address] Mar, Hematuria R31.9 and Pre-diab etes R73.03 [facility] [address] [facility] [id number] [address] [place] [address] Feb, [facility] [address] [facility] [id number] [address] [place] [address] Feb, [facility] [address] [facility] [id number] [address] [place] [address] Feb, Abnormal fasting glucose R73 .01 [facility] [address] [facility] [id number] [address] [place] [address] Feb, Abnormal fasting glucose R73 .01 [facility] [address] [facility] [id number] [address] [place] [address] Feb, Routine gynecological examin ation Z01.419 ; General medical exam Z00.00 ; Screening breast examination Z12.39 ; Hematuria R31.9 ; Vaginal discharge N89.8 ; Vaginal yeast infection B37.3 and Recurrent UTI N39.0 [facility] [address] [id number] [address] [place] [address] 20 Jan, 2016 Recurrent UTI N39.0 and Hist ory of solitary pulmonary nodule Z87.898 [facility] [address] [id number] [address] [place] [address] 19 Jan, 2016 [facility] [address] [id number] [address] [place] [address] 13 Jan, 2016 Recurrent UTI N39.0 ; Hematu vasu R31.9 and History of solitary pulmonary nodule Z87.898 [place] [address] [id number] [address] [place] [address] 07 Jan, 2016 [facility] [address] [id number] [address] [place] [address] Jan, Recurrent UTI N39.0 [facility] [address] [id number] [address] [place] [address] Dec, [facility] [address] [id number] [address] [place] [address] Dec, [facility] [address] [id number] [address] [place] [address] Dec, Acute cystitis with hematuri a N30.01 [place] [address] [id number] [address] [place] [address] Dec, Acute cystitis with hematuri a N30.01 [facility] [address] [id number] [address] [place] [address] Dec, Acute cystitis with hematuri a N30.01 and Insect bite (nonvenomous) of left upper arm, initial encounter S40.862A [facility] [address] [id number] [address] [place] [address] Nov, Acute cystitis with hematuri a N30.01 and Insect bite (nonvenomous) of left upper arm, initial encounter S40.862A [facility] [address] [facility] [id number] [address] [place] [address] September, [facility] [address] [facility] [id number] [address] [place] [phone] September, [facility] [address] [facility] [id number] [address] [place] [address] September, Acute cystitis with hematuri a N30.01 and Family history of diabetes mellitus Z83.3 [facility] [address] [facility] [id number] [address] [place] [address] September, Family history of diabetes gonzalez sierra Z83.3 [place] [address] [facility] [id number] [address] [place] [address] September, Acute cystitis with hematuri a N30.01 [facility] [address] [facility] [id number] [address] [place] [address] September, [facility] [address] [place] [id number] [address] [place] [address] September, Acute cystitis with hematuri a N30.01 [facility] [address] [facility] [id number] [address] [place] [address] May, Back pain M54.9 and Urinary tract infection N39.0 [facility] [address] [id number] [address] [place] [address] Feb, [place] [address] [place] [id number] [address] [place] [address] Feb, Bony prominence M89.8X9 [place] [address] [place] [id number] [address] [place] [address] Nov, Unspecified urinary incontin ence 788.30 ; 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 and Solitary pulmonary nodule 793.11 [facility] [address] [place] [id number] [address] [place] [address] Nov, [facility] [address] [id number] [address] [place] [address] Oct, Unspecified urinary incontin ence 788.30 ; 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 and Solitary pulmonary nodule 793.11 [facility] [address] [id number] [address] [place] [address] Oct, [facility] [address] [id number] [address] [place] [address] Oct, [facility] [address] [id number] [address] [place] [address] September, [facility] [address] [id number] [address] [place] [address] Aug, [facility] [address] [id number] [address] [place] [address] Aug, [facility] [address] [id number] [address] [place] [address] May, [facility] [address] [id number] [address] [place] [address] May, [facility] [address] [id number] [address] [place] [address] May, [facility] [address] [id number] [address] [place] [address] May, [facility] [address] [id number] [address] [place] [address] May, [facility] [address] [id number] [address] [place] [address] May, [facility] [address] [id number] [address] [place] [address] Apr, [facility] [address] [id number] [address] [place] [id number] Apr, [facility] [address] [id number] [address] [place] [phone] Feb, [facility] [address] [id number] [address] [place] [address], [place] [address] Feb, [facility] [address] [id number] [address] [place] [address], [place] [address] Dec, [facility] [address] [id number] [address] [place] [address], [place] [address] Nov, [facility] [address] [id number] [address] [place] [address], [place] [address] Nov, [facility] [address] [id number] [address] [place] [address], [place] [address] Nov, [facility] [address] [id number] [address] [place] [address], [place] [address] Nov, [facility] [address] [id number] [address] [place] [address], [place] [address] Nov, [facility] [address] [id number] [address] [place] [address], [place] [address] Nov, [facility] [address] [id number] [address] [place] [address], [place] [address] September, [facility] [address] [id number] [address] [place] [address], [place] [address] September, [facility] [address] [id number] [address] [place] [address], [place] [address] September, [facility] [address] [id number] [address] [place] [address], [place] [address] Aug, [facility] [address] [id number] [address] [place] [address], [place] [address] Aug, [facility] [address] [id number] [address] [place] [address], [place] [address] Aug, [facility] [address] [id number] [address] [place] [address], [place] [address] Aug, [facility] [address] [id number] [address] [place] [address], [place] [address] Jul, [facility] [address] [id number] [address] [place] [address], [place] [address] Jul, [facility] [address] [id number] [address] [place] [address], [place] [address] Jul, [facility] [address] [id number] [address] [place] [address], [place] [address] May, [facility] [address] [id number] [address] [place] [address], [place] [address] May, [facility] [address] [id number] [address] [place] [address], [place] [address] May, [facility] [address] [id number] [address] [place] [address], [place] [address] May, [facility] [address] [id number] [address] [place] [address], [place] [address] Apr, [facility] [address] [id number] [address] [place] [address], [place] [address] Apr, [facility] [address] [id number] [address] [place] [address], [place] [address] Apr, [facility] [address] [id number] [address] [place] [address], [place] [address] Feb, [facility] [address] [id number] [address] [place] [address], [place] [address] 15 Feb, 2013 [facility] [address] [id number] [address] [place] [address], [place] [address] 25 Jan, 2013 [facility] [address] [id number] [address] [place] [address], [place] [address] 24 Sep2012 [facility] [address] [id number] [address] [place] [address] [address] 18 Sep2012 [facility] [address] [id number] [address] [place] [address], [place] [address] 16 Jan, 2013 [facility] [address] [id number] [address] [place] [address] Jan, [facility] [address] [id number] [address] [place] [address] Jan, [facility] [address] [id number] [address] [place] [address] Jan, [facility] [address] [id number] [address] [place] [address] Dec, [facility] [address] [id number] [address] [place] [address] Dec, [facility] [address] [id number] [address] [place] [address] Dec, [facility] [address] [id number] [address] [place] [address] Dec, [facility] [address] [id number] [address] [place] [address] Oct, [facility] [address] [id number] [address] [place] [address] Nov, [facility] [address] [id number] [address] [place] [address] Mar, [facility] [address] [id number] [address] [place] [address] Feb, [facility] [address] [id number] [address] [place] [address] Feb, [facility] [address] [id number] [address] [place] [address] Jul, IMMUNIZATIONS No Known Immunizations SOCIAL HISTORY Never Assessed REASON FOR VISIT Transition, PT wanted to talk to you about getting a medical note to get out of Jury duty-Nadir [place] PLAN OF CARE Activity Details Follow Up 2 Months Reason:annual check up VITAL SIGNS Height 65 in 2017-12-08 Weight 154.3 lbs 2017-12-08 Temperature 98.1 degrees Fahrenheit 2017-12-08 Heart Rate 78 bpm 2017-12-08 Respiratory Rate 18 2017-12-08 BMI 25.67 kg/m2 2017-12-08 Blood pressure systolic 102 mmHg 2017-12-08 Blood pressure diastolic 68 mmHg 2017-12-08 MEDICATIONS Medication Instructions Dosage Frequency Start Date End Date Duration S maddy Macrobid 100 mg Orally every 12 hrs VOUCHER PLEASE. 1 capsule with food Nov, Dec, 7 day(s) Active RESULTS No Results PROCEDURES No Known procedures INSTRUCTIONS MEDICATIONS ADMINISTERED No Known Medications MEDICAL (GENERAL) HISTORY Type Description Date Medical History hearing loss Medical History Encopresis seen [facility] with Co lonosocopy 2014 and was told normal Medical History solitary pulmonary nodule LLL 15-15 st able rec yearly recheck Medical History diverticulitis Medical History Encopresis Medical History Diverticulitis of colon (wit hout mention of hemorrhage) Colonoscopy [facility] 2013 Medical History Solitary pulmonary nodule Surgical History tubal ligation Surgical History Colonoscopy [facility] 2015-
--- OUTSIDE RECORDS SUMMARY | 2019-12-18 09:50 | XMS REPORT ---
Author Author Josie WOOD Organization [facility] Address [address] [place] [address] Care Team Providers Care Waxer Operator Name Role Phone CALISTA WOOD Unavailable PROBLEMS Type Condition ICD9-CM Code [id number] Code Onset Dates Condition S tatus SNOMED Code Problem Hematuria R31.9 Active 99287900 Problem History of solitary pulmonary nodule Z87.898 Active 305195040 Problem Hammer toe, unspecified laterality M20.40 Active 102046551 Problem Neuropathy G62.9 Active 503600721 Problem General medical exam Z00.00 Active 110947235 Problem Screening breast examination Z12.39 A ctive 262687839 Problem Porokeratosis Q82.8 Active 378723 004 Problem Plantar wart, right foot B07.0 Activ e [id number] ALLERGIES No Information ENCOUNTERS Encounter Location Date Diagnosis [place] [address] [address] May, Neuropathy G62.9 ; Hammer to e, unspecified laterality M20.40 and Onychomycosis B35.1 [place] [address] [place] [id number] [address] [place] [phone] Mar, Dysuria R30.0 [place] [address] [place] [id number] [address] [place] [phone] Mar, [place] [address] [phone] Feb, [place] [address] [place] [id number] [address] [place] [phone] Dec, Family history of diabetes m ellitus Z83.3 ; Porokeratosis Q82.8 and Neuropathy G62.9 [place] [id number] [place] [address] Oct, Porokeratosis Q82.8 [facility] [address] [place] [id number] [place] [phone] September, [facility] [address] [place] [id number] [address] [place] [phone] September, Porokeratosis Q82.8 [facility] [address] [place] [id number] [place] [phone] September, [facility] [address] [place] [id number] [address] [place] [phone] Aug, Aphthous ulcer K12.0 ; Denta l caries K02.9 ; Viral gastroenteritis A08.4 and Abscessed tooth K04.7 [place] [address] [place] [id number] [place] [phone] Jul, Porokeratosis Q82.8 ; Callus of foot L84 and Metatarsalgia of right foot M77.41 [place] [address] [place] [id number] [address] [place] [phone] Jun, Porokeratosis Q82.8 and Foot pain, right M79.671 [place] [address] [place] [id number] [place] [id number] Apr, [place] [address] [place] [id number] [place] [phone] Apr, Pre-diabetes R73.03 and Plan tar wart, right foot B07.0 [place] [address] [place] [id number] [place] [phone] Apr, [place] [address] [place] [id number] [place] [phone] Apr, [facility] [address] [place] [id number] [place] [phone] Mar, [place] [address] [place] [id number] [place] [phone] Mar, [place] [address] [id number] [address] [place] [phone] Mar, Hematuria R31.9 and Pre-diab etes R73.03 [place] [address] [id number] [address] [place] [phone] Feb, [place] [address] [id number] [address] [place] [id number] Feb, [place] [address] [id number] [address] [place] [phone] Feb, Abnormal fasting glucose R73 .01 [place] [address] [id number] [address] [place] [phone] Feb, Abnormal fasting glucose R73 .01 [place] [address] [facility] [id number] [address] [place] [phone] Feb, Routine gynecological examin ation Z01.419 ; General medical exam Z00.00 ; Screening breast examination Z12.39 ; Hematuria R31.9 ; Vaginal discharge N89.8 ; Vaginal yeast infection B37.3 and Recurrent UTI N39.0 [place] [address] [id number] [address] [place] [phone] Jan, Recurrent UTI N39.0 and Hist ory of solitary pulmonary nodule Z87.898 [place] [address] [id number] [address] [place] [phone] Jan, [place] [address] [id number] [address] [place] [phone] Jan, Recurrent UTI N39.0 ; Hematu vasu R31.9 and History of solitary pulmonary nodule Z87.898 [place] [address] [id number] [address] [place] [phone] Jan, [place] [address] [id number] [address] [place] [phone] Jan, Recurrent UTI N39.0 [facility] [address] [id number] [address] [place] [id number] Dec, [facility] [address] [facility] [id number] [address] [place] [phone] Dec, [facility] [address] [facility] [id number] [address] [place] [address] Dec, Acute cystitis with hematuri a N30.01 [facility] [address] [id number] [address] [place] [address] Dec, Acute cystitis with hematuri a N30.01 [facility] [address] [facility] [id number] [address] [place] [phone] Dec, Acute cystitis with hematuri a N30.01 and Insect bite (nonvenomous) of left upper arm, initial encounter S40.862A [facility] [address] [facility] [id number] [address] [place] [address] Nov, Acute cystitis with hematuri a N30.01 and Insect bite (nonvenomous) of left upper arm, initial encounter S40.862A [facility] [address] [facility] [id number] [address] [place] [phone] September, [facility] [address] [facility] [id number] [address] [place] [phone] September, [facility] [address] [id number] [address] [place] [phone] September, Acute cystitis with hematuri a N30.01 and Family history of diabetes mellitus Z83.3 [facility] [address] [facility] [id number] [address] [place] [phone] September, Family history of diabetes m eugenemary kay Z83.3 [facility] [address] [facility] [id number] [address] [place] [phone] September, Acute cystitis with hematuri a N30.01 [facility] [address] [facility] [id number] [address] [place] [phone] September, [facility] [address] [facility] [id number] [address] [place] [id number] September, Acute cystitis with hematuri a N30.01 [facility] [address] [facility] [id number] [address] [place] [phone] May, Back pain M54.9 and Urinary tract infection N39.0 [facility] [address] 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 and Solitary pulmonary nodule 793.11 [facility] [address] [place] [id number] [address] [place] [phone] Nov, [facility] [address] [place] [id number] [address] [place] [phone] Oct, Unspecified urinary incontin ence 788.30 ; 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 and Solitary pulmonary nodule 793.11 [facility] [address] [place] [id number] [address] [place] [phone] Oct, [facility] [address] [place] [id number] [address] [place] [phone] Oct, [facility] [address] [place] [id number] [address] [place] [phone] September, [facility] [address] [place] [id number] [place] [phone] Aug, [facility] [address] [place] [id number] [address] [place] [phone] Aug, [facility] [address] [id number] [address] [place] [address], [place] [address] 16 May, 2014 [facility] [address] [id number] [address] [place] [address], [place] [address] May, [facility] [address] [id number] [address] [place] [address], [place] [address] May, [facility] [address] [id number] [address] [place] [address], [place] [address] May, [facility] [address] [id number] [address] [place] [address], [place] [address] May, [facility] [address] [id number] [address] [place] [address], [place] [address] May, [facility] [address] [id number] [address] [place] [address], [place] [address] Apr, [facility] [address] [id number] [address] [place] [address], [place] [address] Apr, [facility] [address] [id number] [address] [place] [address], [place] [address] Feb, [facility] [address] [id number] [address] [place] [address], [place] [address] Feb, [facility] [address] [id number] [address] [place] [address], [place] [address] Dec, [facility] [address] [id number] [address] [place] [address], [place] [address] Nov, [facility] [address] [id number] [address] [place] [address], [place] [address] Nov, [facility] [address] [id number] [address] [place] [address], [place] [address] Nov, [facility] [address] [id number] [address] [place] [address], [place] [address] Nov, [facility] [address] [id number] [address] [place] [address], [place] [address] Nov, [facility] [address] [id number] [address] [place] [address], [place] [address] Nov, [facility] [address] [id number] [address] [place] [address], [place] [address] September, [facility] [address] [id number] [address] [place] [address], [place] [address] September, [facility] [address] [id number] [address] [place] [address], [place] [address] September, [facility] [address] [id number] [address] [place] [address], [place] [address] Aug, [facility] [address] [id number] [address] [place] [address], [place] [address] Aug, [facility] [address] [id number] [address] [place] [address], [place] [address] Aug, [facility] [address] [id number] [address] [place] [address], [place] [address] Aug, [facility] [address] [id number] [address] [place] [address], [place] [address] Jul, [facility] [address] [id number] [address] [place] [address], [place] [address] Jul, [facility] [address] [id number] [address] [place] [address], [place] [address] Jul, [facility] [address] [id number] [address] [place] [address], [place] [address] May, [facility] [address] [id number] [address] [place] [address], [place] [address] May, [facility] [address] [id number] [address] [place] [address], [place] [address] May, [facility] [address] [id number] [address] [place] [address], [place] [address] May, [facility] [address] [id number] [address] [place] [phone] Apr, [facility] [address] [id number] [address] [place] [address], [place] [address] Apr, [facility] [address] [id number] [address] [place] [address], [place] [address] Apr, [facility] [address] [id number] [address] [place] [address], [place] [address] 15 Feb, 2013 [facility] [address] [id number] [address] [place] [phone] 15 Feb, 2013 [facility] [address] [id number] [address] [place] [address], [place] [address] 25 Jan, 2013 [facility] [address] [id number] [address] [place] [address], [place] [address] 24 Jan, 2013 [facility] [address] [id number] [address] [place] [address], [place] [address] 18 Jan, 2013 [facility] [address] [id number] [address] [place] [address], [place] [address] 16 Jan, 2013 [facility] [address] [id number] [address] [place] [address], [place] [address] 12 Jan, 2013 [facility] [address] [id number] [address] [place] [address], [place] [address] 11 Jan, 2013 [facility] [address] [id number] [address] [place] [address], [place] [address] 05 Jan, 2013 [facility] [address] [id number] [address] [place] [address], [place] [address] Dec, [facility] [address] [id number] [address] [place] [address], [place] [address] 15 Dec, 2012 [facility] [address] [id number] [address] [place] [address], [place] [address] Dec, [facility] [address] [id number] [address] [place] [address], [place] [address] Dec, [facility] [address] [id number] [address] [place] [id number] Oct, [facility] [address] [id number] [address] [place] [address] Nov, [facility] [address] [id number] [address] [place] [phone] Mar, [facility] [address] [id number] [address] [place] [phone] Feb, [facility] [address] [id number] [address] [place] [phone] Feb, [facility] [address] [facility] [id number] [address] [place] [phone] Jul, IMMUNIZATIONS No Known Immunizations SOCIAL HISTORY Never Assessed REASON FOR VISIT 6 week f/uMariah Perdue RN PLAN OF CARE Activity Details Follow Up 3 Months Reason: VITAL SIGNS Height 65 in 2016-12-31 Blood pressure systolic 122 mmHg 2016-12-31 Blood pressure diastolic 74 mmHg 2016-12-31 MEDICATIONS Medication Instructions Dosage Frequency Start Date End Date Duration S tatus Glucocard Expression Monitor w/Device as directed Feb Active Glucocard Expression Test - In Vitro 2 times a day weekly test bloo d sugar Feb, Active Ondansetron 4 MG Orally every 8 hrs 1 tablet on the tong ue and allow to dissolve 8h Aug, 07 days Active RESULTS Name Result Date Reference Range GLUCOSE FINGERSTICK (IN HOUSE) GLU FINGERSTICK 81 PC 2 hours Lot # [id number] Exp date 07/23/2017 PROCEDURES Procedure Date Ordered Result Body Site GLUCOSE BLOOD TEST Dec 31, 2016 INSTRUCTIONS MEDICATIONS ADMINISTERED No Known Medications MEDICAL (GENERAL) HISTORY Type Description Date Medical History hearing loss Medical History Encopresis seen [facility] with Co lonosocopy 2014 and was told normal Medical History solitary pulmonary nodule LLL 415-[address] able rec yearly recheck Medical History diverticulitis Medical History Encopresis Medical History Diverticulitis of colon (wit hout mention of hemorrhage) Colonoscopy [facility] 2013 Medical History Solitary pulmonary nodule Surgical History tubal ligation Surgical History Colonoscopy [facility] 2015-
--- OUTSIDE RECORDS SUMMARY | 2019-12-18 09:50 | XMS REPORT | Continuity of Care Document ---
Demographics Preferred Language Unknown Marital Status Unknown Shinto Affiliation Unknown Race Unknown Ethnic Group Unknown Author Organization Unknown Address Unknown Phone Unavailable Allergies Active Description Code Type Severity Reaction Onset Reported/Identified Relationship to Patient Clinical Status Yes No Known Drug Allergies [id number] N/A N/A Yes tramadol [id number] Drug Allergy Unknown N/A 11/07/2018 Medications There is no data. Problems Date Dx Coded Attending Type Code Diagnosis Diagnosed By 04/07/1121 BINH AYALA DO Ot K22. 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 04/07/1121 BINH AYALA DO Ot Z01.812 ENCOUNTER FOR PREPROCEDURAL LABORATORY E 04/07/1121 BINH AYALA DO Ot Z20.828 CONTACT W AND EXPOSURE TO OTH VIRAL COMM 07/21/2010 079.99 VIR AL SYNDROME 07/21/2010 079.99 VIR AL SYNDROME 07/21/2010 079.99 VIR AL SYNDROME 07/21/2010 079.99 VIR AL SYNDROME 07/21/2010 CARLOZ LAGOS DO 079.99 VIRAL SYNDROME 07/21/2010 CARLOZ LAGOS DO 079.99 VIRAL SYNDROME 07/21/2010 DONNA BARBER APRN 079.99 VIRAL SYNDROME 07/21/2010 CARLOZ LAGOS DO 079.99 VIRAL SYNDROME 07/21/2010 CARLOZ LAGOS DO 079.99 VIRAL SYNDROME 07/21/2010 CARLOZ LAGOS DO 079.99 VIRAL SYNDROME 07/21/2010 FANNY ZARAGOZA PA-C 079.99 VIRAL SYNDROME 07/21/2010 CARLOZ LAGOS DO 079.99 VIRAL SYNDROME 12/31/2010 682.5 CELL ULITIS AND ABSCESS OF BUTTOCK 12/31/2010 786.2 COUGH 12/31/2010 682.5 CELL ULITIS AND ABSCESS OF BUTTOCK 12/31/2010 786.2 COUGH 12/31/2010 682.5 CELL ULITIS AND ABSCESS OF BUTTOCK 12/31/2010 786.2 COUGH 12/31/2010 682.5 CELL ULITIS AND ABSCESS OF BUTTOCK 12/31/2010 786.2 COUGH 12/31/2010 LAGOS DO, CARLOZ K [...] LAGOS DO, CARLOZ K 786.2 COUGH 12/31/2010 MILA COOMBSCFANNY 682.5 CELLULITIS AND ABSCESS OF BUTTOCK 12/31/2010 FANNY ZARAGOZA PA-C 786.2 COUGH 12/31/2010 LAGOS DO, CARLOZ K 682.5 CELLULITIS AND ABSCESS OF BUTTOCK 12/31/2010 LAGOS DO, CARLOZ K 786.2 COUGH 01/02/2011 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, METHICILLIN RESISTANT 01/02/2011 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, METHICILLIN RESISTANT 01/02/2011 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, METHICILLIN RESISTANT 01/02/2011 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, METHICILLIN RESISTANT 01/02/2011 LAGOS DO, CARLOZ K 041.12 MRSA, METHICILLIN RESISTANT 01/02/2011 LAGOS DO, CARLOZ K 041.12 MRSA, METHICILLIN RESISTANT 01/02/2011 KAYLEE BARBER APRNIA R 041.12 MRSA, METHICILLIN RESISTANT 01/02/2011 LAGOS DO, CARLOZ K 041.12 MRSA, METHICILLIN RESISTANT 01/02/2011 LAGOS DO, CARLOZ K 041.12 MRSA, METHICILLIN RESISTANT 01/02/2011 LAGOS DO, CARLOZ K 041.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, METHICILLIN RESISTANT 01/02/2011 FANNY ZRAAGOZA PA-C 041.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, METHICILLIN RESISTANT 01/02/2011 LAGOS DO, CARLOZ K 041.12 MRSA, METHICILLIN RESISTANT 02/23/2011 522.5 SAMEER APICAL ABSCESS WITHOUT SINUS 02/23/2011 522.5 SAMEER APICAL ABSCESS WITHOUT SINUS 02/23/2011 522.5 SAMEER APICAL ABSCESS WITHOUT SINUS 02/23/2011 522.5 SAMEER APICAL ABSCESS WITHOUT SINUS 02/23/2011 LAGOS DO, CARLOZ K 522.5 PERIAPICAL ABSCESS WITHOUT SINUS 02/23/2011 LAGOS DO, CARLOZ K 522.5 PERIAPICAL ABSCESS WITHOUT SINUS 02/23/2011 DONNA BARBER APRN R 522.5 PERIAPICAL ABSCESS WITHOUT SINUS 02/23/2011 LAGOS DO, CARLOZ K 522.5 PERIAPICAL ABSCESS WITHOUT SINUS 02/23/2011 LAGOS DO, CARLOZ K 522.5 PERIAPICAL ABSCESS WITHOUT SINUS 02/23/2011 LAGOS DO, CARLOZ K 522.5 PERIAPICAL ABSCESS WITHOUT SINUS 02/23/2011 FANNY ZARAGOZA PA-C 522.5 PERIAPICAL ABSCESS WITHOUT SINUS 02/23/2011 LAGOS DO, CARLOZ K 522.5 PERIAPICAL ABSCESS WITHOUT SINUS 04/05/2011 461.9 SINU SITIS ACUTE 04/05/2011 461.9 SINU SITIS ACUTE 04/05/2011 461.9 SINU SITIS ACUTE 04/05/2011 461.9 SINU SITIS ACUTE 04/05/2011 LAGOS DO, CARLOZ K 461.9 SINUSITIS ACUTE 04/05/2011 LAGOS DO, CARLOZ K 461.9 SINUSITIS ACUTE 04/05/2011 DONNA BARBER APRN R 461.9 SINUSITIS ACUTE 04/05/2011 LAGOS DO, CARLOZ K 461.9 SINUSITIS ACUTE 04/05/2011 LAGOS DO, CARLOZ K 461.9 SINUSITIS ACUTE 04/05/2011 LAGOS DO, CARLOZ K 461.9 SINUSITIS ACUTE 04/05/2011 FANNY ZARAGOZA PA-C 461.9 SINUSITIS ACUTE 04/05/2011 LAGOS DO, CARLOZ K 461.9 SINUSITIS ACUTE 05/30/2011 Ot 466.0 ACUT E BRONCHITIS 05/30/2011 Ot 786.2 COUGH 12/02/2011 924.9 BRUI SE/CONTUSION UNSPECIFIED SITE 12/02/2011 924.9 BRUI SE/CONTUSION UNSPECIFIED SITE 12/02/2011 924.9 BRUI SE/CONTUSION UNSPECIFIED SITE 12/02/2011 924.9 BRUI SE/CONTUSION UNSPECIFIED SITE 12/02/2011 LAGOS DO, CARLOZ K 924.9 BRUISE/CONTUSION UNSPECIFIED SITE 12/02/2011 LAGOS DO, CARLOZ K 924.9 BRUISE/CONTUSION UNSPECIFIED SITE 12/02/2011 DONNA BARBER APRN R 924.9 BRUISE/CONTUSION UNSPECIFIED SITE 12/02/2011 LAGOS DO, CARLOZ K 924.9 BRUISE/CONTUSION UNSPECIFIED SITE 12/02/2011 LAGOS DO, CARLOZ K 924.9 BRUISE/CONTUSION UNSPECIFIED SITE 12/02/2011 LAGOS DO, CARLOZ K 924.9 BRUISE/CONTUSION UNSPECIFIED SITE 12/02/2011 FANNY ZARAGOZA PA-C 924.9 BRUISE/CONTUSION UNSPECIFIED SITE 12/02/2011 LAGOS DO, CARLOZ K 924.9 BRUISE/CONTUSION UNSPECIFIED SITE 10/10/2012 465.9 UPPE R RESPIRATORY INFECTION 10/10/2012 465.9 UPPE R RESPIRATORY INFECTION 10/10/2012 465.9 UPPE R RESPIRATORY INFECTION 10/10/2012 465.9 UPPE R RESPIRATORY INFECTION 10/10/2012 LAGOS DO, CARLOZ K [...] K 465.9 UPPER RESPIRATORY INFECTION 12/11/2012 307.7 ENCO PRESIS 12/11/2012 788.30 URI NARY INCONTINENCE UNSPECIFIED 12/11/2012 307.7 ENCO PRESIS 12/11/2012 788.30 URI NARY INCONTINENCE UNSPECIFIED 12/11/2012 307.7 ENCO PRESIS 12/11/2012 788.30 URI NARY INCONTINENCE UNSPECIFIED 12/11/2012 LAGOS DO, CARLOZ K [...] K 788.30 URINARY INCONTINENCE UNSPECIFIED 01/11/2013 787.91 RANDI RRHEA 01/11/2013 787.91 RANDI RRHEA 01/11/2013 LAGOS DO, CARLOZ K 787.91 DIARRHEA 01/11/2013 LAGOS DO, CARLOZ K 787.91 DIARRHEA 01/11/2013 DONNA BARBER APRN R 787.91 DIARRHEA 01/11/2013 LAGOS DO, CARLOZ K 787.91 DIARRHEA 01/11/2013 LAGOS DO, CARLOZ K 787.91 DIARRHEA 01/11/2013 LAGOS DO, CARLOZ K 787.91 DIARRHEA 01/11/2013 FANNY ZARAGOZA PA-C 787.91 DIARRHEA 01/11/2013 LAGOS DO, CARLOZ K 787.91 DIARRHEA 05/14/2013 LAGOS DO, CARLOZ K 388.70 OTALGIA 05/14/2013 LAGOS DO, CARLOZ K 528.9 MOUTH PAIN 05/14/2013 DONNA BARBER APRN R 388.70 OTALGIA 05/14/2013 ELISABETH CARDENAS, DONNA R 528.9 MOUTH PAIN 05/14/2013 LAGOS DO, CARLOZ K 388.70 OTALGIA 05/14/2013 LAGOS DO, CARLOZ K 528.9 MOUTH PAIN 05/14/2013 LAGOS DO, CARLOZ K 388.70 OTALGIA 05/14/2013 LAGOS DO, CARLOZ K 528.9 MOUTH PAIN 05/14/2013 LAGOS DO, CARLOZ K 388.70 OTALGIA 05/14/2013 LAGOS DO, CARLOZ K 528.9 MOUTH PAIN 05/14/2013 MILA SIGALA, FANNY M 388.70 OTALGIA 05/14/2013 MILA SIGALA, FANNY Botello 528.9 MOUTH PAIN 05/14/2013 LAGOS DO, CARLOZ K 388.70 OTALGIA 05/14/2013 LGAOS DO, CARLOZ K 528.9 MOUTH PAIN 07/11/2013 ELISABETH CARDENAS, DONNA R 599.0 URINARY TRACT INFECTION 07/11/2013 LAGOS DO, CARLOZ K 599.0 URINARY TRACT INFECTION 07/11/2013 LAGOS DO, CARLOZ K 599.0 URINARY TRACT INFECTION 07/11/2013 LAGOS DO, CARLOZ K 599.0 URINARY TRACT INFECTION 07/11/2013 MILA SIGALA, FANNY Botello 599.0 URINARY TRACT INFECTION 07/11/2013 LAGOS DO, [...] 562.11 DIVERTICULITIS OF COLON (WITHOUT HEMORRHAGE) 08/14/2013 CARLOZ LAGOS DO 793.11 SOLITARY PULMONARY NODULE 08/14/2013 FANNY ZARAGOZA PA-C 562.11 DIVERTICULITIS OF COLON (WITHOUT HEMORRHAGE) 08/14/2013 FANNY ZARAGOZA PA-C 793.11 SOLITARY PULMONARY NODULE 08/14/2013 CARLOZ LAGOS DO K 562.11 DIVERTICULITIS OF COLON (WITHOUT HEMORRHAGE) 08/14/2013 CARLOZ LAGOS DO 793.11 SOLITARY PULMONARY NODULE 09/17/2013 LISA ERWIN 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 Ot 845.00 SPRAIN OF ANKLE NOS 09/17/2013 LISA ERWIN 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 Ot 959 .7 LOWER LEG INJURY NOS 09/17/2013 LISA ERWIN 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 Ot E000.8 OTHER EXTERNAL CAUSE STATUS 09/17/2013 LISA ERWIN 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 Ot E849.0 ACCIDENT IN HOME 09/17/2013 LISA ERWIN 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 Ot E927.0 OVEREXERTION FROM SUDDEN STRENUOUS MOVEM 04/12/2014 CARLOZ LAGOS DO K 466.0 BRONCHITIS, ACUTE 04/12/2014 CARLOZ LAGOS DO K 466.0 BRONCHITIS, ACUTE 04/12/2014 FANNY ZARAGOZA PA-C 466.0 BRONCHITIS, ACUTE 04/12/2014 CARLOZ LAGOS DO K 466.0 BRONCHITIS, ACUTE 05/21/2014 CARLOZ LAGOS DO K 729.82 CRAMP OF LIMB 05/21/2014 HERNANDEZ LAGOS DOA K V18.0 FAMILY HISTORY OF DIABETES MELLITUS 05/21/2014 CARLOZ LAGOS DO V77.99 SCREENING FOR OTHER AND UNSPECIFIED ENDOCRINE NUTRITIONAL METABOLIC AND IMMUNITY DISORDERS 05/21/2014 FANNY ZARAGOZA PA-C 729.82 CRAMP OF LIMB 05/21/2014 FANNY ZARAGOZA PA-C V18.0 FAMILY HISTORY OF DIABETES MELLITUS 05/21/2014 FANNY ZARAGOZA PA-C V77.99 SCREENING FOR OTHER AND UNSPECIFIED ENDO CRINE NUTRITIONAL METABOLIC AND IMMUNITY DISORDERS 05/21/2014 CARLOZ LAGOS DO 729.82 CRAMP OF LIMB 05/21/2014 HERNANDEZ LAGOS DOA K V18.0 FAMILY HISTORY OF DIABETES MELLITUS 05/21/2014 CARLOZ LAGOS DO K V77.99 SCREENING FOR OTHER AND UNSPECIFIED ENDOCRINE NUTRITIONAL METABOLIC AND IMMUNITY DISORDERS 08/22/2014 DEMOND ARTEAGA, CARLOZ Chahal 389.9 UNSPECIFIED HEARING LOSS 08/23/2014 MILA ESPARZA, FANNY M Ot 492 .8 08/23/2014 MILA ESPARZA, FANNY M Ot 562.11 08/23/2014 MILA ESPARZA, FANNY M Ot 599 .0 08/23/2014 MILA ESPARZA, FANNY M Ot 793.11 08/23/2014 MILA ESPARZA, FANNY M Ot 793.11 10/16/2014 MILA ESPARZA, FANNY M Ot 496 10/16/2014 MILA ESPARZA, FANNY M [...] WHYTE MD Ot R19.7 DIARRHEA, UNSPECIFIED 01/22/2016 FANNY SEGURA M Ot 492 .8 EMPHYSEMA NEC 01/22/2016 FANNY SEGURA M Ot 562.11 DIVERTICULITIS COLON (W/O MENT OF HEMORR 01/22/2016 FANNY SEGURA M Ot 599 .0 URIN TRACT INFECTION NOS 01/22/2016 FANNY SEGURA M Ot 793.11 SOLITARY PULMONARY NODULE 01/22/2016 FANNY SEGURA M Ot 793.11 SOLITARY PULMONARY NODULE 01/22/2016 FANNY SEGURA M Ot 496 CHR AIRWAY OBSTRUCT NEC 01/22/2016 FANNY SEGURA M Ot 793.11 SOLITARY PULMONARY NODULE 01/26/2016 MILA ESPARZA, FANNY M Ot 492 .8 EMPHYSEMA NEC 01/26/2016 MILA ESPARZA, FANNY M Ot 562.11 DIVERTICULITIS COLON (W/O MENT OF HEMORR 01/26/2016 FANNY SEGURA M Ot 599 .0 URIN TRACT INFECTION NOS 01/26/2016 FANNY SEGURA M Ot 793.11 SOLITARY PULMONARY NODULE 01/26/2016 FANNY SEGURA M Ot 793.11 SOLITARY PULMONARY NODULE 01/26/2016 FANNY SEGURA M Ot 496 CHR AIRWAY OBSTRUCT NEC 01/26/2016 PRASHANTH SEGURAUA M Ot 793.11 SOLITARY PULMONARY NODULE 01/26/2016 PRASHANTH SEGURAUA M Ot 492 .8 EMPHYSEMA NEC 01/26/2016 PRASHANTH SEGURAUA M Ot 562.11 DIVERTICULITIS COLON (W/O MENT OF HEMORR 01/26/2016 FANNY SEGURA M Ot 599 .0 URIN TRACT INFECTION NOS 01/26/2016 FANNY SEGURA M Ot 793.11 SOLITARY PULMONARY NODULE 01/26/2016 FANNY SEGURA M Ot 793.11 SOLITARY PULMONARY NODULE 01/27/2016 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11 SOLITARY PULMONARY NODULE 02/25/2016 PRASHANTH SEGURAUA M Ot 793.11 SOLITARY PULMONARY NODULE 02/25/2016 PRASHANTH SEGURAUA M Ot 496 CHR AIRWAY OBSTRUCT NEC 02/25/2016 SUDHA SEGURASHUA M Ot 793.11 SOLITARY PULMONARY NODULE 02/25/2016 SUMEET [employer] 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 DRIVER Ot R91 .1 SOLITARY PULMONARY NODULE 02/26/2016 SUMEET ISBELL 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 DRIVER Ot Z12.31 ENCNTR SCREEN MAMMOGRAM FOR MALIGNANT NE 02/27/2016 SUMEET ISBELL 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 DRIVER Ot R91 .1 SOLITARY PULMONARY NODULE 06/05/2017 ANGEL DO, YAMILEX K Ot J06.9 ACUTE UPPER RESPIRATORY INFECTION, UNSPE 06/05/2017 ANGEL DO, YAMILEX K Ot J40 BRONCHITIS, NOT SPECIFIED ACUTE OR CH 06/05/2017 ANGEL DO, YAMILEX K Ot R05 COUGH 06/05/2017 ANGEL DO, YAMILEX K Ot Z77.22 CNTCT W AND EXPSR TO ENVIRON TOBACCO SMO 06/05/2017 ANGEL DO, YAMILEX K Ot Z98.51 TUBAL LIGATION STATUS 06/07/2017 ANGEL DO, YAMILEX K Ot J06.9 ACUTE UPPER RESPIRATORY INFECTION, UNSPE 06/07/2017 ANGEL DO, YAMILEX K Ot J40 BRONCHITIS, NOT SPECIFIED ACUTE OR CH 06/07/2017 ANGEL DO, YAMILEX K Ot R05 COUGH 06/07/2017 ANGEL DO, YAMILEX K Ot Z77.22 CNTCT W AND EXPSR TO ENVIRON TOBACCO SMO 06/07/2017 ANGEL DO, YAMILEX K Ot Z98.51 TUBAL LIGATION STATUS 06/11/2017 ANGEL DO, YAMILEX K Ot J06.9 ACUTE UPPER RESPIRATORY INFECTION, UNSPE 06/11/2017 ANGEL DO, YAMILEX K Ot J40 BRONCHITIS, NOT SPECIFIED ACUTE OR CH 06/11/2017 ANGEL DO, YAMILEX K Ot R05 COUGH 06/11/2017 ANGEL DO, YAMILEX K Ot Z77.22 CNTCT W AND EXPSR TO ENVIRON TOBACCO SMO 06/11/2017 ANGEL DO, YAMILEX K Ot Z98.51 TUBAL LIGATION STATUS 10/31/2018 FANNY SEGURA Ot 492 .8 EMPHYSEMA NEC 10/31/2018 FANNY SEGURA Ot 562.11 DIVERTICULITIS COLON (W/O MENT OF HEMORR 10/31/2018 FANNY SEGURA Ot 599 .0 URIN TRACT INFECTION NOS 10/31/2018 FANNY SEGURA Ot 793.11 SOLITARY PULMONARY NODULE 10/31/2018 FANNY SEGURA Ot 793.11 SOLITARY PULMONARY NODULE 10/31/2018 FANNY SEGURA Ot 496 CHR AIRWAY OBSTRUCT NEC 10/31/2018 FANNY SEGURA Ot 793.11 SOLITARY PULMONARY NODULE 10/31/2018 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 8 OTHER ESOPHAGITIS 11/07/2018 BINH AYALA DO Ot K21. 9 GASTRO-ESOPHAGEAL REFLUX DISEASE WITHOUT 11/07/2018 BINH AYALA DO Ot K44. 9 DIAPHRAGMATIC HERNIA WITHOUT OBSTRUCTION 11/14/2018 BINH AYALA DO Ot K20. 8 OTHER ESOPHAGITIS 11/14/2018 BINH AYALA DO Ot K21. 9 GASTRO-ESOPHAGEAL REFLUX DISEASE WITHOUT 11/14/2018 BINH AYALA DO Ot K44. 9 DIAPHRAGMATIC HERNIA WITHOUT OBSTRUCTION 02/28/2019 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 Ot Z12.31 ENCNTR SCREEN MAMMOGRAM FOR MALIGNANT NE 02/28/2019 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 Ot Z12.31 ENCNTR SCREEN MAMMOGRAM FOR MALIGNANT NE 03/20/2019 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 Ot Z12.31 ENCNTR SCREEN MAMMOGRAM FOR MALIGNANT NE 06/26/2019 FRANTZ OSORIO MD Ot J10. 1 FLU DUE TO OTH IDENT INFLUENZA VIRUS W O 06/26/2019 FRANTZ OSORIO MD Ot K21. 9 GASTRO-ESOPHAGEAL REFLUX DISEASE WITHOUT 06/26/2019 FRANTZ OSORIO MD Ot R05 COUGH 06/26/2019 FRANTZ OSORIO MD Ot Z77. 22 CNTCT W AND EXPSR TO ENVIRON TOBACCO SMO 06/26/2019 FRANTZ OSORIO MD Ot Z98. 51 TUBAL LIGATION STATUS 06/28/2019 DEVON WHITE, FRANTZ Pruett Ot J10. 1 FLU DUE TO OTH IDENT INFLUENZA VIRUS W O 06/28/2019 FRANTZ OSORIO MD Ot K21. 9 GASTRO-ESOPHAGEAL REFLUX DISEASE WITHOUT 06/28/2019 FRANTZ OSORIO MD Ot R05 COUGH 06/28/2019 FRANTZ OSORIO MD Ot Z77. 22 CNTCT W AND EXPSR TO ENVIRON TOBACCO SMO 06/28/2019 FRANTZ OSORIO MD Ot Z98. 51 TUBAL LIGATION STATUS 10/25/2019 STEVE WHITE, ALISE L Ot R0 5 COUGH 10/25/2019 STEVE WHITE, ALISE L Ot R06.02 SHORTNESS OF BREATH 10/25/2019 STEVE WHITE, ALISE L Ot R53.83 OTHER FATIGUE 11/14/2019 STEVE WHITE, ALISE L Ot R0 5 COUGH 11/14/2019 STEVE WHITE, ALISE L Ot R06.02 SHORTNESS OF BREATH 11/14/2019 STEVE WHITE, ALISE L Ot R53.83 OTHER FATIGUE 11/29/2019 STEVE WHITE, ALISE L Ot R0 5 COUGH Procedures Code Description [place] [address] HEMOCCULT 12/21/2012 28125 HEMOCCULT 12/21/2012 57424 STOO L FOR POLYS & LEUKOCYTES 01/18/2013 02377 STOO L FOR O & P 01/18/2013 72336 FATS /LIPIDS FECES, QUAL 01/18/2013 General S Binh Ayala 02/14/2013 71302 UA L JONNY DIP 07/11/2013 17481 CULT URE URINE 07/11/[address] C HEST W/DYE 08/14/2013 88221 ROUT INE VENIPUNCTURE 05/21/2014 21998 CMP 05/21/2014 16880 A1C (IN-HOUSE) 05/21/2014 40938 LIPI D PANEL 08/06/2014 72496 ROUT INE VENIPUNCTURE 08/06/[address] C HEST W/O DYE 08/22/2014 77435 PURE TONE HEARING TEST AIR 08/22/2014 OTOLARYNG ARAM SILVA 08/22/2014 Results Test Result Range Urine Culture, Routine - 01/20/16 11:01 Urine Culture, Routine Note Urine Culture, Routine - 02/19/16 08:39 Urine Culture, Routine Note Comp. Metabolic Panel (14) - 02/19/16 08 :39 Glucose, Serum 114 mg/dL 65-99 BUN 17 mg/dL 6-24 Creatinine, Serum 0.82 mg/dL 0.57-1.00 eGFR If NonAfricn Am 79 mL/min/1.73 >59 eGFR If Africn Am 91 mL/min/1.73 >59 BUN/Creatinine Ratio 21 9-23 Sodium, Serum 144 mmol/L 134-144 Potassium, Serum 4.2 mmol/L 3.5-5.2 Chloride, Serum 104 mmol/L 97-108 Carbon Dioxide, Total 23 mmol/L 18-29 Calcium, Serum 9.0 mg/dL 8.7-10.2 Protein, Total, Serum 7.4 g/dL 6.0-8.5 Albumin, Serum 4.4 g/dL 3.5-5.5 Globulin, Total 3.0 g/dL 1.5-4.5 A/G Ratio 1.5 1.1-2.5 Bilirubin, Total 0.4 mg/dL 0.0-1.2 Alkaline Phosphatase, S 105 IU/L 39-117 AST (SGOT) 21 IU/L 0-40 ALT (SGPT) 19 IU/L 0-32 Lipid Panel - 02/19/16 08:39 Cholesterol, Total 187 mg/dL 100-199 Triglycerides 74 mg/dL 0-149 HDL Cholesterol 72 mg/dL >39 VLDL Cholesterol Maynor 15 mg/dL 5-40 LDL Cholesterol Calc 100 mg/dL 0-99 Genital Culture, Routine - 02/19/16 08:3 9 Genital Culture, Routine Note Pap Lb, HPV-hr - 02/19/16 08:39 HPV, high-risk Negative Negative DIAGNOSIS: Comment Specimen adequacy: Comment Clinician provided ICD10: Comment Performed by: Comment . . Pathologist provided ICD10: Comment Note: Comment CULTURE, URINE - 03/29/17 12:38 CULTURE, URINE, ROUTINE SEE NOTE NRG Complete blood count (CBC) with automate d white blood cell (WBC) differential - 06/05/17 17:15 Blood leukocytes automated count (number/volume) 7.2 10*3/uL 4.3-11.0 Blood erythrocytes automated count (number/volume) 5.19 10*6/uL 4.35-5.85 Venous blood hemoglobin measurement (mass/volume) 15.9 g/dL 11.5-16.0 Blood hematocrit (volume fraction) 47 % 35-52 Automated erythrocyte mean corpuscular volume 90 [ foz_us] 80-99 Automated erythrocyte mean corpuscular h emoglobin (mass per erythrocyte) 31 pg 25-34 Automated erythrocyte mean corpuscular h emoglobin concentration measurement (mass/volume) 34 g/dL 32-36 Automated erythrocyte distribution width ratio 14. 1 % 10.0- 14.5 Automated blood platelet count (count/volume) 195 10*3/uL 130-400 Automated blood platelet mean volume measurement 11.2 [foz_us] 7.4-10.4 Automated blood neutrophils/100 leukocytes 75 % 42-75 Automated blood lymphocytes/100 leukocytes 16 % 12-44 Blood monocytes/100 leukocytes 8 % 0-12 Automated blood eosinophils/100 leukocytes 1 % 0-10 Automated blood basophils/100 leukocytes 1 % 0-10 Blood neutrophils automated count (number/volume) 5.4 10*3 1.8-7.8 Blood lymphocytes automated count (number/volume) 1.1 10*3 1.0-4.0 Blood monocytes automated count (number/volume) 0. 6 10*3 0.0-1.0 Automated eosinophil count 0.1 10*3/uL 0 .0-0.3 Automated blood basophil count (count/volume) 0.0 10*3/uL 0.0-0.1 Comprehensive metabolic panel - 06/05/17 17:15 Serum or plasma sodium measurement (moles/volume) 137 mmol/L 135-145 Serum or plasma chloride measurement (moles/volume) 103 mmol/L 98-107 Carbon dioxide 22 mmol/L 21-32 Serum or plasma anion gap determination (moles/volume) 12 mmol/L 5-14 Serum or plasma urea nitrogen measurement (mass/volume ) 13 mg/dL 7-18 Serum or plasma creatinine measurement (mass/volume) 1.04 mg/dL 0.60-1.30 Serum or plasma urea nitrogen/creatinine mass ratio 13 NRG Serum or plasma creatinine measurement w ith calculation of estimated glomerular filtration rate 54 NRG Serum or plasma glucose measurement (mass/volume) 91 mg/dL 70-105 Serum or plasma calcium measurement (mass/volume) 9.3 mg/dL 8.5-10.1 Serum or plasma total bilirubin measurement (mass/volu me) 0.6 mg/dL 0.1-1.0 Serum or plasma alkaline phosphatase cecelia surement (enzymatic activity/volume) 96 U/L 40-136 Serum or plasma aspartate aminotransfera se measurement (enzymatic activity/volume) 45 U/L 5-34 Serum or plasma alanine aminotransferase measurement (enzymatic activity/volume) 24 U/L 0-55 Serum or plasma protein measurement (mass/volume) 9.3 g/dL 6.4-8.2 Serum or plasma albumin measurement (mass/volume) 4.2 g/dL 3.2-4.5 Influenza virus A and B antigen detectio n - 06/05/17 18:37 FLU RESULT NEGATIVE FOR INFLUENZA A AND B ANTIGENS BY [facility] Blood lactic acid measurement (moles/vol ume) - 06/05/17 18:50 Blood lactic acid measurement (moles/volume) 1.12 mmol/L 0.50-2.00 Comprehensive metabolic panel - 06/05/17 18:50 Serum or plasma sodium measurement (moles/volume) 138 mmol/L 135-145 Serum or plasma potassium measurement (moles/volume) 3.5 mmol/L 3.6-5.0 Serum or plasma chloride measurement (moles/volume) 105 mmol/L 98-107 Carbon dioxide 20 mmol/L 21-32 Serum or plasma anion gap determination (moles/volume) 13 mmol/L 5-14 Serum or plasma urea nitrogen measurement (mass/volume ) 14 mg/dL 7-18 Serum or plasma creatinine measurement (mass/volume) 0.85 mg/dL 0.60-1.30 Serum or plasma urea nitrogen/creatinine mass ratio 16 NRG Serum or plasma creatinine measurement w ith calculation of estimated glomerular filtration rate > NRG Serum or plasma glucose measurement (mass/volume) 97 mg/dL 70-105 Serum or plasma calcium measurement (mass/volume) 8.9 mg/dL 8.5-10.1 Serum or plasma total bilirubin measurement (mass/volu me) 0.6 mg/dL 0.1-1.0 Serum or plasma alkaline phosphatase cecelia surement (enzymatic activity/volume) 87 U/L 40-136 Serum or plasma aspartate aminotransfera se measurement (enzymatic activity/volume) 22 U/L 5-34 Serum or plasma alanine aminotransferase measurement (enzymatic activity/volume) 19 U/L 0-55 Serum or plasma protein measurement (mass/volume) 7.4 g/dL 6.4-8.2 Serum or plasma albumin measurement (mass/volume) 3.8 g/dL 3.2-4.5 Bacterial blood culture - 06/05/17 18:50 Bacterial blood culture NG NRG Bacterial blood culture - 06/05/17 18:57 Bacterial blood culture NG NRG CULTURE, URINE - 12/06/17 14:58 CULTURE, URINE, ROUTINE SEE NOTE NRG CBC - 02/07/18 08:49 WHITE BLOOD CELL COUNT 5.4 Thousand/uL 3 .8-10.8 RED BLOOD CELL COUNT 4.87 Million/uL 3.8 0-5.10 HEMOGLOBIN 14.8 g/dL 11.7-15.5 HEMATOCRIT 44.4 % 35.0-45.0 MCV 91.2 fL 80.0-100.0 MCH 30.4 pg 27.0-33.0 MCHC 33.3 g/dL 32.0-36.0 RDW 13.5 % 11.0-15.0 PLATELET COUNT 239 Thousand/uL 140-400 MPV 10.6 fL 7.5-12.5 ABSOLUTE NEUTROPHILS 2641 cells/uL 1500- 7800 ABSOLUTE LYMPHOCYTES 2230 cells/uL 850-3 900 ABSOLUTE MONOCYTES 389 cells/uL 200-950 ABSOLUTE EOSINOPHILS 119 cells/uL 15-500 ABSOLUTE BASOPHILS 22 cells/uL 0-200 NEUTROPHILS 48.9 % NRG LYMPHOCYTES 41.3 % NRG MONOCYTES 7.2 % NRG EOSINOPHILS 2.2 % NRG BASOPHILS 0.4 % NRG CULTURE, URINE - 04/18/18 14:02 CULTURE, URINE, ROUTINE SEE NOTE NRG CULTURE, URINE - 09/21/18 12:05 CULTURE, URINE, ROUTINE SEE NOTE NR ANEMIA PANEL - 11/23/18 08:14 IRON, TOTAL 74 mcg/dL 45-160 FERRITIN 136 ng/mL 16-288 IRON BINDING CAPACITY 284 mcg/dL (calc) 250-450 % SATURATION 26 % (calc) 16-45 CMP - 11/23/18 08:14 GLUCOSE 98 mg/dL 65-99 UREA NITROGEN (BUN) 15 mg/dL 7-25 CREATININE 0.94 mg/dL 0.50-0.99 eGFR NON-AFR. GERMAN 65 mL/min/1.73m2 > OR = 60 eGFR 75 mL/min/1.73m2 > OR = 60 BUN/CREATININE RATIO NOT APPLICABLE (calc) 6-22 SODIUM 142 mmol/L 135-146 POTASSIUM 4.2 mmol/L 3.5-5.3 CHLORIDE 107 mmol/L 98-110 CARBON DIOXIDE 27 mmol/L 20-32 CALCIUM 9.4 mg/dL 8.6-10.4 PROTEIN, TOTAL 6.9 g/dL 6.1-8.1 ALBUMIN 4.2 g/dL 3.6-5.1 GLOBULIN 2.7 g/dL (calc) 1.9-3.7 ALBUMIN/GLOBULIN RATIO 1.6 (calc) 1.0-2. 5 BILIRUBIN, TOTAL 0.5 mg/dL 0.2-1.2 ALKALINE PHOSPHATASE 87 U/L 33-130 AST 18 U/L 10-35 ALT 15 U/L 11-04 CBC - 11/23/18 08:14 WHITE BLOOD CELL COUNT 5.6 Thousand/uL 3 .8-10.8 RED BLOOD CELL COUNT 4.74 Million/uL 3.8 0-5.10 HEMOGLOBIN 14.3 g/dL 11.7-15.5 HEMATOCRIT 42.9 % 35.0-45.0 MCV 90.5 fL 80.0-100.0 MCH 30.2 pg 27.0-33.0 MCHC 33.3 g/dL 32.0-36.0 RDW 13.3 % 11.0-15.0 PLATELET COUNT 259 Thousand/uL 140-400 MPV 10.5 fL 7.5-12.5 ABSOLUTE NEUTROPHILS 2822 cells/uL 1500- 7800 ABSOLUTE LYMPHOCYTES 2206 cells/uL 850-3 900 ABSOLUTE MONOCYTES 470 cells/uL 200-950 ABSOLUTE EOSINOPHILS 73 cells/uL 15-500 ABSOLUTE BASOPHILS 28 cells/uL 0-200 NEUTROPHILS 50.4 % NRG LYMPHOCYTES 39.4 % NRG MONOCYTES 8.4 % NRG EOSINOPHILS 1.3 % NRG BASOPHILS 0.5 % NRG CULTURE, URINE - 12/04/18 15:04 CULTURE, URINE, ROUTINE SEE NOTE NRG Influenza virus A and B antigen detectio n - 06/26/19 10:10 CALL POSITIVES (F1 HELP) CALL TO [facility] IN ER AT 1110 NR FLU RESULT POSITIVE FOR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
[2019-12-18] MEDS ORDERED: LACTATED RINGERS 1,000 ML IV PRN (11:15)
[2019-12-18] MEDS ORDERED: HURRICAINE EXT TUBE (BENZOCAINE) XX PRN (11:15)
[2019-12-18] MEDS ORDERED: PROPOFOL INJECTION 50 ML IV ONE (12:53)
--- NOTE | 2019-12-18 14:10 | Progress Note-Pre Operative ---
Pre-Operative Progress Note H&P Reviewed The H&P was reviewed, patient examined and no changes noted. Date Seen by Provider: Dec 18, 2019 Time Seen by Provider: 14:08 Date H&P Reviewed: Dec 18, 2019 Time H&P Reviewed: 14:08 Pre-Operative Diagnosis: hx pope's family history of colon cancer, fecal incontinance BINH AYALA DO Dec 18, 2019 14:10
--- NOTE | 2019-12-18 15:00 | Progress Note-Post Operative ---
Post-Operative Progess Note Surgeon (s)/Cash Manager (s) Surgeon BINH AYALA DO Cash Manager: na Pre-Operative Diagnosis hx pope's family history of colon cancer, fecal incontinance Post-Operative Diagnosis hiatal hernia, pope's, colon polyp x 2, rectal mucosal change Procedure & Operative Findings Date of Procedure 12/18/19 Procedure Performed/Findings egd c biopsies, colonoscopy c snare polypectomy, hot bx polypectomy and cold biopsy rectal mucosal change Anesthesia Type per supervisor pumping Estimated Blood Loss Estimated blood loss (mL): none Specimens/Packing Specimens Removed antrum, ge, ascending colon polyp rectal polyp rectal mucosa BINH AYALA DO Dec 18, 2019 15:00
--- NOTE | 2019-12-18 15:04 | Discharge Inst-Simple/Standard ---
Discharge Inst-Standard Patient Instructions/Follow Up Plan of Care/Instructions/FU: 2 weeks Tammi Activity as Tolerated: Yes Discharge Diet: Regular Diet BINH AYALA DO Dec 18, 2019 15:04
--- NOTE | 2019-12-18 15:22 | Anesthesia-General Post-Op ---
MAC Patient Condition Mental Status/LOC: Same as Preop Cardiovascular: Satisfactory Nausea/Vomiting: Absent Respiratory: Satisfactory Pain: Controlled Complications: Absent Post Op Complications Complications None Follow Up Care/Instructions Patient Instructions None needed. Anesthesiology Discharge Order Discharge Order Patient is doing well, no complaints, stable vital signs, no apparent adverse anesthesia problems. No complications reported per nursing. GLADYS JACOBS CRNA Dec 18, 2019 15:22
--- NOTE | 2019-12-18 22:58 | OPERATIVE REPORT ---
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 POSTOPERATIVE DIAGNOSES: Hiatal hernia, Mcduffie's, colon polyp x2, rectal mucosal change. PROCEDURE: EGD with biopsies, colonoscopy with snare polypectomy of the ascending colon polyp, hot biopsy polypectomy of rectal polyp and cold biopsy of rectal mucosal change. SURGEON: Binh Cadena DO ANESTHESIA: Per OLIVE GROWER. ESTIMATED BLOOD LOSS: None. COMPLICATIONS: None. INDICATIONS: The patient is a 64-year-old female with history of colon polyps and history of Mcduffie's and family history of colon cancer. The patient understands risks and benefits of procedure and wished to proceed with procedure. Consent was signed in the chart. DESCRIPTION OF PROCEDURE: The patient was taken to the endoscopy suite, placed in left lateral recumbent position. Timeout was performed. Scope was inserted in mouth, down the esophagus, stomach and into the duodenum without difficulty. There were no polyps, masses or ulcerations in the duodenum. Scope was slowly retracted back into the stomach where it was further insufflated. No polyps, masses or ulcerations. Biopsy of the antrum was obtained. Scope was retroflexed noting hiatal hernia, small. Scope was returned to its normal position, slowly withdrawn to the distal esophagus. Four quadrant biopsies were obtained. The area of Mcduffie's, which had Mcduffie's appearance. Scope was then slowly retracted back until completely removed noting no other pathology. Digital rectal exam was performed. There were no palpable polyps, masses or ulcerations. Scope was inserted in the rectum and advanced all the way to cecum with minimal difficulty. Prep was adequate. Scope was then slowly retracted back. There were no polyps, masses or ulcerations within the cecum. In the ascending colon, a small polyp was present, which snare polypectomy was performed and suction for pathology. Scope was then continuously slowly retracted back. No other polyps, masses or ulcerations were visualized through the remainder of the ascending, transverse and descending colon and in the sigmoid colon. Once in the rectum, small polyp was present, which hot biopsy polypectomy was performed. There were a slight erythematous mucosal change throughout the rectum, which a cold biopsy was obtained. Scope was retroflexed noting no other pathology. Scope was returned to its normal position, slowly withdrawn until completely removed. The patient tolerated procedure well without any complications. She was taken to recovery room in stable condition. RECOMMENDATIONS: The patient will need repeat colonoscopy in 5 years. Any changes before that, she should be reevaluated at that time. The patient to continue on Protonix at this time, await biopsy results. The patient will follow up in the office in two to three weeks. The patient will need repeat EGD in 2 to 3 years for further surveillance of her Mcduffie's. 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
== END 2019-12-18 15:45 | disposition home or self-care (01) ==
LOC: ENDO 09:21
PROVIDERS: ATTEND Surgery
DX: D12.2 Benign neoplasm of ascending colon (principal); K62.1 Rectal polyp; B37.81 Candidal esophagitis; K44.9 Diaphragmatic hernia without obstruction or gangrene; K22.70 Barrett's esophagus without dysplasia; K29.50 Unspecified chronic gastritis without bleeding; K21.0 Gastro-esophageal reflux disease with esophagitis; K63.89 Other specified diseases of intestine; Z86.010 Personal history of colon polyps; Z80.0 Family history of malignant neoplasm of digestive organs; Z88.5 Allergy status to narcotic agent
CPT/HCPCS: 88305; 88312

== ENCOUNTER 2020-08-12 13:33 | Emergency (ER) | payer MEDICAID ==
[~2020-08-12] VITALS: Ht 165.1 cm; Wt 65.7 kg
[~2020-08-12 13:33] MED LIST changes: -PANT40TA3 PO; +PANT40TA52 PO
[2020-08-12 13:38] VITALS: BP 125/82
--- NOTE | 2020-08-12 14:00 | ED Lower Extremity ---
General Chief Complaint: Lower Extremity Stated Complaint: L KNEE PAIN FELL Source: patient Exam Limitations: no limitations History of Present Illness Date Seen by Provider: Aug 12, 2020 Time Seen by Provider: 13:50 Initial Comments Patient is a 64-year-old female who presents to the emergency department today with a chief complaint of left knee pain after a fall. Patient states that she was washing her car and walking around the car when she slipped and fell onto her knees. Patient states that she suffered an abrasion to both knees. She complains of the left knee is more swollen and painful. Patient states it hurts to fully extend the left leg. No numbness tingling or weakness is reported. Patient denies hip pain and ankle pain. She did suffer an abrasion to the right hand. Last tetanus shot was less than a year ago. Onset: this morning Pain/Injury Location: left knee Method of Injury: fell Modifying Factors: Worse With Movement Allergies and Home Medications Allergies Coded Allergies: tramadol (Verified Allergy, Unknown, 11/07/18) Home Medications Pantoprazole Sodium 40 Mg Tablet.dr, 40 MG PO DAILY, (Reported) Patient Home Medication List Home Medication List Reviewed: Yes Review of Systems Constitutional: see HPI EENTM: no symptoms reported Respiratory: no symptoms reported Cardiovascular: no symptoms reported Gastrointestinal: no symptoms reported Musculoskeletal: joint pain (Left knee) Past Xcqwwzm-[id number]-Ybddmr Hx Patient Social History Type Used: Cigarettes 2nd Hand Smoke Exposure: Yes Recent Hopitalizations: No Seasonal Allergies Seasonal Allergies: No Past Medical History Surgeries: Yes (cataracts) Tubal Ligation Respiratory: No (gets SOB) Cardiac: No 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 0.0oz. [id number]; 26.85 BMI Method:Stated General Appearance: WD/WN, no apparent distress Cardiovascular: regular rate, rhythm, other (Distal pulses intact) Respiratory: no respiratory distress, no accessory muscle use Hips: bilateral hip non-tender, bilateral hip normal inspection, bilateral hip normal range of motion, bilateral hip no evidence of injury Legs: bilateral leg non-tender, bilateral leg normal inspection, bilateral leg normal range of motion, bilateral leg no evidence of injury Knees: left knee pain (Medial infrapatellar swelling with an abrasion tenderness to palpation), left knee soft tissue tenderness, left knee swelling, left knee other (Tenderness with anterior and posterior drawer but no laxity) Ankles: bilateral ankle non-tender, bilateral ankle normal inspection, bilateral ankle normal range of motion, bilateral ankle no evidence of injury Feet: bilateral foot non-tender, bilateral foot normal inspection, bilateral foot normal range of motion, bilateral foot no evidence of injury Neurologic/Tendon: normal sensation, normal motor functions, normal tendon functions Neurologic/Psychiatric: no motor/sensory deficits, alert, normal mood/affect, oriented x 3 Skin: normal color, warm/dry, other (Abrasions to both knees, small abrasion noted over the MCP joint of the right fourth finger) Progress/Results/Core Measures Results/Orders My Orders Orders - YOLY GOMEZ MD Knee, Left, 2 Views (Ap & Lat) (08/12/20 13:53) Departure Impression Primary Impression: Contusion of knee Qualified Codes: S80.02XA - Contusion of left knee, initial encounter Additional Impressions: Abrasion of right hand Qualified Codes: S60.511A - Abrasion of right hand, initial encounter Abrasion, right knee, initial encounter Disposition: 01 HOME, SELF-CARE Condition: Stable Departure-Patient Inst. Decision time for Depature: 13:59 Referrals: ALISE WILSON MD (PCP/Family) Primary Care Physician Patient Instructions: Contusion (DC) Add. Discharge Instructions: Was the abrasions gently with soap and water. Take over the counter ibuprofen 2-3 pills (400-600mg) every 6 hours with food as needed for pain. Ice pack to the left knee as needed for swelling and discomfort. Follow up with your primary physician as needed. YOLY GOMEZ MD Aug 12, 2020 14:00
[2020-08-12] MEDS ORDERED: IBUPROFEN TABLET 200 MG TAB PO ONE (14:15)
--- NOTE | 2020-08-12 14:15 | Diagnostic Imaging Report ---
INDICATION: Fall. COMPARISON: December 14, 2017. TECHNIQUE: Two radiographs of the left knee dated August 12, 2020. FINDINGS: No acute fracture or dislocation. No destructive osseous process. Minimal medial joint space narrowing. Minimal osteophytosis. No joint effusion. No suspicious radiopaque foreign body. IMPRESSION: No acute osseous abnormality with minimal degenerative changes. Dictated by: Dictated on workstation # [id number]
== END 2020-08-12 14:09 | disposition home or self-care (01) ==
LOC: EDUNIT# 13:33 → ER 13:35
DX: S80.02XA Contusion of left knee, initial encounter (principal); S60.414A Abrasion of right ring finger, initial encounter; S80.211A Abrasion, right knee, initial encounter; Z88.5 Allergy status to narcotic agent; Z77.22 Contact with and (suspected) exposure to environmental tobacco smoke (acute) (chronic); W01.0XXA Fall on same level from slipping, tripping and stumbling without subsequent striking against object, initial encounter
CPT/HCPCS: 73560

== ENCOUNTER → 2021-04-23 | Outpatient (CLI) | payer MEDICAID ==
--- NOTE | 2021-04-23 11:11 | Diagnostic Imaging Report ---
INDICATION: Shortness of air and cough. TIME OF EXAM: 10:46 a.m. COMPARISON: Correlation is made with prior chest 10/23/2019. FINDINGS: The heart size is normal. The pulmonary vascularity is unremarkable. The lungs are clear. No infiltrate, effusion or pneumothorax is detected. IMPRESSION: No acute cardiopulmonary process is detected. Dictated by: Dictated on workstation # [id number]
== END ==
LOC: RAD 09:48
PROVIDERS: ATTEND Nurse Practitioner Family
DX: R06.02 Shortness of breath (principal); R05.9 Cough, unspecified
CPT/HCPCS: 71046

== ENCOUNTER 2021-05-18 13:07 | Emergency (ER) | payer MEDICAID ==
[~2021-05-18] VITALS: Ht 162.6 cm; Wt 63.5 kg
[2021-05-18] MEDS ORDERED: NS IV 1000 ML 1,000 ML IV STA (13:27)
--- NOTE | 2021-05-18 13:33 | ED Cough/URI ---
General Chief Complaint: COVID19 Suspect/Confirmed Stated Complaint: COVID +,COUGH,SOB Source: patient Exam Limitations: no limitations History of Present Illness Date Seen by Provider: May 18, 2021 Time Seen by Provider: 13:34 Initial Comments Patient is a 65-year-old female who presents ED with cough and shortness of breath. She states she tested positive for Covid 7 days ago. Symptoms started around 10 days ago with bodyaches and fatigue and generalized weakness. Cough and shortness of breath over the past 2 days. She denies history of coronary artery disease, CHF, COPD or asthma. Currently on prednisone and recently finished azithromycin according to patient. She is not hypoxic, tachycardic or febrile on arrival. She denies any vomiting or diarrhea. She appears in no acute respiratory distress. Patient with a steady gait here in the ED. She states she feels dehydrated. Denies headache, dizziness, sore throat, ear pain, neck pain. Allergies and Home Medications Allergies Coded Allergies: tramadol (Verified Allergy, Unknown, 11/07/18) Patient Home Medication List Home Medication List Reviewed: Yes Albuterol Sulfate (Ventolin Hfa) 1 Puff Puff, 2 PUFF INH Q4H Prescribed by: ISAIAS TORRES on 05/18/21 1528 Doxycycline Monohydrate (Doxycycline Monohydrate) 100 Mg Tablet, 100 MG PO BID Prescribed by: ISAIAS TORRES on 05/18/21 1528 Pantoprazole Sodium (Pantoprazole Sodium) 40 Mg Tablet.dr, 40 MG PO DAILY, (Reported) Entered as Reported by: SAMIR ESCOBAR on 12/12/19 0941 Review of Systems Review of Systems Constitutional: chills, malaise, weakness EENTM: No eye pain, No nose congestion, No throat pain Respiratory: cough; No orthopnea; short of breath Gastrointestinal: No abdominal pain, No diarrhea, No nausea, No vomiting Genitourinary: No decreased output, No discharge Musculoskeletal: No back pain, No gout Skin: No change in color, No change in hair/nails Psychiatric/Neurological: Denies Anxiety, Denies Depressed All Other Systems Reviewed Negative Unless Noted: Yes Past Hqczdmz-Ekatvq-Funkts Hx Patient Social History Tobacco Use?: No Use of E-Cig and/or Vaping dev: No Substance use?: No Alcohol Use?: No Immunizations Up To Date Tetanus Booster (TDap): Unknown Influenza Vaccine Up-to-Date: No; Not Current First/Initial COVID19 Vaccinat: NONE Second COVID19 Vaccination Chidi: NONE Third COVID19 Vaccination Date: NONE COVID19 Vaccine 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 Seasonal Allergies Seasonal Allergies: No Past Medical History Surgeries: Yes (cataracts) Tubal Ligation Respiratory: No (gets SOB) Cardiac: No 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 0.0oz. 72.417394uo; 24.00 BMI Method:Stated General Appearance: WD/WN, no apparent distress Eyes: Bilateral Eye Normal Inspection, Bilateral Eye PERRL, Bilateral Eye EOMI HEENT: PERRL/EOMI, normal ENT inspection, TMs normal, pharynx normal Neck: non-tender, full range of motion, supple, normal inspection Respiratory: chest non-tender, no respiratory distress, no accessory muscle use, decreased breath sounds Cardiovascular: regular rate, rhythm, no edema, no gallop, no JVD Gastrointestinal: normal bowel sounds, non tender, soft, no organomegaly Extremities: normal range of motion, non-tender, normal inspection, no pedal edema Skin: normal color, warm/dry Progress/Results/Core Measures Suspected Sepsis SIRS Temperature: Pulse: Respiratory Rate: Laboratory Tests 05/18/21 13:27: White Blood Count 8.1 Blood Pressure / Mean: Laboratory Tests 05/18/21 13:27: Creatinine 0.91, Platelet Count 208, Total Bilirubin 0.5 Results/Orders Lab Results Laboratory Tests Test 05/18/21 13:27 Range/Units White Blood Count 8.1 4.3-11.0 10^3/uL Red Blood Count 5.37 H 3.80-5.11 10^6/uL Hemoglobin 16.1 H 11.5-16.0 g/dL Hematocrit 48 35-52 % Mean Corpuscular Volume 89 80-99 fL Mean Corpuscular Hemoglobin 30 25-34 pg Mean Corpuscular Hemoglobin Concent 34 32-36 g/dL Red Cell Distribution Width 14.5 10.0-14.5 % Platelet Count 208 130-400 10^3/uL Mean Platelet Volume 11.4 9.0-12.2 fL Immature Granulocyte % (Auto) 0 % Neutrophils (%) (Auto) 66 42-75 % Lymphocytes (%) (Auto) 27 12-44 % Monocytes (%) (Auto) 7 0-12 % Eosinophils (%) (Auto) 0 0-10 % Basophils (%) (Auto) 0 0-10 % Neutrophils # (Auto) 5.4 1.8-7.8 10^3/uL Lymphocytes # (Auto) 2.2 1.0-4.0 10^3/uL Monocytes # (Auto) 0.6 0.0-1.0 10^3/uL Eosinophils # (Auto) 0.0 0.0-0.3 10^3/uL Basophils # (Auto) 0.0 0.0-0.1 10^3/uL Immature Granulocyte # (Auto) 0.0 0.0-0.1 10^3/uL D-Dimer 0.87 H 0.00-0.49 UG/ML Sodium Level 143 135-145 MMOL/L Potassium Level 3.4 L 3.6-5.0 MMOL/L Chloride Level 110 H 98-107 MMOL/L Carbon Dioxide Level 20 L 21-32 MMOL/L Anion Gap 13 5-14 MMOL/L Blood Urea Nitrogen 17 7-18 MG/DL Creatinine 0.91 0.60-1.30 MG/DL Estimat Glomerular Filtration Rate 62 BUN/Creatinine Ratio 19 Glucose Level 86 70-105 MG/DL Calcium Level 8.7 8.5-10.1 MG/DL Corrected Calcium 8.8 8.5-10.1 MG/DL Total Bilirubin 0.5 0.1-1.0 MG/DL Aspartate Amino Transf (AST/SGOT) 35 H 5-34 U/L Alanine Aminotransferase (ALT/SGPT) 32 0-55 U/L Alkaline Phosphatase 59 40-136 U/L Troponin I < 0.028 <0.028 NG/ML C-Reactive Protein High Sensitivity 2.17 H 0.00-0.50 MG/DL B-Type Natriuretic Peptide 49.2 <100.0 PG/ML Total Protein 7.7 6.4-8.2 GM/DL Albumin 3.9 3.2-4.5 GM/DL Procalcitonin 0.06 <0.10 NG/ML My Orders Orders - GARY CASTRO Cbc With Automated Diff (05/18/21 13:27) Comprehensive Metabolic Panel (05/18/21 13:27) Hs C Reactive Protein (05/18/21 13:27) Procalcitonin (Pct) (05/18/21 13:27) Chest 1 View, Ap/Pa Only (05/18/21 13:27) Bnp [place] (05/18/21 13:27) Troponin I [place] (05/18/21 13:27) Ekg Tracing (05/18/21 13:27) Ns Iv 1000 Ml (Sodium Chloride 0.9%) (05/18/21 13:27) Fibrin Degradation Products (05/18/21 13:33) Ct Angio Chest W (05/18/21 14:00) Iohexol Injection (Omnipaque 350 Mg/Ml 1 (05/18/21 14:15) Received Contrast (Hold Metformin- Contr (05/18/21 14:15) Ns (Ivpb) (Sodium Chloride 0.9% Ivpb Bag (05/18/21 14:15) Medications Given in ED Current Medications Medications Dose Ordered Sig/Levon Route Start Time Stop Time Status Last Admin Dose Admin Iohexol 100 ml ONCE ONCE IV 05/18/21 14:15 05/18/21 14:16 DC 05/18/21 14:49 61 ML Sodium Chloride 100 ml ONCE ONCE IV 05/18/21 14:15 05/18/21 14:16 DC 05/18/21 14:49 80 ML Vital Signs/I&O 05/18/21 13:16 Temp 36.1 Pulse 90 Resp 22 B/P (MAP) 145/80 (101) Pulse Ox 96 O2 Delivery Room Air Capillary Refill : Departure Communication (Admissions) Patient presents ED with cough and shortness of breath. Tested positive for Covid outpatient. Patient vital signs stable. EKG sinus rhythm at 76 bpm. Cardiac work-up unremarkable. Elevated D-dimer. CT angio chest negative for PE positive for Covid pneumonia. Currently on prednisone. Will discharge with doxycycline for any coverage of atypical infection secondary to Covid. Discharged with albuterol inhaler. Discussed pulse ox to monitor oxygen level at home. Walking oxygen above 92%. She appears no acute distress. Lab work otherwise unremarkable. Outpatient follow-up at this time. Patient symptoms have been ongoing for 10 days. Patient does not need supplemental oxygen at this time. Patient does not appear toxic or septic. Impression Primary Impression: COVID-19 Additional Impression: Pneumonia Disposition: 01 HOME, SELF-CARE Condition: Stable Departure-Patient Inst. Decision time for Depature: 15:27 Referrals: ALISE WILSON MD (PCP/Family) Primary Care Physician Patient Instructions: COVID-19 Overview Scripts Doxycycline Monohydrate (Doxycycline Monohydrate) 100 Mg Tablet 100 MG PO BID for 7 Days, #14 TAB Prov: GARY CASTRO 05/18/21 Albuterol Sulfate (VENTOLIN HFA) 1 Puff Puff 2 PUFF INH Q4H, #1 EA 1 PUFF = 90 MCG Prov: GARY CASTRO 05/18/21 GARY CASTRO May 18, 2021 13:33
[2021-05-18 13:36] LABS: BASOPHILS % (AUTO) 0 % (0-10); EOSINOPHILS % (AUTO) 0 % (0-10); HEMATOCRIT 48 % (35-52); HEMOGLOBIN 16.1 g/dL (11.5-16.0); LYMPHOCYTES # (AUTO) 2.2 10^3/uL (1.0-4.0); LYMPHOCYTES % (AUTO) 27 % (12-44); MEAN CORPUSCULAR HEMOGLOBIN 30 pg (25-34); MEAN CORPUSCULAR HGB CONC 34 g/dL (32-36); MEAN CORPUSCULAR VOLUME 89 fL (80-99); MEAN PLATELET VOLUME 11.4 fL (9.0-12.2); MONOCYTES # (AUTO) 0.6 10^3/uL (0.0-1.0); MONOCYTES % (AUTO) 7 % (0-12); NEUTROPHILS # (AUTO) 5.4 10^3/uL (1.8-7.8); NEUTROPHILS % (AUTO) 66 % (42-75); PLATELET COUNT 208 10^3/uL (130-400); WHITE BLOOD COUNT 8.1 10^3/uL (4.3-11.0)
[2021-05-18 13:52] LABS: ALBUMIN 3.9 GM/DL (3.2-4.5); CHLORIDE 110 MMOL/L (98-107); POTASSIUM 3.4 MMOL/L (3.6-5.0); SODIUM 143 MMOL/L (135-145)
[2021-05-18 13:53] LABS: CALCIUM 8.7 MG/DL (8.5-10.1)
[2021-05-18 13:55] LABS: GLUCOSE 86 MG/DL (70-105); TOTAL PROTEIN 7.7 GM/DL (6.4-8.2)
[2021-05-18 13:56] LABS: BILIRUBIN,TOTAL 0.5 MG/DL (0.1-1.0); CARBON DIOXIDE 20 MMOL/L (21-32)
[2021-05-18 13:58] LABS: ALKALINE PHOSPHATASE 59 U/L (40-136); CREATININE SERUM 0.91 MG/DL (0.60-1.30); GFR ESTIMATED 62
[2021-05-18 13:59] LABS: BUN/CREATININE RATIO 19
[2021-05-18 14:01] LABS: ALANINE AMINOTRANSFERASE 32 U/L (0-55)
[2021-05-18] MEDS ORDERED: IOHEXOL 350 MG/ML 100 ML (OMNIPAQUE 350) VIAL IV ONE (14:15)
[2021-05-18] MEDS ORDERED: HOLD METFORMIN - RECEIVED CONTRAST 20 ML VIAL IV SCH (14:15)
[2021-05-18] MEDS ORDERED: NS 100 ML (IVPB) BAG IV ONE (14:15)
--- NOTE | 2021-05-18 14:28 | Diagnostic Imaging Report ---
INDICATION: Shortness of air and cough. TIME OF EXAM: 2:08 p.m. COMPARISON: Comparison is made with prior chest radiograph from 04/23/2021. FINDINGS: Heart size is normal. Patient has developed infiltrate in the right upper and right lower lobes suggestive of pneumonia. Left lung is clear. The pulmonary vascularity is normal. No effusion or pneumothorax is detected. IMPRESSION: Development of right-sided infiltrate consistent with pneumonia. Dictated by: Dictated on workstation # [id number]
--- NOTE | 2021-05-18 15:01 | Diagnostic Imaging Report ---
PROCEDURE: CT angiography of the chest with contrast. TECHNIQUE: Multiple contiguous axial images were obtained through the chest after uneventful bolus administration of intravenous contrast. 3D reconstructed CTA MIP acquisitions were also performed. Auto Exposure Controls were utilized during the CT exam to meet ALARA standards for radiation dose reduction. INDICATION: Cough and positive for COVID 19. COMPARISON is made with a noncontrast CT chest from 01/26/2016. Evaluation of the pulmonary arterial system is without evidence of thromboembolism. No filling defects are seen within central, lobar segmental branches. The thoracic aorta is normal caliber. There is no dissection. No pericardial or pleural fluid is detected. There are some patchy peripheral based ground-glassed infiltrates in the right upper and right lower lobe consistent with COVID 19 pneumonia. Left lung is fairly clear. Very subtle areas of ground glass infiltrate in the left upper and left lower lobe are noted. The upper abdomen is unremarkable. IMPRESSION: 1. No evidence of pulmonary embolism or acute aortic disease. 2. Right-sided ground-glassed pulmonary infiltrates consistent with COVID 19 pneumonia. Dictated by: Dictated on workstation # [id number]
[2021-05-18] MEDS ORDERED: RT-ALBUINH INH (15:28)
[2021-05-18] MEDS ORDERED: DOXY100T31 PO (15:28)
[2021-05-18 16:00] VITALS: BP 131/70
== END 2021-05-18 16:00 | disposition home or self-care (01) ==
LOC: EDUNIT# 13:07 → ER 13:09
DX: U07.1 COVID-19 (principal); J18.9 Pneumonia, unspecified organism
CPT/HCPCS: 36415; 71045; 71275; 80053; 83880; 84145; 84484; 85025; 85379; 86141; 93005

== ENCOUNTER 2022-08-25 05:42 | Outpatient (CLI) | payer MEDICARE, MEDICAID ==
[~2022-08-25] VITALS: Ht 165.1 cm; Wt 63.5 kg
[~2022-08-25 05:42] MED LIST changes: +DOXY100T31 PO; +RT-ALBUINH INH
== END 2022-08-26 13:16 | disposition home or self-care (01) ==
LOC: PREOP 05:42
PROVIDERS: ATTEND Surgery
DX: Z01.818 Encounter for other preprocedural examination (principal)

== ENCOUNTER 2022-09-07 09:14 | Day surgery (SDC) | payer MEDICARE, MEDICAID ==
[2022-09-07] VITALS (8 sets, daily range): BP systolic 82–133; BP diastolic 54–72
[~2022-09-07] VITALS: Ht 165.1 cm; Wt 63.5 kg
--- NOTE | 2022-09-07 13:19 | OPERATIVE REPORT ---
DATE OF SERVICE: 09/07/2022 PREOPERATIVE DIAGNOSIS: Mcduffie's esophagus. POSTOPERATIVE DIAGNOSES: Ulcerations, erosions in distal esophagus, Mcduffie's esophagus. PROCEDURE: EGD with biopsies. SURGEON: Binh Cadena DO. ANESTHESIA: Per STREET OPENINGS INSPECTOR. ESTIMATED BLOOD LOSS: None. COMPLICATIONS: None. SPECIMENS: Distal esophagus. INDICATIONS: The patient is a 66-year-old female with history of Mcduffie's esophagus. She understands risks and benefits of procedure and wished to proceed. Consent was signed in chart. DESCRIPTION OF PROCEDURE: The patient was taken to endoscopy suite, placed in left lateral recumbent position. Timeout was performed. Scope was inserted in the mouth, down the esophagus, stomach and the duodenum without difficulty. No polyps, masses or ulcerations within the duodenum. Scope was slowly retracted back into stomach where it was further insufflated. No polyps, masses or ulcerations. Scope was retroflexed noting a small hiatal hernia, no other pathology. Scope was returned to its normal position, slowly withdrawn until distal esophagus, noting some changes of Mcduffie's and also some linear ulcerations. Biopsies 4 quadrants were obtained. Scope was then slowly retracted back until completely removed, noting no other pathology. The patient tolerated the procedure well, no complications, taken to recovery room in stable condition. RECOMMENDATIONS: The patient will be started on Carafate 1 gram 4 times daily. We will also continue her on pantoprazole. Await biopsy results. Would consider repeating endoscopy in about 8 weeks for reevaluation to make sure this has healed. If she has symptoms would also consider medication changes. Job ID: [id number] DocumentID: [id number] Dictated Date: 09/07/2022 13:00:44 Doctor Of Dental Medicine Date: 09/07/2022 13:18:00 Dictated By: BINH CADENA DO [facility]
[2022-09-07] MEDS ORDERED: LACTATED RINGERS 1,000 ML IV ONE (14:20)
[2022-09-07] MEDS ORDERED: HURRICAINE EXT TUBE (BENZOCAINE) ONE (14:20)
--- NOTE | 2022-09-07 14:47 | Anesthesia-General Post-Op ---
MAC Patient Condition Mental Status/LOC: Same as Preop Cardiovascular: Satisfactory Nausea/Vomiting: Absent Respiratory: Satisfactory Pain: Controlled Complications: Absent Post Op Complications Complications None Follow Up Care/Instructions Patient Instructions None needed. Anesthesiology Discharge Order Discharge Order Patient is doing well, no complaints, stable vital signs, no apparent adverse anesthesia problems. No complications reported per nursing. GLADYS JACOBS CRNA September 07, 2022 14:47
[2022-09-08] MEDS ORDERED: LACTATED RINGERS 1,000 ML IV STA (13:34)
[2022-09-08] MEDS ORDERED: HURRICAINE EXT TUBE (BENZOCAINE) XX PRN (13:45)
== END 2022-09-07 13:35 | disposition home or self-care (01) ==
LOC: ENDO 09:14
PROVIDERS: ATTEND Surgery
DX: K22.70 Barrett's esophagus without dysplasia (principal); K44.9 Diaphragmatic hernia without obstruction or gangrene

== ENCOUNTER 2022-12-08 05:36 | Outpatient (CLI) | payer MEDICARE, MEDICAID ==
[~2022-12-08] VITALS: Ht 165 cm; Wt 65.7 kg
[2022-12-09] MEDS ORDERED: SUCR1TAB PO (10:51)
== END 2022-12-09 10:56 | disposition home or self-care (01) ==
LOC: PREOP 05:36
PROVIDERS: ATTEND Surgery
DX: Z01.818 Encounter for other preprocedural examination (principal)